=== PATIENT | male | born 1945 | race Caucasian/White ===

== ENCOUNTER 2024-01-15 13:22 | Outpatient (RCR) | payer OTHER, SELFPAY | END 2024-02-08 23:59 | disposition home or self-care (01) | LOC: SCTC 13:22 | PROVIDERS: PCP Family Medicine; Referring Provider Family Medicine; Visit Provider Internal Medicine Hematology & Oncology | DX: Z51.11 Encounter for antineoplastic chemotherapy (principal); C61 Malignant neoplasm of prostate; Z87.19 Personal history of other diseases of the digestive system; E03.9 Hypothyroidism, unspecified; N18.6 End stage renal disease; Z99.2 Dependence on renal dialysis; D63.1 Anemia in chronic kidney disease | CPT/HCPCS: 96402; J9217 ==

== ENCOUNTER → 2024-01-28 | Outpatient (CLI) | payer OTHER, SELFPAY ==
[2024-01-28 15:54] LABS: Collection Type, Urine Clean Catch
[2024-01-28 16:57] LABS: Bacteria,Urine Rare; Bilirubin,Urine Negative (Negative); Blood,Urine 1+ (Negative); Color,Urine Yellow (Lt Yel-Yel); Glucose, Urine Negative (Negative); Ketones,Urine Negative (Negative); Leukocyte Esterase,Urine Positive (Negative); Nitrite,Urine Negative (Negative); PH,Urine 6.5 (5.0-7.0); Protein,Urine 1+ (Neg - Trace); RBC,Urine 6 /hpf (0-3); Specific Gravity,Urine 1.013 (1.001-1.035); Squamous Epithelial Cell,Urine < 1 /hpf (0-5); Urobilinogen,Urine Negative mg/dL (0.0-1.0); WBC,Urine 774 /hpf (0-5)
[2024-01-28 17:04] LABS: Clarity,Urine Hazy (Clear/Hazy); Culture Indicated,Urine Yes
== END | disposition home or self-care (01) ==
LOC: SLDO 15:48
PROVIDERS: PCP Internal Medicine; Referring Provider Internal Medicine; Visit Provider Internal Medicine
DX: Z01.89 Encounter for other specified special examinations (principal)
CPT/HCPCS: 81001; 87077; 87086; 87186

== ENCOUNTER → 2024-02-10 | Outpatient (CLI) | payer OTHER, SELFPAY ==
[2024-02-10 10:59] LABS: Basophils % (Auto) 0 % (0-2.5); Eosinophils # (Auto) 0.4 Thou/mm3 (0.0-0.5); Eosinophils % (Auto) 5 % (0-10); Hematocrit 34.6 % (41.0-53.0); Hemoglobin 11.3 g/dL (13.5-16.0); Immature Granulocytes % (Auto) 0 % (0-0); Immature Granulocytes Auto 0.03 Thou/mm3 (0.00-0.00); Lymphocytes # (Auto) 1.1 Thou/mm3 (1.0-4.8); Lymphocytes % (Auto) 14 % (10-50); Mean Corpuscular HGB Conc 32.7 g/dl (31.0-37.0); Mean Corpuscular Volume 95 fL (80-100); Monocytes # (Auto) 0.8 Thou/mm3 (0.0-0.8); Monocytes % (Auto) 10 % (0-12); Neutrophils # (Auto) 5.8 Thou/mm3 (1.8-7.7); Neutrophils % (Auto) 72 % (37-80); Nucleated Red Blood Cell % 0 /100 WBC (0); Platelet Count 127 Thou/mm3 (140-440); Red Blood Count 3.64 Miln/mm3 (4.50-5.90); White Blood Count 8.2 Thou/mm3 (3.8-10.6)
[2024-02-10 11:07] LABS: Prostate Specific Antigen 19.81 ng/mL (0-4.00)
[2024-02-10 12:32] LABS: Alanine Aminotransferase 14 U/L (10-49); Albumin/Globulin Ratio 1.5 (1.2-2.2); Alkaline Phosphatase 101 U/L (46-116); Anion Gap 15 (7-16); Aspartate Amino Transferase 17 U/L (0-34); BUN/Creatinine Ratio 12 Ratio (12-20); Bilirubin,Total 0.4 mg/dL (0.3-1.2); Blood Urea Nitrogen 51 mg/dL (9-23); Carbon Dioxide 24.1 mMol/L (20.0-31.0); Chloride 103 mMol/L (98-107); Creatinine (Component) 4.2 mg/dL (0.6-1.3); Globulin 2.6 gm/dL (2.3-3.5); Glucose 112 mg/dL (74-106); Osmolality,Calculated 297 (275-295); Potassium 3.5 mMol/L (3.4-5.1); Sodium 142 mMol/L (136-145); Total Protein 6.6 gm/dL (5.7-8.2); eGFR 14 See Note
== END | disposition home or self-care (01) ==
LOC: SCTO 09:14
PROVIDERS: PCP Family Medicine; Referring Provider Internal Medicine Hematology & Oncology; Visit Provider Internal Medicine Hematology & Oncology
DX: D64.9 Anemia, unspecified (principal); C61 Malignant neoplasm of prostate
CPT/HCPCS: 36415; 80053; 84153; 85025

== ENCOUNTER 2024-02-12 14:24 | Outpatient (RCR) | payer OTHER, SELFPAY ==
--- NOTE | 2024-02-23 21:28 | CTCFLWUP_ITS ---
Patient: ARTURO QUEZADA : 1945 Page 2 of 2 FOLLOW UP NOTE DATE OF SERVICE: 02/12/2024 NAME: ARTURO QUEZADA ACCOUNT: [id number] : 1945 AGE: 79 REASON FOR VISIT: Biochemical failure localized prostate cancer INTERVAL HISTORY: Patient is here to follow-up on prostate cancer. Patient has been on Lupron and Xtandi which was sta rted on April 10, 2022. Patient is doing well and has no complaints Arturo Quezada is a 79-year-old ENG speaking male with following oncology history. April 2010: Mr. Quezada was diagnosed with [place] score 7 prostate cancer. Treated with EBRT and Zoladex for 1 year. Until 2016: PSA less than 0.1. O ctober 2019: PSA 3.1. August 25, 2020 PSA 10.8. 09/07/2020: Bone scan? 08/25/2020: PSA 10.8 09/21/2020: Patient was started on Lupron every 3 months as well as Casodex. 12/02/2020: PSA 2.6. 12/21/2020: PSA 1.3. 03/24/2021: PSA 0.9. 02/21/2021: Mr. Quezada had a bilateral ureteral stent placement 04/10/2022: Patient is started on enzalutamide (Xtandi) 05/08/2023: Colonoscopy done 05/16/2023: Bone scan ? 05/22/2023: Bone marrow biopsy and aspiration? WBC 8.8, ANC 6.4, hemoglobin 10.5, MCV 93, platelets 185,000. 05/21/2023: PSA 4.35. 07/22/2023: PSA 6.23. 08/15/2023: PET/CT scan 09/26/2023: PSA 7.89. ONCOLOGY HISTORY: DIAGNOSIS: PSA only recurrent nonmetastatic prostate cancer. Progressed on Lupron. Currently on Lupron and Xtandi. Xtandi started on 04/10/2022 End-stage renal disease currently on hemodialysis Hypothyroidism currently on levothyroxine. History of chronic kidney disease DATE OF DIAGNOSIS: April 2010 STAGE/TNM: Localized prostate cancer with a [place] score 7 s/p external beam radiotherapy and Lupron for 1 year PSA started rising up. Patient have not documented metastatic disease still now TREATMENT HISTORY: Care?Plan Start?Date Cycle Day Intent Lupron?22.5?mg?q?3?mon 06/26/2023 1 90 Palliative OTHER MEDICAL HISTORY/CONDITIONS: ENDSTAGE RENAL ON DYALYSIS 3 TIMES WK PROSATE CANCER COPD THYROID ISSUES STROKE 2018 GALLBLADDER HEMRRHOIDECTOMY 1989 KIDNEY STONES CATRACTS FISTULA R ARM ?Clone Other Med Hx? FAMILY HISTORY: Father:?LUNG?-?DX?70 Mother:?UNKNOWN Sibling: BROTHER PROSTATE X 2 dx age 82 and 65 ?Clone Family Hx? SOCIAL HISTORY: Occupational?History:?RETIRED Education?Level:?Completed High School Marital?Status:? Tobacco?Pack?per?Day:?1 Tobacco?Use?Years:?40 Tobacco?Use:?QUIT?2008 ETOH?Use:?DENIES Drug?Note:?DENIES Social?History?Note:?DAUGHTER/?Clone Social Hx? MEDICATIONS: 1. atorvastatin - 40 mg Daily 2. calcium acetate - 667 mg 1 tab Three times a day 3. docusate sodium - 100 mg 2 tab Daily 4. fluticasone propion-salmeteroL - 100-50 mcg/dose 2 Daily 5. gabapentin - 100 mg Daily 6. levothyroxine - 100 microgram Daily 7. melatonin - 10 mg 1 tab Every day before sleep 8. Nephro-Matt - 1 tab Daily 9. nortriptyline - 25 mg 1 Capsule Daily 10. pantoprazole - 40 mg 1 Twice a Day 11. prednisone - 5 mg 1 tab Daily 12. tamsulosin - 0.4 mg 1 Capsule Daily 13. traZODone - 100 mg 1 tab Every day before sleep 14. Vitamin C - 1,000 mg 1 tab Daily 15. Zytiga - 500 mg 2 tab Daily?Palabra Meds? Medications Last Reconciled by Leti Lai MA on 02/12/2024 ALLERGIES: No Known Drug Allergies REVIEW OF SYSTEMS: A complete 14-point review of systems was performed and is negative except as noted in interval histo ry. PHYSICAL EXAMINATION:?CloneBlock PE? VITAL SIGNS: Temperature?97.4, B/P?134/72, Oxygen?Saturation?95% Weight?198?lbs (Change?since?11/6/24 :?-2.2?lbs) PAIN: 3 - Between mild and moderate pain ECOG Performance Status: 0 - Asymptomatic and fully active EYE: Conjunctivae is white MOUTH: Oral cavity is dry. CHEST: Clear to auscultation. No wheezes or rales audible. CARDIAC: Rhythm regular, no murmurs or gallops present. ABDOMEN: Soft. No hepatomegaly. No splenomegaly. EXTREMITIES: No pedal edema or cyanosis. LABORATORY DATA: I have personally reviewed and interpreted each of the patient?s relevant lab tests, abnormal finding s are below: Date 02/23/24 ??WHITE?BLOOD?COUNT?(Thou/mm3) 16.1?H ??RED?BLOOD?COUNT?(Miln/mm3) 2.29?L ??HEMOGLOBIN?(gm/dl) 7.2?L ??HEMATOCRIT?(%) 22.1?L ??PLATELET?COUNT?(Thou/mm3) 240 ??NEUTROPHILS?%,?AUTO?(%) 76 ??LYMPH?%,?AUTO?(%) 15 ??NEUTROPHILS,?AUTO?(Thou/mm3) 12.2?H IMPRESSION/PLAN: #1 prostate cancer with biochemical failure PSA has increased to more than [address] scan showed normal hypermetabolic intra-abdominal lymph node s as documented above. PSA only recurrent nonmetastatic prostate cancer. Progressed on Xtandi. Was switched to Zytiga and prednisone at the last visit Patient tolerating it well Discussed that pat ient may be not responding to Zytiga Will give Lupron shot SERA If patient have further progression in PSA we will change therapy Patient is very reluctant to change treatment to chemotherapy or to travel for therapy Will wait for next se t of PSA Continue Zytiga and prednisone for now Extensively counseled that patient cannot miss his pr ednisone as it can lead to stroke and accelerated hypertension and myocardial infarction He has a his tory of underlying stomach ulcers Patient is on sucralfate and proton pump inhibitor Advised to take prednisone with food Patient: ARTURO QUEZADA Patient understand that it can cause perforation in the stomach Will get his scan ? pet scan #2 history of gastric ulcers Patient follows with Dr. Stewart advised to continue follow-up with gastr oenterology #3 hypothyroidism currently on levothyroxine.-Stable #4 chronic kidney [id number] with nephrology #5 chronic anemia likely from chemotherapy as well as CKD Closely monitor. ORDERS: PET/CT scan Cbc cmp psa RETURN TO CLINIC: I will see him back in the clinic in 4 weeks. BILLING AND COMPLIANCE: I reviewed external records from providers outside my specialty as summarized above. I spent a total of 50 minutes on this patient?s care on the day of their visit excluding time spent related to any bi lled procedures. This time includes time spent with the patient as well as time spent documenting in the medical record, reviewing patients records and tests, obtaining history, placing orders, communi cating with other healthcare professionals, counseling the patient, family or caregiver, and/or care coordination for the diagnoses above. Electronically Signed by: Maikol Ramírez MD T: 9:26 PM CC: PCP: Shen Skelton Referring: Shen Skelton This document was completed utilizing speech recognition software. Grammatical errors, random word in sertions, pronoun errors, and incomplete sentences are an occasional consequence of this system due t o software limitations, ambient noise, and hardware issues. Any formal questions or concerns about th e content, text or information contained within the body of this dictation should be directly address ed to the provider for clarification.
== END 2024-03-10 23:59 | disposition home or self-care (01) ==
LOC: SCTC 14:24
PROVIDERS: PCP Family Medicine; Referring Provider Family Medicine; Visit Provider Internal Medicine Hematology & Oncology
DX: C61 Malignant neoplasm of prostate (principal); E03.9 Hypothyroidism, unspecified; D64.9 Anemia, unspecified; Z87.19 Personal history of other diseases of the digestive system
CPT/HCPCS: 99212; G0463

== ENCOUNTER 2024-02-23 11:58 | Inpatient (IN) | payer OTHER, MEDICARE, SELFPAY ==
[2024-02-23] VITALS (9 sets, daily range): BP systolic 103–126; BP diastolic 52–66; PULSE 79–109; RESP 14–23; TEMP 36.4–36.9; O2SAT 96–100; BMI 25.7
--- NOTE | 2024-02-23 12:12 | EKG_ITS ---
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
--- NOTE | 2024-02-23 12:23 | EDRME_ITS ---
Rapid Medical Screening Exam [facility] Arrival date/time: 02/23/24 11:58 Chief Complaint: GI Bleed Vital signs: Vital Signs Temperature 97.6 F 02/23/24 12:19 Pulse Rate 103 H 02/23/24 12:19 Respiratory Rate 19 02/23/24 12:19 Blood Pressure 106/61 02/23/24 12:19 Pulse Oximetry (%) 98 02/23/24 12:19 Oxygen Delivery Method Room Air 02/23/24 12:19 [facility] Narrative: Reports black stools x 4 days. History of GI bleed, ruptured ulcers. Patient c/o generalized weakness and mild dizziness.
[2024-02-23 13:05] LABS: Basophils % (Auto) 0 % (0-2.5); Eosinophils # (Auto) 0.2 Thou/mm3 (0.0-0.5); Eosinophils % (Auto) 1 % (0-10); Hematocrit 22.1 % (41.0-53.0); Immature Granulocytes % (Auto) 1 % (0-0); Lymphocytes # (Auto) 2.5 Thou/mm3 (1.0-4.8); Lymphocytes % (Auto) 15 % (10-50); Mean Corpuscular HGB Conc 32.6 g/dl (31.0-37.0); Mean Corpuscular Hemoglobin 31.4 pg (25.0-35.0); Mean Corpuscular Volume 97 fL (80-100); Monocytes # (Auto) 1.1 Thou/mm3 (0.0-0.8); Monocytes % (Auto) 7 % (0-12); Neutrophils # (Auto) 12.2 Thou/mm3 (1.8-7.7); Neutrophils % (Auto) 76 % (37-80); Nucleated Red Blood Cell % 0 /100 WBC (0); Platelet Count 240 Thou/mm3 (140-440); RDW Standard Deviation 52.4 fL (35.1-43.9); Red Blood Count 2.29 Miln/mm3 (4.50-5.90); White Blood Count 16.1 Thou/mm3 (3.8-10.6)
[2024-02-23 13:20] LABS: Partial Thromboplastin Time 22.8 Seconds (22.0-36.0)
[2024-02-23 13:23] LABS: Alanine Aminotransferase 10 U/L (10-49); Albumin/Globulin Ratio 1.7 (1.2-2.2); Alkaline Phosphatase 74 U/L (46-116); Anion Gap 12 (7-16); Aspartate Amino Transferase 11 U/L (0-34); BUN/Creatinine Ratio 20 Ratio (12-20); Bilirubin,Total 0.2 mg/dL (0.3-1.2); Blood Urea Nitrogen 72 mg/dL (9-23); Calcium 8.4 mg/dL (8.3-10.6); Calcium (Corrected) 8.4 mg/dL (8.5-10.1); Chloride 98 mMol/L (98-107); Creatinine (Component) 3.6 mg/dL (0.6-1.3); Globulin 2.4 gm/dL (2.3-3.5); Glucose 233 mg/dL (74-106); Hemoglobin 7.2 g/dL (13.5-16.0); Lipase 90 U/L (12-53); Osmolality,Calculated 302 (275-295); Potassium 3.2 mMol/L (3.4-5.1); Sodium 137 mMol/L (136-145); Total Protein 6.4 gm/dL (5.7-8.2); Troponin I < 0.020 ng/mL (0.0-0.045); eGFR 16 See Note
--- NOTE | 2024-02-23 14:11 | PD.EDADULT ---
ED General RME/HPI General Chief complaint: GI Bleed Stated complaint: WEAK x2 D,BLACK STOOL x 4 DAY, CONGESTED x 10 DAYS Time Seen by Provider: 02/23/24 12:38 Arrival date/time: 02/23/24 11:58 CC: Black tarry stools HPI ongoing for the past 4 days. The patient has a history of GI bleeds was seen by Dr. Stewart in June 2023 for hemorrhagic gastritis and chronic duodenitis. Patient is ESRD on dialysis with a history of prostate cancer. Review the medical records show that the last hemoglobin was 11.2. 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 RME / HPI RME / HPI narrative: Reports black stools x 4 days. History of GI bleed, ruptured ulcers. Patient c/o generalized weakness and mild dizziness. Related Data Home Medications ?Medication ?Instructions ?Recorded ?Confirmed levothyroxine 100 mcg tablet 100 mcg PO QDAY #0 tabs 12/19/16 02/23/24 atorvastatin 40 mg tablet 1 tab PO HS 08/01/21 02/23/24 docusate sodium 100 mg tablet 100 mg PO BID 11/07/21 02/23/24 trazodone 50 mg tablet 100 mg PO QDAY 01/30/22 02/23/24 calcium acetate(phosphat bind) 667 667 mg PO TID 06/27/22 02/23/24 mg capsule gabapentin 100 mg capsule 100 mg PO QDAY 06/27/22 02/23/24 tamsulosin 0.4 mg capsule 0.4 mg PO QDAY 10/26/22 02/23/24 fluticasone 100 mcg-salmeterol 50 1 inh inhalation BID 02/04/23 02/23/24 mcg/dose blistr powdr for inhalation ascorbic acid (vitamin C) 100 mg 100 mg PO QDAY 05/22/23 02/23/24 tablet (Vitamin C) leuprolide (3 month) 22.5 mg (3 See Rx Instructions .Route .COMPLEX 05/22/23 02/23/24 month) intramuscular syringe kit (Lupron Depot) prednisone 5 mg tablet 5 mg PO QDAY 11/22/23 02/23/24 abiraterone 250 mg tablet 250 mg PO QDAY 02/23/24 02/23/24 sitagliptin 25 mg tablet 25 mg PO QDAY 02/23/24 02/23/24 sucralfate 1 gram tablet 1 g PO BID 02/23/24 02/23/24 nicotine (polacrilex) 4 mg buccal 4 mg buccal Q2H PRN Smoking 02/24/24 02/24/24 lozenge Cessation prednisolone acetate 1 % eye 1 drp ophthalmic (eye) QID 02/24/24 02/24/24 drops,suspension Previous Rx's ?Medication ?Instructions ?Recorded pantoprazole 40 mg tablet,delayed 40 mg PO BID #60 tabs 05/08/23 release (Protonix) Allergies Allergy/AdvReac Type Severity Reaction Status Date / Time No Known Allergies Allergy Verified 02/23/24 12:11 Review of Systems Review of Systems Narrative Review of Systems: GEN: No fever, no chills, no weight loss EYES: No discharge, no visual changes, no pain HEENT: No ear pain, no congestion, no sore throat PULM: No shortness of breath, no cough, no congestion CV: No chest pain, no dyspnea on exertion, no palpitations GI: No nausea, no vomiting, no diarrhea, no pain, no constipation : No frequency, no urgency, no dysuria MUSC/SKEL: No joint pain, no back pain SKIN: No rash PSYCH: No hallucinations, no depression HEME/LYMPH: No easy bleeding or bruising tendencies NEURO: +weakness, no headache Past Medical History Past Medical History NEUROLOGIC: Positive Neurological Disorders, Cerebrovascular Accident, Transient Ischemic Attacks (TIA), Brain Tumor (tumor left frontal lobe) and Migraine; Negative Seizures or Dyson's Palsy CARDIAC: Positive Cardiac Disorders, Heart Murmur and Hypercholesterolemia; Negative Congestive Heart Failure, Edema, Cellulitis or Varicose Veins RESPIRATORY: Positive Chronic Obstructive Pulmonary Disease (COPD), Asthma, Emphysema and Pneumonia; Negative Tuberculosis or Sleep Apnea GASTROINTESTINAL: Positive Gastrointestinal Disorders, Gall Bladder Disease, Ulcer, Hemorrhoids and Gastroesophageal Reflux Disease; Negative Hepatitis GENITOURINARY: Positive Genitourinary Disorders, Renal Disease, Kidney Stones, Dialysis (, , Saturdays- has fistula left arm), Prostate Cancer and Benign Prostatic Hyperplasia MUSCULOSKELETAL: Positive Musculoskeletal Disorders and Arthritis ENT: Positive Cataracts and Deafness (wear hearing aids both ears) ENDOCRINE: Positive Endocrine Disorders, Diabetes Mellitus Type 2 and Hypothyroidism; Negative Diabetes Mellitus Type 1 HEMATOLOGIC: Positive Blood Disorders and Anemia PSYCHO/SOCIAL: Positive Depression, Anxiety and Post Traumatic Stress Disorder; Negative Depression OTHER HISTORY: Positive Hospitalization, Shingles, Blood Transfusions, Chemotherapy, Radiation Therapy, Chicken Pox, Measles, Mumps, Cancer and Prostate Cancer; Negative Autoimmune Disease, Falls, Blood Transfusion Reaction, Anesthesia Reactions or MRSA Family History FAMILY HISTORY: Positive Family Psychiatric Problems, Family Respiratory Disorders, Family Cardiac Disorders, Family Cancer and Family Surgery; Negative Family Gastrointestinal Problems or Family Anesthesia Reaction Surgical History SURGICAL: Positive Angiogram, Ear Surgery, Nephrectomy and Vasectomy; Negative Cardiac Surgery, Pacemaker or Joint Replacement Social History SMOKING STATUS: Never smoker SECOND HAND EXPOSURE: No SUBSTANCE USE: does not use ED Exam Narrative Physical exam: [General: Obese not in any acute distress Head normocephalic HEENT: Within acceptable limits Neck is supple nontender Chest equal chest rise nontender to palpation Respiratory: Clear to auscultation no wheezes crackles or rubs CV: Rate rhythm is regular no murmurs rubs or clicks Abdomen is distended secondary to body habitus soft nontender no masses positive bowel sounds all 4 quadrants Back: No CVA tenderness no spinous process tenderness from cervical spine thoracic and lumbar spine Skin: Pale, intact no petechiae rash induration ulceration or crepitus Extremities: Moving all extremity against resistance cap refill less than 2 seconds neurosensory intact Neuro: Awake alert oriented x2, Glascow coma 15 no focal deficits] Course Quality Measures none Orders Category Date Time Status EKG (ED ONLY) *Do not use* NOW Care 02/23/24 12:12 Completed NPO after Midnight ONCE Care 02/23/24 14:37 Active Saline [Insert IV] NOW Care 02/23/24 14:10 Completed Transfuse,blood/blood products NOW Care 02/23/24 14:10 Active Consult to Gastroenterology Stat Cons 02/23/24 14:36 Ordered Diet NPO after Midnight Diet 02/24/24 00:01 Completed EKG (ED Only) Stat Exams 02/23/24 12:12 Draft CBC Stat Lab 02/23/24 12:51 Completed CMP [Comprehensive Metabolic Panel] Stat Lab 02/23/24 12:51 Completed Lipase Stat Lab 02/23/24 12:51 Completed Partial Thromboplastin Time Stat Lab 02/23/24 12:51 Completed Prothrombin Time with INR Stat Lab 02/23/24 12:51 Completed Troponin I Stat Lab 02/23/24 12:51 Completed Type and Screen Stat Lab 02/23/24 12:51 Completed prbc [Red Blood Cells] Stat Lab 02/23/24 12:51 Completed Pantoprazole Inj [Protonix Inj] Med 02/23/24 14:10 Discontinued 40 mg IVP X1 ONE Pantoprazole/Ns 80Mg IV Premix [Protonix/NS 80mg IV Med 02/23/24 14:10 Active Premix] 80 mg in 100 ml IV Q10H Vital Signs Vital signs: Vital Signs Temperature 97.6 F 02/23/24 12:19 Pulse Rate 103 H 02/23/24 12:19 Respiratory Rate 19 02/23/24 12:19 Blood Pressure 106/61 02/23/24 12:19 Pulse Oximetry (%) 98 02/23/24 12:19 Oxygen Delivery Method Room Air 02/23/24 12:19 [facility] Patient data External records reviewed:: [facility] previous records Clinical information provided by:: patient and family Social determinants that could affect healthcare access:: none Patient has the following chronic illnesses:: ESRD dialysis prostate cancer How is presenting disease/condition affected by chronic disease/condition?: uneffected by Evaluation data The following diagnostics were reviewed and interpreted by me:: lab results and radiology exam(s) Lab and/or radiology exams considered but not ordered:: EKG performed at 1224 shows a ventricular rate of 104 GA interval 162 QRS of 102 QTc of 427 the sinus tachycardia left axis deviation. CBC shows leukocytosis of 16,000 H&H of 7.2 and 21 no thrombocytopenia note this is a 4 g drop in the past 13 days. CMP shows BUN of 72 creatinine 3.6 no other significant electrolyte imbalances, transaminitis, or T. bili elevation Corrected calcium 8.4. Troponin is negative Interpretation Summary: GI bleed anemia Medications Medications considered but not ordered:: None Medication administrations:: Medication Administration History Acetaminophen (Acetaminophen 325 Mg Tablet) 650 mg PO Q6H PRN PRN Reason: Fever >101.5 or pain 1-3 Stop: 03/24/24 15:47 Albuterol/Ipratropium (Albuterol/Ipratropium (Duoneb) Rt Christianne 3 Ml Nebu) 3 ml INH Q6HRRT PRN PRN Reason: SHORTNESS OF BREATH OR WHEEZE Stop: 03/24/24 18:59 Atorvastatin Calcium (Atorvastatin Calcium 20 Mg Tablet) 40 mg PO QDAY [facility] Stop: 03/25/24 08:59 Last Admin: 02/24/24 09:57 Dose: 40 mg Documented By: GA Calcium Acetate (Calcium Acetate 667 Mg Tablet) 667 mg PO TIDWM [facility] Stop: 03/24/24 17:29 Last Admin: 02/24/24 17:39 Dose: 667 mg Documented By: Admin: 02/24/24 12:52 Dose: Not Given Documented By: GA Non-Admin Reason: NPO Admin: 02/24/24 09:57 Dose: 667 mg Documented By: Admin: 02/23/24 19:33 Dose: 667 mg Documented By: ARTEMIO Abiraterone Acetate (250 Mg Tablets) 0 ea PO ACBR [facility] Stop: 03/26/24 05:59 Dextrose (Dextrose 50%-Water Inj 50 Ml Syringe) 25 ml IV Q15MIN PRN PRN Reason: BG 50-70 responsive npo pt Stop: 03/24/24 16:17 Dextrose (Dextrose 50%-Water Inj 50 Ml Syringe) 50 ml IV Q15MIN PRN PRN Reason: BG <50 OR BG <70 & pt unresponsive Stop: 03/24/24 16:17 Docusate Sodium (Docusate Sod 100 Mg Capsule) 100 mg PO BID [facility]; Protocol Stop: 03/24/24 20:59 Last Admin: 02/24/24 21:13 Dose: 100 mg Documented By: Admin: 02/24/24 09:57 Dose: 100 mg Documented By: Admin: 02/23/24 21:46 Dose: 100 mg Documented By: ROGELIO Gabapentin (Gabapentin 100 Mg Capsule) 100 mg PO QDAY [facility] Stop: 03/25/24 08:59 Last Admin: 02/24/24 09:57 Dose: 100 mg Documented By: GA Glucagon (Glucagon Inj 1 Mg Vial) 1 mg IM Q15MIN PRN PRN Reason: BG <70, and no IV access Pantoprazole Sodium (Protonix/Ns 80mg Iv Premix) 80 mg in 100 mls @ 10 mls/hr IV Q10H ROBERT Stop: 02/26/24 12:09 Last Admin: 02/24/24 13:44 Dose: 10 mls/hr Documented By: Infusion: 02/24/24 11:59 Dose: Infused Documented By: Admin: 02/24/24 01:59 Dose: 10 mls/hr Documented By: Infusion: 02/24/24 01:08 Dose: Infused Documented By: Admin: 02/23/24 15:08 Dose: 10 mls/hr Documented By: ARTEMIO Piperacillin/Tazobactam/Dextrose (Zosyn) 50 mls @ 12.5 mls/hr IV Q12HR [facility] Stop: 03/02/24 08:59 Last Admin: 02/24/24 21:13 Dose: 12.5 mls/hr Documented By: Infusion: 02/24/24 13:59 Dose: Infused Documented By: Admin: 02/24/24 09:59 Dose: 12.5 mls/hr Documented By: PRECIOUS Insulin Human Lispro (Insulin Lispro (Admelog) 1 Unit/0.01 Ml Unit) 0 unit SC [facility]; Protocol Stop: 03/24/24 16:59 Last Admin: 02/24/24 21:13 Dose: Not Given Documented By: ROGELIO Non-Admin Reason: Per Protocol Admin: 02/24/24 17:08 Dose: Not Given Documented By: GA Non-Admin Reason: Per Protocol Admin: 02/24/24 11:11 Dose: Not Given Documented By: GA Non-Admin Reason: NPO Admin: 02/24/24 07:28 Dose: Not Given Documented By: GA Non-Admin Reason: Per Protocol Admin: 02/23/24 21:46 Dose: Not Given Documented By: CM Non-Admin Reason: Per Protocol Admin: 02/23/24 19:30 Dose: Not Given Documented By: ARTEMIO Non-Admin Reason: not indicated: BG 110 Levothyroxine Sodium (Levothyroxine Sodium 100 Mcg Tablet) 100 mcg PO ACBR [facility] Stop: 03/25/24 05:59 Last Admin: 02/24/24 05:49 Dose: Not Given Documented By: ROGELIO Non-Admin Reason: NPO Ondansetron HCl (Ondansetron Inj 2 Mg/Ml Inj 2 Ml) 4 mg IV Q6H PRN; Protocol PRN Reason: NAUSEA OR VOMITING Stop: 03/24/24 15:47 Pharmacy Consult (Pharmacy Renal Dose Adjustment 1 Ea) 1 each XX PRN PRN PRN Reason: CONSULT Stop: 03/24/24 16:24 Sitagliptin Phosphate (Sitagliptin Phosphate 50 Mg Tablet) 25 mg PO QDAY [facility] Stop: 03/25/24 08:59 Last Admin: 02/24/24 09:58 Dose: 25 mg Documented By: GA Sucralfate (Sucralfate 1 Gm Tablet) 1 gm PO X1 PRN PRN Reason: ABDOMINAL CRAMPING Stop: 03/24/24 15:54 Tamsulosin HCl (Tamsulosin Hcl 0.4 Mg Capsule) 0.4 mg PO QDAY [facility] Stop: 03/25/24 08:59 Last Admin: 02/24/24 09:57 Dose: 0.4 mg Documented By: GA Tramadol HCl (Tramadol Hcl 50 Mg Tablet) 50 mg PO Q12HR PRN PRN Reason: PAIN SCALE 4-6 (Moderate Stop: 02/28/24 15:54 Trazodone HCl (Trazodone Hcl 50 Mg Tablet) 100 mg PO HS [facility] Stop: 03/24/24 20:59 Last Admin: 02/24/24 21:12 Dose: 100 mg Documented By: Admin: 02/23/24 21:46 Dose: 100 mg Documented By: ROGELIO Discontinued Medications Albuterol/Ipratropium (Albuterol/Ipratropium (Duoneb) Rt Christianne 3 Ml Nebu) 3 ml INH Q6HRRT [facility] Stop: 03/24/24 18:59 Last Admin: 02/23/24 19:35 Dose: 3 ml Documented By: ENIO Diphenhydramine HCl (Diphenhydramine Inj 50 Mg/Ml Vial) Confirm Administered Dose 50 mg .ROUTE .STK-MED ONE Stop: 02/24/24 16:02 Diphenhydramine HCl (Diphenhydramine Inj 50 Mg/Ml Vial) 25 mg IV PRNMRX1 PRN PRN Reason: MODERATE SEDATION Stop: 02/24/24 18:09 Fentanyl Citrate (Fentanyl Cit Inj 50 Mcg/Ml Amp 2ml) Confirm Administered Dose 100 mcg .ROUTE .STK-MED ONE Stop: 02/24/24 16:02 Fentanyl Citrate (Fentanyl Cit Inj 50 Mcg/Ml Amp 2ml) 25 mcg IV Q2M PRN PRN Reason: MODERATE SEDATION Stop: 02/24/24 18:09 Gabapentin (Gabapentin 100 Mg Capsule) 100 mg PO X1 ONE Stop: 02/23/24 15:56 Last Admin: 02/23/24 16:24 Dose: 100 mg Documented By: ARTEMIO Piperacillin/Tazobactam/Dextrose (Zosyn) 50 mls @ 100 mls/hr IV X1 ONE Stop: 02/23/24 16:59 Last Admin: 02/23/24 19:24 Dose: 100 mls/hr Documented By: ARTEMIO Potassium Chloride (Kcl Ivpb) 10 meq in 100 mls @ 100 mls/hr IV Q1H [facility] Stop: 02/24/24 12:13 Last Admin: 02/24/24 17:32 Dose: Not Given Documented By: GA Non-Admin Reason: MD notified Admin: 02/24/24 14:05 Dose: 100 mls/hr Documented By: Infusion: 02/24/24 13:44 Dose: Infused Documented By: Admin: 02/24/24 12:44 Dose: 100 mls/hr Documented By: Infusion: 02/24/24 12:21 Dose: Infused Documented By: Admin: 02/24/24 11:21 Dose: 100 mls/hr Documented By: GA Midazolam HCl (Midazolam Inj 1 Mg/Ml Vial 2 Ml) Confirm Administered Dose 4 mg .ROUTE .STK-MED ONE Stop: 02/24/24 16:02 Midazolam HCl (Midazolam Inj 1 Mg/Ml Vial 2 Ml) 2 mg IV Q2M PRN PRN Reason: Moderate Sedation Stop: 02/24/24 18:09 Pantoprazole Sodium (Pantoprazole Inj 40 Mg Vial) 40 mg IVP X1 ONE Stop: 02/23/24 14:11 Last Admin: 02/23/24 15:07 Dose: 40 mg Documented By: ARTEMIO Home Medication- Please Speak With Patient Caregiver To Have Rx Brought To [facility] 1 ea PO QID [facility] Stop: 03/24/24 16:59 Last Admin: 02/24/24 05:49 Dose: Not Given Documented By: ROGELIO Non-Admin Reason: NPO Admin: 02/23/24 21:34 Dose: Not Given Documented By: ROGELIO Non-Admin Reason: patient took meds today already Admin: 02/23/24 19:30 Dose: Not Given Documented By: ARTEMIO Non-Admin Reason: per pt. he take 1x in the AM Prednisone (Prednisone 5 Mg Tablet) 5 mg PO X1 ONE Stop: 02/23/24 16:01 Last Admin: 02/23/24 16:24 Dose: 5 mg Documented By: MP None Consultations Consultation(s) initiated? (list below): Yes Consultation #1 (Physician, Specialty, Details): Terry Time: 14:34 Diagnosis Differential Diagnosis ED Complaint MDM: Upper GI bleed lower GI bleed anemia Most likely diagnosis given after review of the tests above:: Upper GI bleed anemia Admission Indicated Admission indicated?: indicated Explain why admission is indicated or not indicated:: Quires further medical management Admission Request Was there a request for admission?: No Disposition Plan Disposition Plan: Admit Medical Decision Making Differential Diagnosis Differential Diagnosis: Upper GI bleed lower GI bleed anemia Lab Data 02/24/24 04:48 02/24/24 04:48 Labs: Lab Results 02/23/24 Range/Units 12:51 WBC 16.1 H (3.8-10.6) Thou/mm3 RBC 2.29 L (4.50-5.90) Miln/mm3 Hgb 7.2 L (13.5-16.0) g/dL Hct 22.1 L (41.0-53.0) % MCV 97 (80-100) fL MCH 31.4 (25.0-35.0) pg MCHC 32.6 (31.0-37.0) g/dl RDW Std Deviation 52.4 H (35.1-43.9) fL Plt Count 240 D (140-440) Thou/mm3 Neut % (Auto) 76 (37-80) % Lymph % (Auto) 15 (10-50) % [place] % (Auto) 7 (0-12) % Eos % (Auto) 1 (0-10) % Baso % (Auto) 0 (0-2.5) % Neut # (Auto) 12.2 H (1.8-7.7) Thou/mm3 Lymph # (Auto) 2.5 (1.0-4.8) Thou/mm3 [place] # (Auto) 1.1 H (0.0-0.8) Thou/mm3 Eos # (Auto) 0.2 (0.0-0.5) Thou/mm3 Baso # (Auto) 0.0 (0.0-0.2) Thou/mm3 Immature Gran # (Auto) 0.10 H (0.00-0.00) Thou/mm3 Absolute Nucleated RBC 0.00 (0.00-0.00) Thou/mm3 Immature Gran % 1 H (0-0) % Nucleated RBC % 0 (0) /100 WBC PT 11.0 (9.0-12.2) Seconds INR 1.0 (0.9-1.3) APTT 22.8 (22.0-36.0) Seconds Sodium 137 (136-145) mMol/L Potassium 3.2 L (3.4-5.1) mMol/L Chloride 98 (98-107) mMol/L Carbon Dioxide 27.0 (20.0-31.0) mMol/L Anion Gap 12 (7-16) BUN 72 H (9-23) mg/dL Creatinine 3.6 H (0.6-1.3) mg/dL Estim Creat Clear Calc Not Performed. eGFR 16 L (60 - ) See Note BUN/Creatinine Ratio 20 (12-20) Ratio Glucose 233 H (74-106) mg/dL Calculated Osmolality 302 H (275-295) Calcium 8.4 (8.3-10.6) mg/dL Corrected Calcium 8.4 L (8.5-10.1) mg/dL Total Bilirubin 0.2 L (0.3-1.2) mg/dL AST 11 (0-34) U/L ALT 10 (10-49) U/L Alkaline Phosphatase 74 (46-116) U/L Troponin I < 0.020 (0.0-0.045) ng/mL Total Protein 6.4 (5.7-8.2) gm/dL Albumin 4.0 (3.4-4.8) gm/dL Globulin 2.4 (2.3-3.5) gm/dL Albumin/Globulin Ratio 1.7 (1.2-2.2) Lipase 90 H (12-53) U/L Procalcitonin 0.66 H (0.0-0.49) ng/ml Blood Type A Positive Antibody Screen NEGATIVE Crossmatch See Detail Blood Bank Wristband ID Yes Discharge Plan Plan Patient Disposition: Admit Acute Care w/in Hospital Patient condition on transfer: Stable Problem List Clinical Impression: GI bleed ZULEIKA/STACI Supervising Physician ZULEIKA/STACI Supervising Physician: Dain Ortiz ENP
[2024-02-23] MEDS: PANTOPRAZOLE INJ 40 MG VIAL IVP (15:07)
[2024-02-23] MEDS: PANTOPRAZOLE/NS 80MG IV PREMIX 80 MG/100 ML BAG 10 MG IV (15:08)
--- NOTE | 2024-02-23 16:03 | ESHP_ITS ---
<Statement entered by John Brown MD - 03/10/24 09:28> I reviewed above note and agree with findings and plans. I have also personally examined the patient with medicine team and went over assessment and plan with medical team including administrative intern and resident physician. Documentation for date of: 02/23/24 HPI History of Present Illness History of present illness: 79 y/o male with PMHx of recurrent prostate cancer (previously in remission, sees Dr. Ramírez, on Abiraterone Acetate), ESRD (T//, [employer], Dr. Talley), chronic anemia, diabetes mellitus, hypothyroidism, and COPD who comes to the ED on 02/23/2024 for an evaluation of stools described as dark, onset 4 days ago, multiple episodes, with associated nausea, vomiting, weakness and fatigue. Patient says that he has had the symptoms before, and decided to get checked out to see has been feeling worse. Says that he does not remember the last time he vomited, but says that he had a dark bowel movement prior to arrival. Says that he is not on any blood thinners, unsure if he takes any NSAIDs, but denies coughing up any blood as well. Says that he has prostate cancer in which he sees Dr. Ramírez. Says that he self caths on his own, still makes urine but a little bit of it. Says he has had a colonoscopy before, but does not remember when it was. Says that he has been feeling tired and fatigued, felt like he was going to pass out but did not. Denies having fallen recently. Daughters present at bedside. Denies any chest pain, shortness of breath, syncope, headache. ED course: Patient arrived to the ED with a temperature of 97.6, rate of 103, respiratory rate 19, blood pressure 106/61, satting at 98% room air. Was worked up and was found to have potassium of 3.2, chloride of 98, BUN/creatinine of 72 and 2.6 respectively, glucose of 233, white count of 16, hemoglobin of 7.2, PT and INR of 11 and 1.0 respectively. EKG showed sinus tachycardia. GI was consulted and decision was made to admit patient for further evaluation of GI bleed. 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 Does not smoke currently Review of Systems Review of Systems Narrative Review of Systems: Constitutional: No fever, chills, + weakness and fatigue HEENT: No eye pain, vision loss, ear pain, hearing loss, dysphagia, Cardiovascular: No chest pain, palpitations, edema, pain with walking Respiratory: No cough, shortness of breath, wheezing GI: + NV, + blood in stool, no abdominal pain, constipation, loss of appetite, heartburn Extremities: No presence of pitting edema MSK: No back pain, joint pain, joint swelling Neuro: No dizziness, numbness, weakness, headaches, seizures, tremors Psych: No anxiety, depression Exam Vital Signs Temp Pulse Resp BP Pulse Ox O2 Del Method 98.2 F 99 18 126/52 L 96 Room Air 02/23/24 15:59 02/23/24 15:59 02/23/24 15:59 02/23/24 15:59 02/23/24 15:11 02/23/24 15:11 Narrative Exam General: AAOx3, NAD, hard of hearing a bit, plesant male HEENT: Dry mucous membranes, conjunctiva clear, EOMI, PERRLA, Cardiovascular: S1, S2, radial pulses +2 bilat, murmur heard Pulmonary: CTAB bilat no cough, no wheezing GI: No tenderness to light or deep palpitation, no guarding, rigidity, rebound tenderness or distension Extremities: No presence of trace or pitting edema in lower extremities bilaterally, dorsalis pedis pulses +2 bilaterally Skin: Senile purpura throughout UE bilat Neuro: AAOx3, no focal motor or sensory deficits in the UE or LE bilat Psych: Good judgement, thought and behavior. Cooperative Results: Labs 02/24/24 04:48 02/24/24 04:48 Labs: Short CBC 02/23/24 Range/Units 12:51 WBC 16.1 H (3.8-10.6) Thou/mm3 Hgb 7.2 L (13.5-16.0) g/dL Hct 22.1 L (41.0-53.0) % Plt Count 240 D (140-440) Thou/mm3 BMP 02/23/24 12:51 Sodium 137 Potassium 3.2 L Chloride 98 Carbon Dioxide 27.0 BUN 72 H Creatinine 3.6 H Glucose 233 H Calcium 8.4 Cardiac Enzymes 02/23/24 Range/Units 12:51 Troponin I < 0.020 (0.0-0.045) ng/mL Liver Function 02/23/24 Range/Units 12:51 Total Bilirubin 0.2 L (0.3-1.2) mg/dL AST 11 (0-34) U/L ALT 10 (10-49) U/L Alkaline Phosphatase 74 (46-116) U/L Albumin 4.0 (3.4-4.8) gm/dL Quality Measures Quality Measures none Advance care planning discussed with:: patient Medications Home Medications and Allergies Home Medications ?Medication ?Instructions ?Recorded ?Confirmed ?Type levothyroxine 100 mcg tablet 100 mcg PO QDAY #0 tabs 12/19/16 02/23/24 History atorvastatin 40 mg tablet 1 tab PO HS 08/01/21 02/23/24 History docusate sodium 100 mg tablet 100 mg PO BID 11/07/21 02/23/24 History trazodone 50 mg tablet 100 mg PO QDAY 01/30/22 02/23/24 History calcium acetate(phosphat bind) 667 667 mg PO TID 06/27/22 02/23/24 History mg capsule gabapentin 100 mg capsule 100 mg PO QDAY 06/27/22 02/23/24 History tamsulosin 0.4 mg capsule 0.4 mg PO QDAY 10/26/22 02/23/24 History fluticasone 100 mcg-salmeterol 50 1 inh inhalation BID 02/04/23 02/23/24 History mcg/dose blistr powdr for inhalation ascorbic acid (vitamin C) 100 mg 100 mg PO QDAY 05/22/23 02/23/24 History tablet (Vitamin C) leuprolide (3 month) 22.5 mg (3 See Rx Instructions .Route .COMPLEX 05/22/23 02/23/24 History month) intramuscular syringe kit (Lupron Depot) prednisone 5 mg tablet 5 mg PO QDAY 11/22/23 02/23/24 History abiraterone 250 mg tablet 250 mg PO QDAY 02/23/24 02/23/24 History sitagliptin 25 mg tablet 25 mg PO QDAY 02/23/24 02/23/24 History sucralfate 1 gram tablet 1 g PO BID 02/23/24 02/23/24 History Allergies Allergy/AdvReac Type Severity Reaction Status Date / Time No Known Allergies Allergy Verified 02/23/24 12:11 Visit Medications Acetaminophen (Acetaminophen 325 Mg Tablet) 650 mg PO Q6H PRN PRN Reason: Fever >101.5 or pain 1-3 Stop: 03/24/24 15:47 Albuterol/Ipratropium (Albuterol/Ipratropium (Duoneb) Rt Christianne 3 Ml Nebu) 3 ml INH Q6HRRT [facility] Stop: 03/24/24 18:59 Atorvastatin Calcium (Atorvastatin Calcium 10 Mg Tablet) 40 mg PO QDAY [facility] Stop: 03/25/24 08:59 Docusate Sodium (Docusate Sod 100 Mg Capsule) 100 mg PO BID [facility]; Protocol Stop: 03/24/24 20:59 Gabapentin (Gabapentin 100 Mg Capsule) 100 mg PO QDAY [facility] Stop: 03/25/24 08:59 Pantoprazole Sodium (Protonix/Ns 80mg Iv Premix) 80 mg in 100 mls @ 10 mls/hr IV Q10H [facility] Stop: 02/26/24 12:09 Last Admin: 02/23/24 15:08 Dose: 10 mls/hr Levothyroxine Sodium (Levothyroxine Sodium 100 Mcg Tablet) 100 mcg PO QDAY [facility] Stop: 03/25/24 08:59 Ondansetron HCl (Ondansetron Inj 2 Mg/Ml Inj 2 Ml) 4 mg IV Q6H PRN; Protocol PRN Reason: NAUSEA OR VOMITING Stop: 03/24/24 15:47 Patient Own Medication (Patient's Own Controlled Med 1 Ea) 250 ea PO QID [facility] Stop: 03/24/24 16:59 Prednisone (Prednisone 5 Mg Tablet) 5 mg PO X1 [facility] Stop: 03/24/24 15:59 Sitagliptin Phosphate (Sitagliptin Phosphate 50 Mg Tablet) 25 mg PO QDAY [facility] Stop: 03/25/24 08:59 Sucralfate (Sucralfate 1 Gm Tablet) 1 gm PO X1 PRN PRN Reason: ABDOMINAL CRAMPING Stop: 03/24/24 15:54 Tamsulosin HCl (Tamsulosin Hcl 0.4 Mg Capsule) 0.4 mg PO QDAY [facility] Stop: 03/25/24 08:59 Tramadol HCl (Tramadol Hcl 50 Mg Tablet) 50 mg PO Q12HR PRN PRN Reason: PAIN SCALE 4-6 (Moderate Stop: 02/28/24 15:54 Trazodone HCl (Trazodone Hcl 50 Mg Tablet) 100 mg PO HS [facility]ERT Stop: 03/24/24 20:59 Discontinued Medications Gabapentin (Gabapentin 100 Mg Capsule) 100 mg PO X1 ONE Stop: 02/23/24 15:56 Pantoprazole Sodium (Pantoprazole Inj 40 Mg Vial) 40 mg IVP X1 ONE Stop: 02/23/24 14:11 Last Admin: 02/23/24 15:07 Dose: 40 mg Assessment & Plan Plan 79 y/o male with PMHx of recurrent prostate cancer (previously in remission, sees Dr. Ramírez, on Abiraterone Acetate), ESRD (T//, [employer], Dr. Talley), chronic anemia, diabetes mellitus, hypothyroidism, and COPD who is currently admitted for evaluation of GI bleed. #GI bleed #Symptomatic anemia #Acute blood loss anemia DDx: Upper vs Lower Could be upper since stools have been dark No hx of varices Pt is not on any blood thinners at this time Hgb at 7.2 currently Pt had Colonoscopy before, had polyp removed in 2022, by Dr. Stewart Patient has blood pressure that is holding for now, we will hold off on fluids at this time since patient does have ESRD Plan: ?GI consulted, appreciate recs ?Transfusion protocol below 7 hemoglobin ?Protonix drip ?Carafate PRN ?Trend CBC ?Type and screen ?Clear liquid ?N.p.o. at midnight ?SCDs #SIRS 2/4 #? UTI Pt does have tachycardia and a white count, but pt could have compensation due to GI bleed, also pt takes prednisone at home Pt was recently treated with Cipro for 10 days, but previous urine cultures show that culture is resistant cipro Pt does not have a fever, but will add coverage consider pt has hx of MRSA UTI and Pseudomonal UTI Plan: ?Pro-Dave ?Zosyn for broad coverage ?Urine analysis and culture #ESRD #Electrolyte abnormalities Dr Funez, scheduled for dialysis Saturday//Saturday Patient self catheterizes, still makes some urine Hemodialysis done yesterday Limiting fluids at this time Plan: ?Continue with dialysis schedule ?Avoid nephrotoxic agents ?Renally dose medicines ?Trend CBC and CMP #History of prostate cancer Was in remission at some point, sees Dr. Ramírez Plan: ?Resume home Abiraterone Acetate #History of diabetes mellitus Plan: ?SSI ?A1c #History of hypothyroidism Plan: ? Resumed home Synthroid 100 mcg ? TSH #Health Maintenance Disposition: Telemetry DVT prophylaxis: SCDs GI prophylaxis: Protonix Drip Diet: Clear Liquid, NPO at midnight CODE STATUS:Do not intubate Patient seen and care discussed with my senior resident, Dr. Stover , and my attending physician, Dr. Stephanie Caballero, PGY-1 Patient is 79-year-old male past medical history of prostate cancer, currently on treatment, followed by Dr. Mccallum, history of end-stage renal disease followed by Dr. Quintanilla on hemodialysis, COPD and diabetes mellitus and hypothyroidism who came in with multiple episodes of nausea vomiting and dark stools. We admitted the patient for possible GI bleed and possible colonoscopy, pending GI recommendations. Dr. Stewart is consulted appreciate recommendations. Saw the patient on Protonix drip and IV antibiotics #GI bleed #Acute anemia #UTI #ESRD #History of prostate cancer #History of hypothyroidism Ck PGy2
[2024-02-23] MEDS: predniSONE 5 MG TABLET PO (16:24)
[2024-02-23] MEDS: GABAPENTIN 100 MG CAPSULE PO (16:24)
--- NOTE | 2024-02-23 16:24 | PD.IMCONS ---
HPI Data of Consult Requesting Physician: John Brown MD Primary Care Provider: Shen Skelton MD Consult Narrative Reason for consult: H/H 7.2/22.1 History of present illness: 79 years old male presented to the hospital for the history of melena hemoglobin hematocrit dropped down to 7.2 and 22.1 with a platelet count of 240,000 and pro time INR 1.0 On 02/10/2024 his hemoglobin hematocrit 11.3 and 34.6 I had evaluated the patient in April of this year when he underwent upper endoscopy on 05/09/2023 which showed hemorrhagic gastritis with a blood oozing out from the proximal body of the stomach Colonoscopy showed 2+ internal hemorrhoids 1.5 cm descending colon polyp endoscopically resected Patient does have a history of prostate carcinoma status post radiation therapy leading to 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 requiring bilateral nephrostomy tubes and patient has possible brain mets He has end-stage renal disease on hemodialysis cc:: cc: John Brown MD Review of Systems Review of Systems Systems Reviewed: All systems reviewed, normal except as documented Past Medical History Surgical History OTHER SURGICAL HX: As in the history of present illness Meds Home Medications and Allergies Home Medications ?Medication ?Instructions ?Recorded ?Confirmed ?Type levothyroxine 100 mcg tablet 100 mcg PO QDAY #0 tabs 12/19/16 11/22/23 History atorvastatin 40 mg tablet 1 tab PO HS 08/01/21 11/22/23 History docusate sodium 100 mg tablet 100 mg PO BID 11/07/21 11/22/23 History alogliptin 6.25 mg tablet 6.25 mg PO QAM 01/30/22 11/22/23 History trazodone 50 mg tablet 100 mg PO QDAY 01/30/22 11/22/23 History calcium acetate(phosphat bind) 667 667 mg PO TID 06/27/22 11/22/23 History mg capsule gabapentin 100 mg capsule 100 mg PO QDAY 06/27/22 11/22/23 History tamsulosin 0.4 mg capsule 0.4 mg PO QDAY 10/26/22 11/22/23 History fluticasone 100 mcg-salmeterol 50 1 inh inhalation BID 02/04/23 11/22/23 History mcg/dose blistr powdr for inhalation melatonin 10 mg tablet 20 mg PO QDAY 02/04/23 11/22/23 History nortriptyline 25 mg capsule 25 mg PO QDAY 02/04/23 11/22/23 History ascorbic acid (vitamin C) 100 mg 100 mg PO QDAY 05/22/23 11/22/23 History tablet (Vitamin C) leuprolide (3 month) 22.5 mg (3 22.5 mg 05/22/23 11/22/23 History month) intramuscular syringe kit (Lupron Depot) prednisone 5 mg tablet 5 mg PO QDAY 11/22/23 11/22/23 History Allergies Allergy/AdvReac Type Severity Reaction Status Date / Time No Known Allergies Allergy Verified 02/23/24 12:11 Exam Vital Signs Temp Pulse Resp BP Pulse Ox O2 Del Method 98.4 F 86 14 121/55 L 97 Room Air 02/23/24 16:15 02/23/24 16:15 02/23/24 16:15 02/23/24 16:15 02/23/24 16:15 02/23/24 15:11 Constitutional Comments: Alert oriented Routine Respiratory Exam Comments: Normal to auscultation Routine Abdominal Exam Comments: Soft nontender Results Labs 02/23/24 12:51 02/23/24 12:51 Labs: Short CBC 02/23/24 Range/Units 12:51 WBC 16.1 H (3.8-10.6) Thou/mm3 Hgb 7.2 L (13.5-16.0) g/dL Hct 22.1 L (41.0-53.0) % Plt Count 240 D (140-440) Thou/mm3 [facility] 02/23/24 12:51 Sodium 137 Potassium 3.2 L Chloride 98 Carbon Dioxide 27.0 BUN 72 H Creatinine 3.6 H Glucose 233 H Calcium 8.4 Cardiac Enzymes 02/23/24 Range/Units 12:51 Troponin I < 0.020 (0.0-0.045) ng/mL Liver Function 02/23/24 Range/Units 12:51 Total Bilirubin 0.2 L (0.3-1.2) mg/dL AST 11 (0-34) U/L ALT 10 (10-49) U/L Alkaline Phosphatase 74 (46-116) U/L Albumin 4.0 (3.4-4.8) gm/dL Assessment and Plan Additional Assessment & Plan Additional Plan: # melena # Acute posthemorrhagic anemia Plan Patient is getting 1 unit of PRBC Clear liquid diet till 9 AM tomorrow then n.p.o. Fiberoptic esophagogastroduodenoscopy with possible biopsy possible therapeutic intervention scheduled for tomorrow afternoon IV Protonix Serial CBC Other medical problems include # End-stage renal disease on hemodialysis # Metastatic prostate carcinoma Thank you once again for the opportunity to participate in the care of this patient
[2024-02-23 16:50] LABS: Procalcitonin 0.66 ng/ml (0.0-0.49)
[2024-02-23] MEDS: PIPER/TAZO 3.375 GM 50 ML IV (19:24)
[2024-02-23] MEDS: CALCIUM ACETATE 667 MG TABLET PO (19:33)
[2024-02-23] MEDS: ALBUTEROL/IPRATROPIUM (Duoneb) RT SOL 3 ML NEBU INH (19:35)
[2024-02-23] MEDS: traZODone HCL 50 MG TABLET 100 MG PO (21:46)
[2024-02-23] MEDS: DOCUSATE SOD 100 MG CAPSULE PO (21:46)
[2024-02-23 22:10] LABS: Hematocrit 22.6 % (41.0-53.0)
[2024-02-23 22:15] LABS: Hemoglobin 7.6 g/dL (13.5-16.0)
[2024-02-23 23:50] LABS: Collection Type, Urine Voided
[2024-02-24] VITALS (14 sets, daily range): BP systolic 98–121; BP diastolic 50–72; PULSE 77–93; RESP 15–20; TEMP 36.1–36.6; O2SAT 94–99; BMI 26.9
[2024-02-24 00:20] LABS: Bilirubin,Urine Negative (Negative); Blood,Urine 1+ (Negative); Clarity,Urine Turbid (Clear/Hazy); Color,Urine Yellow (Lt Yel-Yel); Glucose, Urine Negative (Negative); Ketones,Urine Negative (Negative); Leukocyte Esterase,Urine Positive (Negative); Nitrite,Urine Negative (Negative); Protein,Urine Trace (Neg - Trace); RBC,Urine 4 /hpf (0-3); Specific Gravity,Urine 1.012 (1.001-1.035); Squamous Epithelial Cell,Urine < 1 /hpf (0-5); Urobilinogen,Urine Negative mg/dL (0.0-1.0); WBC,Urine 634 /hpf (0-5)
[2024-02-24] MEDS: PANTOPRAZOLE/NS 80MG IV PREMIX 80 MG/100 ML BAG 10 MG IV ×2 (01:59→13:44)
[2024-02-24 06:26] LABS: Basophils % (Auto) 0 % (0-2.5); Eosinophils # (Auto) 0.4 Thou/mm3 (0.0-0.5); Eosinophils % (Auto) 3 % (0-10); Hematocrit 22.6 % (41.0-53.0); Immature Granulocytes % (Auto) 1 % (0-0); Immature Granulocytes Auto 0.07 Thou/mm3 (0.00-0.00); Lymphocytes # (Auto) 2.3 Thou/mm3 (1.0-4.8); Lymphocytes % (Auto) 19 % (10-50); Mean Corpuscular HGB Conc 33.6 g/dl (31.0-37.0); Mean Corpuscular Hemoglobin 31.4 pg (25.0-35.0); Mean Corpuscular Volume 93 fL (80-100); Monocytes # (Auto) 1.2 Thou/mm3 (0.0-0.8); Monocytes % (Auto) 9 % (0-12); Neutrophils # (Auto) 8.5 Thou/mm3 (1.8-7.7); Neutrophils % (Auto) 68 % (37-80); Nucleated Red Blood Cell % 0 /100 WBC (0); Platelet Count 153 Thou/mm3 (140-440); RDW Standard Deviation 52.9 fL (35.1-43.9); Red Blood Count 2.42 Miln/mm3 (4.50-5.90); White Blood Count 12.5 Thou/mm3 (3.8-10.6)
[2024-02-24 06:36] LABS: Hemoglobin 7.6 g/dL (13.5-16.0)
[2024-02-24 06:43] LABS: Anion Gap 14 (7-16); BUN/Creatinine Ratio 24 Ratio (12-20); Blood Urea Nitrogen 97 mg/dL (9-23); Calcium 8.8 mg/dL (8.3-10.6); Carbon Dioxide 25.6 mMol/L (20.0-31.0); Chloride 99 mMol/L (98-107); Estimated Creatinine Clearance 15.9 mL/min (>60); Glucose 100 mg/dL (74-106); Magnesium 1.9 mg/dL (1.6-2.6); Osmolality,Calculated 307 (275-295); Phosphorous 4.7 mg/dL (2.4-5.1); Potassium 3.1 mMol/L (3.4-5.1); Sodium 139 mMol/L (136-145); Thyroid Stimulating Hormone 1.46 uIU/mL (0.55-4.78); eGFR 14 See Note
[2024-02-24 06:45] LABS: Partial Thromboplastin Time 23.7 Seconds (22.0-36.0)
[2024-02-24 08:04] LABS: Glucose Estimated Average 97 mg/dL (80-131)
--- NOTE | 2024-02-24 08:57 | ESCONSULT_ITS ---
HPI Data of Consult Patient: known to practice within the last 3 years Consult date: 02/23/24 Requesting Physician: John Brown MD Admitting Provider: John Brown MD Attending Provider: John Brown MD Primary Care Provider: Shen Skelton MD Consult Narrative Reason for consult: ESRD History of present illness: Mr. Kim is a 79 y/o male with PMHx of recurrent prostate cancer (previously in remission, sees Dr. Ramírez, on Abiraterone Acetate), ESRD (//), chronic anemia, diabetes mellitus, hypothyroidism, and COPD who presented to the ED on 02/23/2024 for an evaluation of stools described as dark, onset 4 days ago, multiple episodes, with associated nausea, vomiting, weakness and fatigue. Patient says that he has had the symptoms before, and decided to get checked out to see has been feeling worse. Says that he does not remember the last time he vomited, but says that he had a dark bowel movement prior to arrival. Says that he is not on any blood thinners, unsure if he takes any NSAIDs, but denies coughing up any blood as well. Reported that he has prostate cancer in which he sees Dr. Ramírez. Says that he self caths on his own, still makes urine but a little bit of it. Says he has had a colonoscopy before, but does not remember when it was. Says that he has been feeling tired and fatigued, felt like he was going to pass out but did not. Denies having fallen recently. Daughters present at bedside. Denies any chest pain, shortness of breath, syncope, headache. ED course: Patient arrived to the ED with a temperature of 97.6, rate of 103, respiratory rate 19, blood pressure 106/61, satting at 98% room air. Was worked up and was found to have potassium of 3.2, chloride of 98, BUN/creatinine of 72 and 2.6 respectively, glucose of 233, white count of 16, hemoglobin of 7.2, PT and INR of 11 and 1.0 respectively. EKG showed sinus tachycardia. GI was consulted and decision was made to admit patient for further evaluation of GI bleed. Patient admitted for GI bleed workup, nephrology consulted for end-stage renal disease management. cc:: cc: John Brown MD Review of Systems Review of Systems Narrative Review of Systems: Constitutional: No fever, chills, + weakness and fatigue HEENT: No eye pain, vision loss, ear pain, hearing loss, dysphagia, Cardiovascular: No chest pain, palpitations, edema, pain with walking Respiratory: No cough, shortness of breath, wheezing GI: + NV, + blood in stool, no abdominal pain, constipation, loss of appetite, heartburn Extremities: No presence of pitting edema MSK: No back pain, joint pain, joint swelling Neuro: No dizziness, numbness, weakness, headaches, seizures, tremors Psych: No anxiety, depression Past Medical History Past Medical History NEUROLOGIC: Positive Neurological Disorders, Cerebrovascular Accident, Transient Ischemic Attacks (TIA), Brain Tumor and Migraine; Negative Seizures or Dyson's Palsy CARDIAC: Positive Cardiac Disorders, Heart Murmur and Hypercholesterolemia; Negative Congestive Heart Failure, Edema, Cellulitis or Varicose Veins RESPIRATORY: Positive Chronic Obstructive Pulmonary Disease (COPD), Asthma, Emphysema and Pneumonia; Negative Tuberculosis or Sleep Apnea GASTROINTESTINAL: Positive Gastrointestinal Disorders, Gall Bladder Disease, Ulcer, Hemorrhoids and Gastroesophageal Reflux Disease; Negative Hepatitis GENITOURINARY: Positive Genitourinary Disorders, Renal Disease, Kidney Stones, Dialysis, Prostate Cancer and Benign Prostatic Hyperplasia MUSCULOSKELETAL: Positive Musculoskeletal Disorders and Arthritis ENT: Positive Cataracts and Deafness ENDOCRINE: Positive Endocrine Disorders, Diabetes Mellitus Type 2 and Hypothyroidism; Negative Diabetes Mellitus Type 1 HEMATOLOGIC: Positive Blood Disorders and Anemia PSYCHO/SOCIAL: Positive Depression, Anxiety and Post Traumatic Stress Disorder; Negative Depression OTHER HISTORY: Positive Hospitalization, Shingles, Blood Transfusions, Chemotherapy, Radiation Therapy, Chicken Pox, Measles, Mumps, Cancer and Prostate Cancer; Negative Autoimmune Disease, Falls, Blood Transfusion Reaction, Anesthesia Reactions or MRSA Family History FAMILY HISTORY: Positive Family Psychiatric Problems, Family Respiratory Disorders, Family Cardiac Disorders, Family Cancer and Family Surgery; Negative Family Gastrointestinal Problems or Family Anesthesia Reaction Surgical History SURGICAL: Positive Angiogram, Ear Surgery, Nephrectomy and Vasectomy; Negative Cardiac Surgery, Pacemaker or Joint Replacement OTHER SURGICAL HX: As in the history of present illness Social History SMOKING STATUS: Never smoker SECOND HAND EXPOSURE: No SUBSTANCE USE: does not use Past Medical History Comments PMH COMMENT: Past medical history: As above Surgeries: Radiation, retinal detachment Allergies: None Meds:Abiraterone Acetate, calcium acetate, prednisone, tramadol, sitagliptin, trazodone, Protonix, Lipitor, Flomax, gabapentin, Colace, Synthroid Family Hx: N/A Social Hx: Lives with dereckugher and in [place], 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 Does not smoke currently Exam Vital Signs Temp Pulse Resp BP Pulse Ox O2 Del Method 97.8 F 81 18 111/72 95 Room Air 02/24/24 04:00 02/24/24 06:50 02/24/24 06:50 02/24/24 04:00 02/24/24 06:50 02/24/24 04:00 Narrative Exam General: AAOx3, NAD, hard of hearing a bit, plesant male HEENT: Dry mucous membranes, conjunctiva clear, EOMI, PERRLA, Cardiovascular: S1, S2, radial pulses +2 bilat, murmur heard Pulmonary: CTAB bilat no cough, no wheezing GI: No tenderness to light or deep palpitation, no guarding, rigidity, rebound tenderness or distension Extremities: No presence of trace or pitting edema in lower extremities bilaterally, dorsalis pedis pulses +2 bilaterally Skin: Senile purpura throughout UE bilat Neuro: AAOx3, no focal motor or sensory deficits in the UE or LE bilat Psych: Good judgement, thought and behavior. Cooperative Results Labs 02/24/24 04:48 02/24/24 04:48 Labs: Short CBC 02/23/24 02/23/24 02/24/24 Range/Units 12:51 21:46 04:48 WBC 16.1 H 12.5 H (3.8-10.6) Thou/mm3 Hgb 7.2 L 7.6 L 7.6 L (13.5-16.0) g/dL Hct 22.1 L 22.6 L 22.6 L (41.0-53.0) % Plt Count 240 D 153 D (140-440) Thou/mm3 BMP 02/23/24 02/24/24 12:51 04:48 Sodium 137 139 Potassium 3.2 L 3.1 L Chloride 98 99 Carbon Dioxide 27.0 25.6 BUN 72 H 97 H Creatinine 3.6 H 4.0 H Glucose 233 H 100 D Calcium 8.4 8.8 Cardiac Enzymes 02/23/24 Range/Units 12:51 Troponin I < 0.020 (0.0-0.045) ng/mL Liver Function 02/23/24 Range/Units 12:51 Total Bilirubin 0.2 L (0.3-1.2) mg/dL AST 11 (0-34) U/L ALT 10 (10-49) U/L Alkaline Phosphatase 74 (46-116) U/L Albumin 4.0 (3.4-4.8) gm/dL Urine 02/23/24 Range/Units 23:40 Urine Color Yellow (Lt Yel-Yel) Urine Clarity Turbid A (Clear/Hazy) Urine pH 6.0 (5.0-7.0) Ur Specific [place] 1.012 (1.001-1.035) Urine Protein Trace (Neg - Trace) Urine Glucose (UA) Negative (Negative) Quality Measures Quality Measures none Advance care planning discussed with:: patient Medications Home Medications and Allergies Home Medications ?Medication ?Instructions ?Recorded ?Confirmed ?Type levothyroxine 100 mcg tablet 100 mcg PO QDAY #0 tabs 12/19/16 02/23/24 History atorvastatin 40 mg tablet 1 tab PO HS 08/01/21 02/23/24 History docusate sodium 100 mg tablet 100 mg PO BID 11/07/21 02/23/24 History trazodone 50 mg tablet 100 mg PO QDAY 01/30/22 02/23/24 History calcium acetate(phosphat bind) 667 667 mg PO TID 06/27/22 02/23/24 History mg capsule gabapentin 100 mg capsule 100 mg PO QDAY 06/27/22 02/23/24 History tamsulosin 0.4 mg capsule 0.4 mg PO QDAY 10/26/22 02/23/24 History fluticasone 100 mcg-salmeterol 50 1 inh inhalation BID 02/04/23 02/23/24 History mcg/dose blistr powdr for inhalation ascorbic acid (vitamin C) 100 mg 100 mg PO QDAY 05/22/23 02/23/24 History tablet (Vitamin C) leuprolide (3 month) 22.5 mg (3 See Rx Instructions .Route .COMPLEX 05/22/23 02/23/24 History month) intramuscular syringe kit (Lupron Depot) prednisone 5 mg tablet 5 mg PO QDAY 11/22/23 02/23/24 History abiraterone 250 mg tablet 250 mg PO QDAY 02/23/24 02/23/24 History sitagliptin 25 mg tablet 25 mg PO QDAY 02/23/24 02/23/24 History sucralfate 1 gram tablet 1 g PO BID 02/23/24 02/23/24 History nicotine (polacrilex) 4 mg buccal 4 mg buccal Q2H PRN Smoking 02/24/24 02/24/24 History lozenge Cessation prednisolone acetate 1 % eye 1 drp ophthalmic (eye) QID 02/24/24 02/24/24 History drops,suspension Allergies Allergy/AdvReac Type Severity Reaction Status Date / Time No Known Allergies Allergy Verified 02/23/24 12:11 Visit Medications Acetaminophen (Acetaminophen 325 Mg Tablet) 650 mg PO Q6H PRN PRN Reason: Fever >101.5 or pain 1-3 Stop: 03/24/24 15:47 Albuterol/Ipratropium (Albuterol/Ipratropium (Duoneb) Rt Christianne 3 Ml Nebu) 3 ml INH Q6HRRT PRN PRN Reason: SHORTNESS OF BREATH OR WHEEZE Stop: 03/24/24 18:59 Atorvastatin Calcium (Atorvastatin Calcium 20 Mg Tablet) 40 mg PO QDAY PENDING SALE TO [facility] Stop: 03/25/24 08:59 Calcium Acetate (Calcium Acetate 667 Mg Tablet) 667 mg PO TIDWM PENDING SALE TO [facility] Stop: 03/24/24 17:29 Last Admin: 02/23/24 19:33 Dose: 667 mg Dextrose (Dextrose 50%-Water Inj 50 Ml Syringe) 25 ml IV Q15MIN PRN PRN Reason: BG 50-70 responsive npo pt Stop: 03/24/24 16:17 Dextrose (Dextrose 50%-Water Inj 50 Ml Syringe) 50 ml IV Q15MIN PRN PRN Reason: BG <50 OR BG <70 & pt unresponsive Stop: 03/24/24 16:17 Docusate Sodium (Docusate Sod 100 Mg Capsule) 100 mg PO BID PENDING SALE TO [facility]; Protocol Stop: 03/24/24 20:59 Last Admin: 02/23/24 21:46 Dose: 100 mg Gabapentin (Gabapentin 100 Mg Capsule) 100 mg PO QDAY [facility]ENDING SALE TO [facility] Stop: 03/25/24 08:59 Glucagon (Glucagon Inj 1 Mg Vial) 1 mg IM Q15MIN PRN PRN Reason: BG <70, and no IV access Pantoprazole Sodium (Protonix/Ns 80mg Iv Premix) 80 mg in 100 mls @ 10 mls/hr IV Q10H PENDING SALE TO [facility] Stop: 02/26/24 12:09 Last Admin: 02/24/24 01:59 Dose: 10 mls/hr Piperacillin/Tazobactam/Dextrose (Zosyn) 50 mls @ 12.5 mls/hr IV Q12HR [facility]END[facility] TO [facility] Stop: 03/02/24 08:59 Potassium Chloride (Kcl Ivpb) 10 meq in 100 mls @ 100 mls/hr IV Q1H PENDING SALE TO [facility] Stop: 02/24/24 12:13 Insulin Human Lispro (Insulin Lispro (Admelog) 1 Unit/0.01 Ml Unit) 0 unit SC [facility]; Protocol Stop: 03/24/24 16:59 Last Admin: 02/24/24 07:28 Dose: Not Given Levothyroxine Sodium (Levothyroxine Sodium 100 Mcg Tablet) 100 mcg PO ACBR [facility] TO [facility] Stop: 03/25/24 05:59 Last Admin: 02/24/24 05:49 Dose: Not Given Ondansetron HCl (Ondansetron Inj 2 Mg/Ml Inj 2 Ml) 4 mg IV Q6H PRN; Protocol PRN Reason: NAUSEA OR VOMITING Stop: 03/24/24 15:47 Home Medication- Please Speak With Patient Caregiver To Have Rx Brought To [facility] 1 ea PO QID PENDING SALE TO [facility] Stop: 03/24/24 16:59 Last Admin: 02/24/24 05:49 Dose: Not Given Pharmacy Consult (Pharmacy Renal Dose Adjustment 1 Ea) 1 each XX PRN PRN PRN Reason: CONSULT Stop: 03/24/24 16:24 Sitagliptin Phosphate (Sitagliptin Phosphate 50 Mg Tablet) 25 mg PO QDAY PENDING SALE TO [facility] Stop: 03/25/24 08:59 Sucralfate (Sucralfate 1 Gm Tablet) 1 gm PO X1 PRN PRN Reason: ABDOMINAL CRAMPING Stop: 03/24/24 15:54 Tamsulosin HCl (Tamsulosin Hcl 0.4 Mg Capsule) 0.4 mg PO QDAY PENDING SALE TO [facility] Stop: 03/25/24 08:59 Tramadol HCl (Tramadol Hcl 50 Mg Tablet) 50 mg PO Q12HR PRN PRN Reason: PAIN SCALE 4-6 (Moderate Stop: 02/28/24 15:54 Trazodone HCl (Trazodone Hcl 50 Mg Tablet) 100 mg PO HS ROBERT Stop: 03/24/24 20:59 Last Admin: 02/23/24 21:46 Dose: 100 mg Discontinued Medications Albuterol/Ipratropium (Albuterol/Ipratropium (Duoneb) Rt Christianne 3 Ml Nebu) 3 ml INH Q6HRRT ROBERT Stop: 03/24/24 18:59 Last Admin: 02/23/24 19:35 Dose: 3 ml Gabapentin (Gabapentin 100 Mg Capsule) 100 mg PO X1 ONE Stop: 02/23/24 15:56 Last Admin: 02/23/24 16:24 Dose: 100 mg Piperacillin/Tazobactam/Dextrose (Zosyn) 50 mls @ 100 mls/hr IV X1 ONE Stop: 02/23/24 16:59 Last Admin: 02/23/24 19:24 Dose: 100 mls/hr Pantoprazole Sodium (Pantoprazole Inj 40 Mg Vial) 40 mg IVP X1 ONE Stop: 02/23/24 14:11 Last Admin: 02/23/24 15:07 Dose: 40 mg Prednisone (Prednisone 5 Mg Tablet) 5 mg PO X1 ONE Stop: 02/23/24 16:01 Last Admin: 02/23/24 16:24 Dose: 5 mg Assessment & Plan Plan Summary: Mr. Kim is a 79 y/o male with PMHx of recurrent prostate cancer (previously in remission, sees Dr. Ramírez, on Abiraterone Acetate), ESRD (//), chronic anemia, diabetes mellitus, hypothyroidism, and COPD who presented to the ED on 02/23/2024 for an evaluation of stools described as dark, onset 4 days ago, multiple episodes, with associated nausea, vomiting, weakness and fatigue. Patient admitted for further management of upper GI bleed, nephrology consulted for ESRD management # End-stage renal disease on dialysis (T//) # Electrolyte imbalance Patient admitted for management of upper GI bleed, reports receiving dialysis treatment on Saturday, completed treatment. No signs of fluid overload noted, was transfused 1 unit in ED, no more transfusions needed as hemoglobin more than 7 Plan: -Continue with dialysis treatment inpatient -Monitor renal panel daily ?Renally dose medicines #GI bleed #Symptomatic anemia #Acute blood loss anemia #SIRS 2/4 #History of prostate cancer #History of diabetes mellitus #History of hypothyroidism -Management per primary team Case discussed with Attending Dr. Funez. Juancarlos Mann PGY1 Attending Provider Attestation/Addendum Patient seen and examined by pulm physician Dr. Mann. Note reviewed, agree with findings and recommendations. Patient admitted with blood loss anemia. Pulm endoscopy. Currently on Protonix drip. Next dialysis scheduled for tomorrow. Thank you Dr. Brown for allowing me to participate in the care of Mr. Kim
[2024-02-24] MEDS: GABAPENTIN 100 MG CAPSULE PO (09:57)
[2024-02-24] MEDS: DOCUSATE SOD 100 MG CAPSULE PO ×2 (09:57→21:13)
[2024-02-24] MEDS: TAMSULOSIN HCL 0.4 MG CAPSULE PO (09:57)
[2024-02-24] MEDS: ATORVASTATIN CALCIUM 20 MG TABLET 40 MG PO (09:57)
[2024-02-24] MEDS: CALCIUM ACETATE 667 MG TABLET PO ×2 (09:57→17:39)
[2024-02-24] MEDS: sitaGLIPtin PHOSPHATE 50 MG TABLET 25 MG PO (09:58)
[2024-02-24] MEDS: PIPER/TAZO 3.375 GM 50 ML IV ×2 (09:59→21:13)
[2024-02-24] MEDS: POTASSIUM CHL 10 mEq IVPB 10 MEQ/100 ML BAG 100 MEQ IV ×3 (11:21→14:05)
--- NOTE | 2024-02-24 12:30 | PC.SS ---
Follow up note: Colonoscopy pending.
--- NOTE | 2024-02-24 15:22 | ESPR_ITS ---
<Statement entered by John Brown MD - 03/10/24 09:38> I reviewed above note and agree with findings and plans. I have also personally examined the patient with medicine team and went over assessment and plan with medical team including wildlife biology internship and resident physician. <Statement entered by Paulino Del Rosario MD - 02/24/24 17:34> Patient was seen and examined at bedside. He does not complain of any symptoms at this time. He is n.p.o. pending EGD today by Dr. Stewart. Hemoglobin stable of 7.6, his WBC downtrending from 18-12, he was noticed to have potassium level of 3.1 his next dialysis sessions going to be tomorrow for that reason we will start the patient on potassium IV 40 mEq. 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 Possible discharge tomorrow on oral antibiotics for UTI and also for PUD regimen after clearance from the GI specialist Dr. Stewart. - Patient's plan and care discussed with my attending, Dr. Stephanie Del Rosario MD Internal Medicine PGY-2 Documentation for date of: 02/24/24 Subjective Subjective Interval history: Patient examined at bedside today. No acute overnight events. Says he needs to go to the bathroom right now, says that his last bowel movement was dark. Denies having chest pain, shortness of breath, headache, fatigue. No other complaints at this time Exam Vital Signs Temp Pulse Resp BP Pulse Ox O2 Del Method 97.8 F 88 17 114/53 L 94 L Room Air 02/24/24 12:00 02/24/24 12:00 02/24/24 12:00 02/24/24 12:00 02/24/24 12:00 02/24/24 12:00 Narrative Exam General: AAOx3, NAD, hard of hearing a bit, plesant male HEENT: Dry mucous membranes, conjunctiva clear, EOMI, PERRLA, Cardiovascular: S1, S2, radial pulses +2 bilat, murmur heard Pulmonary: CTAB bilat no cough, no wheezing GI: No tenderness to light or deep palpitation, no guarding, rigidity, rebound tenderness or distension Extremities: No presence of trace or pitting edema in lower extremities bilaterally, dorsalis pedis pulses +2 bilaterally Skin: Senile purpura throughout UE bilat Neuro: AAOx3, no focal motor or sensory deficits in the UE or LE bilat Psych: Good judgement, thought and behavior. Cooperative Objective Labs 02/24/24 04:48 02/24/24 04:48 Labs: Laboratory Results - last 24 hr 02/23/24 02/23/24 02/23/24 12:51 21:46 23:40 WBC RBC Hgb 7.6 L Hct 22.6 L MCV MCH MCHC RDW Std Deviation Plt Count Neut % (Auto) Lymph % (Auto) [place] % (Auto) Eos % (Auto) Baso % (Auto) Neut # (Auto) Lymph # (Auto) [place] # (Auto) Eos # (Auto) Baso # (Auto) Immature Gran # (Auto) Absolute Nucleated RBC Immature Gran % Nucleated RBC % PT INR APTT Sodium Potassium Chloride Carbon Dioxide Anion Gap BUN Creatinine Estim Creat Clear Calc eGFR BUN/Creatinine Ratio Glucose Estimated Ave Glu mg/dL Hemoglobin A1c Calculated Osmolality Calcium Phosphorus Magnesium Procalcitonin 0.66 H TSH Ur Collection Type Voided Urine Color Yellow Urine Clarity Turbid A Urine pH 6.0 Ur Specific [place] 1.012 Urine Protein Trace Urine Glucose (UA) Negative Urine Ketones Negative Urine Blood 1+ A Urine Nitrite Negative Urine Bilirubin Negative Urine Urobilinogen (Auto) Negative Ur Leukocyte Esterase Positive Urine RBC 4 H Urine WBC 634 H Ur Squamous Epith Cells < 1 Urine Bacteria None Blood Type A Positive Antibody Screen NEGATIVE Crossmatch See Detail Blood Bank Wristband ID Yes 02/24/24 04:48 WBC 12.5 H RBC 2.42 L Hgb 7.6 L Hct 22.6 L MCV 93 MCH 31.4 MCHC 33.6 RDW Std Deviation 52.9 H Plt Count 153 D Neut % (Auto) 68 Lymph % (Auto) 19 [place]ak[place] % (Auto) 9 Eos % (Auto) 3 Baso % (Auto) 0 Neut # (Auto) 8.5 H Lymph # (Auto) 2.3 [place]akon # (Auto) 1.2 H Eos # (Auto) 0.4 Baso # (Auto) 0.0 Immature Gran # (Auto) 0.07 H Absolute Nucleated RBC 0.00 Immature Gran % 1 H Nucleated RBC % 0 PT 11.0 INR 1.0 APTT 23.7 Sodium 139 Potassium 3.1 L Chloride 99 Carbon Dioxide 25.6 Anion Gap 14 BUN 97 H Creatinine 4.0 H Estim Creat Clear Calc 15.9 L eGFR 14 L* BUN/Creatinine Ratio 24 H Glucose [address] Glu mg/dL 97 Hemoglobin A1c 5.0 Calculated Osmolality 307 H Calcium 8.8 Phosphorus 4.7 Magnesium 1.9 Procalcitonin TSH 1.46 Ur Collection Type Urine Color Urine Clarity Urine pH Ur Specific [place] Urine Protein Urine Glucose (UA) Urine Ketones Urine Blood Urine Nitrite Urine Bilirubin Urine Urobilinogen (Auto) Ur Leukocyte Esterase Urine RBC Urine WBC Ur Squamous Epith Cells Urine Bacteria Blood Type Antibody Screen Crossmatch Blood Bank Wristband ID Quality Measures Quality Measures none Advance care planning discussed with:: patient Assessment & Plan Assessment Current Active Medications: Generic Name Dose Route Start Last Admin Trade Name Freq PRN Reason Stop Dose Admin Acetaminophen 650 mg 02/23/24 15:48 Acetaminophen 325 Mg Tablet PO 03/24/24 15:47 Q6H PRN Fever >101.5 or pain 1-3 Albuterol/Ipratropium 3 ml 02/23/24 22:05 Albuterol/Ipratropium (Duoneb) Rt Christianne 3 Ml Nebu INH 03/24/24 18:59 Q6HRRT PRN SHORTNESS OF BREATH OR WHEEZE Atorvastatin Calcium 40 mg 02/24/24 09:00 02/24/24 09:57 Atorvastatin Calcium 20 Mg Tablet PO 03/25/24 08:59 40 mg QDAY ROBERT Administration Calcium Acetate 667 mg 02/23/24 17:30 02/24/24 12:52 Calcium Acetate 667 Mg Tablet PO 03/24/24 17:29 Not Given TIDWM ROBERT Abiraterone Acetate 0 ea 02/25/24 06:00 250 Mg Tablets PO 03/26/24 05:59 ACBR ROBERT Dextrose 25 ml 02/23/24 16:18 Dextrose 50%-Water Inj 50 Ml Syringe IV 03/24/24 16:17 Q15MIN PRN BG 50-70 responsive npo pt Dextrose 50 ml 02/23/24 16:18 Dextrose 50%-Water Inj 50 Ml Syringe IV 03/24/24 16:17 Q15MIN PRN BG <50 OR BG <70 & pt unresponsive Docusate Sodium 100 mg 02/23/24 21:00 02/24/24 09:57 Docusate Sod 100 Mg Capsule PO 03/24/24 20:59 100 mg BID ROBERT Administration Protocol Gabapentin 100 mg 02/24/24 09:00 02/24/24 09:57 Gabapentin 100 Mg Capsule PO 03/25/24 08:59 100 mg QDAY ROBERT Administration Glucagon 1 mg 02/23/24 16:18 Glucagon Inj 1 Mg Vial IM Q15MIN PRN BG <70, and no IV access Pantoprazole Sodium 80 mg in 100 mls @ 10 mls/hr 02/23/24 14:10 02/24/24 13:44 Protonix/Ns 80mg Iv Premix IV 02/26/24 12:09 10 mls/hr Q10H ROBERT Administration Piperacillin/Tazobactam/Dextrose 50 mls @ 12.5 mls/hr 02/24/24 09:00 02/24/24 09:59 Zosyn IV 03/02/24 08:59 12.5 mls/hr Q12HR ROBERT Administration Insulin Human Lispro 0 unit 02/23/24 17:00 02/24/24 11:11 Insulin Lispro (Admelog) 1 Unit/0.01 Ml Unit SC 03/24/24 16:59 Not Given ACHS [facility] Protocol Levothyroxine Sodium 100 mcg 02/24/24 06:00 02/24/24 05:49 Levothyroxine Sodium 100 Mcg Tablet PO 03/25/24 05:59 Not Given ACBR ROBERT Ondansetron HCl 4 mg 02/23/24 15:48 Ondansetron Inj 2 Mg/Ml Inj 2 Ml IV 03/24/24 15:47 Q6H PRN NAUSEA OR VOMITING Protocol Pharmacy Consult 1 each 02/23/24 16:25 Pharmacy Renal Dose Adjustment 1 Ea XX 03/24/24 16:24 PRN PRN CONSULT Sitagliptin Phosphate 25 mg 02/24/24 09:00 02/24/24 09:58 Sitagliptin Phosphate 50 Mg Tablet PO 03/25/24 08:59 25 mg QDAY ROBERT Administration Sucralfate 1 gm 02/23/24 15:55 Sucralfate 1 Gm Tablet PO 03/24/24 15:54 X1 PRN ABDOMINAL CRAMPING Tamsulosin HCl 0.4 mg 02/24/24 09:00 02/24/24 09:57 Tamsulosin Hcl 0.4 Mg Capsule PO 03/25/24 08:59 0.4 mg QDAY ROBERT Administration Tramadol HCl 50 mg 02/23/24 15:55 Tramadol Hcl 50 Mg Tablet PO 02/28/24 15:54 Q12HR PRN PAIN SCALE 4-6 (Moderate Trazodone HCl 100 mg 02/23/24 21:00 02/23/24 21:46 Trazodone Hcl 50 Mg Tablet PO 03/24/24 20:59 100 mg HS ROBERT Administration Plan Assessment 79 y/o male with PMHx of recurrent prostate cancer (previously in remission, sees Dr. 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 #GI bleed #Symptomatic anemia #Acute blood loss anemia DDx: Upper vs Lower Could be upper since stools have been dark No hx of varices Pt is not on any blood thinners at this time Hgb at 7.2 currently Pt had Colonoscopy before, had polyp removed in 2022, by Dr. Stewart Patient has blood pressure that is holding for now, we will hold off on fluids at this time since patient does have ESRD EGD today Plan: ?GI consulted, appreciate recs ?Follow-up with EGD results ?Transfusion protocol below 7 hemoglobin ?Protonix drip ?Carafate PRN ?Trend CBC ?Type and screen ?Clear liquid ?N.p.o. at midnight ?SCDs #SIRS 2/4 #? UTI Pt does have tachycardia and a white count, but pt could have compensation due to GI bleed, also pt takes prednisone at home Pt was recently treated with Cipro for 10 days, but previous urine cultures show that culture is resistant cipro Pt does not have a fever, but will add coverage consider pt has hx of MRSA UTI and Pseudomonal UTI Plan: ?Zosyn for broad coverage ?Urine analysis and culture #ESRD #Electrolyte abnormalities Dr Funez, scheduled for dialysis Saturday//Saturday Patient self catheterizes, still makes some urine Hemodialysis done yesterday Limiting fluids at this time Plan: ?Continue with dialysis schedule ?Avoid nephrotoxic agents ?Renally dose medicines ?Trend CBC and CMP #History of prostate cancer Was in remission at some point, sees Dr. Ramírez Plan: ?Resume home Abiraterone Acetate #History of diabetes mellitus ~A1c 5.0 Plan: ?SSI ?A1c #History of hypothyroidism ~TSH 1.5 Plan: ?Resumed home Synthroid 100 mcg #Health Maintenance Disposition: Telemetry DVT prophylaxis: SCDs GI prophylaxis: Protonix Drip Diet: Clear Liquid, NPO at midnight CODE STATUS:Do not intubate Patient seen and care discussed with my senior resident, Dr. Del Rosario, and my attending physician, Dr. Stephanie Caballero, PGY-1
--- NOTE | 2024-02-24 17:02 | SUR.PHASEI ---
pt awake, alert, able to follow commands, breathing unlabored, report called to Meche RN, pt tolerating oral fluids, pt transferred to room
--- NOTE | 2024-02-24 17:23 | PC.NURSE ---
Patients Potassium took me all day to give. Patients IV infiltrated inserted new IV. Patient went to get EGD. Will continue to monitor patient.
[2024-02-24] MEDS: traZODone HCL 50 MG TABLET 100 MG PO (21:12)
[2024-02-25] VITALS (28 sets, daily range): BP systolic 83–118; BP diastolic 42–84; PULSE 62–89; RESP 17–20; TEMP 36.1–36.9; O2SAT 95–99; BMI 26.9
[2024-02-25] MEDS: ALBUTEROL/IPRATROPIUM (Duoneb) RT SOL 3 ML NEBU INH ×2 (04:03→19:27)
[2024-02-25] MEDS: PANTOPRAZOLE/NS 80MG IV PREMIX 80 MG/100 ML BAG 10 MG IV ×2 (05:22→16:01)
[2024-02-25] MEDS: LEVOTHYROXINE SODIUM 100 MCG TABLET PO (05:22)
[2024-02-25 05:25] LABS: Basophils % (Auto) 0 % (0-2.5); Eosinophils # (Auto) 0.4 Thou/mm3 (0.0-0.5); Eosinophils % (Auto) 4 % (0-10); Immature Granulocytes % (Auto) 0 % (0-0); Immature Granulocytes Auto 0.04 Thou/mm3 (0.00-0.00); Lymphocytes # (Auto) 1.6 Thou/mm3 (1.0-4.8); Lymphocytes % (Auto) 16 % (10-50); Mean Corpuscular HGB Conc 33.3 g/dl (31.0-37.0); Mean Corpuscular Hemoglobin 31.3 pg (25.0-35.0); Mean Corpuscular Volume 94 fL (80-100); Monocytes # (Auto) 0.8 Thou/mm3 (0.0-0.8); Monocytes % (Auto) 9 % (0-12); Neutrophils # (Auto) 6.8 Thou/mm3 (1.8-7.7); Neutrophils % (Auto) 70 % (37-80); Nucleated Red Blood Cell % 0 /100 WBC (0); Platelet Count 127 Thou/mm3 (140-440); RDW Standard Deviation 53.8 fL (35.1-43.9); Red Blood Count 2.11 Miln/mm3 (4.50-5.90); White Blood Count 9.6 Thou/mm3 (3.8-10.6)
[2024-02-25 05:32] LABS: Hematocrit 19.8 % (41.0-53.0); Hemoglobin 6.6 g/dL (13.5-16.0)
[2024-02-25 05:35] LABS: Prothrombin Time 10.7 Seconds (9.0-12.2)
[2024-02-25 06:24] LABS: Anion Gap 14 (7-16); BUN/Creatinine Ratio 19 Ratio (12-20); Blood Urea Nitrogen 93 mg/dL (9-23); Calcium 8.6 mg/dL (8.3-10.6); Carbon Dioxide 24.5 mMol/L (20.0-31.0); Chloride 100 mMol/L (98-107); Creatinine (Component) 4.8 mg/dL (0.6-1.3); Estimated Creatinine Clearance 13.2 mL/min (>60); Glucose 97 mg/dL (74-106); Osmolality,Calculated 304 (275-295); Phosphorous 4.7 mg/dL (2.4-5.1); Potassium 3.3 mMol/L (3.4-5.1); Sodium 138 mMol/L (136-145); eGFR 12 See Note
[2024-02-25] MEDS: CALCIUM ACETATE 667 MG TABLET PO ×3 (07:55→17:09)
[2024-02-25] MEDS: ABIRATERONE ACETATE 250 MG PO (07:56)
[2024-02-25] MEDS: sitaGLIPtin PHOSPHATE 50 MG TABLET 25 MG PO (08:45)
[2024-02-25] MEDS: DOCUSATE SOD 100 MG CAPSULE PO ×2 (08:45→21:02)
[2024-02-25] MEDS: GABAPENTIN 100 MG CAPSULE PO (08:46)
[2024-02-25] MEDS: TAMSULOSIN HCL 0.4 MG CAPSULE PO (08:46)
[2024-02-25] MEDS: PIPER/TAZO 3.375 GM 50 ML IV ×2 (08:46→21:03)
--- NOTE | 2024-02-25 09:56 | ESPR_ITS ---
<Statement entered by John Brown MD - 03/10/24 09:36> I reviewed above note and agree with findings and plans. I have also personally examined the patient with medicine team and went over assessment and plan with medical team including post graduate internship and resident physician. <Statement entered by Paulino Del Rosario MD - 02/25/24 16:54> Patient was seen and examined at bedside. Patient vitally stable, his hemoglobin dropped overnight to 6.6, from 7.6, the nephrology team recommended to transfuse the patient 1 unit of blood during dialysis as his dialysis scheduled for today. EGD was done by Dr. Stewart and there was no source of bleeding was found. Dr. Stewart recommended the patient to do a capsule endoscopy in outpatient settings. Generally the patient reported no new symptoms, his platelets are 127. Repeat H&H at 9 PM and also repeat CBC with the morning labs, if the patient remains stable will discharge the patient to follow-up with Dr. Stewart in outpatient settings. - Patient's plan and care discussed with my attending, Dr. Stephanie Del Rosario MD Internal Medicine PGY-2 Documentation for date of: 02/25/24 Subjective Subjective Interval history: Patient examined at bedside today. No acute overnight events. Morning hemoglobin showed 6.6. Patient tolerated EGD last night. Says that he is in a go for dialysis later today. Will get his blood transfusion with dialysis. No other complaints at this time Exam Vital Signs Temp Pulse Resp BP Pulse Ox O2 Del Method O2 Flow Rate 97.0 F 82 20 118/82 97 Room Air 2 02/25/24 08:00 02/25/24 08:21 02/25/24 08:21 02/25/24 08:00 02/25/24 08:21 02/25/24 08:00 02/24/24 16:35 Narrative Exam General: AAOx3, NAD, hard of hearing a bit, plesant male HEENT: Dry mucous membranes, conjunctiva clear, EOMI, PERRLA, Cardiovascular: S1, S2, radial pulses +2 bilat, murmur heard Pulmonary: CTAB bilat no cough, no wheezing GI: No tenderness to light or deep palpitation, no guarding, rigidity, rebound tenderness or distension Extremities: No presence of trace or pitting edema in lower extremities bilaterally, dorsalis pedis pulses +2 bilaterally Skin: Senile purpura throughout UE bilat Neuro: AAOx3, no focal motor or sensory deficits in the UE or LE bilat Psych: Good judgement, thought and behavior. Cooperative Objective Labs 02/25/24 04:01 02/25/24 04:01 Labs: Laboratory Results - last 24 hr 02/25/24 04:01 WBC 9.6 RBC 2.11 L Hgb 6.6 L* Hct 19.8 L* MCV 94 MCH 31.3 MCHC 33.3 RDW Std Deviation 53.8 H Plt Count 127 L Neut % (Auto) 70 Lymph % (Auto) 16 [place] % (Auto) 9 Eos % (Auto) 4 Baso % (Auto) 0 Neut # (Auto) 6.8 Lymph # (Auto) 1.6 [place] # (Auto) 0.8 Eos # (Auto) 0.4 Baso # (Auto) 0.0 Immature Gran # (Auto) 0.04 H Absolute Nucleated RBC 0.00 Immature Gran % 0 Nucleated RBC % 0 PT 10.7 INR 1.0 Sodium 138 Potassium 3.3 L Chloride 100 Carbon Dioxide 24.5 Anion Gap 14 BUN 93 H Creatinine 4.8 H* D Estim Creat Clear Calc 13.2 L eGFR 12 L* BUN/Creatinine Ratio 19 Glucose 97 Calculated Osmolality 304 H Calcium 8.6 Phosphorus 4.7 Magnesium 2.0 Quality Measures Quality Measures none Advance care planning discussed with:: patient Assessment & Plan Assessment Current Active Medications: Generic Name Dose Route Start Last Admin Trade Name Freq PRN Reason Stop Dose Admin Acetaminophen 650 mg 02/23/24 15:48 Acetaminophen 325 Mg Tablet PO 03/24/24 15:47 Q6H PRN Fever >101.5 or pain 1-3 Albuterol/Ipratropium 3 ml 02/23/24 22:05 02/25/24 04:03 Albuterol/Ipratropium (Duoneb) Rt Christianne 3 Ml Nebu INH 03/24/24 18:59 3 ml Q6HRRT PRN Administration SHORTNESS OF BREATH OR WHEEZE Atorvastatin Calcium 40 mg 02/25/24 21:00 Atorvastatin Calcium 20 Mg Tablet PO 03/26/24 20:59 HS ROBERT Calcium Acetate 667 mg 02/23/24 17:30 02/25/24 07:55 Calcium Acetate 667 Mg Tablet PO 03/24/24 17:29 667 mg TIDWM ROBERT Administration Abiraterone Acetate 0 ea 02/25/24 06:00 02/25/24 07:56 250 Mg Tablets PO 03/26/24 05:59 4 tablet ACBR ROBERT Administration Dextrose 25 ml 02/23/24 16:18 Dextrose 50%-Water Inj 50 Ml Syringe IV 03/24/24 16:17 Q15MIN PRN BG 50-70 responsive npo pt Dextrose 50 ml 02/23/24 16:18 Dextrose 50%-Water Inj 50 Ml Syringe IV 03/24/24 16:17 Q15MIN PRN BG <50 OR BG <70 & pt unresponsive Docusate Sodium 100 mg 02/23/24 21:00 02/25/24 08:45 Docusate Sod 100 Mg Capsule PO 03/24/24 20:59 100 mg BID ROBERT Administration Protocol Gabapentin 100 mg 02/24/24 09:00 02/25/24 08:46 Gabapentin 100 Mg Capsule PO 03/25/24 08:59 100 mg QDAY ROBERT Administration Glucagon 1 mg 02/23/24 16:18 Glucagon Inj 1 Mg Vial IM Q15MIN PRN BG <70, and no IV access Pantoprazole Sodium 80 mg in 100 mls @ 10 mls/hr 02/23/24 14:10 02/25/24 07:50 Protonix/Ns 80mg Iv Premix IV 02/26/24 12:09 Not Given Q10H ROBERT Piperacillin/Tazobactam/Dextrose 50 mls @ 12.5 mls/hr 02/24/24 09:00 02/25/24 08:46 Zosyn IV 03/02/24 08:59 12.5 mls/hr Q12HR ROBERT Administration Insulin Human Lispro 0 unit 02/23/24 17:00 02/25/24 07:34 Insulin Lispro (Admelog) 1 Unit/0.01 Ml Unit SC 03/24/24 16:59 Not Given ACHS ROBERT Protocol Levothyroxine Sodium 100 mcg 02/24/24 06:00 02/25/24 05:22 Levothyroxine Sodium 100 Mcg Tablet PO 03/25/24 05:59 100 mcg ACBR ROBERT Administration Ondansetron HCl 4 mg 02/23/24 15:48 Ondansetron Inj 2 Mg/Ml Inj 2 Ml IV 03/24/24 15:47 Q6H PRN NAUSEA OR VOMITING Protocol Pharmacy Consult 1 each 02/23/24 16:25 Pharmacy Renal Dose Adjustment 1 Ea XX 03/24/24 16:24 PRN PRN CONSULT Sitagliptin Phosphate 25 mg 02/24/24 09:00 02/25/24 08:45 Sitagliptin Phosphate 50 Mg Tablet PO 03/25/24 08:59 25 mg QDAY ROBERT Administration Sucralfate 1 gm 02/23/24 15:55 Sucralfate 1 Gm Tablet PO 03/24/24 15:54 X1 PRN ABDOMINAL CRAMPING Tamsulosin HCl 0.4 mg 02/24/24 09:00 02/25/24 08:46 Tamsulosin Hcl 0.4 Mg Capsule PO 03/25/24 08:59 0.4 mg QDAY ROBERT Administration Tramadol HCl 50 mg 02/23/24 15:55 Tramadol Hcl 50 Mg Tablet PO 02/28/24 15:54 Q12HR PRN PAIN SCALE 4-6 (Moderate Trazodone HCl 100 mg 02/23/24 21:00 02/24/24 21:12 Trazodone Hcl 50 Mg Tablet PO 03/24/24 20:59 100 mg HS ROBERT Administration Plan Assessment 79 y/o male with PMHx of recurrent prostate cancer (previously in remission, sees Dr. 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 Talley), chronic anemia, diabetes mellitus, hypothyroidism, and COPD who is currently admitted for evaluation of GI bleed. #GI bleed #Symptomatic anemia #Acute blood loss anemia DDx: Upper vs Lower Could be upper since stools have been dark No hx of varices Pt is not on any blood thinners at this time Hgb at 6.6 currently, yesterday was 7 point Pt had Colonoscopy before, had polyp removed in 2022, by Dr. Stewart Patient has blood pressure that is holding for now, we will hold off on fluids at this time since patient does have ESRD EGD results show gastric polyp 1 cm actively bleeding, nonerosive gastritis Patient will need outpatient capsule endoscopy as no visual bleeding was seen with EGD, bleed could be coming from jejunum or ileum due to possible AVMs At this time patient will continue to stay here due to a drop in hemoglobin Plan: ?GI consulted, appreciate recs ?Transfusion protocol below 7 hemoglobin ?Continue with Protonix drip ?Carafate PRN ?Trend CBC ?SCDs ?Blood transfusion with dialysis today #ESRD #Electrolyte abnormalities Dr Funez, scheduled for dialysis Saturday//Saturday Patient self catheterizes, still makes some urine Hemodialysis done yesterday Limiting fluids at this time Patient to get dialysis today and get blood transfusion with dialysis Plan: ?Continue with dialysis schedule ?Avoid nephrotoxic agents ?Renally dose medicines ?Trend CBC and CMP #SIRS 2/4, ruled out #? UTI, ruled out Pt does have tachycardia and a white count, but pt could have compensation due to GI bleed, also pt takes prednisone at home Pt was recently treated with Cipro for 10 days, but previous urine cultures show that culture is resistant cipro Pt does not have a fever, but will add coverage consider pt has hx of MRSA UTI and Pseudomonal UTI Ruled out Plan: ?Zosyn for broad coverage #History of prostate cancer Was in remission at some point, sees Dr. Ramírez Plan: ?Resume home Abiraterone Acetate #History of diabetes mellitus ~A1c 5.0 Plan: ?SSI ?A1c #History of hypothyroidism ~TSH 1.5 Plan: ?Resumed home Synthroid 100 mcg #Health Maintenance Disposition: Telemetry DVT prophylaxis: SCDs GI prophylaxis: Protonix Drip Diet: Carb consistent CODE STATUS:Do not intubate Patient seen and care discussed with my senior resident, Dr. Del Rosario, and my attending physician, Dr. Stephanie Caballero, PGY-1
--- NOTE | 2024-02-25 13:01 | PC.NURSE ---
1st unit PRBC done, 2nd unit hung.
--- NOTE | 2024-02-25 13:06 | ESPR_ITS ---
Documentation for date of: 02/25/24 Subjective Subjective Interval history: Mr. Kim is a 79 y/o male with PMHx of recurrent prostate cancer (previously in remission, sees Dr. Ramírez, on Abiraterone Acetate), ESRD (//), chronic anemia, diabetes mellitus, hypothyroidism, and COPD who presented to the ED on 02/23/2024 for an evaluation of stools described as dark, onset 4 days ago, multiple episodes, with associated nausea, vomiting, weakness and fatigue. Patient says that he has had the symptoms before, and decided to get checked out to see has been feeling worse. Says that he does not remember the last time he vomited, but says that he had a dark bowel movement prior to arrival. Says that he is not on any blood thinners, unsure if he takes any NSAIDs, but denies coughing up any blood as well. Reported that he has prostate cancer in which he sees Dr. Ramírez. Says that he self caths on his own, still makes urine but a little bit of it. Says he has had a colonoscopy before, but does not remember when it was. Says that he has been feeling tired and fatigued, felt like he was going to pass out but did not. Denies having fallen recently. Daughters present at bedside. Denies any chest pain, shortness of breath, syncope, headache. ED course: Patient arrived to the ED with a temperature of 97.6, rate of 103, respiratory rate 19, blood pressure 106/61, satting at 98% room air. Was worked up and was found to have potassium of 3.2, chloride of 98, BUN/creatinine of 72 and 2.6 respectively, glucose of 233, white count of 16, hemoglobin of 7.2, PT and INR of 11 and 1.0 respectively. EKG showed sinus tachycardia. GI was consulted and decision was made to admit patient for further evaluation of GI bleed. 02/25/24: Patient seen at bedside, patient is status post EGD, EGD was inconclusive of source of bleeding, patient has had extensive workup in the past, GI recommends outpatient capsule endoscopy to find the cause of bleeding further, patient denies any symptoms currently, complains of tiredness. Patient's hemoglobin dropped to 6.6, patient's hemoglobin was 7.6 yesterday patient is scheduled for dialysis treatment today, will give 2 unit PRBC along with dialysis. Will continue inpatient dialysis sessions. Exam Vital Signs Temp Pulse Resp BP Pulse Ox O2 Del Method O2 Flow Rate 97.6 F 78 18 109/50 L 95 Room Air 2 02/25/24 12:53 02/25/24 13:00 02/25/24 12:53 02/25/24 13:00 02/25/24 12:21 02/25/24 08:00 02/24/24 16:35 Narrative Exam General: AAOx3, NAD, hard of hearing a bit, plesant male HEENT: Dry mucous membranes, conjunctiva clear, EOMI, PERRLA, Cardiovascular: S1, S2, radial pulses +2 bilat, murmur heard Pulmonary: CTAB bilat no cough, no wheezing GI: No tenderness to light or deep palpitation, no guarding, rigidity, rebound tenderness or distension Extremities: No presence of trace or pitting edema in lower extremities bilaterally, dorsalis pedis pulses +2 bilaterally Skin: Senile purpura throughout UE bilat Neuro: AAOx3, no focal motor or sensory deficits in the UE or LE bilat Psych: Good judgement, thought and behavior. Cooperative Objective Labs 02/25/24 19:51 02/25/24 04:01 Labs: Laboratory Results - last 24 hr 02/23/24 02/25/24 12:51 04:01 WBC 9.6 RBC 2.11 L Hgb 6.6 L* Hct 19.8 L* MCV 94 MCH 31.3 MCHC 33.3 RDW Std Deviation 53.8 H Plt Count 127 L Neut % (Auto) 70 Lymph % (Auto) 16 [place] % (Auto) 9 Eos % (Auto) 4 Baso % (Auto) 0 Neut # (Auto) 6.8 Lymph # (Auto) 1.6 [place] # (Auto) 0.8 Eos # (Auto) 0.4 Baso # (Auto) 0.0 Immature Gran # (Auto) 0.04 H Absolute Nucleated RBC 0.00 Immature Gran % 0 Nucleated RBC % 0 PT 10.7 INR 1.0 Sodium 138 Potassium 3.3 L Chloride 100 Carbon Dioxide 24.5 Anion Gap 14 BUN 93 H Creatinine 4.8 H* D Estim Creat Clear Calc 13.2 L eGFR 12 L* BUN/Creatinine Ratio 19 Glucose 97 Calculated Osmolality 304 H Calcium 8.6 Phosphorus 4.7 Magnesium 2.0 Blood Type A Positive Antibody Screen NEGATIVE Crossmatch See Detail Blood Bank Wristband ID Yes Quality Measures Quality Measures none Advance care planning discussed with:: patient Assessment & Plan Assessment Current Active Medications: Generic Name Dose Route Start Last Admin Trade Name Freq PRN Reason Stop Dose Admin Acetaminophen 650 mg 02/23/24 15:48 Acetaminophen 325 Mg Tablet PO 03/24/24 15:47 Q6H PRN Fever >101.5 or pain 1-3 Albuterol/Ipratropium 3 ml 02/23/24 22:05 02/25/24 04:03 Albuterol/Ipratropium (Duoneb) Rt Christianne 3 Ml Nebu INH 03/24/24 18:59 3 ml Q6HRRT PRN Administration SHORTNESS OF BREATH OR WHEEZE Atorvastatin Calcium 40 mg 02/25/24 21:00 Atorvastatin Calcium 20 Mg Tablet PO 03/26/24 20:59 HS ROBERT Calcium Acetate 667 mg 02/23/24 17:30 02/25/24 12:22 Calcium Acetate 667 Mg Tablet PO 03/24/24 17:29 667 mg TIDWM ROBERT Administration Abiraterone Acetate 0 ea 02/25/24 06:00 02/25/24 07:56 250 Mg Tablets PO 03/26/24 05:59 4 tablet ACBR ROBERT Administration Dextrose 25 ml 02/23/24 16:18 Dextrose 50%-Water Inj 50 Ml Syringe IV 03/24/24 16:17 Q15MIN PRN BG 50-70 responsive npo pt Dextrose 50 ml 02/23/24 16:18 Dextrose 50%-Water Inj 50 Ml Syringe IV 03/24/24 16:17 Q15MIN PRN BG <50 OR BG <70 & pt unresponsive Docusate Sodium 100 mg 02/23/24 21:00 02/25/24 08:45 Docusate Sod 100 Mg Capsule PO 03/24/24 20:59 100 mg BID ROBERT Administration Protocol Gabapentin 100 mg 02/24/24 09:00 02/25/24 08:46 Gabapentin 100 Mg Capsule PO 03/25/24 08:59 100 mg QDAY ROBERT Administration Glucagon 1 mg 02/23/24 16:18 Glucagon Inj 1 Mg Vial IM Q15MIN PRN BG <70, and no IV access Pantoprazole Sodium 80 mg in 100 mls @ 10 mls/hr 02/23/24 14:10 02/25/24 07:50 Protonix/Ns 80mg Iv Premix IV 02/26/24 12:09 Not Given Q10H ROBERT Piperacillin/Tazobactam/Dextrose 50 mls @ 12.5 mls/hr 02/24/24 09:00 02/25/24 08:46 Zosyn IV 03/02/24 08:59 12.5 mls/hr Q12HR ROBERT Administration Insulin Human Lispro 0 unit 02/23/24 17:00 02/25/24 11:31 Insulin Lispro (Admelog) 1 Unit/0.01 Ml Unit SC 03/24/24 16:59 Not Given ACHS ROBERT Protocol Levothyroxine Sodium 100 mcg 02/24/24 06:00 02/25/24 05:22 Levothyroxine Sodium 100 Mcg Tablet PO 03/25/24 05:59 100 mcg ACBR ROBERT Administration Ondansetron HCl 4 mg 02/23/24 15:48 Ondansetron Inj 2 Mg/Ml Inj 2 Ml IV 03/24/24 15:47 Q6H PRN NAUSEA OR VOMITING Protocol Pharmacy Consult 1 each 02/23/24 16:25 Pharmacy Renal Dose Adjustment 1 Ea XX 03/24/24 16:24 PRN PRN CONSULT Sitagliptin Phosphate 25 mg 02/24/24 09:00 02/25/24 08:45 Sitagliptin Phosphate 50 Mg Tablet PO 03/25/24 08:59 25 mg QDAY ROBERT Administration Sucralfate 1 gm 02/23/24 15:55 Sucralfate 1 Gm Tablet PO 03/24/24 15:54 X1 PRN ABDOMINAL CRAMPING Tamsulosin HCl 0.4 mg 02/24/24 09:00 02/25/24 08:46 Tamsulosin Hcl 0.4 Mg Capsule PO 03/25/24 08:59 0.4 mg QDAY ROBERT Administration Tramadol HCl 50 mg 02/23/24 15:55 Tramadol Hcl 50 Mg Tablet PO 02/28/24 15:54 Q12HR PRN PAIN SCALE 4-6 (Moderate Trazodone HCl 100 mg 02/23/24 21:00 02/24/24 21:12 Trazodone Hcl 50 Mg Tablet PO 03/24/24 20:59 100 mg HS ROBERT Administration Plan Summary: Mr. Kim is a 79 y/o male with PMHx of recurrent prostate cancer (previously in remission, sees Dr. Ramírez, on Abiraterone Acetate), ESRD (), chronic anemia, diabetes mellitus, hypothyroidism, and COPD who presented to the ED on 02/23/2024 for an evaluation of stools described as dark, onset 4 days ago, multiple episodes, with associated nausea, vomiting, weakness and fatigue. Patient admitted for further management of upper GI bleed, nephrology consulted for ESRD management # End-stage renal disease on dialysis () # Electrolyte imbalance Patient admitted for management of upper GI bleed, reports receiving dialysis treatment on Saturday, completed treatment. No signs of fluid overload noted, was transfused 1 unit in ED, no more transfusions needed as hemoglobin more than 7 Patient will receive dialysis treatment today, will give 2 unit PRBC along with dialysis Plan: -Continue with dialysis treatment inpatient -Monitor renal panel daily ?Renally dose medicines #GI bleed #Symptomatic anemia #Acute blood loss anemia #SIRS 2/4 #History of prostate cancer #History of diabetes mellitus #History of hypothyroidism -Management per primary team Case discussed with Attending Dr. Funez. Juancarlos Mann PGY1 Attending Provider Attestation/Addendum Patient seen and examined with resident physician Dr. Mann. Note reviewed, agree with findings and recommendations. Patient's hemoglobin dropped. He is going to get 2 units of blood transfusion with dialysis. Patient currently seen on dialysis. Tolerating dialysis without any problems. Hemodialysis for 3 hours, 2K, ultrafiltration 2-3 L, Epogen 6000, no heparin ordered. Plan of care discussed with the dialysis nurse. Please see dialysis flowsheet for further details. Patient will need capsule endoscopy per GI.
--- NOTE | 2024-02-25 13:29 | PC.SS ---
Initial assessment: This is 79 year old male for admitted for GI bleed. Patient appeared alert and oriented. Patient informs he lives at home with spouse, Gretel. Patient confirmed home address. Patient's daughter, Xiao Archer was identified as the patient's alternate medical surrogate decision maker. Patient informed his daughter Xiao is his paid caregiver through the [place]. Patient describes to require some assistance with ADL's. Patient informs he has a cane,walker and wheelchair at home to assist with transferring. Patient's PCP is Dr. Shen Skelton. Pharmacy of choice is [facility] in [place]. Patient participates with dialysis outpatient on Tuesdays, and Saturday on [place] in [facility]. His bus transportation manager is Dr. Funez. The discharge plan was discussed, and the patient would like to return home once medically cleared. Patient's daughter Xiao to assist with transportation home. No needs identified at this time. manager services to remain available to address further concerns. D/c plan: home Next of kin: daughter, Xiao Archer
--- NOTE | 2024-02-25 13:47 | PC.NURSE ---
2nd unit PRBC finished.
--- NOTE | 2024-02-25 14:02 | PC.NURSE ---
BP dropped, goal decreased to 0.5 L.
[2024-02-25 20:02] LABS: Hematocrit 25.4 % (41.0-53.0); Hemoglobin 8.6 g/dL (13.5-16.0)
[2024-02-25] MEDS: ATORVASTATIN CALCIUM 20 MG TABLET 40 MG PO (21:02)
[2024-02-25] MEDS: traZODone HCL 50 MG TABLET 100 MG PO (21:03)
--- NOTE | 2024-02-25 22:26 | ESPR_ITS ---
Documentation for date of: 02/25/24 Subjective Subjective Interval history: Hemoglobin hematocrit did drop to 6.6 and 19.8 requiring blood transfusion and current hemoglobin hematocrit is 8.6 and 25.4 No signs of any active bleeding Upper endoscopy showed gastric polyp gastritis and duodenitis Patient will most likely need capsule endoscopy as an outpatient I agree with the blood transfusion Exam Vital Signs Temp Pulse Resp BP Pulse Ox O2 Del Method O2 Flow Rate 97.1 F 77 17 108/51 L 98 Room Air 2 02/25/24 20:00 02/25/24 20:00 02/25/24 20:00 02/25/24 20:00 02/25/24 20:00 02/25/24 20:00 02/24/24 16:35 Objective Labs 02/25/24 19:51 02/25/24 04:01 Labs: Laboratory Results - last 24 hr 02/23/24 02/25/24 02/25/24 12:51 04:01 19:51 WBC 9.6 RBC 2.11 L Hgb 6.6 L* 8.6 L D Hct 19.8 L* 25.4 L MCV 94 MCH 31.3 MCHC 33.3 RDW Std Deviation 53.8 H Plt Count 127 L Neut % (Auto) 70 Lymph % (Auto) 16 [place] % (Auto) 9 Eos % (Auto) 4 Baso % (Auto) 0 Neut # (Auto) 6.8 Lymph # (Auto) 1.6 [place] # (Auto) 0.8 Eos # (Auto) 0.4 Baso # (Auto) 0.0 Immature Gran # (Auto) 0.04 H Absolute Nucleated RBC 0.00 Immature Gran % 0 Nucleated RBC % 0 PT 10.7 INR 1.0 Sodium 138 Potassium 3.3 L Chloride 100 Carbon Dioxide 24.5 Anion Gap 14 BUN 93 H Creatinine 4.8 H* D Estim Creat Clear Calc 13.2 L eGFR 12 L* BUN/Creatinine Ratio 19 Glucose 97 Calculated Osmolality 304 H Calcium 8.6 Phosphorus 4.7 Magnesium 2.0 Blood Type A Positive Antibody Screen NEGATIVE Crossmatch See Detail Blood Bank Wristband ID Yes Impressions Impression: # Occult GI bleeding # Gastritis # Gastric polyp # Duodenitis Outpatient capsule endoscopy No further workup needed during this hospitalization from a GI viewpoint Assessment & Plan A&P Narrative # melena # Acute posthemorrhagic anemia Plan Patient is getting 1 unit of PRBC Clear liquid diet till 9 AM tomorrow then n.p.o. Fiberoptic esophagogastroduodenoscopy with possible biopsy possible therapeutic intervention scheduled for tomorrow afternoon IV Protonix Serial CBC Other medical problems include # End-stage renal disease on hemodialysis # Metastatic prostate carcinoma Thank you once again for the opportunity to participate in the care of this patient Time Spent With Patient Time: Total time spent is greater than 50% in coordination of care (as documented) at patient's floor/unit and/or counseling patient:
[2024-02-26] VITALS (8 sets, daily range): BP systolic 103–116; BP diastolic 52–61; PULSE 71–89; RESP 17–20; TEMP 36.1–36.8; O2SAT 92–99
[2024-02-26] MEDS: PANTOPRAZOLE/NS 80MG IV PREMIX 80 MG/100 ML BAG 10 MG IV (01:24)
--- NOTE | 2024-02-26 02:13 | PC.NURSE ---
pressure drsg to av fistula site on left upper arm with small amount of blood, drsg removed, bandaid x2 kept in place.
[2024-02-26] MEDS: LEVOTHYROXINE SODIUM 100 MCG TABLET PO (05:08)
[2024-02-26 05:47] LABS: Basophils % (Auto) 0 % (0-2.5); Eosinophils # (Auto) 0.4 Thou/mm3 (0.0-0.5); Eosinophils % (Auto) 5 % (0-10); Hematocrit 25.1 % (41.0-53.0); Immature Granulocytes % (Auto) 0 % (0-0); Immature Granulocytes Auto 0.03 Thou/mm3 (0.00-0.00); Lymphocytes # (Auto) 1.2 Thou/mm3 (1.0-4.8); Lymphocytes % (Auto) 14 % (10-50); Mean Corpuscular HGB Conc 33.9 g/dl (31.0-37.0); Mean Corpuscular Hemoglobin 30.6 pg (25.0-35.0); Mean Corpuscular Volume 90 fL (80-100); Monocytes % (Auto) 11 % (0-12); Neutrophils # (Auto) 6.1 Thou/mm3 (1.8-7.7); Neutrophils % (Auto) 70 % (37-80); Nucleated Red Blood Cell % 0 /100 WBC (0); Platelet Count 133 Thou/mm3 (140-440); RDW Standard Deviation 52.2 fL (35.1-43.9); Red Blood Count 2.78 Miln/mm3 (4.50-5.90); White Blood Count 8.7 Thou/mm3 (3.8-10.6)
[2024-02-26 05:51] LABS: Hemoglobin 8.5 g/dL (13.5-16.0)
[2024-02-26 06:02] LABS: Prothrombin Time 10.9 Seconds (9.0-12.2)
[2024-02-26 06:32] LABS: Anion Gap 9 (7-16); BUN/Creatinine Ratio 14 Ratio (12-20); Blood Urea Nitrogen 49 mg/dL (9-23); Calcium 8.8 mg/dL (8.3-10.6); Carbon Dioxide 28.8 mMol/L (20.0-31.0); Chloride 99 mMol/L (98-107); Creatinine (Component) 3.4 mg/dL (0.6-1.3); Estimated Creatinine Clearance 18.7 mL/min (>60); Glucose 104 mg/dL (74-106); Magnesium 1.9 mg/dL (1.6-2.6); Osmolality,Calculated 286 (275-295); Phosphorous 3.7 mg/dL (2.4-5.1); Potassium 3.2 mMol/L (3.4-5.1); Sodium 137 mMol/L (136-145); eGFR 17 See Note
[2024-02-26] MEDS: ABIRATERONE ACETATE 250 MG PO (07:28)
[2024-02-26] MEDS: GABAPENTIN 100 MG CAPSULE PO (08:52)
[2024-02-26] MEDS: CALCIUM ACETATE 667 MG TABLET PO ×2 (08:52→11:39)
[2024-02-26] MEDS: TAMSULOSIN HCL 0.4 MG CAPSULE PO (08:52)
[2024-02-26] MEDS: DOCUSATE SOD 100 MG CAPSULE PO (08:53)
[2024-02-26] MEDS: sitaGLIPtin PHOSPHATE 50 MG TABLET 25 MG PO (08:54)
[2024-02-26] MEDS: POTASSIUM CHL 10 mEq IVPB 10 MEQ/100 ML BAG 100 MEQ IV ×4 (08:57→13:09)
[2024-02-26] MEDS: PIPER/TAZO 3.375 GM 50 ML IV (08:59)
[2024-02-26] MEDS: PANTOPRAZOLE 40 MG TABLET PO (11:46)
--- NOTE | 2024-02-26 13:00 | PD.RESPRO ---
Documentation for date of: 02/26/24 Subjective Subjective Interval history: Mr. Kim is a 79 y/o male with PMHx of recurrent prostate cancer (previously in remission, sees Dr. Ramírez, on Abiraterone Acetate), ESRD (//), chronic anemia, diabetes mellitus, hypothyroidism, and COPD who presented to the ED on 02/23/2024 for an evaluation of stools described as dark, onset 4 days ago, multiple episodes, with associated nausea, vomiting, weakness and fatigue. Patient says that he has had the symptoms before, and decided to get checked out to see has been feeling worse. Says that he does not remember the last time he vomited, but says that he had a dark bowel movement prior to arrival. Says that he is not on any blood thinners, unsure if he takes any NSAIDs, but denies coughing up any blood as well. Reported that he has prostate cancer in which he sees Dr. Ramírez. Says that he self caths on his own, still makes urine but a little bit of it. Says he has had a colonoscopy before, but does not remember when it was. Says that he has been feeling tired and fatigued, felt like he was going to pass out but did not. Denies having fallen recently. Daughters present at bedside. Denies any chest pain, shortness of breath, syncope, headache. ED course: Patient arrived to the ED with a temperature of 97.6, rate of 103, respiratory rate 19, blood pressure 106/61, satting at 98% room air. Was worked up and was found to have potassium of 3.2, chloride of 98, BUN/creatinine of 72 and 2.6 respectively, glucose of 233, white count of 16, hemoglobin of 7.2, PT and INR of 11 and 1.0 respectively. EKG showed sinus tachycardia. GI was consulted and decision was made to admit patient for further evaluation of GI bleed. 02/25/24: Patient seen at bedside, patient is status post EGD, EGD was inconclusive of source of bleeding, patient has had extensive workup in the past, GI recommends outpatient capsule endoscopy to find the cause of bleeding further, patient denies any symptoms currently, complains of tiredness. Patient's hemoglobin dropped to 6.6, patient's hemoglobin was 7.6 yesterday patient is scheduled for dialysis treatment today, will give 2 unit PRBC along with dialysis. Will continue inpatient dialysis sessions. 02/26/24: Patient seen at bedside, continues to complain of dark stool, complains of general tiredness. GI recommends outpatient capsule endoscopy to find the cause of bleeding further. Will continue inpatient dialysis as scheduled. Exam Vital Signs Temp Pulse Resp BP Pulse Ox O2 Del Method O2 Flow Rate 96.9 F 78 17 108/56 L 96 Room Air 2 02/26/24 11:59 02/26/24 12:00 02/26/24 11:59 02/26/24 11:59 02/26/24 11:59 02/26/24 11:59 02/24/24 16:35 Narrative Exam General: AAOx3, NAD, hard of hearing a bit, plesant male HEENT: Dry mucous membranes, conjunctiva clear, EOMI, PERRLA, Cardiovascular: S1, S2, radial pulses +2 bilat, murmur heard Pulmonary: CTAB bilat no cough, no wheezing GI: No tenderness to light or deep palpitation, no guarding, rigidity, rebound tenderness or distension Extremities: No presence of trace or pitting edema in lower extremities bilaterally, dorsalis pedis pulses +2 bilaterally Skin: Senile purpura throughout UE bilat Neuro: AAOx3, no focal motor or sensory deficits in the UE or LE bilat Psych: Good judgement, thought and behavior. Cooperative Objective Labs 02/26/24 04:59 02/26/24 04:59 Labs: Laboratory Results - last 24 hr 02/23/24 02/25/24 02/26/24 12:51 19:51 04:59 WBC 8.7 RBC 2.78 L Hgb 8.6 L D 8.5 L Hct 25.4 L 25.1 L MCV 90 MCH 30.6 MCHC 33.9 RDW Std Deviation 52.2 H Plt Count 133 L Neut % (Auto) 70 Lymph % (Auto) 14 Hubbard % (Auto) 11 Eos % (Auto) 5 Baso % (Auto) 0 Neut # (Auto) 6.1 Lymph # (Auto) 1.2 Hubbard # (Auto) 1.0 H Eos # (Auto) 0.4 Baso # (Auto) 0.0 Immature Gran # (Auto) 0.03 H Absolute Nucleated RBC 0.00 Immature Gran % 0 Nucleated RBC % 0 PT 10.9 INR 1.0 Sodium 137 Potassium 3.2 L Chloride 99 Carbon Dioxide 28.8 Anion Gap 9 BUN 49 H Creatinine 3.4 H D Estim Creat Clear Calc 18.7 L eGFR 17 L BUN/Creatinine Ratio 14 Glucose 104 Calculated Osmolality 286 Calcium 8.8 Phosphorus 3.7 Magnesium 1.9 Crossmatch See Detail Quality Measures Quality Measures VTE prophylaxis (SCDs) Advance care planning discussed with:: patient Assessment & Plan Assessment Current Active Medications: Generic Name Dose Route Start Last Admin Trade Name Freq PRN Reason Stop Dose Admin Acetaminophen 650 mg 02/23/24 15:48 Acetaminophen 325 Mg Tablet PO 03/24/24 15:47 Q6H PRN Fever >101.5 or pain 1-3 Albuterol/Ipratropium 3 ml 02/23/24 22:05 02/25/24 19:27 Albuterol/Ipratropium (Duoneb) Rt Christianne 3 Ml Nebu INH 03/24/24 18:59 3 ml Q6HRRT PRN Administration SHORTNESS OF BREATH OR WHEEZE Atorvastatin Calcium 40 mg 02/25/24 21:00 02/25/24 21:02 Atorvastatin Calcium 20 Mg Tablet PO 03/26/24 20:59 40 mg HS ROBERT Administration Calcium Acetate 667 mg 02/23/24 17:30 02/26/24 11:39 Calcium Acetate 667 Mg Tablet PO 03/24/24 17:29 667 mg TIDWM ROBERT Administration Abiraterone Acetate 0 ea 02/25/24 06:00 02/26/24 07:28 250 Mg Tablets PO 03/26/24 05:59 4 tablet ACBR ROBERT Administration Dextrose 25 ml 02/23/24 16:18 Dextrose 50%-Water Inj 50 Ml Syringe IV 03/24/24 16:17 Q15MIN PRN BG 50-70 responsive npo pt Dextrose 50 ml 02/23/24 16:18 Dextrose 50%-Water Inj 50 Ml Syringe IV 03/24/24 16:17 Q15MIN PRN BG <50 OR BG <70 & pt unresponsive Docusate Sodium 100 mg 02/23/24 21:00 02/26/24 08:53 Docusate Sod 100 Mg Capsule PO 03/24/24 20:59 100 mg BID ROBERT Administration Protocol Gabapentin 100 mg 02/24/24 09:00 02/26/24 08:52 Gabapentin 100 Mg Capsule PO 03/25/24 08:59 100 mg QDAY ROBERT Administration Glucagon 1 mg 02/23/24 16:18 Glucagon Inj 1 Mg Vial IM Q15MIN PRN BG <70, and no IV access Piperacillin/Tazobactam/Dextrose 50 mls @ 12.5 mls/hr 02/24/24 09:00 02/26/24 08:59 Zosyn IV 03/02/24 08:59 12.5 mls/hr Q12HR ROBERT Administration Insulin Human Lispro 0 unit 02/23/24 17:00 02/26/24 11:42 Insulin Lispro (Admelog) 1 Unit/0.01 Ml Unit SC 03/24/24 16:59 Not Given ACHS [facility] Protocol Levothyroxine Sodium 100 mcg 02/24/24 06:00 02/26/24 05:08 Levothyroxine Sodium 100 Mcg Tablet PO 03/25/24 05:59 100 mcg ACBR ROBERT Administration Ondansetron HCl 4 mg 02/23/24 15:48 Ondansetron Inj 2 Mg/Ml Inj 2 Ml IV 03/24/24 15:47 Q6H PRN NAUSEA OR VOMITING Protocol Pharmacy Consult 1 each 02/23/24 16:25 Pharmacy Renal Dose Adjustment 1 Ea XX 03/24/24 16:24 PRN PRN CONSULT Sitagliptin Phosphate 25 mg 02/24/24 09:00 02/26/24 08:54 Sitagliptin Phosphate 50 Mg Tablet PO 03/25/24 08:59 25 mg QDAY ROBERT Administration Sucralfate 1 gm 02/23/24 15:55 Sucralfate 1 Gm Tablet PO 03/24/24 15:54 X1 PRN ABDOMINAL CRAMPING Tamsulosin HCl 0.4 mg 02/24/24 09:00 02/26/24 08:52 Tamsulosin Hcl 0.4 Mg Capsule PO 03/25/24 08:59 0.4 mg QDAY ROBERT Administration Tramadol HCl 50 mg 02/23/24 15:55 Tramadol Hcl 50 Mg Tablet PO 02/28/24 15:54 Q12HR PRN PAIN SCALE 4-6 (Moderate Trazodone HCl 100 mg 02/23/24 21:00 02/25/24 21:03 Trazodone Hcl 50 Mg Tablet PO 03/24/24 20:59 100 mg HS ROBERT Administration Plan Summary: Mr. Kim is a 79 y/o male with PMHx of recurrent prostate cancer (previously in remission, sees Dr. Ramírez, on Abiraterone Acetate), ESRD (), chronic anemia, diabetes mellitus, hypothyroidism, and COPD who presented to the ED on 02/23/2024 for an evaluation of stools described as dark, onset 4 days ago, multiple episodes, with associated nausea, vomiting, weakness and fatigue. Patient admitted for further management of upper GI bleed, nephrology consulted for ESRD management # End-stage renal disease on dialysis () # Electrolyte imbalance Patient admitted for management of upper GI bleed, reports receiving dialysis treatment on Saturday, completed treatment. No signs of fluid overload noted, was transfused 1 unit in ED, no more transfusions needed as hemoglobin more than 7 Patient will receive dialysis treatment 02/24, was given 2 unit PRBC along with dialysis Plan: -Continue with dialysis treatment inpatient -Monitor renal panel daily ?Renally dose medicines #GI bleed #Symptomatic anemia #Acute blood loss anemia #SIRS 2/4 #History of prostate cancer #History of diabetes mellitus #History of hypothyroidism -Management per primary team Case discussed with Attending Dr. Funez. Juancarlos Mann PGY1 Attending Provider Attestation/Addendum Patient seen and examined with resident physician Dr. Mann. Note reviewed, agree with findings and recommendations. Patient's hemoglobin dropped. Did receive 2 units of blood transfusion with dialysis yesterday. Hemoglobin 8.1. Patient will need capsule endoscopy per GI. Needs outpatient follow-up. Possible discharge today.
--- NOTE | 2024-02-26 13:53 | ESDS_ITS ---
<Statement entered by Paulino Del Rosario MD - 02/27/24 12:50> Patient was seen and examined at bedside, patient was cleared from gastroenterology standpoint for discharge to follow-up in outpatient settings for his lower GI bleed. Patient reported that his dark stool has been decreasing over the past 2 days his hemoglobin stable at 8.5-8.6. He got 1 unit with dialysis today. Patient denied any nausea or vomiting, denied any chest pain, any dizziness, sweating or shortness of breath. Patient is cleared for discharge from medical standpoint. He was recommended to follow-up with oncologist for his prostate cancer and also to follow-up on his pulmonary nodule with his primary care physician patient was also instructed to follow-up with the GI specialist within 1 week from discharge for referral for endoscopy capsule. - Patient's plan and care discussed with my attending, Dr. Ken Del Rosario MD Internal Medicine PGY-2 Planned Discharge Date 02/26/24 DS: Providers Provider Date of admission: 02/23/24 15:48 Primary care physician: Shen Skelton MD Admitting Provider: John Brown MD Attending Provider on Admission: John Brown MD Consults: 02/23/24 14:36 Consult to Gastroenterology Stat Comment: Consulting Provider: Nataliya Stewart Attending Provider on DC: Maninder Rogers MD Discharging Provider: Maninder Rogers MD DS: Diagnosis Problem List Completed Was Problem List Reviewed/Reconciled?: Yes Hospital Course Hospital Course Hospital course: 79 y/o male with PMHx of recurrent prostate cancer (previously in remission, sees Dr. Ramírez, on Abiraterone Acetate), ESRD (T//, [employer], Dr. Talley), chronic anemia, diabetes mellitus, hypothyroidism, and COPD who was admitted to [facility] on 02/23/2024 for lower GI bleed and symptomatic anemia. Patient had reported prior to arrival that he had been experiencing multiple episodes dark stools that started 4 days ago with associated symptoms, not on A/C. He arrived to the ED with a temperature of 97.6, rate of 103, respiratory rate 19, blood pressure 106/61, satting at 98% room air. Was worked up and was found to have potassium of 3.2, chloride of 98, BUN/creatinine of 72 and 2.6 respectively, glucose of 233, white count of 16, hemoglobin of 7.2, PT and INR of 11 and 1.0 respectively. EKG showed sinus tachycardia. GI was consulted and decision was made to admit patient for further evaluation of GI bleed. On the floors, patient was prepped for EGD to be done by Dr. tSewart. EGD was done and showed nonerosive gastritis, erythematous duodenopathy, esophagitis and a 1 cm gastric polyp that was nonbleeding at the time. Patient was safe to continue any blood thinners, however the next day patient's hemoglobin had dropped to 6.6 and with the patient need to be transfused. Patient was transfused with dialysis as it was patient's dialysis day per schedule. Patient's hemoglobin had went up to 8.6. Recommendations for patient is as he needs to get capsule endoscopy on outpatient setting within 2 weeks. At this point since there was no source of bleeding seen on EGD, bleeding could be arising from the jejunum and ileum secondary to AVMs, however will need capsule endoscopy to further workup. Patient may need to go to [facility] or the [place] as patient has insurance issues per patient's family. Reviewed patient's old imaging, patient has subcentimeter left pulmonary nodules which he will need to get outpatient CT to evaluate further. Patient did not get any imaging studies here in the hospital to further evaluate if there has been a change in these nodules. Follow up with your PCP within one week from discharge Follow up with GI doctor, Dr Stewart within 1 weeks as you need capsule endoscopy to further assess the source of bleeding In case of worsening of your symptoms please return to the ED as soon as possible Use Medications as prescribed Follow up on your Prostate tumor with the your oncolgist on discharge Follow up on your Pulmonary nodule with your PCP Avoid smoking, NSAIDs, aspirin, alcohol and spicy foods as this may precipitate bleeding #Upper GI bleed #Symptomatic anemia #Acute blood loss anemia #ESRD #Electrolyte abnormalities #SIRS 2/4, ruled out #? UTI, ruled out #History of prostate cancer #History of diabetes mellitus #History of hypothyroidism #History of left pulmonary nodules Patient seen and care discussed with my senior resident, Dr. Del Rosario , and my attending physician, Dr. Ken Caballero, PGY-1 Time Spent with Patient Time attestation: Total time spent providing and/or coordinating discharge services: Time spent: Greater than 30 minutes Exam Vital Signs Temp Pulse Resp BP Pulse Ox O2 Del Method O2 Flow Rate 96.9 F 75 17 108/56 L 96 Room Air 2 02/26/24 11:59 02/26/24 11:59 02/26/24 11:59 02/26/24 11:59 02/26/24 11:59 02/26/24 11:59 02/24/24 16:35 Narrative Exam General: AAOx3, NAD, hard of hearing a bit but has hearing aids, pleasant male HEENT: Dry mucous membranes, conjunctiva clear, EOMI, PERRLA, Cardiovascular: S1, S2, radial pulses +2 bilat, murmur heard Pulmonary: CTAB bilat no cough, no wheezing GI: No tenderness to light or deep palpitation, no guarding, rigidity, rebound tenderness or distension Extremities: No presence of trace or pitting edema in lower extremities bilaterally, dorsalis pedis pulses +2 bilaterally Skin: Senile purpura throughout UE bilat Neuro: AAOx3, no focal motor or sensory deficits in the UE or LE bilat Psych: Good judgement, thought and behavior. Cooperative Discharge Plan Plan Patient Disposition: HOME (Self Care) Patient condition on transfer: Stable Care Plan Goals: Follow up with your PCP within one week from discharge Follow up with GI doctor, Dr Stewart within 1 weeks as you need capsule endoscopy to further assess the source of bleeding In case of worsening of your symptoms please return to the ED as soon as possible Use Medications as prescribed Follow up on your Prostate tumor with the your oncolgist on discharge Follow up on your Pulmonary nodule with your PCP Prescriptions/Referrals Prescriptions/Med Rec: New ferrous fumarate 324 mg (106 mg iron) tablet 324 mg PO .qod 30 Days Qty: 15 0RF Continued tamsulosin 0.4 mg capsule 0.4 mg PO QDAY prednisone 5 mg tablet 5 mg PO QDAY levothyroxine 100 mcg Tablet 100 mcg PO QDAY Qty: 0 atorvastatin 40 mg tablet 1 tab PO HS Patient Comments: take 1 tablet by mouth at bedtime for HIGH CHOLESTEROL docusate sodium 100 mg Tablet 100 mg PO BID pantoprazole [Protonix] 40 mg tablet,delayed release (DR/EC) 40 mg PO BID Qty: 60 0RF Lupron Depot (3 month) 22.5 mg Syringe Kit See Rx Instructions .ROUTE .COMPLEX Rx Instructions: 22.5 mg IM every 3 months Vitamin C 100 mg Tablet 100 mg PO QDAY sucralfate 1 gram tablet 1 g PO BID Patient Comments: take 1 tablet by mouth twice a day abiraterone 250 mg Tablet 250 mg PO QDAY Rx Instructions: take 4 tablets po qd 1 suhail before or 2 hours after food sitagliptin 25 mg Tablet 25 mg PO QDAY prednisolone acetate 1 % drops,suspension 1 drp OPHTHALMIC (EYE) QID Patient Comments: instill 1 into left eye four times a day START AFTER SURGERY nicotine (polacrilex) 4 mg Lozenge 4 mg BUCCAL Q2H PRN (Reason: Smoking Cessation) trazodone 50 mg Tablet 100 mg PO QDAY Hold Instructions: Resume on 02/05/23. gabapentin 100 mg Capsule 100 mg PO QDAY calcium acetate(phosphat bind) 667 mg Capsule 667 mg PO TID fluticasone propion-salmeterol 100-50 mcg/dose Blister With Device 1 inh INHALATION BID Referrals: Shen Skelton MD [Primary Care Provider] - Patient/Caregiver Discharge Instructions Discharge Activity: activity as tolerated Education Materials: Bleeding Gastrointestinal, Anemia Print Language: [place] Stand Alone Forms: Franny Award Info., Patient Portal Info Letter Discharge Order Discharge Orders: Discharge (Routine); Ordered 02/26/24 Ordered By: Paulino Del Rosario Quality Discharge Quality Measures VTE prophylaxis (SCDs) Attestestation MD Attestation I have examined the patient, reviewed labs and imaging findings, discussed the case with the resident(s), and reviewed entered orders. I agree with the plan of care as outlined in this note. Dr. Roegrs
[2024-03-02 06:57] LABS: Fecal Globin Result NOT DETECTED (NOT DETECTED)
== END 2024-02-26 15:45 | disposition home or self-care (01) | DRG 377 ==
LOC: SERX 14:35 → SERHOLD 16:23 → S3NX 21:05
PROVIDERS: Physician Assistant; Specialist; Student in an Organized Health Care Education/Training Program; Admitting Provider Internal Medicine; Emergency Provider Emergency Medicine; PCP Family Medicine; Referring Provider Emergency Medicine; Visit Provider Internal Medicine
PROC: 0DJ08ZZ Inspection of Upper Intestinal Tract, Via Natural or Artificial Opening Endoscopic (ICD-10-PCS; CPT 43239; principal; 2024-02-24 18:30)
DX: K29.61 Other gastritis with bleeding (principal); N18.6 End stage renal disease; D62 Acute posthemorrhagic anemia; K20.91 Esophagitis, unspecified with bleeding; K29.81 Duodenitis with bleeding; C61 Malignant neoplasm of prostate; E03.9 Hypothyroidism, unspecified; J44.9 Chronic obstructive pulmonary disease, unspecified; E11.22 Type 2 diabetes mellitus with diabetic chronic kidney disease; K31.7 Polyp of stomach and duodenum; R91.8 Other nonspecific abnormal finding of lung field; H91.90 Unspecified hearing loss, unspecified ear; Z87.19 Personal history of other diseases of the digestive system; Z86.14 Personal history of Methicillin resistant Staphylococcus aureus infection; Z66 Do not resuscitate; Z99.2 Dependence on renal dialysis; Z86.0100 Personal history of colon polyps, unspecified; Z79.890 Hormone replacement therapy; Z79.899 Other long term (current) drug therapy; Z79.51 Long term (current) use of inhaled steroids; Z79.52 Long term (current) use of systemic steroids
CPT/HCPCS: 36415; 36430; 80048; 80053; 81001; 82274; 83036; 83690; 83735; 84100; 84145; 84443; 84484; 85014; 85018; 85025; 85610; 85730; 86850; 86900; 86901; 86921; 86922; 87081; 93005; 94640; 96374; 99285; A9270; J1200; J2250; J2470; J2543; J3010; J3480; J3490; J7512; P9016; G0328

== ENCOUNTER → 2024-03-17 | Outpatient (CLI) | payer OTHER, SELFPAY ==
[2024-03-17 10:52] LABS: Collection Type, Urine Clean Catch
[2024-03-17 11:56] LABS: Bacteria,Urine 3+; Bilirubin,Urine Negative (Negative); Blood,Urine 3+ (Negative); Color,Urine Drk-Orange (Lt Yel-Yel); Glucose, Urine Negative (Negative); Ketones,Urine Negative (Negative); Leukocyte Esterase,Urine Positive (Negative); Nitrite,Urine Negative (Negative); PH,Urine 6.5 (5.0-7.0); Protein,Urine 3+ (Neg - Trace); RBC,Urine 164 /hpf (0-3); Specific Gravity,Urine 1.013 (1.001-1.035); Squamous Epithelial Cell,Urine 5 /hpf (0-5); Urobilinogen,Urine Negative mg/dL (0.0-1.0); WBC,Urine 6232 /hpf (0-5)
[2024-03-17 12:04] LABS: Clarity,Urine Turbid (Clear/Hazy)
== END | disposition home or self-care (01) ==
LOC: SLDO 10:22
PROVIDERS: PCP Family Medicine; Referring Provider Family Medicine; Visit Provider Family Medicine
DX: Z01.89 Encounter for other specified special examinations (principal)
CPT/HCPCS: 81001; 87077; 87086; 87186

== ENCOUNTER 2024-03-26 09:23 | Emergency (ER) | payer OTHER, SELFPAY ==
[2024-03-26] VITALS (15 sets, daily range): BP systolic 101–138; BP diastolic 47–80; PULSE 79–90; RESP 15–49; TEMP 36.6–36.9; O2SAT 97–100; BMI 28.1
--- NOTE | 2024-03-26 09:57 | EKG_ITS ---
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
--- NOTE | 2024-03-26 09:58 | PD.EDRME ---
Rapid Medical Screening Exam E Arrival date/time: 03/26/24 09:23 79-year-old male history of chronic kidney disease on hemodialysis presents to the emergency department today with black stools history of GI bleed and blood transfusions. I have greeted and performed a focused initial assessment of this patient. Initial appropriate labs ordered at this time. A comprehensive ED assessment and evaluation of the patient and analysis of all test and completion of medical decision making process will be conducted by additional ED provider. Chief Complaint: GI Bleed Time Seen by Provider: 03/26/24 09:38 Vital signs: Vital Signs Temperature 98.0 F 03/26/24 09:40 Pulse Rate 90 03/26/24 09:40 Respiratory Rate 19 03/26/24 09:40 Blood Pressure 101/55 L 03/26/24 09:40 Pulse Oximetry (%) 99 03/26/24 09:40 Oxygen Delivery Method Room Air 03/26/24 09:40
--- NOTE | 2024-03-26 10:13 | PC.NURSE ---
Patient from [facility] to main ER room 19 with c/o black stools x 3 days, per patient states I need a blood transfusion patient states he gets frequent blood transfusions. Patient denies n/v/d and no c/o abdominal pain, skin is cool dry and pale. Patient states he feels weak and SOB. Resp. even and non labored at 16 bpm, chart up to be seen by er provider, Call light within reach and daughter at bedside.
[2024-03-26 10:32] LABS: Basophils % (Auto) 0 % (0-2.5); Eosinophils # (Auto) 0.3 Thou/mm3 (0.0-0.5); Eosinophils % (Auto) 2 % (0-10); Hematocrit 21.8 % (41.0-53.0); Immature Granulocytes % (Auto) 1 % (0-0); Lymphocytes # (Auto) 1.2 Thou/mm3 (1.0-4.8); Lymphocytes % (Auto) 9 % (10-50); Mean Corpuscular HGB Conc 32.6 g/dl (31.0-37.0); Mean Corpuscular Hemoglobin 30.3 pg (25.0-35.0); Mean Corpuscular Volume 93 fL (80-100); Monocytes % (Auto) 7 % (0-12); Neutrophils # (Auto) 11.5 Thou/mm3 (1.8-7.7); Neutrophils % (Auto) 82 % (37-80); Nucleated Red Blood Cell % 0 /100 WBC (0); Platelet Count 233 Thou/mm3 (140-440); RDW Standard Deviation 48.2 fL (35.1-43.9); Red Blood Count 2.34 Miln/mm3 (4.50-5.90); White Blood Count 14.1 Thou/mm3 (3.8-10.6)
[2024-03-26 10:35] LABS: Hemoglobin 7.1 g/dL (13.5-16.0)
[2024-03-26 10:48] LABS: Partial Thromboplastin Time 25.6 Seconds (22.0-36.0); Prothrombin Time 11.2 Seconds (9.0-12.2)
--- NOTE | 2024-03-26 10:57 | PD.EDGIBLD ---
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 I have greeted and performed a focused initial assessment of this patient. Initial appropriate labs ordered at this time. A comprehensive ED assessment and evaluation of the patient and analysis of all test and completion of medical decision making process will be conducted by additional ED provider. DR. BLANCHARD MAIN ED EVALUATION 79 year old male with history of prostate cancer, COPD, ESRD T// followed by Dr. Funez, chronic anemia, diabetes, hypothyroidism presents to the ED for evaluation of weakness beginning 3 days ago. Reports feeling globally weak and fatigued, accompanied by black stools also beginning 3 days ago. Reportedly was unable to get up on his own due to weakness and required assistance yesterday. Symptoms today are similar to previous episodes of anemia. Denies fevers, chills, sweats. Denies chest pain, cough, shortness of breath. Denies nausea, vomiting, or abdominal pain. Daughter mentioned patient has history of blood in stools and previously had an EGD and colonoscopy performed. States the colonoscopy showed there was bleeding in the intestines however unable to localize. Is currently pending referral for the capsule colonoscopy. Daughter additionally reports patient had an echocardiogram performed with airplane gas tank liner assembler Dr. Elisabet Mann yesterday with a follow up appointment scheduled 04/06/2024. Related Data Home Medications ?Medication ?Instructions ?Recorded ?Confirmed levothyroxine 100 mcg tablet 100 mcg PO QDAY #0 tabs 12/19/16 02/23/24 atorvastatin 40 mg tablet 1 tab PO HS 08/01/21 02/23/24 docusate sodium 100 mg tablet 100 mg PO BID 11/07/21 02/23/24 trazodone 50 mg tablet 100 mg PO QDAY 01/30/22 02/23/24 calcium acetate(phosphat bind) 667 667 mg PO TID 06/27/22 02/23/24 mg capsule gabapentin 100 mg capsule 100 mg PO QDAY 06/27/22 02/23/24 tamsulosin 0.4 mg capsule 0.4 mg PO QDAY 10/26/22 02/23/24 fluticasone 100 mcg-salmeterol 50 1 inh inhalation BID 02/04/23 02/23/24 mcg/dose blistr powdr for inhalation ascorbic acid (vitamin C) 100 mg 100 mg PO QDAY 05/22/23 02/23/24 tablet (Vitamin C) leuprolide (3 month) 22.5 mg (3 See Rx Instructions .Route .COMPLEX 05/22/23 02/23/24 month) intramuscular syringe kit (Lupron Depot) prednisone 5 mg tablet 5 mg PO QDAY 11/22/23 02/23/24 abiraterone 250 mg tablet 250 mg PO QDAY 02/23/24 02/23/24 sitagliptin 25 mg tablet 25 mg PO QDAY 02/23/24 02/23/24 sucralfate 1 gram tablet 1 g PO BID 02/23/24 02/23/24 nicotine (polacrilex) 4 mg buccal 4 mg buccal Q2H PRN Smoking 02/24/24 02/24/24 lozenge Cessation prednisolone acetate 1 % eye 1 drp ophthalmic (eye) QID 02/24/24 02/24/24 drops,suspension Previous Rx's ?Medication ?Instructions ?Recorded pantoprazole 40 mg tablet,delayed 40 mg PO BID #60 tabs 05/08/23 release (Protonix) ferrous fumarate 324 mg (106 mg 324 mg PO .qod 30 days #15 tabs 02/26/24 iron) tablet Allergies Allergy/AdvReac Type Severity Reaction Status Date / Time No Known Allergies Allergy Verified 03/26/24 09:25 Review of Systems Review of Systems Narrative Review of Systems: GEN: No fever, no chills, no weight loss, +global weakness, +fatigue EYES: No discharge, no visual changes, no pain HEENT: No ear pain, no congestion, no sore throat PULM: No shortness of breath, no cough, no congestion CV: No chest pain, no dyspnea on exertion, no palpitations GI: No nausea, no vomiting, no diarrhea, no pain, no constipation, +black stools : No frequency, no urgency, no dysuria MUSC/SKEL: No joint pain, no back pain SKIN: No rash PSYCH: No hallucinations, no depression HEME/LYMPH: +hx of anemia NEURO: +global weakness, no headache Past Medical History Past Medical History NEUROLOGIC: Positive Neurological Disorders, Cerebrovascular Accident, Transient Ischemic Attacks (TIA), Brain Tumor and Migraine CARDIAC: Positive Cardiac Disorders, Heart Murmur and Hypercholesterolemia RESPIRATORY: Positive Chronic Obstructive Pulmonary Disease (COPD), Asthma, Emphysema and Pneumonia GASTROINTESTINAL: Positive Gastrointestinal Disorders, Gall Bladder Disease, Ulcer, Hemorrhoids and Gastroesophageal Reflux Disease GENITOURINARY: Positive Genitourinary Disorders, Renal Disease, Kidney Stones, Dialysis, Prostate Cancer and Benign Prostatic Hyperplasia MUSCULOSKELETAL: Positive Musculoskeletal Disorders and Arthritis ENT: Positive Cataracts and Deafness ENDOCRINE: Positive Endocrine Disorders, Diabetes Mellitus Type 2 and Hypothyroidism HEMATOLOGIC: Positive Blood Disorders and Anemia PSYCHO/SOCIAL: Positive Depression, Anxiety and Post Traumatic Stress Disorder OTHER HISTORY: Positive Hospitalization, Shingles, Blood Transfusions, Chemotherapy (lupron shot), Radiation Therapy, Chicken Pox, Measles, Mumps, Cancer and Prostate Cancer Family History FAMILY HISTORY: Positive Family Psychiatric Problems, Family Respiratory Disorders, Family Cardiac Disorders, Family Cancer and Family Surgery Surgical History SURGICAL: Positive Angiogram, Ear Surgery, Nephrectomy and Vasectomy Social History SMOKING STATUS: Never smoker SECOND HAND EXPOSURE: No SUBSTANCE USE: does not use ED Exam Narrative Physical exam: GENERAL APPEARANCE: alert and oriented x 4, well-developed, well-nourished, pallor HEENT: Normocephalic, atraumatic; pupils equal, round, reactive to light; EOMI; mucous membranes pink, moist; oropharynx clear NECK: Supple LUNGS: CTABL; no wheezes, no rales, no rhonchi HEART: Regular rate, regular rhythm; normal S1, S2; no murmurs ABDOMEN: non distended; normal BS; soft, no tenderness, no guarding, no rebound; no masses, no organomegaly, no hernia BACK: no CVA tenderness EXTREMITIES: atraumatic; no edema NEUROLOGIC: awake; alert and oriented x4; cranial nerves II-XII grossly intact; no focal sensory or motor deficits PSYCHIATRIC: appropriate mood and affect SKIN: warm, dry, pallor; no rashes Course Quality Measures none Orders Category Date Time Status EKG (ED ONLY) *Do not use* NOW Care 03/26/24 09:57 Completed Insert IV NOW Care 03/26/24 09:57 Completed NPO STAT Care 03/26/24 09:57 Completed Transfuse,blood/blood products NOW Care 03/26/24 11:14 Completed EKG (ED Only) Stat Exams 03/26/24 09:57 Draft Antibody Identification Stat Lab 03/26/24 10:08 Completed CBC Stat Lab 03/26/24 10:08 Completed Comprehensive Metabolic Panel Stat Lab 03/26/24 10:08 Completed Lipase Stat Lab 03/26/24 10:08 Completed Magnesium Stat Lab 03/26/24 10:08 Completed Partial Thromboplastin Time Stat Lab 03/26/24 10:08 Completed Prothrombin Time with INR Stat Lab 03/26/24 10:08 Completed Red Blood Cells Stat Lab 03/26/24 10:08 Completed Troponin I Stat Lab 03/26/24 10:08 Completed Type and Screen Stat Lab 03/26/24 10:08 Completed Urinalysis Stat Lab 03/26/24 12:58 Completed Vital Signs Vital signs: Vital Signs Temperature 98.0 F 03/26/24 09:40 Pulse Rate 90 03/26/24 09:40 Respiratory Rate 19 03/26/24 09:40 Blood Pressure 101/55 L 03/26/24 09:40 Pulse Oximetry (%) 99 03/26/24 09:40 Oxygen Delivery Method Room Air 03/26/24 09:40 Pulse ox is 99% on room air which is adequate. GI Bleed MDM Narrative MDM Narrative:: Betina Gil am scribing for and in the presence of Dr. Blanchard. Patient data External records reviewed:: [facility] previous records (I reviewed admission from 02/23/2024 through 02/26/2024) Clinical information provided by:: patient and family (Daughter- adds to the history ) Social determinants that could affect healthcare access:: none Patient has the following chronic illnesses:: prostate cancer, COPD, ESRD T/Th/S followed by Dr. Funez, chronic anemia, diabetes, hypothyroidism How is presenting disease/condition affected by chronic disease/condition?: exacerbated by Evaluation data The following diagnostics were reviewed and interpreted by me:: lab results and EKG tracing(s) (sinus rhythm, rate 93, left axis deviation) Lab and/or radiology exams considered but not ordered:: None Interpretation Summary: Anemic, RBC 2.34, Hgb 7.1, Hct 21.8. Medications / Prescriptions Medications or Prescriptions considered but not ordered:: None Medication administrations:: see above Consultations Consultation(s) initiated? (list below): No Diagnosis GI bleed differential diagnosis: infectious diarrhea, esophageal varices, gastritis, Upper gastrointestinal hemorrhage and melena Most likely diagnosis given after review of the tests above:: Anemia Transfusion of blood during current hospitalization Melena Admission Indicated Admission indicated?: not indicated Admission Request Was there a request for admission?: No Disposition Plan Disposition Plan: Discharge Discharge Attestation Discharge Attestation: The patient and all family members were given an opportunity to ask questions and understood the discharge instructions. Discharge instructions specifically effects, indications for sooner follow up or return to the emergency department, and the expected course of current diagnosis. Patient condition: Stable Discharge Plan Plan Patient Disposition: HOME (Self Care) Prescriptions/Referrals Prescriptions/Med Rec: No Action tamsulosin 0.4 mg capsule 0.4 mg PO QDAY prednisone 5 mg tablet 5 mg PO QDAY levothyroxine 100 mcg Tablet 100 mcg PO QDAY Qty: 0 atorvastatin 40 mg tablet 1 tab PO HS Patient Comments: take 1 tablet by mouth at bedtime for HIGH CHOLESTEROL docusate sodium 100 mg Tablet 100 mg PO BID pantoprazole [Protonix] 40 mg tablet,delayed release (DR/EC) 40 mg PO BID Qty: 60 0RF Lupron Depot (3 month) 22.5 mg Syringe Kit See Rx Instructions .ROUTE .COMPLEX Rx Instructions: 22.5 mg IM every 3 months Vitamin C 100 mg Tablet 100 mg PO QDAY sucralfate 1 gram tablet 1 g PO BID Patient Comments: take 1 tablet by mouth twice a day abiraterone 250 mg Tablet 250 mg PO QDAY Rx Instructions: take 4 tablets po qd 1 suhail before or 2 hours after food sitagliptin 25 mg Tablet 25 mg PO QDAY prednisolone acetate 1 % drops,suspension 1 drp OPHTHALMIC (EYE) QID Patient Comments: instill 1 into left eye four times a day START AFTER SURGERY nicotine (polacrilex) 4 mg Lozenge 4 mg BUCCAL Q2H PRN (Reason: Smoking Cessation) ferrous fumarate 324 mg (106 mg iron) tablet 324 mg PO .qod 30 Days Qty: 15 0RF trazodone 50 mg Tablet 100 mg PO QDAY Hold Instructions: Resume on 02/05/23. gabapentin 100 mg Capsule 100 mg PO QDAY calcium acetate(phosphat bind) 667 mg Capsule 667 mg PO TID fluticasone propion-salmeterol 100-50 mcg/dose Blister With Device 1 inh INHALATION BID Referrals: Shen Skelton MD [Primary Care Provider] - In 1 week Problem List Clinical Impression: Anemia, Transfusion of blood during current hospitalization, Melena Patient/Caregiver Discharge Instructions Education Materials: ED Anemia Type Not Specified Additional Instructions: Continue with scheduled workup for possible capsule endoscopy Print Language: Spanish Stand Alone Forms: Franny Award Info., Patient Portal Info Letter
[2024-03-26 10:58] LABS: Alanine Aminotransferase 9 U/L (10-49); Albumin, Serum 3.7 gm/dL (3.4-4.8); Albumin/Globulin Ratio 1.3 (1.2-2.2); Alkaline Phosphatase 69 U/L (46-116); Anion Gap 12 (7-16); Aspartate Amino Transferase 14 U/L (0-34); BUN/Creatinine Ratio 19 Ratio (12-20); Bilirubin,Total 0.2 mg/dL (0.3-1.2); Blood Urea Nitrogen 91 mg/dL (9-23); Calcium 8.9 mg/dL (8.3-10.6); Calcium (Corrected) 9.1 mg/dL (8.5-10.1); Chloride 96 mMol/L (98-107); Creatinine (Component) 4.8 mg/dL (0.6-1.3); Estimated Creatinine Clearance 13.5 mL/min (>60); Globulin 2.8 gm/dL (2.3-3.5); Glucose 161 mg/dL (74-106); Lipase 78 U/L (12-53); Osmolality,Calculated 302 (275-295); Potassium 3.1 mMol/L (3.4-5.1); Sodium 136 mMol/L (136-145); Total Protein 6.5 gm/dL (5.7-8.2); Troponin I < 0.020 ng/mL (0.0-0.045); eGFR 12 See Note
[2024-03-26 13:02] LABS: Collection Type, Urine Clean Catch
[2024-03-26 13:16] LABS: Bacteria,Urine 1+; Bilirubin,Urine Negative (Negative); Blood,Urine 2+ (Negative); Glucose, Urine Negative (Negative); Ketones,Urine Negative (Negative); Leukocyte Esterase,Urine Positive (Negative); Nitrite,Urine Negative (Negative); PH,Urine 6.5 (5.0-7.0); Protein,Urine 2+ (Neg - Trace); RBC,Urine 13 /hpf (0-3); Specific Gravity,Urine 1.014 (1.001-1.035); Squamous Epithelial Cell,Urine 1 /hpf (0-5); Urobilinogen,Urine Negative mg/dL (0.0-1.0); WBC,Urine 2444 /hpf (0-5)
--- NOTE | 2024-03-26 13:17 | PC.NURSE ---
Spoke with Mandy in Blood bank states patient's PRBC's not ready.
--- NOTE | 2024-03-26 13:20 | PC.NURSE ---
Patient states he is taking medication for UTI and does not know the name of the antibiotic he is on, patient states his daughter gives him all of his medications, daughter is not here at this time. Patient also states he does self catherizations on himself.
[2024-03-26 13:28] LABS: Color,Urine Yellow (Lt Yel-Yel)
[2024-03-26 13:29] LABS: Clarity,Urine Cloudy (Clear/Hazy)
--- NOTE | 2024-03-26 15:19 | PC.NURSE ---
Patient sitting in high swift's position, 1st unit of PRBC's infusing, no s/s of adverse reaction. Patient states I feel pretty good right now , patient has no other needs at this time, call light within reach.
== END 2024-03-26 19:10 | disposition home or self-care (01) ==
PROVIDERS: Nurse Practitioner Primary Care; Emergency Provider Emergency Medicine; PCP Family Medicine
DX: E11.22 Type 2 diabetes mellitus with diabetic chronic kidney disease (principal); N18.6 End stage renal disease; D63.1 Anemia in chronic kidney disease; K92.1 Melena; R94.31 Abnormal electrocardiogram [ECG] [EKG]; Z99.2 Dependence on renal dialysis; Z79.84 Long term (current) use of oral hypoglycemic drugs
CPT/HCPCS: 36415; 36430; 80053; 81001; 83690; 83735; 84484; 85025; 85610; 85730; 86850; 86870; 86900; 86901; 86921; 86922; 93005; 99285; P9016

== ENCOUNTER 2024-04-10 21:07 | Emergency (ER) | payer OTHER, SELFPAY ==
[2024-04-10 21:08] VITALS: BMI 27.1
[2024-04-10 21:49] VITALS: BP 117/61; PULSE 96; RESP 20; TEMP 36.8; O2SAT 96
--- NOTE | 2024-04-10 22:01 | EDRME_ITS ---
Rapid Medical Screening Exam [facility] Arrival date/time: 04/10/24 21:07 79M with history of recurrent prostate cancer (previously in remission, sees Dr. Ramírez, on Abiraterone Acetate), ESRD (//, Continuity Reader, Dr. Funez), chronic anemia, diabetes mellitus, hypothyroidism, and COPD presents to ED with generalized weakness. Patient thinks his HGB is low again. Patient had transfusion about 2 weeks ago here and another at another hospital 1 week ago. Patient notes his stool is usually black in color. In the past few days it's been brown and red. Chief Complaint: General Adult/Misc Complain Vital signs: Vital Signs Temperature 98.2 F 04/10/24 21:49 Pulse Rate 96 04/10/24 21:49 Respiratory Rate 20 04/10/24 21:49 Blood Pressure 117/61 04/10/24 21:49 Pulse Oximetry (%) 96 04/10/24 21:49 Oxygen Delivery Method Aerosol Mask 04/10/24 21:49
[2024-04-10 22:31] LABS: Basophils % (Auto) 0 % (0-2.5); Eosinophils # (Auto) 0.2 Thou/mm3 (0.0-0.5); Eosinophils % (Auto) 2 % (0-10); Hematocrit 26.7 % (41.0-53.0); Immature Granulocytes % (Auto) 0 % (0-0); Immature Granulocytes Auto 0.02 Thou/mm3 (0.00-0.00); Lymphocytes % (Auto) 13 % (10-50); Mean Corpuscular HGB Conc 31.8 g/dl (31.0-37.0); Mean Corpuscular Hemoglobin 29.2 pg (25.0-35.0); Mean Corpuscular Volume 92 fL (80-100); Monocytes % (Auto) 14 % (0-12); Neutrophils # (Auto) 5.2 Thou/mm3 (1.8-7.7); Neutrophils % (Auto) 71 % (37-80); Nucleated Red Blood Cell % 0 /100 WBC (0); Platelet Count 176 Thou/mm3 (140-440); RDW Standard Deviation 53.2 fL (35.1-43.9); Red Blood Count 2.91 Miln/mm3 (4.50-5.90); White Blood Count 7.4 Thou/mm3 (3.8-10.6)
[2024-04-10 22:32] LABS: Hemoglobin 8.5 g/dL (13.5-16.0)
[2024-04-10 22:56] LABS: Alanine Aminotransferase 11 U/L (10-49); Albumin, Serum 3.5 gm/dL (3.4-4.8); Albumin/Globulin Ratio 1.3 (1.2-2.2); Alkaline Phosphatase 73 U/L (46-116); Anion Gap 10 (7-16); Aspartate Amino Transferase 12 U/L (0-34); BUN/Creatinine Ratio 18 Ratio (12-20); Bilirubin,Total < 0.2 mg/dL (0.3-1.2); Blood Urea Nitrogen 75 mg/dL (9-23); Calcium 8.4 mg/dL (8.3-10.6); Calcium (Corrected) 8.8 mg/dL (8.5-10.1); Carbon Dioxide 29.6 mMol/L (20.0-31.0); Chloride 99 mMol/L (98-107); Creatinine (Component) 4.2 mg/dL (0.6-1.3); Estimated Creatinine Clearance 15.1 mL/min (>60); Globulin 2.7 gm/dL (2.3-3.5); Glucose 186 mg/dL (74-106); Osmolality,Calculated 304 (275-295); Potassium 3.9 mMol/L (3.4-5.1); Sodium 139 mMol/L (136-145); Total Protein 6.2 gm/dL (5.7-8.2); eGFR 14 See Note
== END 2024-04-11 01:01 | disposition left against medical advice (07) ==
PROVIDERS: Physician Assistant; Emergency Provider Emergency Medicine; PCP Family Medicine
DX: R53.1 Weakness (principal); E11.22 Type 2 diabetes mellitus with diabetic chronic kidney disease; N18.6 End stage renal disease; Z53.29 Procedure and treatment not carried out because of patient's decision for other reasons; E03.9 Hypothyroidism, unspecified; J44.9 Chronic obstructive pulmonary disease, unspecified; D63.1 Anemia in chronic kidney disease
CPT/HCPCS: 36415; 80053; 85025; 86850; 86900; 86901; 99281

== ENCOUNTER → 2024-04-13 | Outpatient (CLI) | payer OTHER, SELFPAY ==
[2024-04-13 08:59] LABS: Basophils % (Auto) 0 % (0-2.5); Eosinophils # (Auto) 0.2 Thou/mm3 (0.0-0.5); Eosinophils % (Auto) 3 % (0-10); Hematocrit 25.7 % (41.0-53.0); Immature Granulocytes % (Auto) 1 % (0-0); Immature Granulocytes Auto 0.04 Thou/mm3 (0.00-0.00); Lymphocytes % (Auto) 13 % (10-50); Mean Corpuscular HGB Conc 30.7 g/dl (31.0-37.0); Mean Corpuscular Hemoglobin 28.6 pg (25.0-35.0); Mean Corpuscular Volume 93 fL (80-100); Monocytes # (Auto) 1.1 Thou/mm3 (0.0-0.8); Monocytes % (Auto) 14 % (0-12); Neutrophils # (Auto) 5.5 Thou/mm3 (1.8-7.7); Neutrophils % (Auto) 70 % (37-80); Nucleated Red Blood Cell % 0 /100 WBC (0); Platelet Count 160 Thou/mm3 (140-440); RDW Standard Deviation 56.6 fL (35.1-43.9); Red Blood Count 2.76 Miln/mm3 (4.50-5.90); White Blood Count 7.8 Thou/mm3 (3.8-10.6)
[2024-04-13 09:05] LABS: Hemoglobin 7.9 g/dL (13.5-16.0)
[2024-04-13 09:11] LABS: Alanine Aminotransferase 14 U/L (10-49); Albumin, Serum 3.6 gm/dL (3.4-4.8); Albumin/Globulin Ratio 1.3 (1.2-2.2); Alkaline Phosphatase 80 U/L (46-116); Anion Gap 10 (7-16); Aspartate Amino Transferase 15 U/L (0-34); BUN/Creatinine Ratio 16 Ratio (12-20); Bilirubin,Total 0.2 mg/dL (0.3-1.2); Blood Urea Nitrogen 70 mg/dL (9-23); Calcium 8.7 mg/dL (8.3-10.6); Carbon Dioxide 29.1 mMol/L (20.0-31.0); Chloride 101 mMol/L (98-107); Creatinine (Component) 4.4 mg/dL (0.6-1.3); Globulin 2.7 gm/dL (2.3-3.5); Glucose 129 mg/dL (74-106); Osmolality,Calculated 301 (275-295); Potassium 3.8 mMol/L (3.4-5.1); Sodium 140 mMol/L (136-145); Total Protein 6.3 gm/dL (5.7-8.2); eGFR 13 See Note
== END | disposition home or self-care (01) ==
LOC: SCTO 07:34
PROVIDERS: PCP Family Medicine; Referring Provider Internal Medicine Hematology & Oncology; Visit Provider Internal Medicine Hematology & Oncology
DX: D64.9 Anemia, unspecified (principal); C61 Malignant neoplasm of prostate
CPT/HCPCS: 36415; 80053; 84153; 85025

== ENCOUNTER → 2024-04-16 | Outpatient (CLI) | payer OTHER, SELFPAY ==
[2024-04-16 10:59] LABS: Collection Type, Urine Clean Catch; Squamous Epithelial Cell,Urine 0 /hpf (0-5)
[2024-04-16 11:33] LABS: Bacteria,Urine 3+; Bilirubin,Urine Negative (Negative); Blood,Urine 2+ (Negative); Color,Urine Drk-Yellow (Lt Yel-Yel); Glucose, Urine Negative (Negative); Ketones,Urine Negative (Negative); Leukocyte Esterase,Urine Positive (Negative); Nitrite,Urine Negative (Negative); PH,Urine 6.5 (5.0-7.0); Protein,Urine 2+ (Neg - Trace); RBC,Urine 38 /hpf (0-3); Specific Gravity,Urine 1.014 (1.001-1.035); Urobilinogen,Urine Negative mg/dL (0.0-1.0); WBC,Urine 4041 /hpf (0-5)
[2024-04-16 11:36] LABS: Clarity,Urine Turbid (Clear/Hazy); Culture Indicated,Urine Yes
== END | disposition home or self-care (01) ==
PROVIDERS: Referring Provider Internal Medicine; Visit Provider Internal Medicine
DX: Z01.89 Encounter for other specified special examinations (principal)
CPT/HCPCS: 81001; 87077; 87086; 87186

== ENCOUNTER 2024-04-17 07:53 | Outpatient (RCR) | payer OTHER, SELFPAY ==
[2024-04-15 16:12] LABS: Basophils % (Auto) 0 % (0-2.5); Eosinophils # (Auto) 0.1 Thou/mm3 (0.0-0.5); Eosinophils % (Auto) 2 % (0-10); Hematocrit 23.9 % (41.0-53.0); Immature Granulocytes % (Auto) 0 % (0-0); Immature Granulocytes Auto 0.02 Thou/mm3 (0.00-0.00); Lymphocytes # (Auto) 0.7 Thou/mm3 (1.0-4.8); Lymphocytes % (Auto) 13 % (10-50); Mean Corpuscular HGB Conc 31.8 g/dl (31.0-37.0); Mean Corpuscular Hemoglobin 29.3 pg (25.0-35.0); Mean Corpuscular Volume 92 fL (80-100); Monocytes # (Auto) 0.8 Thou/mm3 (0.0-0.8); Monocytes % (Auto) 14 % (0-12); Neutrophils # (Auto) 4.1 Thou/mm3 (1.8-7.7); Neutrophils % (Auto) 71 % (37-80); Nucleated Red Blood Cell % 0 /100 WBC (0); Platelet Count 152 Thou/mm3 (140-440); RDW Standard Deviation 58.8 fL (35.1-43.9); Red Blood Count 2.59 Miln/mm3 (4.50-5.90); White Blood Count 5.8 Thou/mm3 (3.8-10.6)
[2024-04-15 16:34] LABS: Hemoglobin 7.6 g/dL (13.5-16.0)
[2024-04-15 16:46] LABS: Alanine Aminotransferase 11 U/L (10-49); Albumin, Serum 3.6 gm/dL (3.4-4.8); Albumin/Globulin Ratio 1.4 (1.2-2.2); Alkaline Phosphatase 81 U/L (46-116); Anion Gap 12 (7-16); Aspartate Amino Transferase 10 U/L (0-34); BUN/Creatinine Ratio 12 Ratio (12-20); Bilirubin,Total < 0.2 mg/dL (0.3-1.2); Blood Urea Nitrogen 46 mg/dL (9-23); Calcium (Corrected) 8.3 mg/dL (8.5-10.1); Carbon Dioxide 28.6 mMol/L (20.0-31.0); Chloride 98 mMol/L (98-107); Creatinine (Component) 3.8 mg/dL (0.6-1.3); Globulin 2.6 gm/dL (2.3-3.5); Glucose 178 mg/dL (74-106); Osmolality,Calculated 293 (275-295); Potassium 3.6 mMol/L (3.4-5.1); Sodium 139 mMol/L (136-145); Total Protein 6.2 gm/dL (5.7-8.2); eGFR 15 See Note
--- NOTE | 2024-04-19 20:21 | CTCFLWUP_ITS ---
Patient: ARUTRO QUEZADA : 1945 Page 4 of 5 FOLLOW UP NOTE DATE OF SERVICE: 04/14/2024 NAME: ARTURO QUEZADA ACCOUNT: [id number] : 1945 AGE: 79 INTERVAL HISTORY: Patient is here to follow-up on prostate cancer. Patient has been on Lupron and Xtandi which was started on April 10, 2022. Patient is doing well and has no complaints Arturo Quezada is a 79-year-old ENG speaking male with following oncology history. April 2010: Mr. Quezada was diagnosed with [place] score 7 prostate cancer. Treated with EBRT and Zoladex for 1 year. Until 2016: PSA less than 0.1. O ctober 2019: PSA 3.1. August 25, 2020 PSA 10.8. 09/07/2020: Bone scan? 08/25/2020: PSA 10.8 09/21/2020: Patient was started on Lupron every 3 months as well as Casodex. 12/02/2020: PSA 2.6. 12/21/2020: PSA 1.3. 03/24/2021: PSA 0.9. 02/21/2021: Mr. Quezada had a bilateral ureteral stent placement 04/10/2022: Patient is started on enzalutamide (Xtandi) 05/08/2023: Colonoscopy done 05/16/2023: Bone scan ? 05/22/2023: Bone marrow biopsy and aspiration? WBC 8.8, ANC 6.4, hemoglobin 10.5, MCV 93, platelets 185,000. 05/21/2023: PSA 4.35. 07/22/2023: PSA 6.23. 08/15/2023: PET/CT scan 09/26/2023: PSA 7.89. ONCOLOGY HISTORY: DIAGNOSIS: PSA only recurrent nonmetastatic prostate cancer. Progressed on Lupron. Currently on Lupron and Xtandi. Xtandi started on 04/10/2022 End-stage renal disease currently on hemodialysis Hypothyroidism currently on levothyroxine. History of chronic kidney disease DATE OF DIAGNOSIS: April 2010 STAGE/TNM: Localized prostate cancer with a Anne score 7 s/p external beam radiotherapy and Lupron for 1 year PSA started rising up. Patient have not documented metastatic disease still now TREATMENT HISTORY: Care?Plan Start?Date Cycle Day Intent Lupron?22.5?mg?q?3?mon 06/26/2023 1 90 Palliative HISTORY OF PRESENT ILLNESS: OTHER MEDICAL HISTORY/CONDITIONS: ENDSTAGE RENAL ON DYALYSIS 3 TIMES WK PROSATE CANCER COPD THYROID ISSUES STROKE 2018 GALLBLADDER HEMRRHOIDECTOMY 1989 KIDNEY STONES CATRACTS FISTULA R ARM FAMILY HISTORY: Father:?LUNG?-?DX?70 Mother:?UNKNOWN Sibling: BROTHER PROSTATE X 2 dx age 82 and 65 SOCIAL HISTORY: Occupational?History:?RETIRED Education?Level:?Completed High School Marital?Status:? Tobacco?Pack?per?Day:?1 Tobacco?Use?Years:?40 Tobacco?Use:?QUIT?2007 ETOH?Use:?DENIES Drug?Note:?DENIES Social?History?Note:?DAUGHTER/? MEDICATIONS: 1. atorvastatin - 40 mg Daily 2. calcium acetate - 667 mg 1 tab Three times a day 3. docusate sodium - 100 mg 2 tab Daily 4. fluticasone propion-salmeteroL - 100-50 mcg/dose 2 Daily 5. gabapentin - 100 mg Daily 6. levothyroxine - 100 microgram Daily 7. pantoprazole - 40 mg 1 Daily 8. prednisone - 5 mg 1 tab Daily 9. tamsulosin - 0.4 mg 1 Capsule Daily 10. traZODone - 100 mg 1 tab Every day before sleep 11. Vitamin C - 1,000 mg 1 Capsule Twice a Day 12. Zytiga - 500 mg 2 tab Daily Medications Last Reconciled by Mirian Mejia MA on 04/14/2024 ALLERGIES: No Known Drug Allergies REVIEW OF SYSTEMS: A complete 14-point review of systems was performed and is negative except as noted in interval history. PHYSICAL EXAMINATION: VITAL SIGNS: Temperature?97, B/P?108/62, Oxygen?Saturation?100% Weight?195.6?lbs PAIN: 6 - Severe pain ECOG Performance Status: 0 - Asymptomatic and fully active EYE: Conjunctivae is white MOUTH: Oral cavity is dry. CHEST: Clear to auscultation. No wheezes or rales audible. CARDIAC: Rhythm regular, no murmurs or gallops present. ABDOMEN: Soft. No hepatomegaly. No splenomegaly. EXTREMITIES: No pedal edema or cyanosis. LABORATORY DATA: I have personally reviewed and interpreted each of the patient?s relevant lab tests, abnormal findings are below: Date 04/15/24 ??WHITE?BLOOD?COUNT?(Thou/mm3) 5.8 ??RED?BLOOD?COUNT?(Miln/mm3) 2.59?L ??HEMOGLOBIN?(gm/dl) 7.6?L ??HEMATOCRIT?(%) 23.9?L ??PLATELET?COUNT?(Thou/mm3) 152 ??NEUTROPHILS?%,?AUTO?(%) 71 ??LYMPH?%,?AUTO?(%) 13 ??NEUTROPHILS,?AUTO?(Thou/mm3) 4.1 ASSESSMENT/PLAN: #1 prostate cancer with biochemical failure PSA has increased to more than [address] scan showed normal hypermetabolic intra-abdominal lymph nodes as documented above. PSA only recurrent nonmetastatic prostate cancer. Progressed on Xtandi. Was switched to Zytiga and prednisone at the last visit Patient tolerating it well Discussed that patient may be not responding to Zytiga Will give Lupron shot SERA If patient have further progression in PSA we will change therapy Patient is very reluctant to change treatment to chemotherapy or to travel for therapy Will wait for next set of PSA Continue Zytiga and prednisone for now Extensively counseled that patient cannot miss his prednisone as it can lead to stroke and accelerated hypertension and myocardial infarction He has a history of underlying stomach ulcers Patient is on sucralfate and proton pump inhibitor Advised to take prednisone with food Patient: ARTURO QUEZADA Patient understand that it can cause perforation in the stomach CT scan on 04/01/2024 showed intraluminal mass within loop of jejunum in the left upper abdomen is concerning for malignancy Will refer to GI for colonoscopy and EGD #2 history of gastric ulcers Patient follows with Dr. 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 I spent a total of 50 minutes on this patient?s care on the day of their visit excluding time spent related to any billed procedures. This time includes time spent with the patient as well as time spent documenting in the medical record, reviewing patients records and tests, obtaining history, placing orders, communicating with other healthcare professionals, counseling the patient, family or caregiver, and/or care coordination for the diagnoses above. Electronically Signed by: Maikol Ramírez MD T: 8:17 PM CC: PCP: Shen Skelton Referring: Shen Skelton This document was completed utilizing speech recognition software. Grammatical errors, random word insertions, pronoun errors, and incomplete sentences are an occasional consequence of this system due to software limitations, ambient noise, and hardware issues. Any formal questions or concerns about the content, text or information contained within the body of this dictation should be directly addressed to the provider for clarification.
== END 2024-05-08 23:59 | disposition home or self-care (01) ==
LOC: SCTC 07:53
PROVIDERS: PCP Family Medicine; Referring Provider Family Medicine; Visit Provider Internal Medicine Hematology & Oncology
DX: Z51.11 Encounter for antineoplastic chemotherapy (principal); C61 Malignant neoplasm of prostate; Z79.818 Long term (current) use of other agents affecting estrogen receptors and estrogen levels; D64.9 Anemia, unspecified; E03.9 Hypothyroidism, unspecified; N18.9 Chronic kidney disease, unspecified
CPT/HCPCS: 36415; 36430; 36591; 80053; 84153; 85025; 86850; 86900; 86901; 86921; 86922; 96402; 99212; J9217; P9016; G0463

== ENCOUNTER 2024-05-04 14:19 | Emergency (ER) | payer OTHER, SELFPAY ==
[2024-05-04] VITALS (10 sets, daily range): BP systolic 105–127; BP diastolic 47–79; PULSE 82–98; RESP 16–24; TEMP 36.6–37.7; O2SAT 96–100
--- NOTE | 2024-05-04 15:15 | PD.EDRME ---
Rapid Medical Screening Exam [facility] Arrival date/time: 05/04/24 14:19 49-year-old male sent in by cancer treatment center for low hemoglobin Chief Complaint: Recheck/Abnormal Lab/Rx Time Seen by Provider: 05/04/24 14:45 Vital signs: Vital Signs Temperature 98.0 F 05/04/24 15:13 Pulse Rate 96 05/04/24 15:13 Respiratory Rate 20 05/04/24 15:13 Blood Pressure 125/65 05/04/24 15:13 Pulse Oximetry (%) 98 05/04/24 15:13 Oxygen Delivery Method Room Air 05/04/24 15:13
[2024-05-04 16:07] LABS: Basophils % (Auto) 0 % (0-2.5); Eosinophils # (Auto) 0.2 Thou/mm3 (0.0-0.5); Eosinophils % (Auto) 3 % (0-10); Hematocrit 20.9 % (41.0-53.0); Immature Granulocytes % (Auto) 1 % (0-0); Immature Granulocytes Auto 0.05 Thou/mm3 (0.00-0.00); Lymphocytes # (Auto) 1.2 Thou/mm3 (1.0-4.8); Lymphocytes % (Auto) 18 % (10-50); Mean Corpuscular HGB Conc 31.1 g/dl (31.0-37.0); Mean Corpuscular Hemoglobin 28.1 pg (25.0-35.0); Mean Corpuscular Volume 91 fL (80-100); Monocytes % (Auto) 15 % (0-12); Neutrophils # (Auto) 4.4 Thou/mm3 (1.8-7.7); Neutrophils % (Auto) 64 % (37-80); Nucleated Red Blood Cell % 0 /100 WBC (0); Platelet Count 172 Thou/mm3 (140-440); RDW Standard Deviation 50.1 fL (35.1-43.9); Red Blood Count 2.31 Miln/mm3 (4.50-5.90); White Blood Count 6.8 Thou/mm3 (3.8-10.6)
[2024-05-04 16:08] LABS: Hemoglobin 6.5 g/dL (13.5-16.0)
--- NOTE | 2024-05-04 18:43 | PD.EDRECHK ---
ED Recheck Abnl Lab Rx-RME/HPI General Chief Complaint: Recheck/Abnormal Lab/Rx Stated Complaint: LOW HGB, FATIGUE, WEAKNESS Time Seen by Provider: 05/04/24 14:45 Source: patient Arrival date/time: 05/04/24 14:19 Mode of arrival: ambulatory Limitations: no limitations RME / HPI RME / HPI narrative: 05/04/24 14:19 49-year-old male sent in by cancer treatment center for low hemoglobin. DR BLANCHARD MAIN ED EVALUATION: 79-year-old male with a complex medical history?including recurrent prostate cancer, end-stage renal disease, chronic anemia, diabetes mellitus, hypothyroidism, and COPD?presents to the emergency department for evaluation of persistently low hemoglobin. His prostate cancer, previously in remission, is currently being managed under the care of Dr. Ramírez. Additionally, his ESRD is managed with a thrice-weekly treatment schedule overseen by Dr. Funez. The patient was referred to the ED by his primary care provider due to concerning laboratory findings indicating low hemoglobin. He also reports experiencing significant fatigue and generalized weakness, though he denies any pain. His chronic anemia has been an ongoing issue, and these new symptoms raise concerns about an exacerbation or a new bleeding event. Of note, the patient was last hospitalized at [facility] on February 23, 2024, for a lower gastrointestinal bleed that resulted in symptomatic anemia. He was subsequently discharged after stabilization. Related Data Home Medications ?Medication ?Instructions ?Recorded ?Confirmed levothyroxine 100 mcg tablet 100 mcg PO QDAY #0 tabs 12/19/16 05/07/24 atorvastatin 40 mg tablet 1 tab PO HS 08/01/21 05/07/24 docusate sodium 100 mg tablet 100 mg PO BID 11/07/21 05/07/24 trazodone 50 mg tablet 100 mg PO QDAY 01/30/22 05/07/24 calcium acetate(phosphat bind) 667 667 mg PO TID 06/27/22 05/07/24 mg capsule gabapentin 100 mg capsule 100 mg PO QDAY 06/27/22 05/07/24 tamsulosin 0.4 mg capsule 0.4 mg PO QDAY 10/26/22 05/07/24 fluticasone 100 mcg-salmeterol 50 1 inh inhalation BID 02/04/23 05/07/24 mcg/dose blistr powdr for inhalation ascorbic acid (vitamin C) 100 mg 100 mg PO QDAY 05/22/23 05/07/24 tablet (Vitamin C) leuprolide (3 month) 22.5 mg (3 See Rx Instructions .Route .COMPLEX 05/22/23 05/07/24 month) intramuscular syringe kit (Lupron Depot) prednisone 5 mg tablet 5 mg PO QDAY 11/22/23 05/07/24 Held on 05/10/24. Instructions: f/u with pcp abiraterone 250 mg tablet 250 mg PO QDAY 02/23/24 05/07/24 sitagliptin 25 mg tablet 25 mg PO QDAY 02/23/24 05/07/24 sucralfate 1 gram tablet 1 g PO BID 02/23/24 05/07/24 nicotine (polacrilex) 4 mg buccal 4 mg buccal Q2H PRN Smoking 02/24/24 05/10/24 lozenge Cessation prednisolone acetate 1 % eye 1 drp ophthalmic (eye) QID 02/24/24 05/07/24 drops,suspension phenazopyridine 100 mg tablet mg PO QDAY 05/07/24 tramadol 50 mg tablet 50 mg PO QDAY 05/07/24 05/07/24 Previous Rx's ?Medication ?Instructions ?Recorded pantoprazole 40 mg tablet,delayed 40 mg PO BID #60 tabs 05/08/23 release (Protonix) ferrous sulfate 325 mg (65 mg 325 mg PO QDAY 1 month #30 tabs 05/10/24 iron) tablet (Iron (ferrous sulfate)) Allergies Allergy/AdvReac Type Severity Reaction Status Date / Time No Known Allergies Allergy Verified 03/26/24 09:25 Review of Systems Review of Systems Systems Reviewed: All systems reviewed, normal except as documented Past Medical History Past Medical History NEUROLOGIC: Positive Neurological Disorders, Cerebrovascular Accident, Transient Ischemic Attacks (TIA), Brain Tumor and Migraine; Negative Seizures or Dyson's Palsy CARDIAC: Positive Cardiac Disorders, Heart Murmur and Hypercholesterolemia; Negative Congestive Heart Failure, Edema, Cellulitis or Varicose Veins RESPIRATORY: Positive Chronic Obstructive Pulmonary Disease (COPD), Asthma, Emphysema and Pneumonia; Negative Tuberculosis or Sleep Apnea GASTROINTESTINAL: Positive Gastrointestinal Disorders, Gall Bladder Disease, Ulcer, Hemorrhoids and Gastroesophageal Reflux Disease; Negative Hepatitis GENITOURINARY: Positive Genitourinary Disorders, Renal Disease, Kidney Stones, Dialysis, Prostate Cancer and Benign Prostatic Hyperplasia MUSCULOSKELETAL: Positive Musculoskeletal Disorders and Arthritis ENT: Positive Cataracts and Deafness ENDOCRINE: Positive Endocrine Disorders, Diabetes Mellitus Type 2 and Hypothyroidism; Negative Diabetes Mellitus Type 1 HEMATOLOGIC: Positive Blood Disorders and Anemia PSYCHO/SOCIAL: Positive Depression, Anxiety and Post Traumatic Stress Disorder; Negative Depression OTHER HISTORY: Positive Hospitalization, Shingles, Blood Transfusions, Chemotherapy, Radiation Therapy, Chicken Pox, Measles, Mumps, Cancer and Prostate Cancer; Negative Autoimmune Disease, Falls, Blood Transfusion Reaction, Anesthesia Reactions or MRSA Family History FAMILY HISTORY: Positive Family Psychiatric Problems, Family Respiratory Disorders, Family Cardiac Disorders, Family Cancer and Family Surgery; Negative Family Gastrointestinal Problems or Family Anesthesia Reaction Surgical History SURGICAL: Positive Angiogram, Ear Surgery, Nephrectomy and Vasectomy; Negative Cardiac Surgery, Pacemaker or Joint Replacement Social History SMOKING STATUS: Never smoker SECOND HAND EXPOSURE: No SUBSTANCE USE: does not use ED Exam Narrative Physical exam: GENERAL APPEARANCE: alert and oriented x 4, well-developed, well-nourished, no acute distress VITALS: All vitals were reviewed and the pulse ox is 98% on room air, which is normal according to my interpretation. HEENT: Normocephalic, atraumatic; pupils equal, round, reactive to light; EOMI; mucous membranes pink, moist; oropharynx clear NECK: Supple LUNGS: CTABL; no wheezes, no rales, no rhonchi HEART: Regular rate, regular rhythm; normal S1, S2; no murmurs ABDOMEN: non distended; normal BS; soft, no tenderness, no guarding, no rebound; no masses, no organomegaly, no hernia BACK: no CVA tenderness EXTREMITIES: atraumatic; no edema NEUROLOGIC: awake; alert and oriented x4; cranial nerves II-XII grossly intact; no focal sensory or motor deficits PSYCHIATRIC: appropriate mood and affect SKIN: warm, dry, normal color; no rashes General Limitations: Present no limitations Course Quality Measures none Orders Category Date Time Status Transfuse,blood/blood products NOW Care 05/04/24 18:48 Completed CBC Stat Lab 05/04/24 15:30 Completed Red Blood Cells Stat Lab 05/04/24 15:30 Completed Type and Screen Stat Lab 05/04/24 15:30 Completed Vital Signs Vital signs: Vital Signs Temperature 98.0 F 05/04/24 15:13 Pulse Rate 96 05/04/24 15:13 Respiratory Rate 20 05/04/24 15:13 Blood Pressure 125/65 05/04/24 15:13 Pulse Oximetry (%) 98 05/04/24 15:13 Oxygen Delivery Method Room Air 05/04/24 15:13 Recheck / Abnormal Lab / Rx MDM Narrative MDM Narrative:: Scribe Attestation: IAnnabella am scribing for and in the presence of Dr. Blanchard. Provider Notation: Although this document has been carefully reviewed, there may still be some phonetic and other typographical errors. These errors are purely grammatical due to imperfections in the software program and should not be construed in any way to compromise the substance of the patient's medical care during this visit. Patient data External records reviewed:: [facility] previous records Clinical information provided by:: patient Social determinants that could affect healthcare access:: none Patient has the following chronic illnesses:: see PMH How is presenting disease/condition affected by chronic disease/condition?: uneffected by Evaluation data The following diagnostics were reviewed and interpreted by me:: lab results Lab and/or radiology exams considered but not ordered:: na Interpretation Summary: RBC 2.31 Hgb 6.5 Hct 20.9 Medications / Prescriptions Medications or Prescriptions considered but not ordered:: na Medication administrations:: as above Consultations Consultation(s) initiated? (list below): No Diagnosis Recheck Differential Diagnosis: other (anemia, chronic disease, iron deficiency, side effect of chemotherapy, GI bleeding) Most likely diagnosis given after review of the tests above:: see below Admission Indicated Admission indicated?: not indicated Admission Request Was there a request for admission?: No Disposition Plan Disposition Plan: Discharge Discharge Attestation Discharge Attestation: The patient and all family members were given an opportunity to ask questions and understood the discharge instructions. Discharge instructions specifically effects, indications for sooner follow up or return to the emergency department, and the expected course of current diagnosis. Patient condition: Stable Discharge Plan Plan Patient Disposition: HOME (Self Care) Prescriptions/Referrals Prescriptions/Med Rec: No Action tamsulosin 0.4 mg capsule 0.4 mg PO QDAY prednisone 5 mg tablet 5 mg PO QDAY levothyroxine 100 mcg Tablet 100 mcg PO QDAY Qty: 0 atorvastatin 40 mg tablet 1 tab PO HS Patient Comments: take 1 tablet by mouth at bedtime for HIGH CHOLESTEROL docusate sodium 100 mg Tablet 100 mg PO BID pantoprazole [Protonix] 40 mg tablet,delayed release (DR/EC) 40 mg PO BID Qty: 60 0RF Lupron Depot (3 month) 22.5 mg Syringe Kit See Rx Instructions .ROUTE .COMPLEX Rx Instructions: 22.5 mg IM every 3 months Vitamin C 100 mg Tablet 100 mg PO QDAY sucralfate 1 gram tablet 1 g PO BID Patient Comments: take 1 tablet by mouth twice a day abiraterone 250 mg Tablet 250 mg PO QDAY Rx Instructions: take 4 tablets po qd 1 suhail before or 2 hours after food sitagliptin 25 mg Tablet 25 mg PO QDAY prednisolone acetate 1 % drops,suspension 1 drp OPHTHALMIC (EYE) QID Patient Comments: instill 1 into left eye four times a day START AFTER SURGERY nicotine (polacrilex) 4 mg Lozenge 4 mg BUCCAL Q2H PRN (Reason: Smoking Cessation) trazodone 50 mg Tablet 100 mg PO QDAY gabapentin 100 mg Capsule 100 mg PO QDAY calcium acetate(phosphat bind) 667 mg Capsule 667 mg PO TID fluticasone propion-salmeterol 100-50 mcg/dose Blister With Device 1 inh INHALATION BID phenazopyridine 100 mg tablet PO QDAY Patient Comments: take 1 tablet by mouth once a day tramadol 50 mg tablet 50 mg PO QDAY ferrous sulfate [Iron (ferrous sulfate)] 325 mg (65 mg iron) tablet 325 mg PO QDAY 30 Days Qty: 30 0RF Referrals: Shen Skelton MD [Primary Care Provider] - In 1 week Problem List Clinical Impression: Symptomatic anemia, Transfusion of blood during current hospitalization Patient/Caregiver Discharge Instructions Education Materials: ED Anemia Type Not Specified Print Language: [place]i Stand Alone Forms: Franny Award Info., Patient Portal Info Letter
[2024-05-05 01:25] VITALS: BP 125/59; PULSE 93; RESP 18; TEMP 37.1; O2SAT 99
== END 2024-05-05 01:30 | disposition home or self-care (01) ==
PROVIDERS: Physician Assistant; Emergency Provider Emergency Medicine; PCP Family Medicine
DX: D64.9 Anemia, unspecified (principal); N18.6 End stage renal disease; E11.22 Type 2 diabetes mellitus with diabetic chronic kidney disease; Z99.2 Dependence on renal dialysis
CPT/HCPCS: 36415; 85025; 86850; 86900; 86901; 86921; 86922; 99285; P9016

== ENCOUNTER → 2024-05-04 | Outpatient (CLI) | payer OTHER, SELFPAY ==
[2024-05-04 10:50] LABS: Basophils % (Auto) 0 % (0-2.5); Eosinophils # (Auto) 0.2 Thou/mm3 (0.0-0.5); Eosinophils % (Auto) 2 % (0-10); Immature Granulocytes % (Auto) 0 % (0-0); Immature Granulocytes Auto 0.03 Thou/mm3 (0.00-0.00); Lymphocytes # (Auto) 1.1 Thou/mm3 (1.0-4.8); Lymphocytes % (Auto) 13 % (10-50); Mean Corpuscular HGB Conc 30.9 g/dl (31.0-37.0); Mean Corpuscular Volume 91 fL (80-100); Monocytes # (Auto) 1.2 Thou/mm3 (0.0-0.8); Monocytes % (Auto) 15 % (0-12); Neutrophils # (Auto) 5.5 Thou/mm3 (1.8-7.7); Neutrophils % (Auto) 69 % (37-80); Nucleated Red Blood Cell % 0 /100 WBC (0); Platelet Count 154 Thou/mm3 (140-440); RDW Standard Deviation 50.1 fL (35.1-43.9); Red Blood Count 2.25 Miln/mm3 (4.50-5.90)
[2024-05-04 11:17] LABS: Hematocrit 20.4 % (41.0-53.0); Hemoglobin 6.3 g/dL (13.5-16.0)
[2024-05-04 17:15] LABS: Path Review Blood Smear Sent to Pathologist
== END | disposition home or self-care (01) ==
LOC: COPL 09:29 → SCTO 11:28
PROVIDERS: PCP Internal Medicine Hematology & Oncology; Referring Provider Internal Medicine Hematology & Oncology; Visit Provider Internal Medicine Hematology & Oncology
DX: D64.9 Anemia, unspecified (principal); C61 Malignant neoplasm of prostate
CPT/HCPCS: 36415; 85025

== ENCOUNTER 2024-05-07 05:56 | Inpatient (IN) | payer OTHER, MEDICARE, SELFPAY ==
[2024-05-07] VITALS (37 sets, daily range): BP systolic 84–131; BP diastolic 42–83; PULSE 58–104; RESP 13–99; TEMP 36.1–36.7; O2SAT 94–100; BMI 27.1
--- NOTE | 2024-05-07 06:12 | XR_ITS ---
Examination: AP chest single view Technique: AP portable upright chest Exam date and time: May 07, 2024 0618 hrs. Comparison June 26, 2023 Indications: Diagnosis gastrointestinal bleeding with fever today Findings: No significant cardiac enlargement. Mild vascular congestion No lobar pneumonia Moderate osteopenia Impression: Mild vascular congestion No lobar pneumonia
[2024-05-07 06:25] LABS: Lactate (Lactic Acid) 2.7 mMol/L (0.4-2.0)
[2024-05-07 06:26] LABS: Basophils % (Auto) 0 % (0-2.5); Eosinophils # (Auto) 0.1 Thou/mm3 (0.0-0.5); Eosinophils % (Auto) 1 % (0-10); Lymphocytes # (Auto) 1.4 Thou/mm3 (1.0-4.8); Lymphocytes % (Auto) 13 % (10-50); Mean Corpuscular Volume 92 fL (80-100); Neutrophils # (Auto) 7.4 Thou/mm3 (1.8-7.7); Neutrophils % (Auto) 71 % (37-80); Nucleated Red Blood Cell % 0 /100 WBC (0)
[2024-05-07 06:28] LABS: Immature Granulocytes % (Auto) 1 % (0-0); Immature Granulocytes Auto 0.09 Thou/mm3 (0.00-0.00); Mean Corpuscular HGB Conc 30.8 g/dl (31.0-37.0); Mean Corpuscular Hemoglobin 28.4 pg (25.0-35.0); Monocytes # (Auto) 1.5 Thou/mm3 (0.0-0.8); Monocytes % (Auto) 14 % (0-12); Platelet Count 242 Thou/mm3 (140-440); Red Blood Count 2.11 Miln/mm3 (4.50-5.90); White Blood Count 10.4 Thou/mm3 (3.8-10.6)
[2024-05-07 06:39] LABS: Hematocrit 19.5 % (41.0-53.0)
--- NOTE | 2024-05-07 06:45 | EDNOTE_ITS ---
ED GI Bleed RME/HPI General Chief complaint: GI Bleed Stated complaint: GI BLEED Time Seen by Provider: 05/07/24 06:08 Arrival date/time: 05/07/24 05:56 RME / HPI RME / HPI Narrative: 79 year old male with history of recurrent prostate cancer, currently undergoing treatment and followed by oncologist Dr. Ramírez, ESRD on HD M/W/F followed by Dr. Funez, hypothyroidism, hemorrhoids presents to the ED BIBA from home for evaluation of black stools today. Reportedly has had 6-7 episodes of black stools since onset at ~ 03:00 am today. Accompanied by diffuse abdominal discomfort. Patient mentioned he has had episodes of black stool before and evaluated at the [facility]; reportedly during that time they did not find the source of bleeding with capsule endoscopy. Denies any recent illness, fevers, chills, congestion, diarrhea, constipation, or urinary symptoms. Related Data Home Medications ?Medication ?Instructions ?Recorded ?Confirmed levothyroxine 100 mcg tablet 100 mcg PO QDAY #0 tabs 1 05/07/24 atorvastatin 40 mg tablet 1 tab PO HS 08/01/21 5 docusate sodium 100 mg tablet 100 mg PO BID 11/07/21 0 05/07/24 trazodone 50 mg tablet 100 mg PO QDAY 01/30/2204/12 calcium acetate(phosphat bind) 667 667 mg PO TID 06/2705/07/24 mg capsule gabapentin 100 mg capsule 100 mg PO QDAY 06/27/2204/12 tamsulosin 0.4 mg capsule 0.4 mg PO QDAY 10/26/2204/12 fluticasone 100 mcg-salmeterol 50 1 inh inhalation BID 02/04/23 05/07/24 mcg/dose blistr powdr for inhalation ascorbic acid (vitamin C) 100 mg 100 mg PO QDAY 05/07/24 tablet (Vitamin C) leuprolide (3 month) 22.5 mg (3 See Rx Instructions .R oute .COMPLEX 05/22/23 05/07/24 month) intramuscular syringe kit (Lupron Depot) prednisone 5 mg tablet 5 mg PO QDAY 11/22/23 abiraterone 250 mg tablet 250 mg PO QDAY 02/23/2404/12 sitagliptin 25 mg tablet 25 mg PO QDAY 02/23/2405/07 sucralfate 1 gram tablet 1 g PO BID 02/23/24 05/07/24 nicotine (polacrilex) 4 mg buccal 4 mg buccal Q2H PRN Smoking 02/24/24 02/24/24 lozenge Cessation prednisolone acetate 1 % eye 1 drp ophthalmic (eye) QI D 02/24/24 05/07/24 drops,suspension phenazopyridine 100 mg tablet mg PO QDAY 05/07/24 tramadol 50 mg tablet 50 mg PO QDAY 05/07/2405/07 Previous Rx's ?Medication ?Instructions ?Recorded pantoprazole 40 mg tablet,delayed 40 mg PO BID #60 tab s 05/08/23 release (Protonix) Allergies Allergy/AdvReac Type Severity Reaction Status Date / Time No Known Allergies Allergy Verified 03/26/24 09:25 Review of Systems Review of Systems Narrative Review of Systems: Constitutional: DENIES; Fevers Eyes: DENIES; Loss of vision Head/Ear/Nose: DENIES; Loss of hearing Throat: DENIES; Dysphagia Cardiovascular: DENIES; Chest pain, dyspnea or syncope Respiratory: DENIES; Shortness of breath Gastrointestinal: SEE HPI +abdominal discomfort, +black stool. Genitourinary: DENIES; Dysuria (painful or difficult urination) Musculoskeletal: DENIES; Arthralgia (pain in a joint),; Skin: DENIES; Rash Neurological: DENIES; Loss of function or movement Psychiatric: DENIES; recent major life stressor, emotional problem, illicit drug use or abuse Allergic/Immunologic: DENIES; Urticaria (hives) Past Medical History Past Medical History NEUROLOGIC: Positive Neurological Disorders, Cerebrovascular Accident, Transient Ischemic Attacks (TIA), Brain Tumor and Migraine CARDIAC: Positive Cardiac Disorders, Heart Murmur and Hypercholesterolemia RESPIRATORY: Positive Chronic Obstructive Pulmonary Disease (COPD), Asthma, Emphysema and Pneumonia GASTROINTESTINAL: Positive Gastrointestinal Disorders, Gall Bladder Disease, Ulcer, Hemorrhoids and Gastroesophageal Reflux Disease GENITOURINARY: Positive Genitourinary Disorders, Renal Disease, Kidney Stones, Dialysis, Prostate Cancer and Benign Prostatic Hyperplasia MUSCULOSKELETAL: Positive Musculoskeletal Disorders and Arthritis ENT: Positive Cataracts and Deafness ENDOCRINE: Positive Endocrine Disorders, Diabetes Mellitus Type 2 and Hypothyroidism HEMATOLOGIC: Positive Blood Disorders and Anemia PSYCHO/SOCIAL: Positive Depression, Anxiety and Post Traumatic Stress Disorder OTHER HISTORY: Positive Hospitalization, Shingles, Blood Transfusions, Chemotherapy, Radiation Therapy, Chicken Pox, Measles, Mumps, Cancer and Prostate Cancer Family History FAMILY HISTORY: Positive Family Psychiatric Problems, Family Respiratory Disorders, Family Cardiac Disorders, Family Cancer and Family Surgery Surgical History SURGICAL: Positive Angiogram, Ear Surgery, Nephrectomy and Vasectomy Social History SMOKING STATUS: Never smoker SECOND HAND EXPOSURE: No SUBSTANCE USE: does not use ED Exam Narrative Physical exam: Physical Exam: General: The vital signs were reviewed. Pale appearing blood pressure and pulse are good the patient is non-toxic, in no apparent distress and appears healthy with a patent airway, no respiratory distress and has no apparent circulatory problems. Head & Scalp: Normocephalic, atraumatic. Face: Appears normal and is without lesions, deformity. Ears: Left external pinna appears normal. Right external pinna appears normal. Eyes: The sclera is anicteric. No obvious photophobia. The Left and Right Orbit/Lid/Conjunctiva appears normal without swelling, discoloration or injection. Nose: The nose is without deformity, discharge or tenderness; Throat: Appears normal. The mucous membranes are pink and moist without exudates, redness or mass seen. The tongue appears normal. Neck: The neck is supple and no apparent mass or adenopathy. Chest: The chest wall is normal in size and symmetry and has no chest wall tenderness or crepitus. The patient displays normal ventilator effort without retractions, accessory muscle use and has adequate air movement bilaterally with no wheezes and no rales. Cardiovascular: Regular rate and rhythm; No murmurs, rubs, or gallops; Gastrointestinal: The abdomen appears normal. No obvious hernias or mass. The abdomen is soft and benign, non-distended, with no pain, no guarding and no rebound tenderness. Bowel sounds are present and normal sounding. No CVA tenderness. Genitourinary: Rectal exam was done reveals a very large prostate quite hard there is red blood present no active bleeding no melena was seen in the rectal vault. Back/Spine: Nontender Extremities/Musculoskeletal/lymphatic: The bilateral upper and lower extremities are warm. There is no evidence of arterial insufficiency. There is no evidence of venous insufficiency/edema. The patient spontaneously moves bilateral upper and lower extremities with no pain and no limitation of movement. There is no apparent, injury or trauma. Skin: The skin is warm, dry and intact. No rashes. No petechia. No purpura. No abnormal bruising. The color is appropriate with no cyanosis. Mental status/Psychiatric: Mental status is appropriate for age. The patient has no apparent delusions, visual hallucinations, no apparent audible hallucinations. The patient has no apparent suicidal thoughts/ideation and no apparent homicidal thoughts/ideation. Neurological: The patient is awake, alert, interactive, cordial, cooperative and is oriented to name and situation. The patient follows commands and answers historical question with no impairment. There is no visual disturbance apparent. The pupils are equal and reactive bilaterally with normal eye movements and no diplopia The bilateral upper and lower extremities have normal strength, normal range of motion and normal functioning. The gait, station and balance appear to be baseline with no acute change Course Quality Measures none Orders Category Date Time Status Patient Condition Routine Admission 05/07/24 10:[address] in Observation Status Routine Admission 05/07/24 10:40 Active Assess for bleeding QSHIFT Care 05/07/24 10:46 Active Bedside COVID-19 Antigen Test NOW Care 05/07/24 06:25 Active Bleeding Precautions qshift Care 05/07/24 10:46 Active Dialysis [Hemodialysis] Urgent Care 05/07/24 09:35 Active Insert IV NOW Care 05/07/24 06:12 Active Insert IV NOW Care 05/07/24 06:12 Active NPO NOW Care 05/07/24 09:04 Completed Notify provider NEEDED Care 05/07/24 10:40 Active Seizure precautions NEEDED Care 05/07/24 10:42 Active Sequential Compression Device QSHIFT Care 05/07/24 10:40 Active Transfuse,blood/blood products NOW Care 05/07/24 06:57 Active Consult to Gastroenterology Stat Cons 05/07/24 08:00 Ordered Consult to Nephrology Stat Cons 05/07/24 08:00 Ordered Referral - Sifter Operator Stat Cons 05/07/24 11:31 Active Diet Clear Liquid Diet 05/07/24 Lunch Active Transfer to another facility [Transfer/Discharge] Stat Discharge 05/07/24 11:31 Active XR chest 1V portable Stat Exams 05/07/24 06:12 Completed CBC AM DRAW Lab 05/08/24 05:00 Ordered CBC AM DRAW Lab 05/09/24 05:00 Ordered CBC AM DRAW Lab 05/10/24 05:00 Ordered CBC Stat Lab 05/07/24 06:10 Completed Comprehensive Metabolic Panel AM DRAW Lab 05/08/24 05:00 Ordered Comprehensive Metabolic Panel AM DRAW Lab 05/09/24 05:00 Ordered Comprehensive Metabolic Panel AM DRAW Lab 05/10/24 05:00 Ordered Comprehensive Metabolic Panel Stat Lab 05/07/24 06:10 Completed Lactate (Lactic Acid) Stat Lab 05/07/24 06:10 Completed Lactic Acid, 3 HR Stat Lab 05/07/24 09:00 Completed Lipase Stat Lab 05/07/24 06:10 Completed MRSA Nasal Screen Stat Lab 05/07/24 13:20 Received Magnesium AM DRAW Lab 05/08/24 05:00 Ordered Magnesium AM DRAW Lab 05/09/24 05:00 Ordered Magnesium AM DRAW Lab 05/10/24 05:00 Ordered Phosphorous AM DRAW Lab 05/08/24 05:00 Ordered Phosphorous AM DRAW Lab 05/09/24 05:00 Ordered Phosphorous AM DRAW Lab 05/10/24 05:00 Ordered Prothrombin Time with INR Stat Lab 05/07/24 06:10 Completed Red Blood Cells Stat Lab 05/07/24 06:10 Completed Thyroid Stimulating Hormone AM DRAW Lab 05/08/24 05:00 Ordered Type and Screen Stat Lab 05/07/24 06:10 Completed Urinalysis Stat Lab 05/07/24 07:43 Completed Urinalysis, C/S if Indicated Stat Lab 05/07/24 07:43 Completed Urine Culture Stat Lab 05/07/24 07:43 Received Acetaminophen Tab [Tylenol Tab] Med 05/07/24 09:03 Discontinued 650 mg PO Q6H PRN Acetaminophen Tab [Tylenol Tab] Med 05/07/24 10:40 Active 650 mg PO Q6H PRN Albumin Human 25% Ivpb [Albuminar-25 Ivpb] Med 05/07/24 09:35 Active 25 gm in 100 ml IV PRN Albuterol/Ipratr Rt Christianne [Duoneb Rt Christianne] Med 05/07/24 09:03 Discontinued 3 ml INH Q4HR PRN Dextrose 50% Syr [D50w Syringe Abboject] Med 05/07/24 10:44 Active 50 ml IV Q15MIN PRN Glucagon Inj Med 05/07/24 10:44 Active 1 mg IM Q15MIN PRN INSULIN LISPRO (AdmeLOG) [HumaLOG] Med 05/07/24 11:30 Active See Protocol SC ACHS Levofloxacin/D5w 250Mg Ivpb [Levaquin Ivpb] Med 05/07/24 11:00 Active 250 mg in 50 ml IV QDAY Levothyroxine Inj [Synthroid Inj] Med 05/07/24 09:08 Discontinued 50 mcg IV X1 ONE Levothyroxine Sodium [Synthroid] Med 05/08/24 06:00 Active 100 mcg PO ACBR Ondansetron Inj [Zofran Inj] Med 05/07/24 09:03 Discontinued 4 mg IV Q6H PRN Ondansetron Inj [Zofran Inj] Med 05/07/24 10:40 Active 4 mg IV Q6H PRN Pantoprazole Inj [Protonix Inj] Med 05/07/24 09:06 Discontinued 40 mg IV X1 ONE Pantoprazole Inj [Protonix Inj] Med 05/08/24 09:00 Active 40 mg IVP BID Pantoprazole Inj [Protonix Inj] Med 05/07/24 07:32 Discontinued 40 mg IVP X1 ONE Phytonadione Inj [Vitamin K Inj] Med 05/07/24 06:56 Discontinued 10 mg SC X1 ONE Sodium Chloride 0.9% 1000 ml [Ns] 1,000 ml Med 05/07/24 06:15 Discontinued IV 100 mls/hr Sodium Chloride 0.9% 1000 ml [Ns] 1,000 ml Med 05/07/24 07:16 Active IV 75 mls/hr Code Status Routine Oth 05/07/24 10:40 Ordered Late Tray Request Routine Oth 05/07/24 12:31 Active Oxygen Delivery PRN RT 05/07/24 09:03 Completed Oxygen Delivery PRN RT 05/07/24 10:40 Active Health Equity Referral - Knowledge Deficit Routine SS 05/07/24 12:05 Active Vital Signs Vital signs: Vital Signs Temperature 97.8 F 05/07/24 06:15 Pulse Rate 91 05/07/24 06:15 Respiratory Rate 18 05/07/24 06:15 Blood Pressure 103/58 L 05/07/24 06:15 Pulse Oximetry (%) 100 05/07/24 06:15 Oxygen Delivery Method Room Air 05/07/24 06:15 Pulse ox is 100% on room air which is adequate. GI Bleed MDM Narrative MDM Narrative:: I, Betina Mcmullen, am scribing for and in the presence of Dr. Jha. Patient 79-year-old who is a dialysis patient and also has GI bleeding that has been worked up with endoscopies in the past and no source was found. Patient evidently was seen by Dr. Stewart. Recommendation of the last consult was that he get outpatient capsular endoscopy which was arranged for by the [facility] in [place]. Patient reports that it was completed and normal with the came later and reported that there was an abnormality that was going to require the patient be sent to the [facility] [place]. No report was provided by the family. Patient's medical workup reveals that he is got a new anemia or worsening anemia at 6.0. He is got bright red blood on rectal exam which appears to be more hematochezia than melena at this time. Since he will need 2 units of packed red blood cells and he is dialysis dependent will need to get his blood during dialysis. Dr Funez his rn supplemental was called and agreed the patient should be admitted for this. Hospitalist was then called and they agreed to admit came down and saw this patient and will transfuse [address] Reyes provides dialysis. Hospitalist were concerned about the fact that this patient needs to be transferred for GI bleed as Dr. Stewart does not feel the patient can be managed at this facility. And needs to go to another facility. Because the patient is a and the family are reported that this patient is supposed to go to the [facility] which is the referral center for him most of the [facility] hospitals in the region he made sense to call the transfer nurse to arrange this while were stabilizing him on this admission. Will be more on this and a moment After several discussions about whether the patient should stay in the ER and cancel the admission versus admit and do the transfusion and hemodialysis hospitalist agreed to take the patient to the floor and follow through with this. Nonetheless the transfer nurse contacted me as there were differences of opinion on how this transfer should be done. Because I am somewhat familiar with the [facility] system I said please get the transfer nurse at the [facility] on the line and I would discuss this with them but evidently they would not speak with knobby somehow they got connected to the [facility] and they also said this patient should go to [place]. So the transfer nurse called [place] which they refused they noticed patient is to go to higher level of care. So I asked nelda the transfer nurse to get the GI specialist on the line from the [facility] and then I spoke with the inshore undersea warfare officer Dr. Mobley at the [facility] in [place] and that doctor felt this patient should go to [place] and she called the GI doctor in [place] and later Dr. Fields called me back inshore undersea warfare officer [facility]call [facility] the [facility] [place] spoke with Dr. Fields about this case and she said this patient ought to go to the [facility]. I explained this was already tried and refused but she agreed to try to contact them. She later had a resident inshore undersea warfare officer call back and say we could transfer the [facility] to the [facility] [place]. I explained that they would have to get the transfer nurse to arrange that and I asked if it actually talked the transfer nurse. The gastroenterology fellow was unaware of whether the transfer nurse at the [facility] was aware so I said well please let that person know and I will have our transfer nurse contact them. I called Niranjan, our transfer nurse back and explained the situation and asked that she would follow through the [facility] after speaking with the residents make sure they want to transfer the patient after the transfusion and dialysis is complete. She be noted I spent at least 90 minutes and multiple phone calls talking with transfer nurses from multiple facilities including our facility and the residents over the best way to get this patient's GI bleed manage as it is beyond the scape scope of this facility. This 90 minutes is in addition to the 40 minutes of critical care time. So I am going to list 130 minutes of critical care time. Patient data External records reviewed:: [facility] previous records (I reviewed ED visit on 05/04/2024) and EMS form Clinical information provided by:: patient Social determinants that could affect healthcare access:: none Patient has the following chronic illnesses:: recurrent prostate cancer, currently undergoing treatment and followed by oncologist Dr. Ramírez, ESRD on HD M/W/F followed by Dr. Funez, hypothyroidism How is presenting disease/condition affected by chronic disease/condition?: exacerbated by Evaluation data The following diagnostics were reviewed and interpreted by me:: lab results and radiology exam(s) Lab and/or radiology exams considered but not ordered:: None Interpretation Summary: As noted above Medications / Prescriptions Medications or Prescriptions considered but not ordered:: None Medication administrations:: Medication Administration History Acetaminophen (Acetaminophen 325 Mg Tablet) 650 mg PO Q6H PRN PRN Reason: Fever >100.3 or pain Stop: 06/06/24 10:39 Dextrose (Dextrose 50%-Water Inj 50 Ml Syringe) 50 ml IV Q15MIN PRN PRN Reason: BG <50 OR BG <70 & pt unresponsive Stop: 06/06/24 10:43 Glucagon (Glucagon Inj 1 Mg Vial) 1 mg IM Q15MIN PRN PRN Reason: BG <70, and no IV access Sodium Chloride (Ns) 1,000 mls @ 75 mls/hr IV .[id number] [facility] Stop: 06/06/24 07:15 Last Infusion: 05/07/24 08:18 Dose: 0 mls/hr Documented By: Admin: 05/07/24 07:27 Dose: 75 mls/hr Documented By: GM Albumin Human (Albuminar-25 Ivpb) 25 gm in 100 mls @ 100 mls/min IV PRN PRN PRN Reason: DIALYSIS Last Admin: 05/07/24 15:05 Dose: 100 mls/min Documented By: MM Levofloxacin/Dextrose (Levaquin Ivpb) 250 mg in 50 mls @ 50 mls/hr IV QDAY [facility] Stop: 05/14/24 10:59 Last Admin: 05/07/24 12:19 Dose: 50 mls/hr Documented By: VZ Insulin Human Lispro (Insulin Lispro (Admelog) 1 Unit/0.01 Ml Unit) 0 unit SC ACHS [facility]; Protocol Stop: 06/06/24 11:29 Last Admin: 05/07/24 18:05 Dose: Not Given Documented By: VZ Non-Admin Reason: Per Protocol Admin: 05/07/24 14:54 Dose: Not Given Documented By: VZ Non-Admin Reason: Per Protocol Levothyroxine Sodium (Levothyroxine Sodium 100 Mcg Tablet) 100 mcg PO ACBR [facility] Stop: 06/07/24 05:59 Ondansetron HCl (Ondansetron Inj 2 Mg/Ml Inj 2 Ml) 4 mg IV Q6H PRN; Protocol PRN Reason: NAUSEA OR VOMITING Stop: 06/06/24 10:39 Pantoprazole Sodium (Pantoprazole Inj 40 Mg Vial) 40 mg IVP BID [facility] Stop: 06/07/24 08:59 Discontinued Medications Acetaminophen (Acetaminophen 325 Mg Tablet) 650 mg PO Q6H PRN PRN Reason: Fever >100.3 or pain Stop: 06/06/24 09:02 Albuterol/Ipratropium (Albuterol/Ipratropium (Duoneb) Rt Christianne 3 Ml Nebu) 3 ml INH Q4HR PRN PRN Reason: SHORTNESS OF BREATH OR WHEEZE Stop: 06/06/24 09:02 Epoetin Bryant (Epoetin Bryant-Epbx Inj 10,000 Unit/Ml Vial (Esrd)) 10,000 unit SC X1 ONE Stop: 05/07/24 15:01 Last Admin: 05/07/24 15:20 Dose: 10,000 unit Documented By: GIDEON Sodium Chloride (Ns) 1,000 mls @ 100 mls/hr IV .Q10H [facility] Stop: 06/06/24 06:14 Last Admin: 05/07/24 07:16 Dose: Not Given Documented By: GM Non-Admin Reason: Discontinued Levothyroxine Sodium (Levothyroxine Inj 100 Mcg Vial) 50 mcg IV X1 ONE Stop: 05/07/24 09:09 Last Admin: 05/07/24 11:21 Dose: 50 mcg Documented By: GM Ondansetron HCl (Ondansetron Inj 2 Mg/Ml Inj 2 Ml) 4 mg IV Q6H PRN; Protocol PRN Reason: NAUSEA OR VOMITING Stop: 06/06/24 09:02 Pantoprazole Sodium (Pantoprazole Inj 40 Mg Vial) 40 mg IVP X1 ONE Stop: 05/07/24 07:33 Last Admin: 05/07/24 08:02 Dose: 40 mg Documented By: GM Pantoprazole Sodium (Pantoprazole Inj 40 Mg Vial) 40 mg IV X1 ONE Stop: 05/07/24 09:07 Last Admin: 05/07/24 09:45 Dose: 40 mg Documented By: GM Phytonadione (Phytonadione Inj 10 Mg/Ml Amp) 10 mg SC X1 ONE Stop: 05/07/24 06:57 Last Admin: 05/07/24 08:03 Dose: Not Given Documented By: GM Non-Admin Reason: Discontinued See above Consultations Consultation(s) initiated? (list below): Yes Consultation #1 (Physician, Specialty, Details): I spoke with GI Dr. Stewart. Discussed patients PMHx, HPI, ED course, exam findings, labs, and radiology results. He agrees to consult. Consultation #2 (Physician, Specialty, Details): I spoke with resident Dr. Scruggs working with Dr. Sim. Discussed patients PMHx, HPI, ED course, exam findings, labs, and radiology results. Time: 07:33 Consultation #3 (Physician, Specialty, Details): I spoke with patients rn supplemental Dr. Funez. Discussed patients HPI, ED course, exam findings, labs, results. She agrees to consult. Time: 07:40 Diagnosis GI bleed differential diagnosis: hemorrhoids, esophageal varices, gastritis, Upper gastrointestinal hemorrhage, Lower gastrointestinal hemorrhage, hematochezia and melena Most likely diagnosis given after review of the tests above:: Hematochezia History of prostate cancer GI bleed Prostate mass Severe anemia Admission Indicated Admission indicated?: indicated Admission Request Was there a request for admission?: Yes Admission Attestation Admission request attestation: Discussed case with [] from Hospitalist service regarding admission. Discussed patients ED course, exam findings, labs, and radiology results. The Hospitalist [agrees,declines] to accept the patient for admission. Disposition Plan Disposition Plan: Admit Critical Care Time Critical Care Time Critical Care Time: Yes Total Critical Care Time (min.): 130 Attestation: Please see the long and detailed notes of trying to arrange for a transfer for this patient or ultimately patient staying here as we are unable to consummate this at this time. The high probability of sudden, clinically significant deterioration in the patient's condition required the highest level of my preparedness to intervene urgently. The services I provided to this patient were to treat and/or prevent clinically significant deterioration. Services included the following: chart data review, reviewing nursing notes and/or old charts, documentation time, fashion consultant colla boration regarding findings and treatment options, medication orders and management, direct patient care, vital sign assessments and ordering, interpreting and reviewing diagnostic studies and lab tests. Aggregate critical care time includes only time during which I was engaged in work directly related to the patient's care, as described above, whether at bedside or elsewhere in the Emergency Department. It did not include time spent performing other reported procedures or the services of residents, students, nurses or physician assistants. Discharge Plan Plan Patient Disposition: Admit Acute Care w/in Hospital Problem List Clinical Impression: Hematochezia, History of prostate cancer, GI bleed, Prostate mass, Severe anemia
[2024-05-07 06:53] LABS: INR 1.1 (0.9-1.3); Prothrombin Time 11.8 Seconds (9.0-12.2)
[2024-05-07 07:01] LABS: Alanine Aminotransferase < 7 U/L (10-49); Albumin/Globulin Ratio 1.6 (1.2-2.2); Alkaline Phosphatase 65 U/L (46-116); Anion Gap 12 (7-16); Aspartate Amino Transferase < 10 U/L (0-34); BUN/Creatinine Ratio 19 Ratio (12-20); Bilirubin,Total < 0.2 mg/dL (0.3-1.2); Blood Urea Nitrogen 76 mg/dL (9-23); Calcium 7.6 mg/dL (8.3-10.6); Calcium (Corrected) 8.4 mg/dL (8.5-10.1); Carbon Dioxide 26.2 mMol/L (20.0-31.0); Chloride 101 mMol/L (98-107); Creatinine (Component) 3.9 mg/dL (0.6-1.3); Estimated Creatinine Clearance 16.3 mL/min (>60); Globulin 1.9 gm/dL (2.3-3.5); Glucose 192 mg/dL (74-106); Lipase 56 U/L (12-53); Osmolality,Calculated 305 (275-295); Sodium 139 mMol/L (136-145); Total Protein 4.9 gm/dL (5.7-8.2); eGFR 15 See Note
[2024-05-07] MEDS: SODIUM CHLORIDE 0.9% 1000 ML 1,000 ML 75 ML IV (07:27)
--- NOTE | 2024-05-07 07:34 | PC.NURSE ---
PT OFFERED TO STRAIGHT CATH USING HOSPITAL'S IN & OUT CATHETER SUPPLIES; PT REFUSED AND REPLIED, NO, I'D RATHER USE MY OWN; I CATH OWN SELF 4-5 TIMES A DAY. I BROUGHT MY KITS. DR. LIMON MADE AWARE. RN AIDED PT IN SELF-CATHETERIZING.
--- NOTE | 2024-05-07 07:41 | PC.NURSE ---
PT OFFERED TO USE HOSPITAL'S IN & OUT CATHETER TO COLLECT URINE SAMPLE AND BE PERFORMED BY RN; PT REFUSED AND STATED, NO, I'D RATHER USE MY OWN KITS; I CATH MYSELF 4 TO 5 TIMES A DAY. RN AT BEDSIDE ASSISTING PT WITH SELF-CATHETERIZATION.
[2024-05-07 07:51] LABS: Collection Type, Urine Catheter; Squamous Epithelial Cell,Urine 0 /hpf (0-5)
[2024-05-07] MEDS: PANTOPRAZOLE INJ 40 MG VIAL IVP (08:02)
[2024-05-07 08:49] LABS: Bacteria,Urine 1+; Bilirubin,Urine Negative (Negative); Blood,Urine 2+ (Negative); Color,Urine Orange (Lt Yel-Yel); Glucose, Urine Negative (Negative); Ketones,Urine Negative (Negative); Leukocyte Esterase,Urine Positive (Negative); Nitrite,Urine Negative (Negative); PH,Urine 6.5 (5.0-7.0); Protein,Urine 2+ (Neg - Trace); RBC,Urine 65 /hpf (0-3); Specific Gravity,Urine 1.012 (1.001-1.035); Urobilinogen,Urine Negative mg/dL (0.0-1.0); WBC,Urine 2427 /hpf (0-5)
[2024-05-07 08:54] LABS: Clarity,Urine Cloudy (Clear/Hazy); Culture Indicated,Urine Yes
--- NOTE | 2024-05-07 09:00 | PD.RESHP ---
Documentation for date of: 05/07/24 Exam Vital Signs Temp Pulse Resp BP Pulse Ox O2 Del Method 96.9 F 93 14 124/60 99 Room Air 05/07/24 07:27 05/07/24 07:27 05/07/24 07:27 05/07/24 07:27 05/07/24 07:27 05/07/24 07:27 Results: Labs 05/07/24 06:10 05/07/24 06:10 Labs: Short CBC 05/07/24 Range/Units 06:10 WBC 10.4 D (3.8-10.6) Thou/mm3 Hgb 6.0 L* (13.5-16.0) g/dL Hct 19.5 L* (41.0-53.0) % Plt Count 242 D (140-440) Thou/mm3 BMP 05/07/24 06:10 Sodium 139 Potassium 4.0 Chloride 101 Carbon Dioxide 26.2 BUN 76 H Creatinine 3.9 H Glucose 192 H Calcium 7.6 L Liver Function 05/07/24 Range/Units 06:10 Total Bilirubin < 0.2 L (0.3-1.2) mg/dL AST < 10 (0-34) U/L ALT < 7 L (10-49) U/L Alkaline Phosphatase 65 (46-116) U/L Albumin 3.0 L (3.4-4.8) gm/dL Urine 05/07/24 Range/Units 07:43 Urine Color [place] A (Lt Yel-Yel) Urine Clarity Cloudy A (Clear/Hazy) Urine pH 6.5 (5.0-7.0) Ur Specific [place] 1.012 (1.001-1.035) Urine Protein 2+ A (Neg - Trace) Urine Glucose (UA) Negative (Negative) Quality Measures Quality Measures none Medications Home Medications and Allergies Home Medications ?Medication ?Instructions ?Recorded ?Confirmed ?Type levothyroxine 100 mcg tablet 100 mcg PO QDAY #0 tabs 12/19/16 05/07/24 History atorvastatin 40 mg tablet 1 tab PO HS 08/01/21 05/07/24 History docusate sodium 100 mg tablet 100 mg PO BID 11/07/21 05/07/24 History trazodone 50 mg tablet 100 mg PO QDAY 01/30/22 05/07/24 History calcium acetate(phosphat bind) 667 667 mg PO TID 06/27/22 05/07/24 History mg capsule gabapentin 100 mg capsule 100 mg PO QDAY 06/27/22 05/07/24 History tamsulosin 0.4 mg capsule 0.4 mg PO QDAY 10/26/22 05/07/24 History fluticasone 100 mcg-salmeterol 50 1 inh inhalation BID 02/04/23 05/07/24 History mcg/dose blistr powdr for inhalation ascorbic acid (vitamin C) 100 mg 100 mg PO QDAY 05/22/23 05/07/24 History tablet (Vitamin C) leuprolide (3 month) 22.5 mg (3 See Rx Instructions .Route .COMPLEX 05/22/23 05/07/24 History month) intramuscular syringe kit (Lupron Depot) prednisone 5 mg tablet 5 mg PO QDAY 11/22/23 05/07/24 History abiraterone 250 mg tablet 250 mg PO QDAY 02/23/24 05/07/24 History sitagliptin 25 mg tablet 25 mg PO QDAY 02/23/24 05/07/24 History sucralfate 1 gram tablet 1 g PO BID 02/23/24 05/07/24 History nicotine (polacrilex) 4 mg buccal 4 mg buccal Q2H PRN Smoking 02/24/24 02/24/24 History lozenge Cessation prednisolone acetate 1 % eye 1 drp ophthalmic (eye) QID 02/24/24 05/07/24 History drops,suspension phenazopyridine 100 mg tablet mg PO QDAY 05/07/24 History tramadol 50 mg tablet 50 mg PO QDAY 05/07/24 05/07/24 History Allergies Allergy/AdvReac Type Severity Reaction Status Date / Time No Known Allergies Allergy Verified 03/26/24 09:25 Visit Medications Sodium Chloride (Ns) 1,000 mls @ 75 mls/hr IV .[id number] ROBERT Stop: 06/06/24 07:15 Last Infusion: 05/07/24 08:18 Dose: 0 mls/hr Discontinued Medications Sodium Chloride (Ns) 1,000 mls @ 100 mls/hr IV .Q10H ROBERT Stop: 06/06/24 06:14 Last Admin: 05/07/24 07:16 Dose: Not Given Pantoprazole Sodium (Pantoprazole Inj 40 Mg Vial) 40 mg IVP X1 ONE Stop: 05/07/24 07:33 Last Admin: 05/07/24 08:02 Dose: 40 mg Phytonadione (Phytonadione Inj 10 Mg/Ml Amp) 10 mg SC X1 ONE Stop: 05/07/24 06:57 Last Admin: 05/07/24 08:03 Dose: Not Given
[2024-05-07 09:23] LABS: Reflex Lactate? Y
--- NOTE | 2024-05-07 09:42 | PD.NEPHCONS ---
History of Present Illness Data of Consult Consult date: 05/07/24 Primary Care Provider: Physician No Primary/Family Consult Narrative Reason for consult: ESRD, anemia History of present illness: Informant-Xiao daughter Mr. Kim is a 79 y/o male with PMHx of recurrent prostate cancer ( sees Dr. Ramírez, on Abiraterone Acetate), ESRD (T//), recurrent UTI, urinary retention secondary to neurogenic bladder with self-catheterization, chronic anemia(multiple endoscopies, colonoscopies done. Recently had a small bowel enteroscopy in [place] which showed AVMs-supposedly needs a repeat scope) diabetes mellitus, hypothyroidism, and COPD who presented to the ED with a significant weakness and blood in the stools. associated nausea, vomiting, weakness and fatigue. Says that he self caths on his own, still makes urine but a little bit of it. Says that he has been feeling tired and fatigued, felt like he was going to pass out but did not. Denies having fallen recently. Daughters present at bedside. Denies any chest pain, shortness of breath, syncope, headache. Home medications included Abiraterone, atorvastatin, calcium acetate, docusate, gabapentin, Protonix, prednisone, sitagliptin, Carafate, tramadol, trazodone, Flomax, vitamins C ED course: Patient arrived to the ED with 78. Hemoglobin 6.6, platelets 242, sodium 139, potassium 4, BUN 76, creatinine 3.9, calcium 8.4, LFTs normal, albumin 3, urinalysis shows significant pyuria. Blood sugar 109, blood pressure 99/55, heart rate GI was consulted and decision was made to admit patient for further evaluation of GI bleed.Patient started receiving unit of blood. Nephrology consultation requested for need for dialysis and blood transfusion. cc:: cc: Review of Systems Review of Systems Narrative Review of Systems: Complaining of fatigue, fever and chills complaining of weakness HEENT: Denies any visual disturbances or hearing problems. CARDIOVASCULAR: Patient denies any chest pain, shortness of breath + mild swelling in the lower extremities. PULMONARY: Patient complaining of shortness of breath, cough. Complaining of black stools GASTROINTESTINAL: Patient denies any abdominal pain, constipation, nausea, vomiting, diarrhea. GENITOURINARY: Obstructive uropathy-does self cath Anemia SKIN: Denies any rash. MUSCULOSKELETAL: Gait imbalance NEUROLOGICAL: Denies any neurological problems of strokes, seizures or confusion.? Denies any memory problems. Past Medical History Past Medical History NEUROLOGIC: Positive Neurological Disorders, Cerebrovascular Accident, Transient Ischemic Attacks (TIA), Brain Tumor and Migraine; Negative Seizures or Dyson's Palsy CARDIAC: Positive Cardiac Disorders, Heart Murmur and Hypercholesterolemia; Negative Congestive Heart Failure, Edema, Cellulitis or Varicose Veins RESPIRATORY: Positive Chronic Obstructive Pulmonary Disease (COPD), Asthma, Emphysema and Pneumonia; Negative Tuberculosis or Sleep Apnea GASTROINTESTINAL: Positive Gastrointestinal Disorders, Gall Bladder Disease, Ulcer, Hemorrhoids and Gastroesophageal Reflux Disease; Negative Hepatitis GENITOURINARY: Positive Genitourinary Disorders, Renal Disease, Kidney Stones, Dialysis, Prostate Cancer and Benign Prostatic Hyperplasia MUSCULOSKELETAL: Positive Musculoskeletal Disorders and Arthritis ENT: Positive Cataracts and Deafness ENDOCRINE: Positive Endocrine Disorders, Diabetes Mellitus Type 2 and Hypothyroidism; Negative Diabetes Mellitus Type 1 HEMATOLOGIC: Positive Blood Disorders and Anemia PSYCHO/SOCIAL: Positive Depression, Anxiety and Post Traumatic Stress Disorder; Negative Depression OTHER HISTORY: Positive Hospitalization, Shingles, Blood Transfusions, Chemotherapy, Radiation Therapy, Chicken Pox, Measles, Mumps, Cancer and Prostate Cancer; Negative Autoimmune Disease, Falls, Blood Transfusion Reaction, Anesthesia Reactions or MRSA Family History FAMILY HISTORY: Positive Family Psychiatric Problems, Family Respiratory Disorders, Family Cardiac Disorders, Family Cancer and Family Surgery; Negative Family Gastrointestinal Problems or Family Anesthesia Reaction Surgical History SURGICAL: Positive Angiogram, Ear Surgery, Nephrectomy and Vasectomy; Negative Cardiac Surgery, Pacemaker or Joint Replacement Social History SMOKING STATUS: Former smoker SECOND HAND EXPOSURE: No SUBSTANCE USE: does not use Past Medical History Comments PMH COMMENT: Past medical history: Prostate cancer on abiraterone and prednisone ESRD on hemodialysis via left AV fistula // [id number] diabetes mellitus type 2 COPD not on home oxygen Hypothyroid Medication list: ?Abiraterone to 50 Mg p.o. daily ? Atorvastatin 10 Mg p.o. at bedtime ? Calcium acetate 687 Mg p.o. 3 times daily ? Docusate sodium 100 Mg p.o. twice daily ? Fluticasone/salmeterol inhaler 1 puff twice daily ? Gabapentin 100 Mg p.o. daily ? Levothyroxine 100 mcg p.o. daily ? Lupron Depo Q 3 months ? Nicotine gum 4 Mg buccal Q2 hourly as needed ? Pantoprazole 40 Mg p.o. twice daily ? Prednisolone acetate 1 drop ophthalmic 4 times daily ? Prednisone 5 Mg p.o. daily ? Sitagliptin 25 Mg p.o. daily ? Sucralfate 1 g p.o. twice daily ? Tamsulosin 0.4 Mg p.o. daily ? Tramadol 50 Mg p.o. daily ? Trazodone 100 Mg p.o. daily ? Vitamin C 100 Mg p.o. daily Past surgical history: ?Cholecystectomy ? Hemorrhoidectomy 1979 ? Bilateral lens replacement ? Vasectomy Allergies: NKFDA Social history: Occupational History: Worked as a [employer]. Currently retired Education Level: Did not attend school Marital Status: with 1 kid Tobacco use: Approximately [id number] smoking history. Quit about 20 years ago ETHO use: Denies Illicit drug use: Denies Social History Note: lives with and daughter. At baseline he ambulates with a walker Meds Home Medications and Allergies Home Medications ?Medication ?Instructions ?Recorded ?Confirmed ?Type levothyroxine 100 mcg tablet 100 mcg PO QDAY #0 tabs 12/19/16 05/07/24 History atorvastatin 40 mg tablet 1 tab PO HS 08/01/21 05/07/24 History docusate sodium 100 mg tablet 100 mg PO BID 11/07/21 05/07/24 History trazodone 50 mg tablet 100 mg PO QDAY 01/30/22 05/07/24 History calcium acetate(phosphat bind) 667 667 mg PO TID 06/27/22 05/07/24 History mg capsule gabapentin 100 mg capsule 100 mg PO QDAY 06/27/22 05/07/24 History tamsulosin 0.4 mg capsule 0.4 mg PO QDAY 10/26/22 05/07/24 History fluticasone 100 mcg-salmeterol 50 1 inh inhalation BID 02/04/23 05/07/24 History mcg/dose blistr powdr for inhalation ascorbic acid (vitamin C) 100 mg 100 mg PO QDAY 05/22/23 05/07/24 History tablet (Vitamin C) leuprolide (3 month) 22.5 mg (3 See Rx Instructions .Route .COMPLEX 05/22/23 05/07/24 History month) intramuscular syringe kit (Lupron Depot) prednisone 5 mg tablet 5 mg PO QDAY 11/22/23 05/07/24 History abiraterone 250 mg tablet 250 mg PO QDAY 02/23/24 05/07/24 History sitagliptin 25 mg tablet 25 mg PO QDAY 02/23/24 05/07/24 History sucralfate 1 gram tablet 1 g PO BID 02/23/24 05/07/24 History nicotine (polacrilex) 4 mg buccal 4 mg buccal Q2H PRN Smoking 02/24/24 02/24/24 History lozenge Cessation prednisolone acetate 1 % eye 1 drp ophthalmic (eye) QID 02/24/24 05/07/24 History drops,suspension phenazopyridine 100 mg tablet mg PO QDAY 05/07/24 History tramadol 50 mg tablet 50 mg PO QDAY 05/07/24 05/07/24 History Allergies Allergy/AdvReac Type Severity Reaction Status Date / Time No Known Allergies Allergy Verified 03/26/24 09:25 Exam Vital Signs Temp Pulse Resp BP Pulse Ox O2 Del Method 36.1 C 82 13 124/60 99 Room Air 05/07/24 07:27 05/07/24 09:13 05/07/24 09:13 05/07/24 07:27 05/07/24 09:13 05/07/24 07:27 Narrative Exam Patient patient currently seen on dialysis. Resting comfortably. HEENT: Pale conjunctiva NECK: Neck supple, no JVD or bruit CARDIOVASCULAR: Heart regular, no murmurs LUNGS/CHEST: Clear to auscultation ABDOMEN: Soft, nontender, nondistended.? No masses.? Normal bowel sounds. EXTREMITIES: 1+ edema in the lower extremities SKIN: Skin exam normal without any rashes NEURO: Alert, awake. Leg weakness noted. Results Labs 05/07/24 18:40 05/07/24 06:10 Labs: Short CBC 05/07/24 Range/Units 06:10 WBC 10.4 D (3.8-10.6) Thou/mm3 Hgb 6.0 L* (13.5-16.0) g/dL Hct 19.5 L* (41.0-53.0) % Plt Count 242 D (140-440) Thou/mm3 BMP 05/07/24 06:10 Sodium 139 Potassium 4.0 Chloride 101 Carbon Dioxide 26.2 BUN 76 H Creatinine 3.9 H Glucose 192 H Calcium 7.6 L Liver Function 05/07/24 Range/Units 06:10 Total Bilirubin < 0.2 L (0.3-1.2) mg/dL AST < 10 (0-34) U/L ALT < 7 L (10-49) U/L Alkaline Phosphatase 65 (46-116) U/L Albumin 3.0 L (3.4-4.8) gm/dL Urine 05/07/24 Range/Units 07:43 Urine Color [place] A (Lt Yel-Yel) Urine Clarity Cloudy A (Clear/Hazy) Urine pH 6.5 (5.0-7.0) Ur Specific [place] 1.012 (1.001-1.035) Urine Protein 2+ A (Neg - Trace) Urine Glucose (UA) Negative (Negative) Assessment & Plan Assessment and plan (1) History of prostate cancer: Status: Acute (2) Hypertension: Status: Acute (3) Hyperlipidemia: Status: Acute (4) Diabetes: Status: Acute Additional Assessment & Plan Additional Plan: (1) End-stage renal disease ?Status:?Chronic ? ? ? 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 Currently on dialysis 3 times weekly for the last 1 year. Patient currently seen on dialysis. Tolerating dialysis without any problems. Hemodialysis for 3 hours, 2K, ultrafiltration 2-3 L, Epogen 6000, no heparin ordered. Plan of care discussed with the dialysis nurse. Please see dialysis flowsheet for further details. (2) History of prostate cancer: ?Status:?Acute ? ? ? 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 Currently on chemotherapy under urology [facility] (3) Hypertension: ?Status:?Acute ? ? ? Assessment and plan: Resume home blood pressure medications (4) Hyperlipidemia: ?Status:?Acute ? ? ? Assessment and plan: Resume statin (5) Diabetes: ?Status:?Acute ? ? ? Assessment and plan: Accu-Cheks, sliding scale.? Diabetic diet ordered.? Resume home medications. (6)? Anemia Patient has longstanding history of anemia for couple of years . I have sent him to the emergency department for multiple blood transfusions Patient had multiple endoscopy/colonoscopy were negative. Dr. Stewart send him for capsule endoscopy which showed AVMs.- I referred him to hematology-workup so far negative. Suspect bone marrow problem for his underlying prostate cancer. Patient on significant amounts of Epogen at dialysis. 2 units of PRBC transfusion ordered by primary team-patient received 1 this morning and will receive 1 with dialysis today. (7)?leg weakness Multifactorial- UTI, severe anemia Thank you Dr. Sim for allowing me to participate in the care of Mr. iKm
[2024-05-07] MEDS: PANTOPRAZOLE INJ 40 MG VIAL IV (09:45)
[2024-05-07 09:47] LABS: Lactic Acid, 3 HR 1.2 mMol/L (0.4-2.0)
--- NOTE | 2024-05-07 10:16 | PD.RESEVENT ---
Documentation for date of: 05/07/24 Event Note Event Note: Called by ED to review this 79-year-old male with past medical history significant for prostate cancer, ESRD on hemodialysis T/TH/S, hypothyroid and COPD. Patient also has history of GI bleed admitted on February 23, 2024. Patient's provided hospital report from his capsule endoscopy earlier this month at the [facility]. 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 On arrival patient's hemoglobin was 6, blood pressure 86/49 MAP 66 and patient requires dialysis as per his schedule today. Spoke to senior administrator support, Dr. Stewart. He advised that patient would need transfer to a tertiary center for higher level of care as his AV malformation would require double lumen endoscopy to control the bleeding. Based on patient's insurance he recommended [facility] as they have the equipment to stabilize the bleeding. Recommendations: Transfer patient to tertiary center for higher level of care. Plan of care discussed with Attending Dr. Sim and PGY2 Dr. Kael Alvarez MD PGY 1
--- NOTE | 2024-05-07 10:47 | ESHP_ITS ---
Documentation for date of: 05/07/24 HPI History of Present Illness Chief complaint: Weakness History of present illness: HPI: Patient is poor historian and majority of history obtained from chart review and his at bedside. Patient is a 79-year-old male past medical history significant for prostate cancer on abiraterone and prednisone follows up with oncologist Dr. Maxwell and urologist Dr. 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 Patient endorses weakness for the past few days. Denies any melena, hematochezia, coffee-ground emesis hematemesis and bilious emesis. However patient's states that for the past week patient had melena described as dark black and sticky. Patient had previous admission from 02/23/2024 to 02/26/2024 for which he was admitted for GI bleed for investigation. During that hospitalization he had EGD which showed non erosive gastritis and non bleeding ulcer with no clear source of bleeding. On previous admission his hemoglobin was around 6 and he also required PRBC infusions at the time. Of note earlier this month patient had a capsule endoscopy done at the [facility] by ingredient mixer Dr. Xiao Rowe. 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 ED physician, Dr. Unger signed out that the patient's capsule endoscopy results were normal. However upon further investigation this was found to be not the case. Consulted ingredient mixer, Dr. Stewart. He recommended to immediately initiate transfer to tertiary center for double-balloon enteroscopy to achieve hemostasis. ED course: BP 86/49 MAP 66, pulse 91, RR 16, SpO2 99% on room air Labs significant for Hb 6, HCT 19.5, BUN 76 6, CR 3.9. LA 2.7??>1.2 In the ED patient received 2 L normal saline IV fluid bolus, pantoprazole 40 Mg IV x 1 and phytonadione 10 Mg SC x 1. Patient will be admitted to observation for acute blood loss anemia secondary to GI bleed. Urgent transfer initiated to tertiary center for double-balloon enteroscopy. 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 daily ? Atorvastatin 10 Mg p.o. at bedtime ? Calcium acetate 687 Mg p.o. 3 times daily ? Docusate sodium 100 Mg p.o. twice daily ? Fluticasone/salmeterol inhaler 1 puff twice daily ? Gabapentin 100 Mg p.o. daily ? Levothyroxine 100 mcg p.o. daily ? Lupron Depo Q 3 months ? Nicotine gum 4 Mg buccal Q2 hourly as needed ? Pantoprazole 40 Mg p.o. twice daily ? Prednisolone acetate 1 drop ophthalmic 4 times daily ? Prednisone 5 Mg p.o. daily ? Sitagliptin 25 Mg p.o. daily ? Sucralfate 1 g p.o. twice daily ? Tamsulosin 0.4 Mg p.o. daily ? Tramadol 50 Mg p.o. daily ? Trazodone 100 Mg p.o. daily ? Vitamin C 100 Mg p.o. daily Past surgical history: ?Cholecystectomy ? Hemorrhoidectomy 1979 ? Bilateral lens replacement ? 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 Quit about 20 years ago ETHO use: Denies Illicit drug use: Denies Social History Note: lives with and daughter. At baseline he ambulates with a walker Exam Vital Signs Temp Pulse Resp BP Pulse Ox O2 Del Method 97.8 F 88 19 101/46 L 95 Room Air 05/07/24 09:48 05/07/24 09:48 05/07/24 09:48 05/07/24 09:48 05/07/24 09:48 05/07/24 09:48 Narrative Exam Constitutional Alert, oriented x 3 and somnolent. Elderly male on room air, pale and dry mucous membranes HEENT Vision grossly intact. Patent nares. Trachea midline Respiratory Chest normal on inspection and decreased air entry in all lung mike, negative for wheezing and crackles Cardiovascular S1 and S2 audible, RRR. No murmurs carotid bruit. No gross JVD. Abdominal Soft and non tender to palpation in all quadrants. BS + Genitourinary No bladder tenderness, no flank pain. Normal to palpation Musculoskeletal Extremities tone within normal limits. No LE edema. Neurological CN II - XII grossly intact. Extremity motor and sensation grossly intact. Skin Warm, dry and intact. Left arm AV fistula noted, thrill palpated. Psychiatric Patient has good affect, is cooperative Results: Labs 05/07/24 06:10 05/07/24 06:10 Labs: Short CBC 05/07/24 Range/Units 06:10 WBC 10.4 D (3.8-10.6) Thou/mm3 Hgb 6.0 L* (13.5-16.0) g/dL Hct 19.5 L* (41.0-53.0) % Plt Count 242 D (140-440) Thou/mm3 BMP 05/07/24 06:10 Sodium 139 Potassium 4.0 Chloride 101 Carbon Dioxide 26.2 BUN 76 H Creatinine 3.9 H Glucose 192 H Calcium 7.6 L Liver Function 05/07/24 Range/Units 06:10 Total Bilirubin < 0.2 L (0.3-1.2) mg/dL AST < 10 (0-34) U/L ALT < 7 L (10-49) U/L Alkaline Phosphatase 65 (46-116) U/L Albumin 3.0 L (3.4-4.8) gm/dL Urine 05/07/24 Range/Units 07:43 Urine Color Burt A (Lt Yel-Yel) Urine Clarity Cloudy A (Clear/Hazy) Urine pH 6.5 (5.0-7.0) Ur Specific Turney 1.012 (1.001-1.035) Urine Protein 2+ A (Neg - Trace) Urine Glucose (UA) Negative (Negative) Quality Measures Quality Measures none Advance care planning discussed with:: patient Medications Home Medications and Allergies Home Medications ?Medication ?Instructions ?Recorded ?Confirmed ?Type levothyroxine 100 mcg tablet 100 mcg PO QDAY #0 tabs 1 05/07/24 History atorvastatin 40 mg tablet 1 tab PO HS 08/01/21 5 History docusate sodium 100 mg tablet 100 mg PO BID 11/07/21 0 05/07/24 History trazodone 50 mg tablet 100 mg PO QDAY 01/30/2204/12 History calcium acetate(phosphat bind) 667 667 mg PO TID 06/2705/07/24 History mg capsule gabapentin 100 mg capsule 100 mg PO QDAY 06/27/2204/12 History tamsulosin 0.4 mg capsule 0.4 mg PO QDAY 10/26/2204/12 History fluticasone 100 mcg-salmeterol 50 1 inh inhalation BID 02/04/23 05/07/24 History mcg/dose blistr powdr for inhalation ascorbic acid (vitamin C) 100 mg 100 mg PO QDAY 05/07/24 History tablet (Vitamin C) leuprolide (3 month) 22.5 mg (3 See Rx Instructions .R oute .COMPLEX 05/22/23 05/07/24 History month) intramuscular syringe kit (Lupron Depot) prednisone 5 mg tablet 5 mg PO QDAY 11/22/23 History abiraterone 250 mg tablet 250 mg PO QDAY 02/23/2404/12 History sitagliptin 25 mg tablet 25 mg PO QDAY 02/23/2405/07 History sucralfate 1 gram tablet 1 g PO BID 02/23/24 05/07/24 History nicotine (polacrilex) 4 mg buccal 4 mg buccal Q2H PRN Smoking 02/24/24 02/24/24 History lozenge Cessation prednisolone acetate 1 % eye 1 drp ophthalmic (eye) QI D 02/24/24 05/07/24 History drops,suspension phenazopyridine 100 mg tablet mg PO QDAY 05/07/24 His tory tramadol 50 mg tablet 50 mg PO QDAY 05/07/2405/07 History Allergies Allergy/AdvReac Type Severity Reaction Status Date / Time No Known Allergies Allergy Verified 03/26/24 09:25 Visit Medications Acetaminophen (Acetaminophen 325 Mg Tablet) 650 mg PO Q6H PRN PRN Reason: Fever >100.3 or pain Stop: 06/06/24 10:39 Dextrose (Dextrose 50%-Water Inj 50 Ml Syringe) 50 ml IV Q15MIN PRN PRN Reason: BG <50 OR BG <70 & pt unresponsive Stop: 06/06/24 10:43 Epoetin Bryant (Epoetin Bryant-Epbx 3,000 Unit/Ml Vial (Esrd)) 10,000 unit SC X1 ONE Stop: 05/07/24 14:01 Glucagon (Glucagon Inj 1 Mg Vial) 1 mg IM Q15MIN PRN PRN Reason: BG <70, and no IV access Sodium Chloride (Ns) 1,000 mls @ 75 mls/hr IV .[id number] [facility] Stop: 06/06/24 07:15 Last Infusion: 05/07/24 08:18 Dose: 0 mls/hr Albumin Human (Albuminar-25 Ivpb) 25 gm in 100 mls @ 100 mls/min IV PRN PRN PRN Reason: DIALYSIS Insulin Human Lispro (Insulin Lispro (Admelog) 1 Unit/0.01 Ml Unit) 0 unit SC [facility]; Protocol Stop: 06/06/24 11:29 Levothyroxine Sodium (Levothyroxine Sodium 100 Mcg Tablet) 100 mcg PO ACBR [facility] Stop: 06/07/24 05:59 Ondansetron HCl (Ondansetron Inj 2 Mg/Ml Inj 2 Ml) 4 mg IV Q6H PRN; Protocol PRN Reason: NAUSEA OR VOMITING Stop: 06/06/24 10:39 Pantoprazole Sodium (Pantoprazole Inj 40 Mg Vial) 40 mg IVP BID [facility] Stop: 06/07/24 08:59 Discontinued Medications Acetaminophen (Acetaminophen 325 Mg Tablet) 650 mg PO Q6H PRN PRN Reason: Fever >100.3 or pain Stop: 06/06/24 09:02 Albuterol/Ipratropium (Albuterol/Ipratropium (Duoneb) Rt Christianne 3 Ml Nebu) 3 ml INH Q4HR PRN PRN Reason: SHORTNESS OF BREATH OR WHEEZE Stop: 06/06/24 09:02 Sodium Chloride (Ns) 1,000 mls @ 100 mls/hr IV .Q10H [facility] Stop: 06/06/24 06:14 Last Admin: 05/07/24 07:16 Dose: Not Given Levothyroxine Sodium (Levothyroxine Inj 100 Mcg Vial) 50 mcg IV X1 ONE Stop: 05/07/24 09:09 Ondansetron HCl (Ondansetron Inj 2 Mg/Ml Inj 2 Ml) 4 mg IV Q6H PRN; Protocol PRN Reason: NAUSEA OR VOMITING Stop: 06/06/24 09:02 Pantoprazole Sodium (Pantoprazole Inj 40 Mg Vial) 40 mg IVP X1 ONE Stop: 05/07/24 07:33 Last Admin: 05/07/24 08:02 Dose: 40 mg Pantoprazole Sodium (Pantoprazole Inj 40 Mg Vial) 40 mg IV X1 ONE Stop: 05/07/24 09:07 Last Admin: 05/07/24 09:45 Dose: 40 mg Phytonadione (Phytonadione Inj 10 Mg/Ml Amp) 10 mg SC X1 ONE Stop: 05/07/24 06:57 Last Admin: 05/07/24 08:03 Dose: Not Given Assessment & Plan Plan Patient is a 79-year-old male past medical history significant for prostate cancer on abiraterone and prednisone follows up with oncologist Dr. Maxwell and urologist Dr. 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 Patient will be admitted to observation for acute blood loss anemia secondary to GI bleed. Urgent transfer initiated to tertiary center for double-balloon enteroscopy. 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 His informed us of melena for the past week. Patient had a previous admission from 02/23/2024 to 02/26/2024 for similar presentation. 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 On admission Hb 6. 2 units PRBCs were ordered for transfusion during hemodialysis. Plan: ? Clear liquid diet ? Protonix 40 Mg IV twice daily ? Type and screen stat ? 2 units PRBCs ordered ? For transfusion during hemodialysis ? Bleeding precautions ? For urgent transfer to tertiary center for double-balloon enteroscopy ? GI, Dr. Stewart consulted and closely following the case. 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 Last session was on 05/05/2023. His director of direct marketing is Dr. Funez. Plan: ? For hemodialysis as per nephrology. ? Renally dose medication ? Avoid nephrotoxic agents ? Implementation Advisor, Dr Funez consulted and closely follow the case. Appreciate recommendations ESBL UTI Urine culture from 04/16/2024 grew Klebsiella pneumonia which was ESBL On this admission urinalysis significant for RN GEN:, Cloudy, 2+ protein, 2+ blood, leukocyte esterase positive and WBC 2427 Plan: ? Started on levofloxacin 250 Mg IV daily ? Repeat urine culture ordered Gxv-oieexnk-mtymdvmpv diabetes mellitus type 2 [5%] Home medication sitagliptin 25 Mg p.o. daily Plan: ? SSI to cover blood glucose spikes Hypothyroid Patient very somnolent on exam. Most likely due to acute blood loss anemia but may also be due to hypothyroidism. Home medication levothyroxine 100 mcg p.o. daily Plan: ? TSH ordered ? Levothyroxine 50 mcg IV x 1 ? Levothyroxine 100 mcg p.o. daily to start from tomorrow COPD not on home oxygen Patient's home medication fluticasone/salmeterol inhaler 1 puff twice daily Plan: ? DuoNebs as needed Prostate cancer on treatment with abiraterone, prednisone and Zoladex Plan: ? Continue outpatient follow-up Health maintenance: Disposition: For emergent hemodialysis with PRBC infusion. For urgent transfer to tertiary center. GI and nephrology recommendations. Diet: Clear liquid Lines: pIVs GI Prophylaxis: Protonix 40 Mg IV twice daily Thrombo Prophylaxis: SCDs Code status: Limited CODE Plan of care discussed with Attending Dr. Sim and PGY2 Dr. Kael Alvarez MD PGY 1 Attending Provider Attestation/Addendum I reviewed labs, imaging, EKG, home medications and prior available records. Face to face evaluation was performed by me. I have personally examined the patient and discussed assessment and plan with the IM team. I reviewed the resident note and agree with the plan with exceptions as below. 79-year-old male with history of ESRD on hemodialysis and hypothyroidism who presented with a chief complaint of generalized weakness. He was found to have acute anemia in the setting of GI bleed Generalized weakness ESRD on hemodialysis Melena GI bleed Acute anemia Acute UTI Generalized weakness is likely in the setting of acute anemia in the setting of GI bleed. Less likely due to hypothyroidism or acute UTI. Check TSH. Treat UTI. 2 PRBCs ordered in the ED. Monitor H&H posttransfusion Consulted GI Patient has a recent admission for GI bleed for which source was unclear and outpatient capsule study was recommended. Per family, the capsule endoscopy study was done in [place] and showed AV malformation however we could not verify this information. Per family, he has an appointment at [facility] on June 16 for double-balloon enteroscopy. Could not reach the GI physician that is responsible as he is on vacation till Saturday. Discussed with transfer nurse and GI: Will keep the patient for blood transfusion and H&H monitoring. If the patient stays till Saturday then we will contact the transfer center. If he stabilizes then can discharge and follow-up as outpatient. Consulted nephrology for routine hemodialysis Resume home levothyroxine Started levofloxacin for the UTI. Follow-up urine culture
--- NOTE | 2024-05-07 10:50 | PC.CC ---
Addendum entered by Lucho Weston RN 05/07/24 17:30: 1709 received call from Rajwinder at [facility]. She stated Martine is gone for the day. I had a long conversation with her. She stated they don't have the bed in ED, stabilize the pt and reach out tomorrow to transfer the pt. Addendum entered by Lucho Weston RN 05/07/24 16:55: 1651 I called [phone]. Ext [phone] and [phone] in order to get fax no for sending Authorization for release of PHI form and get medical records. Left VM. Addendum entered by Lucho Weston RN 05/07/24 16:49: 1643 called [facility] for transfer request again. It straight went to . Left VM. Addendum entered by Lucho Weston RN 05/07/24 16:42: 1636 called Chris at [facility]. She informed me that Dr. Jae LOPEZ at [facility] stated to transfer the pt to [facility] where they can stabilize the pt give blood etc and on Saturday [facility] can transfer the pt to [facility]. She stated [facility] can do the procedure sooner than [facility]. Addendum entered by Lucho Weston RN 05/07/24 16:36: [address] Jha that he spoke to GI at [facility] Dr. Rowe. Dr. Rowe spoke to GI at [place] and they are aware about the pt. Dr. Rowe stated the plan for the pt was to see GI at [facility]. Dr. Jha stated to follow up with [facility]. I informed Dr. Jha that I already spoke to [facility] transfer nurse, the GI who does the procedure is not available until Saturday. [address] Sim and explained about the transfer so far. Dr. Sim stated he will stabilize the pt. If no one is accepting we can try to reach again to [facility] on Saturday or may be give blood transfusion stabilize the pt and follow with [facility] as outpatient. 1508 called Chris. She spoke to Dr. Jha. Outcome is Chris will give the contact number of Dr. Jha to her GI. 1500 I called and informed Dr. Jha. He stated to come to ER and have the nurse brickmason helper and he will speak to her. 1449 received call from Chris that she is reviewing ED notes and it says Patient mentioned he has had episodes of black stool before and evaluated at the [facility]; reportedly during that time they did not find the source of bleeding with capsule endoscopy. . I informed her that I was informed by Dr. Jha that pt stated pt has AVM. I also informed her that [facility] in April in [facility]. Chris stated she can't find it. I told her that I also try to call [facility] to get medical records, left VM. No response yet. She stated she doesn't know how to proceed with that. Addendum entered by Lucho Weston RN 05/07/24 14:39: 1435 clinicals faxed to [facility] at [phone]. 1410 received call from Chris at [facility]. I initiated the transfer. Chris stated to fax clinicals at [phone]. Addendum entered by Lucho Weston RN 05/07/24 13:55: 1352 called [facility] TC at [phone]. Ext [phone]. She stated she will call me back in 5 minutes. Addendum entered by Lucho Weston RN 05/07/24 13:52: 1330 called [facility] and I was transferred to many extensions before I could speak to product transfer pumper. I spoke to Rhoda and TC number is [phone]. Ext [phone]. She stated she is busy with 2 other transfers and to call her co-worker at Ext [phone] or her direct line at [phone]. Addendum entered by Lucho Weston RN 05/07/24 13:30: 1311 received call from Julianna at [facility] that they only have one specialist who perform double balloon endoscopy and he is not coming until Saturday. On Saturday, once he comes we can reach back to transfer center and the case will be present. I told her we cannot wait that long. She stated we can try [facility] or [facility]. Addendum entered by Lucho Weston RN 05/07/24 12:03: 1140 called Julianna at [facility] and gave her the info regarding requesting procedure. [address] Sim and he corrected the dx it's double balloon endoscopy not double lumen per notes. He also stated they can stabilize the pt and it's OK to wait for [facility] on their transfer process. 1130 received call from Julianna at [facility]. She asked me to clarify the procedure that is requesting for the pt. I informed her I will confirm and call her back. I asked her to expedite the transfer process. She stated there is a transfer process that she needs to follow but if pt needs emergent transfer. Pt can be transferred to any facility. Addendum entered by Lucho Weston RN 05/07/24 11:49: 1129 I called [phone]. Ext [phone] or [phone] in order to get fax no for sending Authorization for release of PHI form and get medical records. Left VM. 1127 ER obtained signatures from pt on Authorization for release of PHI. I completed the form. I called [facility], spoke to Martine to get fax so that we can get capsule endoscopy report. She stated I have to call different number which is [phone]. Ext [phone] or [phone]. Addendum entered by Lucho Weston RN 05/07/24 11:04: 1043 clinicals faxed to [facility]. Addendum entered by Lucho Weston RN 05/07/24 11:04: 1039 called Julianna at [facility] and informed Cherie FRIEDian declined the transfer. She stated to fax clinicals at [phone]. Original Note: 1032 Called [facility], spoke to Martine and presented the case. She stated they have limited resources, they don't have capacity or capability. Therefore declining the transfer request. 1015 spoke to Julianna at [facility] regarding transferring the pt. She stated I have to contact [facility] first, if they decline then I can call [facility] next. 1010 Called [facility] multiple times, tool room lathe operator trying to connect with transfer center but unable to connect. [address] Jha that pt needs to be transferred for AVM need GI services. Dr. Jha stated pt had capsule endoscopy done in [facility] in Apr, 2024 and per pt has AVM. Pt compained of having dark black tarry stools with Hgn of 6.0. Dr. Jha wants me to contact [facility].
--- NOTE | 2024-05-07 11:08 | PC.CC ---
Patient is a 79 year-old male who presents to the hospital for GI Bleed. ASWKami introduced self, role, and reason for visit to patient's daughter, Xiao who is at bedside. Patient's daughter completed initial assessment with ASW as patient was asleep. Xiao reports that she is the patient's primary caregiver for the patient and his Gretel Kim. Per daughter, she has POA and this should be on file with the hospital as they have provided it on past visits. Patient ambulates at home with a wheelchair, walker, and cane. Patient is able to bathe himself; however, daughter help assist with other ADLs. Patient does not use oxygen at home. Patient received primary care with [facility] and preferred pharmacy is [facility]. Upon discharge patient's daughter plans to take patient back home. student support services director to follow up with any discharge needs.
[2024-05-07] MEDS: LEVOTHYROXINE INJ 100 mCg VIAL 50 MCG IV (11:21)
[2024-05-07] MEDS: LEVOFLOXACIN/D5W 250MG IVPB 250 MG/50 ML BAG 50 MG IV (12:19)
--- NOTE | 2024-05-07 14:15 | PC.PT ---
PT eval received. Patient is pending transfer to higher level of care due to GI bleed. Patient's Hgb is low at this time. Patient is not a medically stable to participate in skilled PT at this time. Informed Dr. Sim. Will cancel PT evaluation.
--- NOTE | 2024-05-07 14:45 | PC.NURSE ---
1 unit of prbc infusion started at this time per md orders, will cont. to monitor
--- NOTE | 2024-05-07 15:02 | PC.NURSE ---
bp trending down pt denies all s/s of hypotension will admin PRN ALBUMIN per md orders and cont. to monitor
[2024-05-07] MEDS: ALBUMIN HUMAN 25% IVPB 25 GM/100 ML BTL IV (15:05)
--- NOTE | 2024-05-07 15:18 | PC.NURSE ---
bp low, pt denies all complaints uf goal lowered to 2.8l as tolerated will cont. to monitor
[2024-05-07] MEDS: EPOETIN ALFA-EPBX INJ 10,000 UNIT/ML VIAL (ESRD) 10000 UNIT SC (15:20)
--- NOTE | 2024-05-07 15:34 | PC.NURSE ---
bp remains low, pt remains w/o complaints or s/s of hypotension, uf remains ofv will cont. to monitor
--- NOTE | 2024-05-07 15:38 | PC.NURSE ---
bp remains low will admin 100ml ns bolus and cont. to monitor
--- NOTE | 2024-05-07 15:53 | PC.NURSE ---
bp trending up, uf turned back on w/ goal lowered to 1L as tolerated will cont. to monitor
--- NOTE | 2024-05-07 15:59 | PD.EDADDENDU ---
Emergency Room Addendum <Betina Mcmullen - Last Filed: 05/07/24 16:19> Addendum Narrative: 1035: Per transfer nurse Niranjan, [facility] requested we contact [facility] first. [facility] was contacted and state they do not have the capacity or capability and declined the transfer request. 1312: Transfer nurse reports the marketing technology coordinator for [facility] the GI specialist is not available until Saturday, advised contacting [facility]. 1506: I again spoke with transfer nurse Niranjan regarding txfer. 1515: I spoke with the [place] transfer nurse Garima. States she will give our ED phone number to their GI to call us. 1525: I spoke with GI Dr. Fink at [facility]. States she doesn't know why we are transferring the patient. I explained patients case in detail and states she is unsure why [facility] didn't take the patient. We had a long discussion and states they will consult with their GI team. 1555: I spoke with GI Dr. Castaneda at [facility]. States she will consult with GI at [place] and attempt to get the patient transferred there. 1610: I spoke with GI Dr. Castaneda's resident at [facility]. States if the patient is stable to transfer to [facility] and they can make arrangements for transfer to [facility]. 1615: Transfer nurse Niranjan made aware of plan. <Martell Jha MD - Last Filed: 05/07/24 19:22> Addendum Narrative: 1035: Per transfer nurse Niranjan, [facility] requested we contact [facility] first. [facility] was contacted and state they do not have the capacity or capability and declined the transfer request. 1312: Transfer nurse reports the marketing technology coordinator for [facility] the GI specialist is not available until Saturday, advised contacting [facility]. 1506: I again spoke with transfer nurse Niranjan regarding txfer. 1515: I spoke with the [place] transfer nurse Garima. States she will give our ED phone number to their GI to call us. 1525: I spoke with GI Dr. Fink at [facility]. States she doesn't know why we are transferring the patient. I explained patients case in detail and states she is unsure why [facility] didn't take the patient. We had a long discussion and states they will consult with their GI team. 1555: I spoke with JOHN Castaneda at [facility]. States she will consult with GI at [place] and attempt to get the patient transferred there. 1610: I spoke with JOHN Castaneda's resident at [facility]. States if the patient is stable to transfer to [facility] and they can make arrangements for transfer to [facility]. 1615: Transfer nurse Niranjan made aware of plan. Also see the main note that documented in the MDM the details of spending a lot of time working on this patient. Care went to the admitting team and the transfer nurse to arrange transfer at a later time.
[2024-05-07 18:57] LABS: Hematocrit 20.1 % (41.0-53.0); Hemoglobin 6.6 g/dL (13.5-16.0)
[2024-05-07] MEDS: GABAPENTIN 100 MG CAPSULE PO (22:08)
--- NOTE | 2024-05-07 22:59 | PD.IMCONS ---
HPI Data of Consult Requesting Physician: Rahat Sim MD Primary Care Provider: Physician No Primary/Family Consult Narrative Reason for consult: Melena hemoglobin hematocrit 6.0 and 19.5 History of present illness: 79 years male presented to the hospital with few days history of melanotic stools presenting hemoglobin hematocrit 6.0 19.5 BUN/creatinine 76 and 3.9 and patient is on hemodialysis due to end-stage renal disease on Saturday and Saturdays Patient has a longstanding history of GI bleed as follows On 06/27/2023 upper endoscopy showed distal esophageal ulcers On 02/24/2024 patient had another upper endoscopy which showed gastritis esophagitis and duodenitis On 05/07/2023 patient had a colonoscopy which showed 1 cm descending colon polyp moderate diverticulosis of the sigmoid and descending colon and the histopathology of the polyp was inflammatory polyp On follow-up visit in my office patient was recommended to have a capsule endoscopy which according to the patient he had cautery done at [facility] in [place] and 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 My recommendation was to transfer the patient to a tertiary center for double-balloon enteroscopy but that could not be accomplished as the report could not be obtained of the capsule endoscopy patient was subsequently admitted for further evaluation management including blood transfusion cc:: cc: Rahat Sim MD Review of Systems Review of Systems ROS Unobtainable: unobtainable due to medical condition Past Medical History Surgical History OTHER SURGICAL HX: Prostate carcinoma under the care of her local oncology and urology and on abiraterone Diabetes mellitus type 2 COPD Hypothyroidism Meds Home Medications and Allergies Home Medications ?Medication ?Instructions ?Recorded ?Confirmed ?Type levothyroxine 100 mcg tablet 100 mcg PO QDAY #0 tabs 12/19/16 05/07/24 History atorvastatin 40 mg tablet 1 tab PO HS 08/01/21 05/07/24 History docusate sodium 100 mg tablet 100 mg PO BID 11/07/21 05/07/24 History trazodone 50 mg tablet 100 mg PO QDAY 01/30/22 05/07/24 History calcium acetate(phosphat bind) 667 667 mg PO TID 06/27/22 05/07/24 History mg capsule gabapentin 100 mg capsule 100 mg PO QDAY 06/27/22 05/07/24 History tamsulosin 0.4 mg capsule 0.4 mg PO QDAY 10/26/22 05/07/24 History fluticasone 100 mcg-salmeterol 50 1 inh inhalation BID 02/04/23 05/07/24 History mcg/dose blistr powdr for inhalation ascorbic acid (vitamin C) 100 mg 100 mg PO QDAY 05/22/23 05/07/24 History tablet (Vitamin C) leuprolide (3 month) 22.5 mg (3 See Rx Instructions .Route .COMPLEX 05/22/23 05/07/24 History month) intramuscular syringe kit (Lupron Depot) prednisone 5 mg tablet 5 mg PO QDAY 11/22/23 05/07/24 History abiraterone 250 mg tablet 250 mg PO QDAY 02/23/24 05/07/24 History sitagliptin 25 mg tablet 25 mg PO QDAY 02/23/24 05/07/24 History sucralfate 1 gram tablet 1 g PO BID 02/23/24 05/07/24 History nicotine (polacrilex) 4 mg buccal 4 mg buccal Q2H PRN Smoking 02/24/24 02/24/24 History lozenge Cessation prednisolone acetate 1 % eye 1 drp ophthalmic (eye) QID 02/24/24 05/07/24 History drops,suspension phenazopyridine 100 mg tablet mg PO QDAY 05/07/24 History tramadol 50 mg tablet 50 mg PO QDAY 05/07/24 05/07/24 History Allergies Allergy/AdvReac Type Severity Reaction Status Date / Time No Known Allergies Allergy Verified 03/26/24 09:25 Exam Vital Signs Temp Pulse Resp BP Pulse Ox O2 Del Method 97.4 F 84 17 97/47 L 97 Room Air 05/07/24 22:51 05/07/24 22:51 05/07/24 22:51 05/07/24 22:51 05/07/24 22:51 05/07/24 20:00 Routine Respiratory Exam Comments: Normal to auscultation Routine Abdominal Exam Comments: Soft nontender Results Labs 05/07/24 18:40 05/07/24 06:10 Labs: Short CBC 05/07/24 05/07/24 Range/Units 06:10 18:40 WBC 10.4 D (3.8-10.6) Thou/mm3 Hgb 6.0 L* 6.6 L* (13.5-16.0) g/dL Hct 19.5 L* 20.1 L* (41.0-53.0) % Plt Count 242 D (140-440) Thou/mm3 BMP 05/07/24 06:10 Sodium 139 Potassium 4.0 Chloride 101 Carbon Dioxide 26.2 BUN 76 H Creatinine 3.9 H Glucose 192 H Calcium 7.6 L Liver Function 05/07/24 Range/Units 06:10 Total Bilirubin < 0.2 L (0.3-1.2) mg/dL AST < 10 (0-34) U/L ALT < 7 L (10-49) U/L Alkaline Phosphatase 65 (46-116) U/L Albumin 3.0 L (3.4-4.8) gm/dL Urine 05/07/24 Range/Units 07:43 Urine Color [place] A (Lt Yel-Yel) Urine Clarity Cloudy A (Clear/Hazy) Urine pH 6.5 (5.0-7.0) Ur Specific [place] 1.012 (1.001-1.035) Urine Protein 2+ A (Neg - Trace) Urine Glucose (UA) Negative (Negative) Assessment and Plan Additional Assessment & Plan Additional Plan: Occult GI bleeding 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
[2024-05-08] VITALS (15 sets, daily range): BP systolic 92–133; BP diastolic 44–76; PULSE 68–137; RESP 16–98; TEMP 36.1–37; O2SAT 91–98; BMI 27.7
[2024-05-08] MEDS: SODIUM CHLORIDE 0.9% 500 ML 500 ML 999 ML IV (01:00)
[2024-05-08 03:44] LABS: Basophils % (Auto) 0 % (0-2.5); Eosinophils # (Auto) 0.1 Thou/mm3 (0.0-0.5); Eosinophils % (Auto) 2 % (0-10); Hematocrit 22.4 % (41.0-53.0); Immature Granulocytes % (Auto) 1 % (0-0); Immature Granulocytes Auto 0.04 Thou/mm3 (0.00-0.00); Lymphocytes # (Auto) 0.7 Thou/mm3 (1.0-4.8); Lymphocytes % (Auto) 12 % (10-50); Mean Corpuscular Hemoglobin 29.6 pg (25.0-35.0); Mean Corpuscular Volume 90 fL (80-100); Monocytes # (Auto) 0.9 Thou/mm3 (0.0-0.8); Monocytes % (Auto) 16 % (0-12); Neutrophils % (Auto) 69 % (37-80); Nucleated Red Blood Cell # 0.02 Thou/mm3 (0.00-0.00); Nucleated Red Blood Cell % 0 /100 WBC (0); Platelet Count 117 Thou/mm3 (140-440); RDW Standard Deviation 51.5 fL (35.1-43.9); White Blood Count 5.7 Thou/mm3 (3.8-10.6)
[2024-05-08 03:56] LABS: Hemoglobin 7.4 g/dL (13.5-16.0)
[2024-05-08 05:32] LABS: Alanine Aminotransferase < 7 U/L (10-49); Albumin, Serum 2.9 gm/dL (3.4-4.8); Albumin/Globulin Ratio 1.5 (1.2-2.2); Alkaline Phosphatase 57 U/L (46-116); Anion Gap 8 (7-16); Aspartate Amino Transferase 11 U/L (0-34); BUN/Creatinine Ratio 16 Ratio (12-20); Bilirubin,Total 0.5 mg/dL (0.3-1.2); Blood Urea Nitrogen 45 mg/dL (9-23); Calcium (Corrected) 8.9 mg/dL (8.5-10.1); Carbon Dioxide 30.2 mMol/L (20.0-31.0); Chloride 100 mMol/L (98-107); Creatinine (Component) 2.8 mg/dL (0.6-1.3); Estimated Creatinine Clearance 22.7 mL/min (>60); Globulin 1.9 gm/dL (2.3-3.5); Glucose 98 mg/dL (74-106); Magnesium 1.7 mg/dL (1.6-2.6); Osmolality,Calculated 287 (275-295); Phosphorous 2.9 mg/dL (2.4-5.1); Potassium 3.4 mMol/L (3.4-5.1); Sodium 138 mMol/L (136-145); Thyroid Stimulating Hormone 2.02 uIU/mL (0.55-4.78); Total Protein 4.8 gm/dL (5.7-8.2); eGFR 22 See Note
[2024-05-08] MEDS: LEVOTHYROXINE SODIUM 100 MCG TABLET PO (05:37)
--- NOTE | 2024-05-08 07:48 | XR_ITS ---
Examination: Abdomen AP single view Technique: AP portable supine abdomen, single view Exam date and time: May 08, 2024 0850 hrs. Indications: Abdominal distention today. Findings: Groundglass appearance in the abdomen No free air Fluid level in the stomach Impression: Consider abdominal sonogram to exclude ascites
--- NOTE | 2024-05-08 08:06 | PC.CC ---
Addendum entered by Lucho Weston RN 05/08/24 16:32: 1628 called [facility] dept at [phone], spoke to Zonia and she confirmed auth is received from [employer] [facility]. She stated pt is financially cleared. Addendum entered by Lucho Weston RN 05/08/24 14:14: 1353 received call from Winifred at [employer] [facility]. She stated medical collections representative Dr. Garcia has approved the transfer. Now her co-worker is working on auth paperwork which will take an hour. She stated she will call me when it's ready. Addendum entered by Lucho Weston RN 05/08/24 11:42: 1135 called [facility], spoke to Winifred and inform [facility] wants auth for transfer. She stated she will work on it and call me back when she has the auth. Addendum entered by Lucho Weston RN 05/08/24 11:34: 1120 received call from Abbie at [facility] to get the auth from [employer] [facility]. She gave me her direct number which is [phone]. Addendum entered by Lucho Weston RN 05/08/24 10:48: 1047 images pushed over to [facility] via [facility]. Addendum entered by Lucho Weston RN 05/08/24 10:45: 1045 clinicals sent to [facility]. Addendum entered by Lucho Weston RN 05/08/24 10:38: 1031 called [facility], spoke to Ora and initiated the transfer. She stated to fax clinicals and a nurse will give me call back. Addendum entered by Lucho Weston RN 05/08/24 10:30: I spoke to Winifred with [facility] yesterday and she stated [facility] To try [facility] [place] [facility] because they are contracted facilities and she will give auth. Addendum entered by Lucho Weston RN 05/08/24 10:28: 1020 Received call from Aileen at [facility] that they are declining due to capacity. 1015 received call from Lisa at [facility] that they are declining due to no beds. I had a long conversation with her with no outcome. She is going back and forth with reaching out to [facility] and she is aware that the who does balloon endoscopy is not in until Saturday. Addendum entered by Lucho Weston RN 05/08/24 10:08: 1005 clinicals faxed to [facility]. [phone] called [facility], spoke to Aileen and initiated the transfer request. Addendum entered by Lucho Weston RN 05/08/24 09:52: 0947 called [facility] dept at [phone] ext [phone] then transferred to [facility]. I spoke to Lucy. She confirmed she received my fax Authorization for release of PHI form. She stated someone will fax report within an hour. Addendum entered by Lucho Weston RN 05/08/24 09:46: 0946 faxed Authorization for release of PHI form to [facility] de[facility] at [phone] to get medical records. Addendum entered by Lucho Weston RN 05/08/24 09:42: [address] Sim that pt condition is declining have acute hypotension. I informed him that I will look other facilities. Addendum entered by Lucho Weston RN 05/08/24 09:40: 0930 called [phone]. Ext [phone] in order to get fax no for sending Authorization for release of PHI form and get medical records. I spoke with Kristine. She sated she is a nurse. I have to call [facility] department. I informed her the number was given to Martine transfer coordinater at [facility]. She stated for [facility] dept the number is same [phone] but ext is [phone] and their fax number is [phone]. Addendum entered by Lucho Weston RN 05/08/24 09:30: 0924 Called [facility], spoke to Martine. She stated they don't have beds and she is busy and will call me back. Addendum entered by Lucho Weston RN 05/08/24 08:10: 0809 I called [phone]. Ext [phone] and [phone] in order to get fax no for sending Authorization for release of PHI form and get medical records. Left . Original Note: 0807 Called [facility] for transfer request, left .
[2024-05-08] MEDS: PANTOPRAZOLE INJ 40 MG VIAL IVP ×2 (09:02→21:10)
[2024-05-08] MEDS: LEVOFLOXACIN/D5W 250MG IVPB 250 MG/50 ML BAG 50 MG IV (09:02)
[2024-05-08] MEDS: GABAPENTIN 100 MG CAPSULE PO ×2 (09:02→19:50)
--- NOTE | 2024-05-08 10:35 | ESPR_ITS ---
Documentation for date of: 05/08/24 Subjective Subjective Interval history: Patient was seen and examined at bedside this AM. Around 2 AM this morning patient had rapid response called for hypotension. Blood pressure of 90s/60s. Normal saline 500 cc IV fluid bolus was ordered after which blood pressure improved. Patient tolerating clear liquid diet, adequate urine output and mentation is at baseline. Patient reported he had large-volume melena and bloody stool this a.m. Hb 7.4 this a.m. 1 unit PRBC for infusion ordered. Reached out to transfer nurse for emergent transfer to tertiary center for double-balloon enteroscopy to control source of bleeding. Exam Vital Signs Temp Pulse Resp BP Pulse Ox O2 Del Method 97.0 F 117 H 17 103/51 L 91 L Room Air 05/08/24 08:00 05/08/24 08:00 05/08/24 08:00 05/08/24 08:00 05/08/24 08:00 05/08/24 08:00 Narrative Exam Constitutional Alert, oriented x 3 and somnolent. Elderly male on room air, pale and dry mucous membranes HEENT Vision grossly intact. Patent nares. Trachea midline Respiratory Chest normal on inspection and decreased air entry in all lung mike, negative for wheezing and crackles Cardiovascular S1 and S2 audible, RRR. 3/6 ejection systolic murmur heard at right sternal border with no radiation to carotids. JVD not assessed Abdominal Soft and non tender to palpation in all quadrants. BS + Genitourinary No bladder tenderness, no flank pain. Normal to palpation Musculoskeletal Extremities tone within normal limits. No LE edema. Neurological CN II - XII grossly intact. Extremity motor and sensation grossly intact. Skin Warm, dry and intact. Left arm AV fistula noted, thrill palpated. Psychiatric Patient has good affect, is cooperative Objective Labs 05/08/24 03:13 05/08/24 03:13 Labs: Laboratory Results - last 24 hr 05/07/24 05/07/24 05/08/24 06:10 18:40 03:13 WBC 5.7 D RBC 2.50 L Hgb 6.6 L* 7.4 L Hct 20.1 L* 22.4 L MCV 90 MCH 29.6 MCHC 33.0 RDW Std Deviation 51.5 H Plt Count 117 L D Neut % (Auto) 69 Lymph % (Auto) 12 [place] % (Auto) 16 H Eos % (Auto) 2 Baso % (Auto) 0 Neut # (Auto) 4.0 Lymph # (Auto) 0.7 L [place] # (Auto) 0.9 H Eos # (Auto) 0.1 Baso # (Auto) 0.0 Immature Gran # (Auto) 0.04 H Absolute Nucleated RBC 0.02 H Immature Gran % 1 H Nucleated RBC % 0 Sodium 138 Potassium 3.4 D Chloride 100 Carbon Dioxide 30.2 Anion Gap 8 BUN 45 H Creatinine 2.8 H D Estim Creat Clear Calc 22.7 L eGFR 22 L BUN/Creatinine Ratio 16 Glucose 98 D Calculated Osmolality 287 Calcium 8.0 L Corrected Calcium 8.9 Phosphorus 2.9 Magnesium 1.7 Total Bilirubin 0.5 AST 11 ALT < 7 L Alkaline Phosphatase 57 Total Protein 4.8 L Albumin 2.9 L Globulin 1.9 L Albumin/Globulin Ratio 1.5 TSH 2.02 Blood Type A Positive Antibody Screen NEGATIVE Crossmatch See Detail Blood Bank Wristband ID Yes Quality Measures Quality Measures none Advance care planning discussed with:: patient and spouse Assessment & Plan Assessment Current Active Medications: Generic Name Dose Route Start Last Admin Trade Name Freq PRN Reason Stop Dose Admin Acetaminophen 650 mg 05/07/24 10:40 Acetaminophen 325 Mg Tablet PO 06/06/24 10:39 Q6H PRN Fever >100.3 or pain Dextrose 50 ml 05/07/24 10:44 Dextrose 50%-Water Inj 50 Ml Syringe IV 06/06/24 10:43 Q15MIN PRN BG <50 OR BG <70 & pt unresponsive Gabapentin 100 mg 05/07/24 21:40 05/08/24 09:02 Gabapentin 100 Mg Capsule PO 06/06/24 21:39 100 mg QDAY ROBERT Administration Glucagon 1 mg 05/07/24 10:44 Glucagon Inj 1 Mg Vial IM Q15MIN PRN BG <70, and no IV access Albumin Human 25 gm in 100 mls @ 100 mls/min 05/07/24 09:35 05/07/24 15:05 Albuminar-25 Ivpb IV 100 mls/min PRN PRN Administration DIALYSIS Levofloxacin/Dextrose 250 mg in 50 mls @ 50 mls/hr 05/07/24 11:00 05/08/24 09:02 Levaquin Ivpb IV 05/14/24 10:59 50 mls/hr QDAY ROBERT Administration Insulin Human Lispro 0 unit 05/07/24 11:30 05/08/24 09:21 Insulin Lispro (Admelog) 1 Unit/0.01 Ml Unit SC 06/06/24 11:29 Not Given ACHS ROBERT Protocol Levothyroxine Sodium 100 mcg 05/08/24 06:00 05/08/24 05:37 Levothyroxine Sodium 100 Mcg Tablet PO 06/07/24 05:59 100 mcg ACBR ROBERT Administration Ondansetron HCl 4 mg 05/07/24 10:40 Ondansetron Inj 2 Mg/Ml Inj 2 Ml IV 06/06/24 10:39 Q6H PRN NAUSEA OR VOMITING Protocol Pantoprazole Sodium 40 mg 05/08/24 09:00 05/08/24 09:02 Pantoprazole Inj 40 Mg Vial IVP 06/07/24 08:59 40 mg BID ROBERT Administration Plan Patient is a 79-year-old male past medical history significant for prostate cancer on abiraterone and prednisone follows up with oncologist Dr. Maxwell and urologist Dr. Lamas, ESRD on hemodialysis via left AV fistula T//, [id number] diabetes mellitus type 2, COPD not on home oxygen and hypothyroid presented today with a chief complaint of weakness. Patient will be admitted to observation for acute blood loss anemia secondary to GI bleed. Urgent transfer initiated to tertiary [place] for double-balloon enteroscopy. 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 His informed us of melena for the past week. Patient had a previous admission from 02/23/2024 to 02/26/2024 for similar presentation. 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 On admission Hb 6. 3 units PRBCs were ordered for transfusion during hemodialysis. Posttransfusion H&H 7.4. This morning patient had large-volume episode of melena and bright red OR bleed. Reached out to transfer nurse for emergent transfer to tertiary center for double-balloon enteroscopy to control source of bleeding. Plan: ? Clear liquid diet ? Continue Protonix 40 Mg IV twice daily ? 1 unit PRBC ordered for transfusion. ? For urgent transfer to tertiary center for double-balloon enteroscopy ? GI, Dr. Stewart consulted and closely following the case. Appreciate recommendations Murmur for Investigation On exam patient has 3/ ejection systolic murmur at right sternal border Plan: - Transthoracic echocardiogram ordered to assess for wall motion abnormalities, ejection fraction and valvular defects ESRD on hemodialysis via left AV fistula T// Patient missed his scheduled dialysis session today. Last session was on 05/05/2023. His diver helper is Dr. Funez. Plan: ? For hemodialysis as per nephrology. ? Renally dose medication ? Avoid nephrotoxic agents ? Addiction Treatment Counselor, Dr Funez consulted and closely follow the case. Appreciate recommendations ESBL UTI Urine culture from 04/16/2024 grew Klebsiella pneumonia which was ESBL On this admission urinalysis significant for RN GEN:, Cloudy, 2+ protein, 2+ blood, leukocyte esterase positive and WBC 2427 Plan: ? Renally dosed Levaquin. Last dose on 05/10/2024 ? Pending repeat urine culture [id number] diabetes mellitus type 2 [5%] Home medication sitagliptin 25 Mg p.o. daily Plan: ? SSI to cover blood glucose spikes Hypothyroid Patient very somnolent on exam. Most likely due to acute blood loss anemia but may also be due to hypothyroidism. Home medication levothyroxine 100 mcg p.o. daily TSH - 2 Plan: ? Continue Levothyroxine 100 mcg p.o. daily to start from tomorrow COPD not on home oxygen Patient's home medication fluticasone/salmeterol inhaler 1 puff twice daily Plan: ? DuoNebs as needed Prostate cancer on treatment with abiraterone, prednisone and Zoladex Plan: ? Continue outpatient follow-up Health maintenance: Disposition: PRBC infusion. Pending emergent transfer to tertiary center for double-balloon enteroscopy Diet: Clear liquid Lines: pIVs GI Prophylaxis: Pantoprazole Thrombo Prophylaxis: SCDs Code status: FULL CODE Plan of care discussed with Attending Dr. Sim and PGY2 Dr. Kael Alvarez MD PGY 1 Attending Provider Attestation/Addendum I reviewed labs, imaging, EKG, home medications and prior available records. Face to face evaluation was performed by me. I have personally examined the patient and discussed assessment and plan with the IM team. I reviewed the resident note and agree with the plan with exceptions as below. 79-year-old male with history of ESRD on hemodialysis and hypothyroidism who presented with a chief complaint of generalized weakness. He was found to have acute anemia in the setting of GI bleed Generalized weakness ESRD on hemodialysis Melena GI bleed Acute anemia Acute UTI Thrombocytopenia Generalized weakness is likely in the setting of acute anemia in the setting of GI bleed. Less likely due to hypothyroidism or acute UTI. Check TSH. Treat UTI. 2 PRBCs ordered in the ED. Monitor H&H posttransfusion Rapid response was called on 05/08 early a.m. for acute hypotension. Status post 500 cc of IV fluids with improvement in BP. Patient's hemoglobin did not improve appropriately posttransfusion for which another 1 PRBC was ordered. Patient has a recent admission for GI bleed for which source was unclear and outpatient capsule study was recommended. Per family, the capsule endoscopy study was done in [place] and showed AV malformation however we could not verify this information. Per family, he has an appointment at [facility] on June 16 for double-balloon enteroscopy. 05/07: Could not reach the GI physician that is responsible as he is on vacation till Saturday. Discussed with transfer nurse and GI: Will keep the patient for blood transfusion and H&H monitoring. If the patient stays till Saturday then we will contact the transfer center. If he stabilizes then can discharge and follow-up as outpatient. 05/08: Given the rapid response, acute hypotension, and increase in symptoms, discussed with transfer nurse again to look for other tertiary centers that may accept the patient given his instability. Transfer nurse contacted [facility] and is now working on preauthorization before presenting the case. Will continue to monitor H&H and conservative management in the meantime. Family at the bedside is updated. Continue to follow-up with the transfer nurse for updates. GI is following the case: Agrees with the transfer plan. Continue conservative management with blood transfusion as needed. Consulted nephrology for routine hemodialysis Resume home levothyroxine Started levofloxacin for the UTI. Follow-up urine culture Monitor platelet level. No indication for platelet transfusion at this time
--- NOTE | 2024-05-08 11:00 | PC.NURSE ---
Called Blood bank and spoke to ABDIAS to see if blood was ready. Abdias stated it was cross matching at this time and would take at least 30 minutes. Will check back at 11:30.
--- NOTE | 2024-05-08 11:39 | PC.SS ---
Follow up note: Possible higher level of care transfer. Stabilize hemoglobin. Pending GI recommendations.
--- NOTE | 2024-05-08 11:42 | ECHO_ITS ---
Transthoracic Echo Report Ht (in): 72 Wt (lb): 204 Exam Location: Echo Lab Status: Inpatient Refrigeration Service Technician: FLORY Ruiz^^^^ Indications: Procedure Performed: BP: 140 / 78 HR: 101 Rhythm: PVCs Technical Quality: Fair MEASUREMENTS (Male / Female) Normal Values 2D ECHO LV Diastolic Diameter PLAX 4.3 cm 4.2 - 5.9 / 3.9 - 5.3 cm LV Systolic Diameter PLAX 3.8 cm IVS Diastolic Thickness 1.4 cm 0.6 - 1.0 / 0.6 - 0.9 cm LVPW Diastolic Thickness 1.5 cm 0.6 - 1.0 / 0.6 - 0.9 cm LV Relative Wall Thickness 0.7 LVOT Diameter 1.8 cm Aortic Root Diameter 3.6 cm LA Systolic Diameter LX 3.4 cm 3.0 - 4.0 / 2.7 - 3.8 cm LV Ejection Fraction MOD BP 59.5 % >= 55 % LV Cardiac Index MOD BP 3742.0 cm?/min?m? LV Ejection Fraction MOD 4C 64.0 % LV Cardiac Index MOD 4C 4588.4 cm?/min?m? LV Ejection Fraction 4C AL 68.4 % LV Cardiac Index 4C AL 5192.9 cm?/min?m? LV Ejection Fraction MOD 2C 52.2 % LV Cardiac Index MOD 2C 2752.1 cm?/min?m? LV Ejection Fraction 2C AL 54.4 % LV Cardiac Index 2C AL 2905.7 cm?/min?m? LA Volume Index 48.2 cm?/m? 16 - 28 cm?/m? DOPPLER AV Peak Velocity 464.3 cm/s AV Peak Gradient 86.2 mmHg AV Mean Gradient 58.5 mmHg AV Velocity Time Integral 121.5 cm AI Peak Velocity 356.5 cm/s AI Peak Gradient 50.8 mmHg AI Pressure Half Time 370.0 ms LVOT Peak Velocity 132.0 cm/s LVOT Peak Gradient 7.0 mmHg LVOT Velocity Time Integral 34.9 cm LVOT Cardiac Index 4107.8 cm?/min?m? AV Area Cont Eq vti 0.7 cm? AV Area Cont Eq pk 0.7 cm? MV Peak Velocity 146.0 cm/s MV Peak Gradient 8.5 mmHg MV Mean Velocity 120.0 cm/s MV Mean Gradient 6.0 mmHg MV Area PHT 3.7 cm? MR Peak Velocity 592.3 cm/s MR Peak Gradient 140.3 mmHg Mitral E Point Velocity 140.0 cm/s Mitral A Point Velocity 130.0 cm/s Mitral E to A Ratio 1.1 LV E' Lateral Velocity 12.6 cm/s Mitral E to LV E' Lateral Ratio 11.1 LV E' Septal Velocity 6.7 cm/s Mitral E to LV E' Septal Ratio 20.8 TR Peak Velocity 335.7 cm/s TR Peak Gradient 45.1 mmHg PV Peak Velocity 181.0 cm/s PV Peak Gradient 13.1 mmHg RVOT Peak Velocity 70.2 cm/s FINDINGS Left Ventricle The left ventricular wall thickness is moderately increased. There is grade II diastolic dysfunction of the left ventricle (pseudonormal filling pattern). The left ventricular ejection fraction is normal, estimated at 55-60%. Right Ventricle The right ventricle is normal in size and systolic function. Estimated right ventricular systolic pressure is moderately elevated, 52 mmHg. Left Atrium Mildly increased left atrial volume 48.2 mL/m?. Right Atrium The right atrial cavity size is mildly increased. Atrial Septum The interatrial septum appears normal with no evidence of a shunt. Aorta The aorta is normal by two-dimensional, color flow and Doppler interrogatio Mitral Valve [id number] mitral regurgitation. Mild mitral annular calcification. Mild thickening of the mitral valve leaflets. Aortic Valve Severe aortic valve stenosis, mean gradient 58.5 mmHg, BARRY 0.73 cm?. mild aortic valve regurgitation. Tricuspid Valve There is moderate to severe tricuspid valve regurgitation. Pulmonic Valve Trivial pulmonic valve regurgitation. Vessels The pulmonary artery appears normal. The inferior vena cava pulmonary and hepatic veins appear normal. Pericardium The pericardium is normal by two-dimensional imaging. There is no significant pericardial effusion. Other Findings frequent visual ectopy CONCLUSIONS Indication - Systolic murmur Normal LV size and function with and EF of 55-60%. Moderate LVH. DIastolic Dysfunction stage II. Normal RV size and function. Modertely elevated RVSP 52 mmHg. Severe Aortic Stenosis Vmax 5 m/s, Max PG 90 mm hg, Mean PG 60 mm hg and BARRY 0.7 sqcm. Mild AI Moderate MA and Moderate MR. moderate TR. No pericardial effusion. Abdifatah Castillo (Electronically Signed) Final Date: 08 May 2024 18:25
--- NOTE | 2024-05-08 11:48 | PC.NURSE ---
called blood bank and spoke with Tapan. He stated pt has an antibody against antibig E and will need to screened individually with every unit before given, otherwise you're giving incompatible blood to pt.
--- NOTE | 2024-05-08 11:57 | PD.NEPHPROG ---
Documentation for date of: 05/08/24 Subjective Subjective Interval history: Informant-Xiao daughter Mr. Kim is a 79 y/o male with PMHx of recurrent prostate cancer ( sees Dr. Ramírez, on Abiraterone Acetate), ESRD (//), recurrent UTI, urinary retention secondary to neurogenic bladder with self-catheterization, chronic anemia(multiple endoscopies, colonoscopies done. Recently had a small bowel enteroscopy in [place] which showed AVMs-supposedly needs a repeat scope) diabetes mellitus, hypothyroidism, and COPD who presented to the ED with a significant weakness and blood in the stools. associated nausea, vomiting, weakness and fatigue. Says that he self caths on his own, still makes urine but a little bit of it. Says that he has been feeling tired and fatigued, felt like he was going to pass out but did not. Denies having fallen recently. Daughters present at bedside. Denies any chest pain, shortness of breath, syncope, headache. Home medications included Abiraterone, atorvastatin, calcium acetate, docusate, gabapentin, Protonix, prednisone, sitagliptin, Carafate, tramadol, trazodone, Flomax, vitamins C ED course: Patient arrived to the ED with 78. Hemoglobin 6.6, platelets 242, sodium 139, potassium 4, BUN 76, creatinine 3.9, calcium 8.4, LFTs normal, albumin 3, urinalysis shows significant pyuria. Blood sugar 109, blood pressure 99/55, heart rate GI was consulted and decision was made to admit patient for further evaluation of GI bleed.Patient started receiving unit of blood. Nephrology consultation requested for need for dialysis and blood transfusion. 05/08/2024 patient currently seen in telemetry. Resting comfortably. So far received 2 units of blood transfusion. Patient has been getting more than 4 units of blood transfusion per month. In the dialysis we have been doing weekly CBC. Endoscopy and colonoscopy negative. Small bowel lab enteroscopy per patient/daughter showed AVMs. Patient has severe aortic stenosis which could be contributing to AVMs. Cardiology, Dr. Stewart involved. Next dialysis scheduled for tomorrow. Review of Systems Review of Systems Narrative Review of Systems: Complaining of fatigue, fever and chills complaining of weakness HEENT: Denies any visual disturbances or hearing problems. CARDIOVASCULAR: Patient denies any chest pain, shortness of breath + mild swelling in the lower extremities. PULMONARY: Patient complaining of shortness of breath, cough. Complaining of black stools GASTROINTESTINAL: Patient denies any abdominal pain, constipation, nausea, vomiting, diarrhea. GENITOURINARY: Obstructive uropathy-does self cath Anemia SKIN: Denies any rash. MUSCULOSKELETAL: Gait imbalance NEUROLOGICAL: Denies any neurological problems of strokes, seizures or confusion.? Denies any memory problems. Exam Vital Signs Temp Pulse Resp BP Pulse Ox O2 Del Method 36.1 C 78 16 103/51 L 91 L Room Air 05/08/24 08:00 05/08/24 11:25 05/08/24 11:25 05/08/24 08:00 05/08/24 08:00 05/08/24 08:00 Narrative Exam Patient patient currently seen on dialysis. Resting comfortably. HEENT: Pale conjunctiva NECK: Neck supple, no JVD or bruit CARDIOVASCULAR: Heart regular, no murmurs LUNGS/CHEST: Clear to auscultation ABDOMEN: Soft, nontender, nondistended.? No masses.? Normal bowel sounds. EXTREMITIES: 1+ edema in the lower extremities SKIN: Skin exam normal without any rashes NEURO: Alert, awake. Leg weakness noted. Objective Labs 05/09/24 04:45 05/09/24 04:45 Labs: Laboratory Results - last 24 hr 05/07/24 05/07/24 05/08/24 06:10 18:40 03:13 WBC 5.7 D RBC 2.50 L Hgb 6.6 L* 7.4 L Hct 20.1 L* 22.4 L MCV 90 MCH 29.6 MCHC 33.0 RDW Std Deviation 51.5 H Plt Count 117 L D Neut % (Auto) 69 Lymph % (Auto) 12 [place] % (Auto) 16 H Eos % (Auto) 2 Baso % (Auto) 0 Neut # (Auto) 4.0 Lymph # (Auto) 0.7 L [place] # (Auto) 0.9 H Eos # (Auto) 0.1 Baso # (Auto) 0.0 Immature Gran # (Auto) 0.04 H Absolute Nucleated RBC 0.02 H Immature Gran % 1 H Nucleated RBC % 0 Sodium 138 Potassium 3.4 D Chloride 100 Carbon Dioxide 30.2 Anion Gap 8 BUN 45 H Creatinine 2.8 H D Estim Creat Clear Calc 22.7 L eGFR 22 L BUN/Creatinine Ratio 16 Glucose 98 D Calculated Osmolality 287 Calcium 8.0 L Corrected Calcium 8.9 Phosphorus 2.9 Magnesium 1.7 Total Bilirubin 0.5 AST 11 ALT < 7 L Alkaline Phosphatase 57 Total Protein 4.8 L Albumin 2.9 L Globulin 1.9 L Albumin/Globulin Ratio 1.5 TSH 2.02 Blood Type A Positive Antibody Screen NEGATIVE Crossmatch See Detail Blood Bank Wristband ID Yes Assessment & Plan Assessment and plan (1) History of prostate cancer: Status: Acute (2) Hypertension: Status: Acute (3) Hyperlipidemia: Status: Acute (4) Diabetes: Status: Acute Additional Assessment & Plan Additional Plan: (1) End-stage renal disease ?Status:?Chronic ? ? ? 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 Currently on dialysis 3 times weekly for the last 1 year. Next dialysis scheduled for tomorrow. (2) History of prostate cancer: ?Status:?Acute ? ? ? 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 Currently on chemotherapy under urology [facility] (3) Hypertension: ?Status:?Acute ? ? ? Assessment and plan: Resume home blood pressure medications (4) Hyperlipidemia: ?Status:?Acute ? ? ? Assessment and plan: Resume statin (5) Diabetes: ?Status:?Acute ? ? ? Assessment and plan: Accu-Cheks, sliding scale.? Diabetic diet ordered.? Resume home medications. (6)? Anemia Patient has longstanding history of anemia for couple of years . I have sent him to the emergency department for multiple blood transfusions Patient had multiple endoscopy/colonoscopy were negative. Dr. Stewart send him for capsule endoscopy which showed AVMs.- I referred him to hematology-workup so far negative. Suspect bone marrow problem for his underlying prostate cancer. Patient on significant amounts of Epogen at dialysis. Patient so far received 2 units of blood transfusion. Noted he has aortic stenosis which could be contributing to AVMs. Cardiology was consulted. Will need double-balloon enteroscopy. Might need transfer to higher level of care//aortic stenosis fixation (7)?leg weakness Multifactorial- UTI, severe anemia Thank you Dr. Sim for allowing me to participate in the care of Mr. Kmi Quality - progress note Quality Measures Quality Measures: VTE prophylaxis Reason for Continued Stay Reason for Continued Stay: further monitoring
--- NOTE | 2024-05-08 12:01 | PC.SS ---
SS met with patient, , and dtrXiao regarding his d/c plan.? Pt is alert/oriented.? Pt was admitted for Symptomatic Anemia, GI Bleed.? Pt confirmed demographic and contact information is correct on facesheet.? Pt resides with and dtr.? Pt ambulates independently using a cane.? Pt is ok with all ADLs.? Pt has rollator walker, 2 wheel walker, commode, and shower chair at home.? Pt named his dtr, Xiao Archer medical decision maker if he is unable.? SS provided verbal choice for d/c to home or SNF.? Patient?s choice is to return home upon d/c.? Pt followed up with PCP Mar/Apr 2024.? Pt is diabetic, has glucometer, and test strips.? ? D/C plan:? Return home Next of Kin:? ?Xiao Archer dtr, phone# [phone] PCP:? Dr. Winifred Skelton Address:? Correct on facesheet
--- NOTE | 2024-05-08 12:04 | PC.NURSE ---
Called Dr. Cline to notify him we are still waiting on PRBC's and pt's BP is 97/44, HR 110. No new orders given, states we will have to wait for the blood . Charge nurse Jose Luis notified. will continue to monitor.
--- NOTE | 2024-05-08 16:43 | PC.NURSE ---
Handoff received from tristan, patient comfortable in room. BP103/55 HR 78.
--- NOTE | 2024-05-08 16:44 | PC.NURSE ---
PT was transferred to [id number], RN gave report to Bony BROWN
[2024-05-08 17:00] LABS: Hematocrit 24.7 % (41.0-53.0)
[2024-05-08 17:05] LABS: Hemoglobin 8.2 g/dL (13.5-16.0)
--- NOTE | 2024-05-08 19:00 | PD.IMCONS ---
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 Also patient had some melena at home. Patient apparently had similar admission in February 2024 for provide GI bleed and at that time EGD was performed which showed nonerosive gastritis and nonbleeding ulcers with no clear source of bleeding. Colonoscopy was also performed. Patient was recommended to undergo capsule endoscopy which she underwent at the [facility] by his supervisor typesetting Dr. Rowe. Patient apparently was diagnosed with AV malformation of the small intestine. Patient again presented this time with weakness and melena and in the emergency department hemoglobin was found to be 6. Patient lactate was mildly elevated 2.7. Hematocrit was 19.5. Patient did receive some IV fluids and was also received 2 units of PRBC during this admission and transfer was initiated urgently to tertiary care center for possible double-balloon enteroscopy given the bleeding AVMs as no therapeutic intervention could be done here. Patient was found to have an systolic murmur on examination by the resident and an echocardiogram was performed which showed severe aortic stenosis. I have called the primary team regarding the findings were requested for further consultation for the severe aortic stenosis Echo 05/08/2024: Normal LV size and function with and EF of 55-60%. Moderate LVH. DIastolic Dysfunction stage II. Normal RV size and function. Modertely elevated RVSP 52 mmHg. Severe Aortic Stenosis Vmax 5 m/s, Max PG 90 mm hg, Mean PG 60 mm hg and BARRY 0.7 sqcm. Mild AI Moderate MA and Moderate MR. moderate TR. No pericardial effusion. cc:: cc: Rahat Sim MD Review of Systems Review of Systems Systems Reviewed: All systems reviewed, normal except as documented Narrative Review of Systems: All other 12 systems apart from HPI were reviewed and are negative. Past Medical History Family History FAMILY HISTORY: Positive Family Cardiac Disorders and Family Endocrine Disorders Surgical History OTHER SURGICAL HX: Prostate carcinoma under the care of her local oncology and urology and on abiraterone Diabetes mellitus type 2 COPD Hypothyroidism Travel History EBOLA RISK: No Meds Home Medications and Allergies Home Medications ?Medication ?Instructions ?Recorded ?Confirmed ?Type levothyroxine 100 mcg tablet 100 mcg PO QDAY #0 tabs 12/19/16 05/07/24 History atorvastatin 40 mg tablet 1 tab PO HS 08/01/21 05/07/24 History docusate sodium 100 mg tablet 100 mg PO BID 11/07/21 05/07/24 History trazodone 50 mg tablet 100 mg PO QDAY 01/30/22 05/07/24 History calcium acetate(phosphat bind) 667 667 mg PO TID 06/27/22 05/07/24 History mg capsule gabapentin 100 mg capsule 100 mg PO QDAY 06/27/22 05/07/24 History tamsulosin 0.4 mg capsule 0.4 mg PO QDAY 10/26/22 05/07/24 History fluticasone 100 mcg-salmeterol 50 1 inh inhalation BID 02/04/23 05/07/24 History mcg/dose blistr powdr for inhalation ascorbic acid (vitamin C) 100 mg 100 mg PO QDAY 05/22/23 05/07/24 History tablet (Vitamin C) leuprolide (3 month) 22.5 mg (3 See Rx Instructions .Route .COMPLEX 05/22/23 05/07/24 History month) intramuscular syringe kit (Lupron Depot) prednisone 5 mg tablet 5 mg PO QDAY 11/22/23 05/07/24 History abiraterone 250 mg tablet 250 mg PO QDAY 02/23/24 05/07/24 History sitagliptin 25 mg tablet 25 mg PO QDAY 02/23/24 05/07/24 History sucralfate 1 gram tablet 1 g PO BID 02/23/24 05/07/24 History nicotine (polacrilex) 4 mg buccal 4 mg buccal Q2H PRN Smoking 02/24/24 02/24/24 History lozenge Cessation prednisolone acetate 1 % eye 1 drp ophthalmic (eye) QID 02/24/24 05/07/24 History drops,suspension phenazopyridine 100 mg tablet mg PO QDAY 05/07/24 History tramadol 50 mg tablet 50 mg PO QDAY 05/07/24 05/07/24 History Allergies Allergy/AdvReac Type Severity Reaction Status Date / Time No Known Allergies Allergy Verified 03/26/24 09:25 Exam Vital Signs Temp Pulse Resp BP Pulse Ox O2 Del Method O2 Flow Rate 98.3 F 84 23 H 108/55 L 97 Room Air 0 05/09/24 00:00 05/09/24 00:00 05/09/24 00:00 05/09/24 00:00 05/09/24 00:00 05/09/24 00:00 05/08/24 15:54 Narrative Exam General: Alert awake oriented x 3, no acute distress, hungry Eyes: Pupils are equal and reactive to light bilaterally. HEENT: Atraumatic, normocephalic. No JVD noted. Mucosa moist. Cardiovascular: S1 and S2 heard. Soft S2, 4/6 ejection systolic murmur heard in the aortic area radiating to the bilateral carotids, trace peripheral pitting edema noted. Respiratory: No respiratory distress. Lungs are clear to auscultation bilaterally and decreased at the bases. No wheezing or crackles heard. Abdomen: Soft, nontender, nondistended. Skin: No rash. Warm to touch. Musculoskeletal: No gross injuries. Able to move all 4 extremities. Neuro: Alert and oriented x3. No focal neuro deficits. Psych: Normal affect and mood. Results Labs 05/08/24 16:47 05/08/24 03:13 Labs: Short CBC 05/08/24 05/08/24 Range/Units 03:13 16:47 WBC 5.7 D (3.8-10.6) Thou/mm3 Hgb 7.4 L 8.2 L (13.5-16.0) g/dL Hct 22.4 L 24.7 L (41.0-53.0) % Plt Count 117 L D (140-440) Thou/mm3 BMP 05/08/24 03:13 Sodium 138 Potassium 3.4 D Chloride 100 Carbon Dioxide 30.2 BUN 45 H Creatinine 2.8 H D Glucose 98 D Calcium 8.0 L Liver Function 05/08/24 Range/Units 03:13 Total Bilirubin 0.5 (0.3-1.2) mg/dL AST 11 (0-34) U/L ALT < 7 L (10-49) U/L Alkaline Phosphatase 57 (46-116) U/L Albumin 2.9 L (3.4-4.8) gm/dL Assessment and Plan Additional Assessment & Plan Additional Plan: A 79-year-old male with a past medical history of ESRD on HD 3 days a week, prostate cancer on chemotherapy followed by oncology and urology locally, essential hypertension, type 2 diabetes mellitus, history of chronic anemia, 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 Also patient had some melena at home. Patient apparently had similar admission in February 2024 for provide GI bleed and at that time EGD was performed which showed nonerosive gastritis and nonbleeding ulcers with no clear source of bleeding. Colonoscopy was also performed. Patient was recommended to undergo capsule endoscopy which she underwent at the [facility] by his supervisor typesetting Dr. Rowe. Patient apparently was diagnosed with AV malformation of the small intestine. Patient again presented this time with weakness and melena and in the emergency department hemoglobin was found to be 6. Patient lactate was mildly elevated 2.7. Hematocrit was 19.5. Patient did receive some IV fluids and was also received 2 units of PRBC during this admission and transfer was initiated urgently to tertiary care center for possible double-balloon enteroscopy given the bleeding AVMs as no therapeutic intervention could be done here. Patient was found to have an systolic murmur on examination by the resident and an echocardiogram was performed which showed severe aortic stenosis. I have called the primary team regarding the findings were requested for further consultation for the severe aortic stenosis. EKG showed normal sinus rhythm with nonspecific ST-T changes. Minimal IVCD 100 ms but no bundle branch block. 1. Severe aortic stenosis 2. Acute on chronic anemia s/p 2 PRBC transfusions 3. 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 ESRD on HD 5. HFpEF with diastolic dysfunction 6. Essential hypertension 7. Type 2 diabetes mellitus 8. Hyperlipidemia 9. COPD not on home oxygen 10. Hypothyroidism 1. Obesity 12. Prostate cancer on chemotherapy followed by oncology and urology locally 13. UTI 14. Iron deficiency anemia As noted above systolic murmur was noted by the resident and echo was ordered on 05/08/2024 which showed the following findings Normal LV size and function with and EF of 55-60%. Moderate LVH. DIastolic Dysfunction stage II. Normal RV size and function. Modertely elevated RVSP 52 mmHg. Severe Aortic Stenosis Vmax 5 m/s, Max PG 90 mm hg, Mean PG 60 mm hg and BARRY 0.7 sqcm. Mild AI Moderate MA and Moderate MR. moderate TR. No pericardial effusion. Further history from the patient was obtained and patient does follow Dr. Mann here in [place] with an has not seen him recently but he was told that he had valve problem and the blood velocity was around 3 m/s as per the daughter and was recommended follow-up. Patient probably progressed from moderate aortic stenosis to severe aortic stenosis with the present point of time and could have accelerated progression to his history of end-stage renal disease on hemodialysis which started about the last 2 to 3 years. 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 Unless there is active profuse bleeding which needs to be immediately stopped, patient would not benefit from the AVM therapy with the double balloon enteroscopy unless the severe aortic stenosis addressed. Patient probably is a high risk candidate for DBE also which would require general anesthesia also. Discussed this with the GI team and recommended to hold the transfer at the present point of time. Patient will need complete evaluation of the severe aortic stenosis. At baseline patient appears to be IADL dependent but ADL independent but needs some help at times. Able to walk with a cane previously but in the last 2 months since the last admission February 2024 has been doing mobility. Patient did be assessed further for aortic valve replacement SAVR versus TAVR. He will need a complete workup including left and right heart cardiac catheterization, cardiothoracic surgical evaluation and CT TAVR to assess his candidate CT for SAVR versus TAVR which can all be done as outpatient. Will try to expedite the process but explained to the patient and the family that it would take 2 to 3 months. Patient should follow-up with Dr. Mann as outpatient for the left and right heart cardiac catheterization and then follow-up with me for the CT TAVR and CT surgery consult. Given his age, multiple comorbidities including end-stage renal disease on hemodialysis he is mostly a TAVR candidate and will not be a SAVR candidate as his STS score will be high. Regarding his anemia- patient was transfused 2 units of PRBC and hemoglobin is around 8-9. Recommend to keep hemoglobin between 9-10 at all times. Transfuse PRBC as needed. 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 Unfortunately no recent anemia workup has been done in the last year and the picture will be now muddled with the recent transfusions but nevertheless recommend to obtain complete iron studies, B12, folate level, LDH, haptoglobin and erythropoietin levels along with peripheral smear. I did [facility] which did show low iron saturation at 11% as well as low iron at 30. Recommend to give the patient IV iron while inpatient and completed total of 5 doses of ferric gluconate to replenish all his iron stores. Also replaced vitamin B12 and folate if needed. Erythropoietin replacement also may be needed based on his levels - Recommend to discuss with nephrology. Blood pressure appears to be well-controlled and if needed patient should be on afterload reducing agents and can start on low-dose losartan. Management of rest of the medical conditions as per primary team and other consultants. Thank you for the consult and allowing me to participate in the care of the patient. Cardiology will continue to follow. Abdifatah Castillo M.D. Interventional Cardiology
--- NOTE | 2024-05-08 21:40 | PC.NURSE ---
DR. COLEMAN CONTACTED AND VERIFY ABOUT TERTIARY TRANSFER TO [facility] AND STATED HE WANTS TO PROCEED. MD WILL FOLLOW UP ON CAPSULE ENDOSCOPY REPORT DONE AT [facility].
--- NOTE | 2024-05-08 22:35 | ESPR_ITS ---
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 he continues to bleed and is and is requiring at least 4 units a month he came into the ER 2 weeks ago required 2 units of blood and sent home Exam Vital Signs Temp Pulse Resp BP Pulse Ox O2 Del Method O2 Flow Rate 98.6 F 137 H 20 109/48 L 98 Room Air 0 05/08/24 20:00 05/08/24 22:07 05/08/24 22:07 05/08/24 20:00 05/08/24 20:00 05/08/24 20:00 05/08/24 15:54 Objective Labs 05/08/24 16:47 05/08/24 03:13 Labs: Laboratory Results - last 24 hr 05/07/24 05/08/24 05/08/24 06:10 03:13 16:47 WBC 5.7 D RBC 2.50 L Hgb 7.4 L 8.2 L Hct 22.4 L 24.7 L MCV 90 MCH 29.6 MCHC 33.0 RDW Std Deviation 51.5 H Plt Count 117 L D Neut % (Auto) 69 Lymph % (Auto) 12 [place] % (Auto) 16 H Eos % (Auto) 2 Baso % (Auto) 0 Neut # (Auto) 4.0 Lymph # (Auto) 0.7 L [place] # (Auto) 0.9 H Eos # (Auto) 0.1 Baso # (Auto) 0.0 Immature Gran # (Auto) 0.04 H Absolute Nucleated RBC 0.02 H Immature Gran % 1 H Nucleated RBC % 0 Sodium 138 Potassium 3.4 D Chloride 100 Carbon Dioxide 30.2 Anion Gap 8 BUN 45 H Creatinine 2.8 H D Estim Creat Clear Calc 22.7 L eGFR 22 L BUN/Creatinine Ratio 16 Glucose 98 D Calculated Osmolality 287 Calcium 8.0 L Corrected Calcium 8.9 Phosphorus 2.9 Magnesium 1.7 Total Bilirubin 0.5 AST 11 ALT < 7 L Alkaline Phosphatase 57 Total Protein 4.8 L Albumin 2.9 L Globulin 1.9 L Albumin/Globulin Ratio 1.5 TSH 2.02 Blood Type A Positive Antibody Screen NEGATIVE Crossmatch See Detail Blood Bank Wristband ID Yes Impressions Impression: Small bowel bleed requiring blood transfusion most 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 as evidenced [facility] of which [facility] not available Based on the transfusion requirement it is better to get the patient transferred to a tertiary center for double-balloon enteroscopy however Melodie under the aortic stenosis fixed patient will continue to form new AVMs with further bleeding Assessment & Plan A&P Narrative Occult GI bleeding 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 Time Spent With Patient Time: Total time spent is greater than 50% in coordination of care (as documented) at patient's floor/unit and/or counseling patient:
[2024-05-09] VITALS (26 sets, daily range): BP systolic 98–124; BP diastolic 48–74; PULSE 70–88; RESP 18–96; TEMP 36.1–37.9; O2SAT 94–99; BMI 27.7; BMI 27.6
[2024-05-09] MEDS: LEVOTHYROXINE SODIUM 100 MCG TABLET PO (05:11)
[2024-05-09 06:05] LABS: Basophils % (Auto) 0 % (0-2.5); Eosinophils # (Auto) 0.1 Thou/mm3 (0.0-0.5); Eosinophils % (Auto) 1 % (0-10); Hematocrit 25.1 % (41.0-53.0); Immature Granulocytes % (Auto) 1 % (0-0); Immature Granulocytes Auto 0.05 Thou/mm3 (0.00-0.00); Lymphocytes # (Auto) 0.7 Thou/mm3 (1.0-4.8); Lymphocytes % (Auto) 11 % (10-50); Mean Corpuscular HGB Conc 32.3 g/dl (31.0-37.0); Mean Corpuscular Hemoglobin 29.1 pg (25.0-35.0); Mean Corpuscular Volume 90 fL (80-100); Monocytes # (Auto) 1.1 Thou/mm3 (0.0-0.8); Monocytes % (Auto) 16 % (0-12); Neutrophils # (Auto) 4.9 Thou/mm3 (1.8-7.7); Neutrophils % (Auto) 72 % (37-80); Nucleated Red Blood Cell % 0 /100 WBC (0); Platelet Count 134 Thou/mm3 (140-440); RDW Standard Deviation 54.4 fL (35.1-43.9); Red Blood Count 2.78 Miln/mm3 (4.50-5.90); White Blood Count 6.8 Thou/mm3 (3.8-10.6)
[2024-05-09 06:29] LABS: Hemoglobin 8.1 g/dL (13.5-16.0)
[2024-05-09 06:32] LABS: Alanine Aminotransferase < 7 U/L (10-49); Albumin/Globulin Ratio 1.4 (1.2-2.2); Alkaline Phosphatase 61 U/L (46-116); Anion Gap 8 (7-16); Aspartate Amino Transferase 13 U/L (0-34); BUN/Creatinine Ratio 13 Ratio (12-20); Bilirubin,Total 0.2 mg/dL (0.3-1.2); Blood Urea Nitrogen 49 mg/dL (9-23); Calcium 7.9 mg/dL (8.3-10.6); Calcium (Corrected) 8.7 mg/dL (8.5-10.1); Carbon Dioxide 27.6 mMol/L (20.0-31.0); Chloride 99 mMol/L (98-107); Creatinine (Component) 3.9 mg/dL (0.6-1.3); Estimated Creatinine Clearance 16.3 mL/min (>60); Globulin 2.1 gm/dL (2.3-3.5); Glucose 94 mg/dL (74-106); Magnesium 1.8 mg/dL (1.6-2.6); Osmolality,Calculated 283 (275-295); Phosphorous 3.7 mg/dL (2.4-5.1); Potassium 3.4 mMol/L (3.4-5.1); Sodium 135 mMol/L (136-145); Total Protein 5.1 gm/dL (5.7-8.2); eGFR 15 See Note
[2024-05-09] MEDS: PANTOPRAZOLE INJ 40 MG VIAL IVP ×2 (08:46→20:25)
[2024-05-09] MEDS: GABAPENTIN 100 MG CAPSULE PO (08:46)
--- NOTE | 2024-05-09 09:45 | PC.CM ---
Addendum entered by Abi Ch RN 05/09/24 18:02: I called [facility] and I initiated a transfer. I spoke to [facility] at the transfer center and he requested I fax over facesheet, recent labs, and progress notes. I faxed over information. I updated Dr. Alexis and I let her know [facility] finally got back to me and they declined patient due to capacity. They stated they were full until probably the middle of next week. Addendum entered by Abi Ch RN 05/09/24 16:51: [facility] transfer nurse Gabriela states they are already full for inpatient transfers for Saturday. She states we an follow up with them tomorrow to get a better Idea of their schedule for next week. As per Niranjan's note from yesterday it states If we are unable to transfer the pt until Saturday to [facility]. We can reach out to [facility] on Saturday. The reason [facility] didn't accept the transfer because there is only one DrPopeye who does double balloon enterscopy and he is not available until Saturday. [facility] stated to reach back on Saturday with transfer request and they will present the case to see if patient gets accepted there.?(Pt has capsule endoscopy at [facility] in April this year and pt is scheduled to follow up at [facility] on June 16 for same reason). Addendum entered by Abi Ch RN 05/09/24 12:11: I received a transfer back agreement. I completed the form and I faxed it back today. Original Note: I called and spoke to [facility] transfer center. I let them know I [facility]ed [facility]. Gabriela nurse asked why we were reaching out to [facility] and not [facility]. I let her know patient's insurance wanted us to contact them. Gabriela stated they would review the information that was sent from the [place] and she will present it to her doctor. Gabriela asked to speak to the bedside nurse so I sent the call to telemetry floor.
--- NOTE | 2024-05-09 10:37 | PD.RESPRO ---
Documentation for date of: 05/09/24 Subjective Subjective Interval history: Mr. Kim is a 79 y/o male with PMHx of recurrent prostate cancer ( sees Dr. Ramírez, on Abiraterone Acetate), ESRD (//), recurrent UTI, urinary retention secondary to neurogenic bladder with self-catheterization, chronic anemia(multiple endoscopies, colonoscopies done. Recently had a small bowel enteroscopy in [place] which showed AVMs-supposedly needs a repeat scope) diabetes mellitus, hypothyroidism, and COPD who presented to the ED with a significant weakness and blood in the stools. associated nausea, vomiting, weakness and fatigue. Says that he self caths on his own, still makes urine but a little bit of it. Says that he has been feeling tired and fatigued, felt like he was going to pass out but did not. Denies having fallen recently. Daughters present at bedside. Denies any chest pain, shortness of breath, syncope, headache. Home medications included Abiraterone, atorvastatin, calcium acetate, docusate, gabapentin, Protonix, prednisone, sitagliptin, Carafate, tramadol, trazodone, Flomax, vitamins C ED course: Patient arrived to the ED with 78. Hemoglobin 6.6, platelets 242, sodium 139, potassium 4, BUN 76, creatinine 3.9, calcium 8.4, LFTs normal, albumin 3, urinalysis shows significant pyuria. Blood sugar 109, blood pressure 99/55, heart rate GI was consulted and decision was made to admit patient for further evaluation of GI bleed.Patient started receiving unit of blood. Nephrology consultation requested for need for dialysis and blood transfusion. 05/08/2024 patient currently seen in telemetry. Resting comfortably. So far received 2 units of blood transfusion. Patient has been getting more than 4 units of blood transfusion per month. In the dialysis we have been doing weekly CBC. Endoscopy and colonoscopy negative. Small bowel lab enteroscopy per patient/daughter showed AVMs. Patient has severe aortic stenosis which could be contributing to AVMs. Cardiology, Dr. Stewart involved. Next dialysis scheduled for tomorrow. 05/09/2024: Patient was seen and examined at bedside in telemetry. Denies any complaints. No acute overnight events. Reported that he is still doing self-catheterization and did 1 time this morning, still able to make some urine. Did not have any bowel movement today yet. Dr. Castillo and Dr. Stewart are following Patient reported that he will be getting TAVR based on outpatient basis in [address] Castillo Vitals are stable. Labs showed Hb 8.1, BUN 49, creatinine 3.9 Scheduled for dialysis today as per his routine schedule and will receive 1 PRBC transfusion Exam Vital Signs Temp Pulse Resp BP Pulse Ox O2 Del Method O2 Flow Rate 98.7 F 86 21 H 109/52 L 96 Room Air 0 05/09/24 08:00 05/09/24 08:21 05/09/24 08:21 05/09/24 08:00 05/09/24 08:00 05/09/24 08:00 05/09/24 08:00 Narrative Exam General: Awake. HEENT: Normocephalic, atraumatic, mucous membranes moist. Heart: Regular rate and rhythm. An ejection systolic murmur heard loudest at the aortic area Lungs: Clear to auscultation with no wheezing or crackles. Abdomen: Soft, nondistended, nontender, positive bowel sounds. ?No guarding or rebound tenderness. Neurologic: Alert and oriented x3, no gross neurological deficit, and patient able to move all 4 extremities. Extremities: No edema. Skin: No rash or ecchymoses. Objective Labs 05/10/24 05:16 05/10/24 05:16 Labs: Laboratory Results - last 24 hr 05/07/24 05/08/24 05/09/24 06:10 16:47 04:45 WBC 6.8 RBC 2.78 L Hgb 8.2 L 8.1 L Hct 24.7 L 25.1 L MCV 90 MCH 29.1 MCHC 32.3 RDW Std Deviation 54.4 H Plt Count 134 L Neut % (Auto) 72 Lymph % (Auto) 11 [facility] % (Auto) 16 H Eos % (Auto) 1 Baso % (Auto) 0 Neut # (Auto) 4.9 Lymph # (Auto) 0.[address] [facility] # (Auto) 1.1 H Eos # (Auto) 0.1 Baso # (Auto) 0.0 Immature Gran # (Auto) 0.05 H Absolute Nucleated RBC 0.00 Immature Gran % 1 H Nucleated RBC % 0 Sodium 135 L Potassium 3.4 Chloride 99 Carbon Dioxide 27.6 Anion Gap 8 BUN 49 H Creatinine 3.9 H D Estim Creat Clear Calc 16.3 L eGFR 15 L BUN/Creatinine Ratio 13 Glucose 94 Calculated Osmolality 283 Calcium 7.9 L Corrected Calcium 8.7 Phosphorus 3.7 Magnesium 1.8 Total Bilirubin 0.2 L AST 13 ALT < 7 L Alkaline Phosphatase 61 Total Protein 5.1 L Albumin 3.0 L Globulin 2.1 L Albumin/Globulin Ratio 1.4 Blood Type A Positive Antibody Screen NEGATIVE Crossmatch See Detail Blood Bank Wristband ID Yes 05/09/24 08:26 WBC RBC Hgb Hct MCV MCH MCHC RDW Std Deviation Plt Count Neut % (Auto) Lymph % (Auto) [facility] % (Auto) Eos % (Auto) Baso % (Auto) Neut # (Auto) Lymph # (Auto) [facility] # (Auto) Eos # (Auto) Baso # (Auto) Immature Gran # (Auto) Absolute Nucleated RBC Immature Gran % Nucleated RBC % Sodium Potassium Chloride Carbon Dioxide Anion Gap BUN Creatinine Estim Creat Clear Calc eGFR BUN/Creatinine Ratio Glucose Calculated Osmolality Calcium Corrected Calcium Phosphorus Magnesium Total Bilirubin AST ALT Alkaline Phosphatase Total Protein Albumin Globulin Albumin/Globulin Ratio Blood Type Antibody Screen Crossmatch See Detail Blood Bank Wristband ID Yes Quality Measures Quality Measures none Advance care planning discussed with:: patient Assessment & Plan Assessment Current Active Medications: Generic Name Dose Route Start Last Admin Trade Name Freq PRN Reason Stop Dose Admin Acetaminophen 650 mg 05/07/24 10:40 Acetaminophen 325 Mg Tablet PO 06/06/24 10:39 Q6H PRN Fever >100.3 or pain Dextrose 50 ml 05/07/24 10:44 Dextrose 50%-Water Inj 50 Ml Syringe IV 06/06/24 10:43 Q15MIN PRN BG <50 OR BG <70 & pt unresponsive Epoetin Bryant 10,000 unit 05/09/24 14:00 Epoetin Bryant-Epbx Inj 10,000 Unit/Ml Vial (Esrd) SC 05/09/24 14:01 X1 ONE Gabapentin 100 mg 05/07/24 21:40 05/09/24 08:46 Gabapentin 100 Mg Capsule PO 06/06/24 21:39 100 mg QDAY ROBERT Administration Glucagon 1 mg 05/07/24 10:44 Glucagon Inj 1 Mg Vial IM Q15MIN PRN BG <70, and no IV access Albumin Human 25 gm in 100 mls @ 100 mls/min 05/07/24 09:35 05/07/24 15:05 Albuminar-25 Ivpb IV 100 mls/min PRN PRN Administration DIALYSIS Levofloxacin/Dextrose 250 mg in 50 mls @ 50 mls/hr 05/10/24 12:06 Levaquin Ivpb IV 05/10/24 13:05 X1 ONE Insulin Human Lispro 0 unit 05/07/24 11:30 05/09/24 07:50 Insulin Lispro (Admelog) 1 Unit/0.01 Ml Unit SC 06/06/24 11:29 Not Given ACHS ROBERT Protocol Levothyroxine Sodium 100 mcg 05/08/24 06:00 05/09/24 05:11 Levothyroxine Sodium 100 Mcg Tablet PO 06/07/24 05:59 100 mcg ACBR ROBERT Administration Ondansetron HCl 4 mg 05/07/24 10:40 Ondansetron Inj 2 Mg/Ml Inj 2 Ml IV 06/06/24 10:39 Q6H PRN NAUSEA OR VOMITING Protocol Pantoprazole Sodium 40 mg 05/08/24 09:00 05/09/24 08:46 Pantoprazole Inj 40 Mg Vial IVP 06/07/24 08:59 40 mg BID ROBERT Administration Plan A 79-year-old male past medical history significant for prostate cancer on abiraterone and prednisone follows up with oncologist Dr. Maxwell and urologist Dr. Lamas, ESRD on hemodialysis via left AV fistula T//, [id number] diabetes mellitus type 2, COPD not on home oxygen and hypothyroid admitted in the hospital for blood loss anemia likely due to AV malformations from the aortic stenosis # ESRD on HD [T//] # History of prostate cancer Likely due to obstructive uropathy -Patient had history of prostate cancer s/p extensive radiation and currently under chemotherapy -Patient is on HD since 1 year, 3 times/week -Continues to self catheterize 3-4 times in a day for obstructive uropathy and following urologist Dr. 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 daily as home medication Plan -Patient is currently on insulin sliding scale -Did not receive any insulin as his blood sugars are within normal limits # COPD # Hypothyroidism Treated as per primary team Thanks for involving us in the care of the patient Patient plan of care was discussed with the attending physician, Dr. Armin Perez, PGY1 Attending Provider Attestation/Addendum Patient seen and examined with resident physician Dr. Puri. Note reviewed, agree with findings and recommendations. Patient currently seen on dialysis. Tolerating dialysis without any problems. Hemodialysis for 3 hours, 2K, ultrafiltration 2-3 L, Epogen 6000, no heparin ordered. Plan of care discussed with the dialysis nurse. Please see dialysis flowsheet for further details. Patient is going to receive a unit of blood.
--- NOTE | 2024-05-09 14:00 | PC.NURSE ---
transfusing 1 unit of prbc per md order.
[2024-05-09] MEDS: EPOETIN ALFA-EPBX INJ 10,000 UNIT/ML VIAL (ESRD) 10000 UNIT SC (14:11)
--- NOTE | 2024-05-09 15:08 | ESPR_ITS ---
<Statement entered by Kim Alexis MD - 05/10/24 02:59> Patient was seen and examined by me personally. I have directly supervised and reviewed the above documentation by the team resident and agree with its findings with any exceptions or additional findings as below. Plan of care was discussed with the attending, Dr. Rogers. Patient is a 79-year-old male with past medical history significant for prostate cancer, ESRD on hemodialysis via left AV fistula T//, non-insulin dependent type 2 diabetes mellitus, COPD not on home oxygen, and hypothyroidism who initially presented due to weakness and was suspected to have acute blood loss anemia secondary to GI bleed. 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 Per gastroenterology who has been following, patient requires transfer to [facility] for double-balloon enteroscopy. Today [facility] had declined the patient but the transfer team is working on possibly getting the patient to the [facility]. Patient had an appointment scheduled there on June 16. Hemoglobin today was stable at 8.1, no melanotic or bloody stools were reported, and he was transfused 1 unit PRBC during dialysis. Kim Alexis, PGY-2 Documentation for date of: 05/09/24 Subjective Subjective Interval history: Patient was seen and examined by the bedside. No acute overnight events. Patient denies abdominal pain, yesterday had dark bloody stool. Dialysis scheduled for today with plan to remove 1 L of fluid and to transfuse 1 unit of blood. Hemoglobin today 8.1, hematocrit 25.7%. [facility] is following the patient, aortic stenosis replacement planned for outpatient. Patient is in pending transfer to the [facility]. Exam Vital Signs Temp Pulse Resp BP Pulse Ox O2 Del Method O2 Flow Rate 98.0 F 75 18 111/51 L 95 Room Air 0 05/09/24 14:08 05/09/24 15:00 05/09/24 14:08 05/09/24 15:00 05/09/24 14:08 05/09/24 12:00 05/09/24 12:00 Narrative Exam General: Awake, chronically ill-appearing pale elderly male. HEENT: Normocephalic, atraumatic, mucous membranes moist. Heart: Regular rate and rhythm. An ejection systolic murmur heard loudest at the aortic area Lungs: Clear to auscultation with no wheezing or crackles. Abdomen: Soft, nondistended, nontender, positive bowel sounds. ?No guarding or rebound tenderness. Neurologic: Alert and oriented x3, no gross neurological deficit, and patient able to move all 4 extremities. Extremities: No edema. Skin: No rash or ecchymoses. Objective Labs 05/10/24 05:16 05/10/24 05:16 Labs: Laboratory Results - last 24 hr 05/07/24 05/08/24 05/09/24 06:10 16:47 04:45 WBC 6.8 RBC 2.78 L Hgb 8.2 L 8.1 L Hct 24.7 L 25.1 L MCV 90 MCH 29.1 MCHC 32.3 RDW Std Deviation 54.4 H Plt Count 134 L Neut % (Auto) 72 Lymph % (Auto) 11 [place] % (Auto) 16 H Eos % (Auto) 1 Baso % (Auto) 0 Neut # (Auto) 4.9 Lymph # (Auto) 0.7 L [place] # (Auto) 1.1 H Eos # (Auto) 0.1 Baso # (Auto) 0.0 Immature Gran # (Auto) 0.05 H Absolute Nucleated RBC 0.00 Immature Gran % 1 H Nucleated RBC % 0 Sodium 135 L Potassium 3.4 Chloride 99 Carbon Dioxide 27.6 Anion Gap 8 BUN 49 H Creatinine 3.9 H D Estim Creat Clear Calc 16.3 L eGFR 15 L BUN/Creatinine Ratio 13 Glucose 94 Calculated Osmolality 283 Calcium 7.9 L Corrected Calcium 8.7 Phosphorus 3.7 Magnesium 1.8 Total Bilirubin 0.2 L AST 13 ALT < 7 L Alkaline Phosphatase 61 Total Protein 5.1 L Albumin 3.0 L Globulin 2.1 L Albumin/Globulin Ratio 1.4 Blood Type Antibody Screen Antibody Identification Crossmatch See Detail Blood Bank Wristband ID 05/09/24 08:26 WBC RBC Hgb Hct MCV MCH MCHC RDW Std Deviation Plt Count Neut % (Auto) Lymph % (Auto) [place] % (Auto) Eos % (Auto) Baso % (Auto) Neut # (Auto) Lymph # (Auto) [place] # (Auto) Eos # (Auto) Baso # (Auto) Immature Gran # (Auto) Absolute Nucleated RBC Immature Gran % Nucleated RBC % Sodium Potassium Chloride Carbon Dioxide Anion Gap BUN Creatinine Estim Creat Clear Calc eGFR BUN/Creatinine Ratio Glucose Calculated Osmolality Calcium Corrected Calcium Phosphorus Magnesium Total Bilirubin AST ALT Alkaline Phosphatase Total Protein Albumin Globulin Albumin/Globulin Ratio Blood Type A Positive Antibody Screen POSITIVE Antibody Identification Anti-E Crossmatch See Detail Blood Bank Wristband ID Yes Quality Measures Quality Measures VTE prophylaxis Advance care planning discussed with:: other Assessment & Plan Assessment Current Active Medications: Generic Name Dose Route Start Last Admin Trade Name Freq PRN Reason Stop Dose Admin Acetaminophen 650 mg 05/07/24 10:40 Acetaminophen 325 Mg Tablet PO 06/06/24 10:39 Q6H PRN Fever >100.3 or pain Dextrose 50 ml 05/07/24 10:44 Dextrose 50%-Water Inj 50 Ml Syringe IV 06/06/24 10:43 Q15MIN PRN BG <50 OR BG <70 & pt unresponsive Gabapentin 100 mg 05/07/24 21:40 05/09/24 08:46 Gabapentin 100 Mg Capsule PO 06/06/24 21:39 100 mg QDAY ROBERT Administration Glucagon 1 mg 05/07/24 10:44 Glucagon Inj 1 Mg Vial IM Q15MIN PRN BG <70, and no IV access Albumin Human 25 gm in 100 mls @ 100 mls/min 05/07/24 09:35 05/07/24 15:05 Albuminar-25 Ivpb IV 100 mls/min PRN PRN Administration DIALYSIS Levofloxacin/Dextrose 250 mg in 50 mls @ 50 mls/hr 05/10/24 12:06 Levaquin Ivpb IV 05/10/24 13:05 X1 ONE Insulin Human Lispro 0 unit 05/07/24 11:30 05/09/24 12:07 Insulin Lispro (Admelog) 1 Unit/0.01 Ml Unit SC 06/06/24 11:29 Not Given ACHS ROBERT Protocol Levothyroxine Sodium 100 mcg 05/08/24 06:00 05/09/24 05:11 Levothyroxine Sodium 100 Mcg Tablet PO 06/07/24 05:59 100 mcg ACBR ROBERT Administration Ondansetron HCl 4 mg 05/07/24 10:40 Ondansetron Inj 2 Mg/Ml Inj 2 Ml IV 06/06/24 10:39 Q6H PRN NAUSEA OR VOMITING Protocol Pantoprazole Sodium 40 mg 05/08/24 09:00 05/09/24 08:46 Pantoprazole Inj 40 Mg Vial IVP 06/07/24 08:59 40 mg BID ROBERT Administration Plan Patient is a 79-year-old male past medical history significant for prostate cancer on abiraterone and prednisone follows up with oncologist Dr. Maxwell and urologist Dr. Lamas, ESRD on hemodialysis via left AV fistula T//, [id number] diabetes mellitus type 2, COPD not on home oxygen and hypothyroid presented today with a chief complaint of weakness. Patient will be admitted to observation for acute blood loss anemia secondary to GI bleed. Urgent transfer initiated to tertiary center for double-balloon enteroscopy. Acute blood loss anemia Upper GI bleed likely secondary to small intestine AV malformation Patient presented with generalized weakness and endorse intermittent palpitations. His informed us of melena for the past week. Patient had a previous admission from 02/23/2024 to 02/26/2024 for similar presentation. 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 On admission Hb 6. 3 units PRBCs were ordered for transfusion during hemodialysis. Posttransfusion H&H 7.4. 05/09: Hemoglobin 8.1, hematocrit 25.1%. 1 unit PRBC ordered for transfusion during dialysis. Plan: ? Clear liquid diet ? Protonix 40 Mg IV twice daily ? Transfer to tertiary center for double-balloon enteroscopy ? GI, Dr. Stewart consulted and closely following the case. Appreciate recommendations #Severe aortic stenosis On exam patient has 3/6 ejection systolic murmur at right sternal border Echo showed aortic valve area of 0.7, ejection fraction 55-60%. Environmental Lead Dr. Castillo is consulted, the plan is to do TAVR procedure outpatient. Plan: -Follow-up outpatient ESRD on hemodialysis via left AV fistula T// Patient missed his scheduled dialysis session today. Last session was on 05/05/2023. His talent development consultant is Dr. Funez. Plan: ? Hemodialysis scheduled ? Renally dose medication ? Avoid nephrotoxic agents ? School Based Therapist, Dr Funez consulted and closely follow the case. Appreciate recommendations ESBL UTI Urine culture from 04/16/2024 grew Klebsiella pneumonia which was ESBL On this admission urinalysis significant for RN GEN:, Cloudy, 2+ protein, 2+ blood, leukocyte esterase positive and WBC 2427 Plan: ? Renally dosed Levaquin. Last dose on 05/10/2024 ? Pending repeat urine culture [id number] diabetes mellitus type 2 [5%] Home medication sitagliptin 25 Mg p.o. daily Plan: ? SSI Hypothyroidism Patient very somnolent on exam. Most likely due to acute blood loss anemia but may also be due to hypothyroidism. Home medication levothyroxine 100 mcg p.o. daily TSH-2 Plan: ?Levothyroxine 100 mcg p.o. daily to start from tomorrow COPD not on home oxygen Patient's home medication fluticasone/salmeterol inhaler 1 puff twice daily Plan: ? DuoNebs as needed Prostate cancer on treatment with abiraterone, prednisone and Zoladex Plan: ? Continue outpatient follow-up Health maintenance: Disposition: PRBC infusion. Pending emergent transfer to tertiary center for double-balloon enteroscopy Diet: Clear liquid Lines: pIVs GI Prophylaxis: Pantoprazole Thrombo Prophylaxis: SCDs Code status: FULL CODE Plan of care discussed with attending Dr. Rogers, PGY-[address] Alexis. Irina Remy MD, PGY 1. Attending Provider Attestation/Addendum I have examined the patient, reviewed labs and imaging findings, discussed the case with the resident(s), and reviewed entered orders. I agree with the plan of care as outlined in this note. Dr. Ken MD
--- NOTE | 2024-05-09 16:17 | ESPR_ITS ---
Documentation for date of: 05/09/24 Subjective Subjective Interval history: Patient was examined at the bedside, reported no acute symptoms, did endorse dark stools last night, hemoglobin stable around 8, recommended to keep hemoglobin around 9-10, PRBC ordered by primary team. Of note, concurrent GI bleed with anemia is of particular concern, as workup for aortic valve surgery/TAVR would require right and left heart cath, cardiothoracic surgery evaluation, which would be done outpatient, anticipate at least a couple months till patient is ready for surgery, also following aortic valve replacement, AVM malformation will not resolve spontaneously and may require some months before GI bleeding would stop, due to severe anemia, concern for cardiovascular compromise recommend complete anemia workup, including iron studies, despite 5 PRBC transfusions. Exam Vital Signs Temp Pulse Resp BP Pulse Ox O2 Del Method O2 Flow Rate 98.0 F 78 18 120/52 L 95 Room Air 0 05/09/24 14:08 05/09/24 16:15 05/09/24 14:08 05/09/24 16:15 05/09/24 14:08 05/09/24 12:00 05/09/24 12:00 Narrative Exam General: Awake, chronically ill-appearing pale elderly male. HEENT: Normocephalic, atraumatic, mucous membranes moist. Heart: Regular rate and rhythm. An ejection systolic murmur heard loudest at the aortic area Lungs: Clear to auscultation with no wheezing or crackles. Abdomen: Soft, nondistended, nontender, positive bowel sounds. ?No guarding or rebound tenderness. Neurologic: Alert and oriented x3, no gross neurological deficit, and patient able to move all 4 extremities. Extremities: No edema. Skin: No rash or ecchymoses. Objective Labs 05/09/24 04:45 05/09/24 04:45 Labs: Laboratory Results - last 24 hr 05/08/24 05/09/24 05/09/24 16:47 04:45 08:26 WBC 6.8 RBC 2.78 L Hgb 8.2 L 8.1 L Hct 24.7 L 25.1 L MCV 90 MCH 29.1 MCHC 32.3 RDW Std Deviation 54.4 H Plt Count 134 L Neut % (Auto) 72 Lymph % (Auto) 11 [place] % (Auto) 16 H Eos % (Auto) 1 Baso % (Auto) 0 Neut # (Auto) 4.9 Lymph # (Auto) 0.7 L [place] # (Auto) 1.1 H Eos # (Auto) 0.1 Baso # (Auto) 0.0 Immature Gran # (Auto) 0.05 H Absolute Nucleated RBC 0.00 Immature Gran % 1 H Nucleated RBC % 0 Sodium 135 L Potassium 3.4 Chloride 99 Carbon Dioxide 27.6 Anion Gap 8 BUN 49 H Creatinine 3.9 H D Estim Creat Clear Calc 16.3 L eGFR 15 L BUN/Creatinine Ratio 13 Glucose 94 Calculated Osmolality 283 Calcium 7.9 L Corrected Calcium 8.7 Phosphorus 3.7 Magnesium 1.8 Total Bilirubin 0.2 L AST 13 ALT < 7 L Alkaline Phosphatase 61 Total Protein 5.1 L Albumin 3.0 L Globulin 2.1 L Albumin/Globulin Ratio 1.4 Blood Type A Positive Antibody Screen POSITIVE Antibody Identification Anti-E Crossmatch See Detail Blood Bank Wristband ID Yes Quality Measures Quality Measures VTE prophylaxis Advance care planning discussed with:: patient Assessment & Plan Assessment Current Active Medications: Generic Name Dose Route Start Last Admin Trade Name Freq PRN Reason Stop Dose Admin Acetaminophen 650 mg 05/07/24 10:40 Acetaminophen 325 Mg Tablet PO 06/06/24 10:39 Q6H PRN Fever >100.3 or pain Dextrose 50 ml 05/07/24 10:44 Dextrose 50%-Water Inj 50 Ml Syringe IV 06/06/24 10:43 Q15MIN PRN BG <50 OR BG <70 & pt unresponsive Gabapentin 100 mg 05/07/24 21:40 05/09/24 08:46 Gabapentin 100 Mg Capsule PO 06/06/24 21:39 100 mg QDAY ROBERT Administration Glucagon 1 mg 05/07/24 10:44 Glucagon Inj 1 Mg Vial IM Q15MIN PRN BG <70, and no IV access Albumin Human 25 gm in 100 mls @ 100 mls/min 05/07/24 09:35 05/07/24 15:05 Albuminar-25 Ivpb IV 100 mls/min PRN PRN Administration DIALYSIS Levofloxacin/Dextrose 250 mg in 50 mls @ 50 mls/hr 05/10/24 12:06 Levaquin Ivpb IV 05/10/24 13:05 X1 ONE Insulin Human Lispro 0 unit 05/07/24 11:30 05/09/24 12:07 Insulin Lispro (Admelog) 1 Unit/0.01 Ml Unit SC 06/06/24 11:29 Not Given ACHS ROBERT Protocol Levothyroxine Sodium 100 mcg 05/08/24 06:00 05/09/24 05:11 Levothyroxine Sodium 100 Mcg Tablet PO 06/07/24 05:59 100 mcg ACBR ROBERT Administration Ondansetron HCl 4 mg 05/07/24 10:40 Ondansetron Inj 2 Mg/Ml Inj 2 Ml IV 06/06/24 10:39 Q6H PRN NAUSEA OR VOMITING Protocol Pantoprazole Sodium 40 mg 05/08/24 09:00 05/09/24 08:46 Pantoprazole Inj 40 Mg Vial IVP 06/07/24 08:59 40 mg BID ROBERT Administration Plan An 79-year-old male with a past medical history of ESRD on HD 3 days a week, prostate cancer on chemotherapy followed by oncology and urology locally, essential hypertension, type 2 diabetes mellitus, history of chronic anemia, 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 Also patient had some melena at home. Patient apparently had similar admission in February 2024 for provide GI bleed and at that time EGD was performed which showed nonerosive gastritis and nonbleeding ulcers with no clear source of bleeding. Colonoscopy was also performed. Patient was recommended to undergo capsule endoscopy which she underwent at the [facility] by his track surfacing machine operator Dr. Rowe. Patient apparently was diagnosed with AV malformation of the small intestine. Patient again presented this time with weakness and melena and in the emergency department hemoglobin was found to be 6. Patient lactate was mildly elevated 2.7. Hematocrit was 19.5. Patient did receive some IV fluids and was also received 2 units of PRBC during this admission and transfer was initiated urgently to tertiary care center for possible double-balloon enteroscopy given the bleeding AVMs as no therapeutic intervention could be done here. Patient was found to have an systolic murmur on examination by the resident and an echocardiogram was performed which showed severe aortic stenosis. I have called the primary team regarding the findings were requested for further consultation for the severe aortic stenosis. EKG showed normal sinus rhythm with nonspecific ST-T changes. Minimal IVCD 100 ms but no bundle branch block. 1. Severe aortic stenosis 2. Acute on chronic anemia s/p 2 PRBC transfusions 3. 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 ESRD on HD 5. HFpEF with diastolic dysfunction 6. Essential hypertension 7. Type 2 diabetes mellitus 8. Hyperlipidemia 9. COPD not on home oxygen 10. Hypothyroidism 1. Obesity 12. Prostate cancer on chemotherapy followed by oncology and urology locally 13. UTI 14. Iron deficiency anemia As noted above systolic murmur was noted by the resident and echo was ordered on 05/08/2024 which showed the following findings Normal LV size and function with and EF of 55-60%. Moderate LVH. DIastolic Dysfunction stage II. Normal RV size and function. Modertely elevated RVSP 52 mmHg. Severe Aortic Stenosis Vmax 5 m/s, Max PG 90 mm hg, Mean PG 60 mm hg and BARRY 0.7 sqcm. Mild AI Moderate MA and Moderate MR. moderate TR. No pericardial effusion. Further history from the patient was obtained and patient does follow Dr. Mann here in [place] with an has not seen him recently but he was told that he had valve problem and the blood velocity was around 3 m/s as per the daughter and was recommended follow-up. Patient probably progressed from moderate aortic stenosis to severe aortic stenosis with the present point of time and could have accelerated progression to his history of end-stage renal disease on hemodialysis which started about the last 2 to 3 years. 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 Unless there is active profuse bleeding which needs to be immediately stopped, patient would not benefit from the AVM therapy with the double balloon enteroscopy unless the severe aortic stenosis addressed. Patient probably is a high risk candidate for DBE also which would require general anesthesia also. Discussed this with the GI team and recommended to hold the transfer at the present point of time. Patient will need complete evaluation of the severe aortic stenosis. At baseline patient appears to be IADL dependent but ADL independent but needs some help at times. Able to walk with a cane previously but in the last 2 months since the last admission February 2024 has been doing mobility. Patient did be assessed further for aortic valve replacement SAVR versus TAVR. He will need a complete workup including left and right heart cardiac catheterization, cardiothoracic surgical evaluation and CT TAVR to assess his candidate CT for SAVR versus TAVR which can all be done as outpatient. Will try to expedite the process but explained to the patient and the family that it would take 2 to 3 months. Patient should follow-up with Dr. Mann as outpatient for the left and right heart cardiac catheterization and then follow-up with me for the CT TAVR and CT surgery consult. Given his age, multiple comorbidities including end- stage renal disease on hemodialysis he is mostly a TAVR candidate and will not be a SAVR candidate as his STS score will be high. Regarding his anemia- patient was transfused 2 units of PRBC and hemoglobin is around 8-9. Recommend to keep hemoglobin between 9-10 at all times. Transfuse PRBC as needed. 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 Unfortunately no recent anemia workup has been done in the last year and the picture will be now muddled with the recent transfusions but nevertheless recommend to obtain complete iron studies, B12, folate level, LDH, haptoglobin and erythropoietin levels along with peripheral smear. I did review the hide labs from May 2023 which did show low iron saturation at 11% as well as low iron at 30. Recommend to give the patient IV iron while inpatient and completed total of 5 doses of ferric gluconate to replenish all his iron stores. Also replaced vitamin B12 and folate if needed. Erythropoietin replacement also may be needed based on his levels - Recommend to discuss with nephrology. Blood pressure appears to be well-controlled and if needed patient should be on afterload reducing agents and can start on low-dose losartan. Management of rest of the medical conditions as per primary team and other consultants. Thank you for the consult and allowing me to participate in the care of the patient. Cardiology will continue to follow. Plan of care discussed with my attending Dr Anna tSover pgy 2 Attending Provider Attestation/Addendum I have personally seen and examined the patient separately on the above date of service and discussed the plan of care with the resident. I reviewed the resident Dr. Quita Stover consultation progress note and agree with the resident findings and plan in the note above and have also edited the documentation to reflect my findings and plan. Abdifatah Castillo M.D. Interventional Cardiology
[2024-05-09] MEDS: ACETAMINOPHEN 325 MG TABLET 650 MG PO (20:24)
--- NOTE | 2024-05-09 21:59 | ESPR_ITS ---
Documentation for date of: 05/09/24 Subjective Subjective Interval history: Patient evaluated hemoglobin 8.1 No more melanotic stools today Exam Vital Signs Temp Pulse Resp BP Pulse Ox O2 Del Method O2 Flow Rate 99.7 F 85 20 119/57 L 97 Nasal Cannula 2 05/09/24 20:17 05/09/24 20:17 05/09/24 20:17 05/09/24 20:00 05/09/24 20:00 05/09/24 20:00 05/09/24 20:00 Objective Labs 05/09/24 04:45 05/09/24 04:45 Labs: Laboratory Results - last 24 hr 05/09/24 05/09/24 04:45 08:26 WBC 6.8 RBC 2.78 L Hgb 8.1 L Hct 25.1 L MCV 90 MCH 29.1 MCHC 32.3 RDW Std Deviation 54.4 H Plt Count 134 L Neut % (Auto) 72 Lymph % (Auto) 11 [place] % (Auto) 16 H Eos % (Auto) 1 Baso % (Auto) 0 Neut # (Auto) 4.9 Lymph # (Auto) 0.7 L [place] # (Auto) 1.1 H Eos # (Auto) 0.1 Baso # (Auto) 0.0 Immature Gran # (Auto) 0.05 H Absolute Nucleated RBC 0.00 Immature Gran % 1 H Nucleated RBC % 0 Sodium 135 L Potassium 3.4 Chloride 99 Carbon Dioxide 27.6 Anion Gap 8 BUN 49 H Creatinine 3.9 H D Estim Creat Clear Calc 16.3 L eGFR 15 L BUN/Creatinine Ratio 13 Glucose 94 Calculated Osmolality 283 Calcium 7.9 L Corrected Calcium 8.7 Phosphorus 3.7 Magnesium 1.8 Total Bilirubin 0.2 L AST 13 ALT < 7 L Alkaline Phosphatase 61 Total Protein 5.1 L Albumin 3.0 L Globulin 2.1 L Albumin/Globulin Ratio 1.4 Blood Type A Positive Antibody Screen POSITIVE Antibody Identification Anti-E Crossmatch See Detail Blood Bank Wristband ID Yes Impressions Impression: Small bowel bleed Continue to monitor If the hemoglobin is stable tomorrow we will rediscuss possible transfer or no transfer with the internal medicine team Assessment & Plan A&P Narrative A 79-year-old male with a past medical history of ESRD on HD 3 days a week, prostate cancer on chemotherapy followed by oncology and urology locally, essential hypertension, type 2 diabetes mellitus, history of chronic anemia, 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 Also patient had some melena at home. Patient apparently had similar admission in February 2024 for provide GI bleed and at that time EGD was performed which showed nonerosive gastritis and nonbleeding ulcers with no clear source of bleeding. Colonoscopy was also performed. Patient was recommended to undergo capsule endoscopy which she underwent at the [facility] by his billet heater Dr. Rowe. Patient apparently was diagnosed with AV malformation of the small intestine. Patient again presented this time with weakness and melena and in the emergency department hemoglobin was found to be 6. Patient lactate was mildly elevated 2.7. Hematocrit was 19.5. Patient did receive some IV fluids and was also received 2 units of PRBC during this admission and transfer was initiated urgently to tertiary care center for possible double-balloon enteroscopy given the bleeding AVMs as no therapeutic intervention could be done here. Patient was found to have an systolic murmur on examination by the resident and an echocardiogram was performed which showed severe aortic stenosis. I have called the primary team regarding the findings were requested for further consultation for the severe aortic stenosis. EKG showed normal sinus rhythm with nonspecific ST-T changes. Minimal IVCD 100 ms but no bundle branch block. 1. Severe aortic stenosis 2. Acute on chronic anemia s/p 2 PRBC transfusions 3. 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 ESRD on HD 5. HFpEF with diastolic dysfunction 6. Essential hypertension 7. Type 2 diabetes mellitus 8. Hyperlipidemia 9. COPD not on home oxygen 10. Hypothyroidism 1. Obesity 12. Prostate cancer on chemotherapy followed by oncology and urology locally 13. UTI 14. Iron deficiency anemia As noted above systolic murmur was noted by the resident and echo was ordered on 05/08/2024 which showed the following findings Normal LV size and function with and EF of 55-60%. Moderate LVH. DIastolic Dysfunction stage II. Normal RV size and function. Modertely elevated RVSP 52 mmHg. Severe Aortic Stenosis Vmax 5 m/s, Max PG 90 mm hg, Mean PG 60 mm hg and BARRY 0.7 sqcm. Mild AI Moderate MA and Moderate MR. moderate TR. No pericardial effusion. Further history from the patient was obtained and patient does follow Dr. Mann here in [place] with an has not seen him recently but he was told that he had valve problem and the blood velocity was around 3 m/s as per the daughter and was recommended follow-up. Patient probably progressed from moderate aortic stenosis to severe aortic stenosis with the present point of time and could have accelerated progression to his history of end-stage renal disease on hemodialysis which started about the last 2 to 3 years. 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 Unless there is active profuse bleeding which needs to be immediately stopped, patient would not benefit from the AVM therapy with the double balloon enteroscopy unless the severe aortic stenosis addressed. Patient probably is a high risk candidate for DBE also which would require general anesthesia also. Discussed this with the GI team and recommended to hold the transfer at the present point of time. Patient will need complete evaluation of the severe aortic stenosis. At baseline patient appears to be IADL dependent but ADL independent but needs some help at times. Able to walk with a cane previously but in the last 2 months since the last admission February 2024 has been doing mobility. Patient did be assessed further for aortic valve replacement SAVR versus TAVR. He will need a complete workup including left and right heart cardiac catheterization, cardiothoracic surgical evaluation and CT TAVR to assess his candidate CT for SAVR versus TAVR which can all be done as outpatient. Will try to expedite the process but explained to the patient and the family that it would take 2 to 3 months. Patient should follow-up with Dr. Mann as outpatient for the left and right heart cardiac catheterization and then follow-up with me for the CT TAVR and CT surgery consult. Given his age, multiple comorbidities including end- stage renal disease on hemodialysis he is mostly a TAVR candidate and will not be a SAVR candidate as his STS score will be high. Regarding his anemia- patient was transfused 2 units of PRBC and hemoglobin is around 8-9. Recommend to keep hemoglobin between 9-10 at all times. Transfuse PRBC as needed. 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 Unfortunately no recent anemia workup has been done in the last year and the picture will be now muddled with the recent transfusions but nevertheless recommend to obtain complete iron studies, B12, folate level, LDH, haptoglobin and erythropoietin levels along with peripheral smear. I did review the hide labs from May 2023 which did show low iron saturation at 11% as well as low iron at 30. Recommend to give the patient IV iron while inpatient and completed total of 5 doses of ferric gluconate to replenish all his iron stores. Also replaced vitamin B12 and folate if needed. Erythropoietin replacement also may be needed based on his levels - Recommend to discuss with nephrology. Blood pressure appears to be well-controlled and if needed patient should be on afterload reducing agents and can start on low-dose losartan. Management of rest of the medical conditions as per primary team and other consultants. Thank you for the consult and allowing me to participate in the care of the patient. Cardiology will continue to follow. Abdifatah Castillo M.D. Interventional Cardiology Time Spent With Patient Time: Total time spent is greater than 50% in coordination of care (as documented) at patient's floor/unit and/or counseling patient:
[2024-05-10] VITALS: BP 110/56; PULSE 80; PULSE 87; RESP 21; TEMP 36.2
[2024-05-10] MEDS: MELATONIN 3 MG TABLET PO (02:04)
[2024-05-10 04:00] VITALS: BP 132/79; PULSE 73; PULSE 89; RESP 19; TEMP 37.3; O2SAT 97
[2024-05-10] MEDS: LEVOTHYROXINE SODIUM 100 MCG TABLET PO (05:12)
[2024-05-10 05:58] LABS: Basophils % (Auto) 0 % (0-2.5); Eosinophils # (Auto) 0.1 Thou/mm3 (0.0-0.5); Eosinophils % (Auto) 2 % (0-10); Hematocrit 29.5 % (41.0-53.0); Hemoglobin 9.5 g/dL (13.5-16.0); Immature Granulocytes % (Auto) 1 % (0-0); Immature Granulocytes Auto 0.03 Thou/mm3 (0.00-0.00); Lymphocytes # (Auto) 0.8 Thou/mm3 (1.0-4.8); Lymphocytes % (Auto) 16 % (10-50); Mean Corpuscular HGB Conc 32.2 g/dl (31.0-37.0); Mean Corpuscular Volume 90 fL (80-100); Monocytes # (Auto) 0.9 Thou/mm3 (0.0-0.8); Monocytes % (Auto) 19 % (0-12); Neutrophils % (Auto) 62 % (37-80); Nucleated Red Blood Cell % 0 /100 WBC (0); Platelet Count 121 Thou/mm3 (140-440); RDW Standard Deviation 55.1 fL (35.1-43.9); Red Blood Count 3.28 Miln/mm3 (4.50-5.90); White Blood Count 4.9 Thou/mm3 (3.8-10.6)
[2024-05-10 06:17] LABS: Alanine Aminotransferase < 7 U/L (10-49); Albumin/Globulin Ratio 1.4 (1.2-2.2); Alkaline Phosphatase 60 U/L (46-116); Anion Gap 8 (7-16); Aspartate Amino Transferase 15 U/L (0-34); BUN/Creatinine Ratio 10 Ratio (12-20); Bilirubin,Total 0.3 mg/dL (0.3-1.2); Blood Urea Nitrogen 30 mg/dL (9-23); Calcium 7.8 mg/dL (8.3-10.6); Calcium (Corrected) 8.6 mg/dL (8.5-10.1); Carbon Dioxide 29.1 mMol/L (20.0-31.0); Chloride 101 mMol/L (98-107); Creatinine (Component) 3.1 mg/dL (0.6-1.3); Estimated Creatinine Clearance 20.5 mL/min (>60); Globulin 2.2 gm/dL (2.3-3.5); Glucose 103 mg/dL (74-106); Magnesium 1.7 mg/dL (1.6-2.6); Osmolality,Calculated 281 (275-295); Phosphorous 3.8 mg/dL (2.4-5.1); Potassium 3.4 mMol/L (3.4-5.1); Sodium 138 mMol/L (136-145); Total Protein 5.2 gm/dL (5.7-8.2); eGFR 19 See Note
[2024-05-10 08:00] VITALS: BP 106/50; PULSE 78; RESP 17; TEMP 37.1; O2SAT 94
[2024-05-10 08:16] LABS: Path Review Blood Smear Sent to Pathologist
[2024-05-10 08:20] LABS: LDH (Lactate Dehydrogenase) 153 U/L (120-246)
[2024-05-10] MEDS: GABAPENTIN 100 MG CAPSULE PO (08:30)
[2024-05-10] MEDS: PANTOPRAZOLE INJ 40 MG VIAL IVP (08:30)
[2024-05-10] MEDS: Magnesium Sulfate 4 GM Ivpb 4 GM/50 ML BAG IV (08:30)
[2024-05-10 08:45] LABS: Ferritin 383 ng/mL (10.5-307.3); Total Iron Binding Capacity 178 mcg/dL (250-425)
[2024-05-10 08:53] LABS: Iron 16 mcg/dL (65-175); Percent Iron Saturation 8 % (20-55); Unsaturated Iron Binding 162 (225-295)
--- NOTE | 2024-05-10 08:58 | PC.CM ---
Addendum entered by Abi Ch RN 05/10/24 16:40: I let [facility] know that patient's transfer request has been canceled. Patient is stable and will be discharged home today. Addendum entered by Abi Ch RN 05/10/24 14:46: Dr. Briscoe let me know that they canceled transfer and patient will be discharged today. I will notify [facility] and [facility]. Addendum entered by Abi Ch RN 05/10/24 13:51: [facility] She wanted the number to Dr. Stewart. I provided her with the number. She states she will reach out to her doctor so he can speak to Dr. Stewart to discuss case. Addendum entered by Abi Ch RN 05/10/24 11:08: I received a call form Kang from [facility]. I gave her an update on patient. She was going to reach out to her doctor to see if they could see patient sooner than the middle of next week. She states she will call me back once she speaks to her doctor. Addendum entered by Abi Ch RN 05/10/24 09:11: I reached out to [facility] (weekend coverage) and I spoke to Ivis [phone]. I let her know we are trying to transfer patient to [facility] and they need authorization prior to moving forward on request. She took my information and she states she will call me back. Original Note: I reached out to [facility] to follow up on transfer request. [facility] states they will need financial clearance with authorization prior to moving forward on referral. I let her know I will reach out to [facility] to get authorization.
--- NOTE | 2024-05-10 10:06 | ESPR_ITS ---
Documentation for date of: 05/10/24 Subjective Subjective Interval history: Patient was examined at the bedside, reported no acute symptoms, hemoglobin 9.5, was given IV iron today, patient's anemia particular concern, per iron panel patient has low iron reserves, otherwise patient's anemia is multifactorial secondary to anemia of chronic disease, secondary to blood loss and iron deficiency. Patient will need outpatient workup would require right and left heart cath, cardiothoracic surgery evaluation, which would be done outpatient, anticipate at least a couple months till patient is ready for surgery, also following aortic valve replacement, AVM malformation will not resolve spontaneously and may require some months before GI bleeding would stop, due to severe anemia, concern for cardiovascular compromise. Patient needs strict outpatient follow-up with cardiology. Exam Vital Signs Temp Pulse Resp BP Pulse Ox O2 Del Method O2 Flow Rate 99.1 F 89 19 132/79 H 97 Nasal Cannula 2 05/10/24 04:00 05/10/24 04:00 05/10/24 04:00 05/10/24 04:00 05/10/24 04:00 05/09/24 20:00 05/09/24 20:00 Narrative Exam General: Awake, chronically ill-appearing pale elderly male. HEENT: Normocephalic, atraumatic, mucous membranes moist. Heart: Regular rate and rhythm. An ejection systolic murmur heard loudest at the aortic area Lungs: Clear to auscultation with no wheezing or crackles. Abdomen: Soft, nondistended, nontender, positive bowel sounds. ?No guarding or rebound tenderness. Neurologic: Alert and oriented x3, no gross neurological deficit, and patient able to move all 4 extremities. Extremities: No edema. Skin: No rash or ecchymoses. Objective Labs 05/10/24 05:16 05/10/24 05:16 Labs: Laboratory Results - last 24 hr 05/09/24 05/10/24 05/10/24 08:26 05:13 05:16 WBC 4.9 RBC 3.28 L Hgb 9.5 L Hct 29.5 L MCV 90 MCH 29.0 MCHC 32.2 RDW Std Deviation 55.1 H Plt Count 121 L Neut % (Auto) 62 Lymph % (Auto) 16 [place] % (Auto) 19 H Eos % (Auto) 2 Baso % (Auto) 0 Neut # (Auto) 3.0 Lymph # (Auto) 0.8 L [place] # (Auto) 0.9 H Eos # (Auto) 0.1 Baso # (Auto) 0.0 Immature Gran # (Auto) 0.03 H Absolute Nucleated RBC 0.00 Immature Gran % 1 H Nucleated RBC % 0 Smear Path Review Sent to Pathologist Sodium 138 Potassium 3.4 Chloride 101 Carbon Dioxide 29.1 Anion Gap 8 BUN 30 H Creatinine 3.1 H D Estim Creat Clear Calc 20.5 L eGFR 19 L BUN/Creatinine Ratio 10 L Glucose 103 Calculated Osmolality 281 Calcium 7.8 L Corrected Calcium 8.6 Phosphorus 3.8 Magnesium 1.7 Iron 16 L TIBC 178 L Iron Saturation 8 L Unsat Iron Binding 162 L Ferritin 383 H Total Bilirubin 0.3 AST 15 ALT < 7 L Alkaline Phosphatase 60 Lactate Dehydrogenase 153 Total Protein 5.2 L Albumin 3.0 L Globulin 2.2 L Albumin/Globulin Ratio 1.4 Blood Type A Positive Antibody Screen POSITIVE Antibody Identification Anti-E Crossmatch See Detail Blood Bank Wristband ID Yes Quality Measures Quality Measures VTE prophylaxis Advance care planning discussed with:: patient Assessment & Plan Assessment Current Active Medications: Generic Name Dose Route Start Last Admin Trade Name Freq PRN Reason Stop Dose Admin Acetaminophen 650 mg 05/07/24 10:40 05/09/24 20:24 Acetaminophen 325 Mg Tablet PO 06/06/24 10:39 650 mg Q6H PRN Administration Fever >100.3 or pain Dextrose 50 ml 05/07/24 10:44 Dextrose 50%-Water Inj 50 Ml Syringe IV 06/06/24 10:43 Q15MIN PRN BG <50 OR BG <70 & pt unresponsive Gabapentin 100 mg 05/07/24 21:40 05/10/24 08:30 Gabapentin 100 Mg Capsule PO 06/06/24 21:39 100 mg QDAY ROBERT Administration Glucagon 1 mg 05/07/24 10:44 Glucagon Inj 1 Mg Vial IM Q15MIN PRN BG <70, and no IV access Albumin Human 25 gm in 100 mls @ 100 mls/min 05/07/24 09:35 05/07/24 15:05 Albuminar-25 Ivpb IV 100 mls/min PRN PRN Administration DIALYSIS Levofloxacin/Dextrose 250 mg in 50 mls @ 50 mls/hr 05/10/24 12:06 Levaquin Ivpb IV 05/10/24 13:05 X1 ONE Magnesium Sulfate 4 gm in 50 mls @ 12.5 mls/hr 05/10/24 07:55 05/10/24 08:30 Magnesium Sulfate Ivpb IV 05/10/24 11:54 12.5 mls/hr X1 ONE Administration Insulin Human Lispro 0 unit 05/07/24 11:30 05/10/24 07:18 Insulin Lispro (Admelog) 1 Unit/0.01 Ml Unit SC 06/06/24 11:29 Not Given ACHS ROBERT Protocol Levothyroxine Sodium 100 mcg 05/08/24 06:00 05/10/24 05:12 Levothyroxine Sodium 100 Mcg Tablet PO 06/07/24 05:59 100 mcg ACBR ROBERT Administration Melatonin 3 mg 05/10/24 01:55 05/10/24 02:04 Melatonin 3 Mg Tablet PO 06/09/24 01:54 3 mg HS ROBERT Administration Ondansetron HCl 4 mg 05/07/24 10:40 Ondansetron Inj 2 Mg/Ml Inj 2 Ml IV 06/06/24 10:39 Q6H PRN NAUSEA OR VOMITING Protocol Pantoprazole Sodium 40 mg 05/08/24 09:00 05/10/24 08:30 Pantoprazole Inj 40 Mg Vial IVP 06/07/24 08:59 40 mg BID ROBERT Administration Plan An 79-year-old male with a past medical history of ESRD on HD 3 days a week, prostate cancer on chemotherapy followed by oncology and urology locally, essential hypertension, type 2 diabetes mellitus, history of chronic anemia, 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 Also patient had some melena at home. Patient apparently had similar admission in February 2024 for provide GI bleed and at that time EGD was performed which showed nonerosive gastritis and nonbleeding ulcers with no clear source of bleeding. Colonoscopy was also performed. Patient was recommended to undergo capsule endoscopy which she underwent at the [facility] by his labor contract analyst Dr. Rowe. Patient apparently was diagnosed with AV malformation of the small intestine. Patient again presented this time with weakness and melena and in the emergency department hemoglobin was found to be 6. Patient lactate was mildly elevated 2.7. Hematocrit was 19.5. Patient did receive some IV fluids and was also received 2 units of PRBC during this admission and transfer was initiated urgently to tertiary care center for possible double-balloon enteroscopy given the bleeding AVMs as no therapeutic intervention could be done here. Patient was found to have an systolic murmur on examination by the resident and an echocardiogram was performed which showed severe aortic stenosis. I have called the primary team regarding the findings were requested for further consultation for the severe aortic stenosis. EKG showed normal sinus rhythm with nonspecific ST-T changes. Minimal IVCD 100 ms but no bundle branch block. 1. Severe aortic stenosis 2. Acute on chronic anemia s/p 2 PRBC transfusions 3. 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 ESRD on HD 5. HFpEF with diastolic dysfunction 6. Essential hypertension 7. Type 2 diabetes mellitus 8. Hyperlipidemia 9. COPD not on home oxygen 10. Hypothyroidism 11. Obesity 12. Prostate cancer on chemotherapy followed by oncology and urology locally 13. UTI 14. Iron deficiency anemia As noted above systolic murmur was noted by the resident and echo was ordered on 05/08/2024 which showed the following findings Normal LV size and function with and EF of 55-60%. Moderate LVH. DIastolic Dysfunction stage II. Normal RV size and function. Modertely elevated RVSP 52 mmHg. Severe Aortic Stenosis Vmax 5 m/s, Max PG 90 mm hg, Mean PG 60 mm hg and BARRY 0.7 sqcm. Mild AI Moderate MA and Moderate MR. moderate TR. No pericardial effusion. Further history from the patient was obtained and patient does follow Dr. Mann here in [place] with an has not seen him recently but he was told that he had valve problem and the blood velocity was around 3 m/s as per the daughter and was recommended follow-up. Patient probably progressed from moderate aortic stenosis to severe aortic stenosis with the present point of time and could have accelerated progression to his history of end-stage renal disease on hemodialysis which started about the last 2 to 3 years. 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 Unless there is active profuse bleeding which needs to be immediately stopped, patient would not benefit from the AVM therapy with the double balloon enteroscopy unless the severe aortic stenosis addressed. Patient probably is a high risk candidate for DBE also which would require general anesthesia also. Discussed this with the GI team and recommended to hold the transfer at the present point of time. Patient will need complete evaluation of the severe aortic stenosis. At baseline patient appears to be IADL dependent but ADL independent but needs some help at times. Able to walk with a cane previously but in the last 2 months since the last admission February 2024 has been doing mobility. Patient did be assessed further for aortic valve replacement SAVR versus TAVR. He will need a complete workup including left and right heart cardiac catheterization, cardiothoracic surgical evaluation and CT TAVR to assess his candidate CT for SAVR versus TAVR which can all be done as outpatient. Will try to expedite the process but explained to the patient and the family that it would take 2 to 3 months. Patient should follow-up with Dr. Mann as outpatient for the left and right heart cardiac catheterization and then follow-up with me for the CT TAVR and CT surgery consult. Given his age, multiple comorbidities including end- stage renal disease on hemodialysis he is mostly a TAVR candidate and will not be a SAVR candidate as his STS score will be high. Regarding his anemia- Recommend to keep hemoglobin between 9-10 at all times. Transfuse PRBC as needed. 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 05/10/24: Iron 16, TIBC 178, iron saturation 8%, onset iron binding 162, ferritin 383, pending vitamin B12 and folate Patient was given 1 dose of ferumoxytol 510 mg IV x 1 Recommend outpatient follow-up with hematology and complete iron infusions for at least 5 days Blood pressure appears to be well-controlled and if needed patient should be on afterload reducing agents and can start on low-dose losartan. Management of rest of the medical conditions as per primary team and other consultants. Thank you for the consult and allowing me to participate in the care of the patient. Cardiology will continue to follow. Plan of care discussed with my attending Dr Anna Mann, Internal medicine, PGY1 Attending Provider Attestation/Addendum I have personally seen and examined the patient separately on the above date of service and discussed the plan of care with the resident. I reviewed the resident Dr. Juancarlos Mann consultation progress note and agree with the resident findings and plan in the note above and have also edited the documentation to reflect my findings and plan. Abdifatah Castillo M.D. Interventional Cardiology
[2024-05-10] MEDS: ferumoxytoL (ESRD) 510 MG in SODIUM CHLORIDE 0.9% 100 ML 234 MG IV (10:37)
[2024-05-10 12:00] VITALS: BP 112/58; PULSE 76; PULSE 82; RESP 20; TEMP 36.3; O2SAT 94
--- NOTE | 2024-05-10 12:14 | ESDS_ITS ---
<Statement entered by Marianne Ramos DO - 05/10/24 15:31> I, Marianne Ramos DO, attest that I was physically present for the gambino portions of the service and evaluated the patient with the resident and I reviewed and discussed the case with the resident and agree with the resident's findings and plans of care as documented above Planned Discharge Date 05/10/24 DS: Providers Provider Date of admission: 05/07/24 13:58 Primary care physician: Physician No Primary/Family Admitting Provider: Rahat Sim MD Attending Provider on Admission: Rahat Sim MD Consults: 05/07/24 08:00 Consult to Gastroenterology Stat Comment: Consulting Provider: Nataliya Stewart Consult to Nephrology Stat Comment: Consulting Provider: Yared Funez 05/07/24 11:31 Referral - Logistics Engineering Manager Stat Service Needed for Transfer: Gastroenterology Addl Comments:: Need double Balloon enteroscopy for bleeding Small intestine AVM 05/07/24 12:05 Health [facility] Referral - Knowledge Deficit Routine Comment: Positive screening for knowledge deficit needs. 05/08/24 18:51 Consult to Cardiology Routine Comment: Severe aortic stenosis Consulting Provider: Abdifatah Castillo Attending Provider on DC: Syed Briscoe MD Discharging Provider: Syed Briscoe MD DS: Diagnosis Problem List Completed Was Problem List Reviewed/Reconciled?: Yes Hospital Course Hospital Course Hospital course: 79-year-old male past medical history significant for prostate cancer on abiraterone and prednisone follows up with oncologist Dr. Maxwell and urologist Dr. Lamas, ESRD on hemodialysis via left AV fistula T//, [id number] diabetes mellitus type 2, COPD not on home oxygen and hypothyroid presented on 05/07/24 with a chief complaint of weakness and melanotic stools. Patient has previous admission from 02/23/2024 to 02/26/2024 for which he was admitted for GI bleed for investigation. During that hospitalization he had EGD which showed non erosive gastritis and non bleeding ulcer with no clear source of bleeding. Of note earlier this month patient had a capsule endoscopy done at the [facility] by oven dauber Dr. Xiao Rowe. 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 Consulted oven dauber, Dr. Stewart. He recommended to immediately initiate transfer to tertiary center for double- balloon enteroscopy to achieve hemostasis. During hospitalization, patient had a systolic murmur auscultated on exam which prompted echo and cardiology referral. Further investigation revealed that the patient has severe aortic stenosis, increased RVSP of 52 and grade II diastolic dysfunction. 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 Transfer was stopped as patient stopped having melanotic stools and had a total of 5 units of pRBCs transfused over course of hospitalization. H/H has been stable and patient has been hemodynamically stable. He has been cleared for discharge by GI. Patient states that he has an appointment with GI specialist at the [facility]. Patient will be discharged with the following strict instructions. Please follow-up with your PCP within 1 week at the [facility]. Ask your PCP for a lab slip to complete weekly Hemoglobin-hematocrit to check your blood count Follow-up with Cardiology for your Severe Aortic Stenosis Please take Iron tablets as prescribed as you have Iron Deficiency Anemia Continue taking all your home medications as prescribed If your symptoms worsen or if you develop new chest pain, shortness of breath, dizziness, bloody bowel movements or vomiting - please come back to the ED immediately. Hospital Diagnosis: #Acute blood loss anemia #Upper GI bleed likely secondary to small intestine AV malformation #Severe aortic stenosis #ESRD on hemodialysis via left AV fistula T// #ESBL UTI #[id number] diabetes mellitus type 2 [5%] #Hypothyroidism #COPD not on home oxygen #Prostate cancer on treatment with abiraterone, prednisone and Zoladex Syed Briscoe, PGY-1 Status at Discharge Overall status at discharge: patient is progressing back to baseline Time Spent with Patient Time attestation: Total time spent providing and/or coordinating discharge services: 45 minutes Time spent: Greater than 30 minutes Exam Vital Signs Temp Pulse Resp BP Pulse Ox O2 Del Method O2 Flow Rate 98.7 F 78 17 106/50 L 94 L Nasal Cannula 2 05/10/24 08:00 05/10/24 08:00 05/10/24 08:00 05/10/24 08:00 05/10/24 08:00 05/10/24 08:00 05/10/24 08:00 Narrative Exam General: Awake, chronically ill-appearing pale elderly male. HEENT: Normocephalic, atraumatic, mucous membranes moist. Heart: Regular rate and rhythm. A V/ systolic ejection murmur heard loudest at 2nd intercostal mid-clavicular line. Lungs: Clear to auscultation with no wheezing or crackles. Abdomen: Soft, nondistended, nontender, positive bowel sounds. ?No guarding or rebound tenderness. Extremities: No edema. Skin: No rash or ecchymoses. Neurologic: Alert and oriented x3, no gross neurological deficit, and patient able to move all 4 extremities. Discharge Plan Plan Patient Disposition: HOME (Self Care) Patient condition on transfer: Stable Care Plan Goals: Please follow-up with your PCP within 1 week at the [facility]. Ask your PCP for a lab slip to complete weekly Hemoglobin-hematocrit to check your blood count Follow-up with Cardiology for your Severe Aortic Stenosis Please take Iron tablets as prescribed as you have Iron Deficiency Anemia Continue taking all your home medications as prescribed If your symptoms worsen or if you develop new chest pain, shortness of breath, dizziness, bloody bowel movements or vomiting - please come back to the ED immediately. Prescriptions/Referrals Prescriptions/Med Rec: New ferrous sulfate [Iron (ferrous sulfate)] 325 mg (65 mg iron) tablet 325 mg PO QDAY 30 Days Qty: 30 0RF Continued tamsulosin 0.4 mg capsule 0.4 mg PO QDAY levothyroxine 100 mcg Tablet 100 mcg PO QDAY Qty: 0 atorvastatin 40 mg tablet 1 tab PO HS Patient Comments: take 1 tablet by mouth at bedtime for HIGH CHOLESTEROL docusate sodium 100 mg Tablet 100 mg PO BID pantoprazole [Protonix] 40 mg tablet,delayed release (DR/EC) 40 mg PO BID Qty: 60 0RF Lupron Depot (3 month) 22.5 mg Syringe Kit See Rx Instructions .ROUTE .COMPLEX Rx Instructions: 22.5 mg IM every 3 months Vitamin C 100 mg Tablet 100 mg PO QDAY sucralfate 1 gram tablet 1 g PO BID Patient Comments: take 1 tablet by mouth twice a day abiraterone 250 mg Tablet 250 mg PO QDAY Rx Instructions: take 4 tablets po qd 1 suhail before or 2 hours after food sitagliptin 25 mg Tablet 25 mg PO QDAY prednisolone acetate 1 % drops,suspension 1 drp OPHTHALMIC (EYE) QID Patient Comments: instill 1 into left eye four times a day START AFTER SURGERY nicotine (polacrilex) 4 mg Lozenge 4 mg BUCCAL Q2H PRN (Reason: Smoking Cessation) trazodone 50 mg Tablet 100 mg PO QDAY gabapentin 100 mg Capsule 100 mg PO QDAY calcium acetate(phosphat bind) 667 mg Capsule 667 mg PO TID fluticasone propion-salmeterol 100-50 mcg/dose Blister With Device 1 inh INHALATION BID phenazopyridine 100 mg tablet PO QDAY Patient Comments: take 1 tablet by mouth once a day tramadol 50 mg tablet 50 mg PO QDAY Held prednisone 5 mg tablet 5 mg PO QDAY Hold Instructions: f/u with pcp Referrals: No Primary/Family,Physician [Primary Care Provider] - Patient/Caregiver Discharge Instructions Education Materials: Bleeding Gastrointestinal, Aortic Stenosis, TAVR Print Language: Ukrainian Stand Alone Forms: Franny Award Info., Patient Portal Info Letter Discharge Order Discharge Orders: Discharge (Routine); Ordered 05/10/24 Ordered By: Syed Briscoe Quality Discharge Quality Measures VTE prophylaxis
--- NOTE | 2024-05-10 12:32 | PD.NEPHPROG ---
Documentation for date of: 05/10/24 Subjective Subjective Interval history: Informant-Xiao daughter Mr. Kim is a 79 y/o male with PMHx of recurrent prostate cancer ( sees Dr. Ramírez, on Abiraterone Acetate), ESRD (//), recurrent UTI, urinary retention secondary to neurogenic bladder with self-catheterization, chronic anemia(multiple endoscopies, colonoscopies done. Recently had a small bowel enteroscopy in [place] which showed AVMs-supposedly needs a repeat scope) diabetes mellitus, hypothyroidism, and COPD who presented to the ED with a significant weakness and blood in the stools. associated nausea, vomiting, weakness and fatigue. Says that he self caths on his own, still makes urine but a little bit of it. Says that he has been feeling tired and fatigued, felt like he was going to pass out but did not. Denies having fallen recently. Daughters present at bedside. Denies any chest pain, shortness of breath, syncope, headache. Home medications included Abiraterone, atorvastatin, calcium acetate, docusate, gabapentin, Protonix, prednisone, sitagliptin, Carafate, tramadol, trazodone, Flomax, vitamins C ED course: Patient arrived to the ED with 78. Hemoglobin 6.6, platelets 242, sodium 139, potassium 4, BUN 76, creatinine 3.9, calcium 8.4, LFTs normal, albumin 3, urinalysis shows significant pyuria. Blood sugar 109, blood pressure 99/55, heart rate GI was consulted and decision was made to admit patient for further evaluation of GI bleed.Patient started receiving unit of blood. Nephrology consultation requested for need for dialysis and blood transfusion. 05/08/2024 patient currently seen in telemetry. Resting comfortably. So far received 2 units of blood transfusion. Patient has been getting more than 4 units of blood transfusion per month. In the dialysis we have been doing weekly CBC. Endoscopy and colonoscopy negative. Small bowel lab enteroscopy per patient/daughter showed AVMs. Patient has severe aortic stenosis which could be contributing to AVMs. Cardiology, Dr. Stewart involved. Next dialysis scheduled for tomorrow. 05/10/2024 patient currently seen in telemetry. Did receive dialysis yesterday. He is going to follow-up with Dr. Stewart, Dr. Mann as an outpatient. Will be discharged today. Review of Systems Review of Systems Narrative Review of Systems: Complaining of fatigue, fever and chills complaining of weakness HEENT: Denies any visual disturbances or hearing problems. CARDIOVASCULAR: Patient denies any chest pain, shortness of breath + mild swelling in the lower extremities. PULMONARY: Patient complaining of shortness of breath, cough. Complaining of black stools GASTROINTESTINAL: Patient denies any abdominal pain, constipation, nausea, vomiting, diarrhea. GENITOURINARY: Obstructive uropathy-does self cath Anemia SKIN: Denies any rash. MUSCULOSKELETAL: Gait imbalance NEUROLOGICAL: Denies any neurological problems of strokes, seizures or confusion.? Denies any memory problems. Exam Vital Signs Temp Pulse Resp BP Pulse Ox O2 Del Method O2 Flow Rate 36.3 C 76 20 112/58 L 94 L Nasal Cannula 2 05/10/24 12:00 05/10/24 12:00 05/10/24 12:00 05/10/24 12:00 05/10/24 12:00 05/10/24 12:00 05/10/24 08:00 Narrative Exam Patient patient currently seen on dialysis. Resting comfortably. HEENT: Pale conjunctiva NECK: Neck supple, no JVD or bruit CARDIOVASCULAR: Heart regular, no murmurs LUNGS/CHEST: Clear to auscultation ABDOMEN: Soft, nontender, nondistended.? No masses.? Normal bowel sounds. EXTREMITIES: 1+ edema in the lower extremities SKIN: Skin exam normal without any rashes NEURO: Alert, awake. Leg weakness noted. Objective Labs 05/10/24 05:16 05/10/24 05:16 Labs: Laboratory Results - last 24 hr 05/10/24 05/10/24 05:13 05:16 WBC 4.9 RBC 3.28 L Hgb 9.5 L Hct 29.5 L MCV 90 MCH 29.0 MCHC 32.2 RDW Std Deviation 55.1 H Plt Count 121 L Neut % (Auto) 62 Lymph % (Auto) 16 White % (Auto) 19 H Eos % (Auto) 2 Baso % (Auto) 0 Neut # (Auto) 3.0 Lymph # (Auto) 0.8 L White # (Auto) 0.9 H Eos # (Auto) 0.1 Baso # (Auto) 0.0 Immature Gran # (Auto) 0.03 H Absolute Nucleated RBC 0.00 Immature Gran % 1 H Nucleated RBC % 0 Smear Path Review Sent to Pathologist Sodium 138 Potassium 3.4 Chloride 101 Carbon Dioxide 29.1 Anion Gap 8 BUN 30 H Creatinine 3.1 H D Estim Creat Clear Calc 20.5 L eGFR 19 L BUN/Creatinine Ratio 10 L Glucose 103 Calculated Osmolality 281 Calcium 7.8 L Corrected Calcium 8.6 Phosphorus 3.8 Magnesium 1.7 Iron 16 L TIBC 178 L Iron Saturation 8 L Unsat Iron Binding 162 L Ferritin 383 H Total Bilirubin 0.3 AST 15 ALT < 7 L Alkaline Phosphatase 60 Lactate Dehydrogenase 153 Total Protein 5.2 L Albumin 3.0 L Globulin 2.2 L Albumin/Globulin Ratio 1.4 Assessment & Plan Assessment and plan (1) History of prostate cancer: Status: Acute (2) Hypertension: Status: Acute (3) Hyperlipidemia: Status: Acute (4) Diabetes: Status: Acute Additional Assessment & Plan Additional Plan: (1) End-stage renal disease ?Status:?Chronic ? ? ? 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 Currently on dialysis 3 times weekly for the last 1 year. Next dialysis scheduled for Saturday. (2) History of prostate cancer: ?Status:?Acute ? ? ? 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 Currently on chemotherapy under urology [facility] (3) Hypertension: ?Status:?Acute ? ? ? Assessment and plan: Resume home blood pressure medications (4) Hyperlipidemia: ?Status:?Acute ? ? ? Assessment and plan: Resume statin (5) Diabetes: ?Status:?Acute ? ? ? Assessment and plan: Accu-Cheks, sliding scale.? Diabetic diet ordered.? Resume home medications. (6)? Anemia Patient has longstanding history of anemia for couple of years . I have sent him to the emergency department for multiple blood transfusions Patient had multiple endoscopy/colonoscopy were negative. Dr. Stewart send him for capsule endoscopy which showed AVMs.- I referred him to hematology-workup so far negative. Suspect bone marrow problem for his underlying prostate cancer. Patient on significant amounts of Epogen at dialysis. Patient so far received 4 units of blood transfusion. Noted he has aortic stenosis which could be contributing to AVMs. Will follow-up with Dr. Stewart and Dr. Mann as an outpatient. (7)?leg weakness Multifactorial- UTI, severe anemia
[2024-05-10] MEDS: LEVOFLOXACIN/D5W 250MG IVPB 250 MG/50 ML BAG 50 MG IV (13:12)
--- NOTE | 2024-05-10 14:51 | PD.IMPROG ---
Documentation for date of: 05/10/24 Subjective Subjective Interval history: Patient evaluated Case discussed with internal medicine team Hemoglobin hematocrit stabilized today is 9.5 and 29.5 No melanotic stools Cancel transfer at the moment as documented in previous note till the aortic valve is fixed otherwise she is going to keep getting repeated arteriovenous malformations Exam Vital Signs Temp Pulse Resp BP Pulse Ox O2 Del Method O2 Flow Rate 97.4 F 76 20 112/58 L 94 L Nasal Cannula 2 05/10/24 12:00 05/10/24 12:00 05/10/24 12:00 05/10/24 12:00 05/10/24 12:00 05/10/24 12:00 05/10/24 08:00 Objective Labs 05/10/24 05:16 05/10/24 05:16 Labs: Laboratory Results - last 24 hr 05/10/24 05/10/24 05:13 05:16 WBC 4.9 RBC 3.28 L Hgb 9.5 L Hct 29.5 L MCV 90 MCH 29.0 MCHC 32.2 RDW Std Deviation 55.1 H Plt Count 121 L Neut % (Auto) 62 Lymph % (Auto) 16 [place] % (Auto) 19 H Eos % (Auto) 2 Baso % (Auto) 0 Neut # (Auto) 3.0 Lymph # (Auto) 0.8 L [place] # (Auto) 0.9 H Eos # (Auto) 0.1 Baso # (Auto) 0.0 Immature Gran # (Auto) 0.03 H Absolute Nucleated RBC 0.00 Immature Gran % 1 H Nucleated RBC % 0 Smear Path Review Sent to Pathologist Sodium 138 Potassium 3.4 Chloride 101 Carbon Dioxide 29.1 Anion Gap 8 BUN 30 H Creatinine 3.1 H D Estim Creat Clear Calc 20.5 L eGFR 19 L BUN/Creatinine Ratio 10 L Glucose 103 Calculated Osmolality 281 Calcium 7.8 L Corrected Calcium 8.6 Phosphorus 3.8 Magnesium 1.7 Iron 16 L TIBC 178 L Iron Saturation 8 L Unsat Iron Binding 162 L Ferritin 383 H Total Bilirubin 0.3 AST 15 ALT < 7 L Alkaline Phosphatase 60 Lactate Dehydrogenase 153 Total Protein 5.2 L Albumin 3.0 L Globulin 2.2 L Albumin/Globulin Ratio 1.4 Impressions Impression: Arteriovenous formation due to aortic stenosis Cancel the transfer to a tertiary center fix aortic valve first before doing a double-balloon enteroscopy Weekly CBC by the PCP and transfusion as needed till the aortic valve is fixed Assessment & Plan A&P Narrative A 79-year-old male with a past medical history of ESRD on HD 3 days a week, prostate cancer on chemotherapy followed by oncology and urology locally, essential hypertension, type 2 diabetes mellitus, history of chronic anemia, 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 Also patient had some melena at home. Patient apparently had similar admission in February 2024 for provide GI bleed and at that time EGD was performed which showed nonerosive gastritis and nonbleeding ulcers with no clear source of bleeding. Colonoscopy was also performed. Patient was recommended to undergo capsule endoscopy which she underwent at the [facility] by his food and beverage analyst Dr. Rowe. Patient apparently was diagnosed with AV malformation of the small intestine. Patient again presented this time with weakness and melena and in the emergency department hemoglobin was found to be 6. Patient lactate was mildly elevated 2.7. Hematocrit was 19.5. Patient did receive some IV fluids and was also received 2 units of PRBC during this admission and transfer was initiated urgently to tertiary care center for possible double-balloon enteroscopy given the bleeding AVMs as no therapeutic intervention could be done here. Patient was found to have an systolic murmur on examination by the resident and an echocardiogram was performed which showed severe aortic stenosis. I have called the primary team regarding the findings were requested for further consultation for the severe aortic stenosis. EKG showed normal sinus rhythm with nonspecific ST-T changes. Minimal IVCD 100 ms but no bundle branch block. 1. Severe aortic stenosis 2. Acute on chronic anemia s/p 2 PRBC transfusions 3. 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 ESRD on HD 5. HFpEF with diastolic dysfunction 6. Essential hypertension 7. Type 2 diabetes mellitus 8. Hyperlipidemia 9. COPD not on home oxygen 10. Hypothyroidism 1. Obesity 12. Prostate cancer on chemotherapy followed by oncology and urology locally 13. UTI 14. Iron deficiency anemia As noted above systolic murmur was noted by the resident and echo was ordered on 05/08/2024 which showed the following findings Normal LV size and function with and EF of 55-60%. Moderate LVH. DIastolic Dysfunction stage II. Normal RV size and function. Modertely elevated RVSP 52 mmHg. Severe Aortic Stenosis Vmax 5 m/s, Max PG 90 mm hg, Mean PG 60 mm hg and BARRY 0.7 sqcm. Mild AI Moderate MA and Moderate MR. moderate TR. No pericardial effusion. Further history from the patient was obtained and patient does follow Dr. Mann here in [place] with an has not seen him recently but he was told that he had valve problem and the blood velocity was around 3 m/s as per the daughter and was recommended follow-up. Patient probably progressed from moderate aortic stenosis to severe aortic stenosis with the present point of time and could have accelerated progression to his history of end-stage renal disease on hemodialysis which started about the last 2 to 3 years. 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 Unless there is active profuse bleeding which needs to be immediately stopped, patient would not benefit from the AVM therapy with the double balloon enteroscopy unless the severe aortic stenosis addressed. Patient probably is a high risk candidate for DBE also which would require general anesthesia also. Discussed this with the GI team and recommended to hold the transfer at the present point of time. Patient will need complete evaluation of the severe aortic stenosis. At baseline patient appears to be IADL dependent but ADL independent but needs some help at times. Able to walk with a cane previously but in the last 2 months since the last admission February 2024 has been doing mobility. Patient did be assessed further for aortic valve replacement SAVR versus TAVR. He will need a complete workup including left and right heart cardiac catheterization, cardiothoracic surgical evaluation and CT TAVR to assess his candidate CT for SAVR versus TAVR which can all be done as outpatient. Will try to expedite the process but explained to the patient and the family that it would take 2 to 3 months. Patient should follow-up with Dr. Mann as outpatient for the left and right heart cardiac catheterization and then follow-up with me for the CT TAVR and CT surgery consult. Given his age, multiple comorbidities including end-stage renal disease on hemodialysis he is mostly a TAVR candidate and will not be a SAVR candidate as his STS score will be high. Regarding his anemia- patient was transfused 2 units of PRBC and hemoglobin is around 8-9. Recommend to keep hemoglobin between 9-10 at all times. Transfuse PRBC as needed. 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 Unfortunately no recent anemia workup has been done in the last year and the picture will be now muddled with the recent transfusions but nevertheless recommend to obtain complete iron studies, B12, folate level, LDH, haptoglobin and erythropoietin levels along with peripheral smear. [facility] which did show low iron saturation at 11% as well as low iron at 30. Recommend to give the patient IV iron while inpatient and completed total of 5 doses of ferric gluconate to replenish all his iron stores. Also replaced vitamin B12 and folate if needed. Erythropoietin replacement also may be needed based on his levels - Recommend to discuss with nephrology. Blood pressure appears to be well-controlled and if needed patient should be on afterload reducing agents and can start on low-dose losartan. Management of rest of the medical conditions as per primary team and other consultants. Thank you for the consult and allowing me to participate in the care of the patient. Cardiology will continue to follow. Abdifatah Castillo M.D. Interventional Cardiology Time Spent With Patient Time: Total time spent is greater than 50% in coordination of care (as documented) at patient's floor/unit and/or counseling patient:
--- NOTE | 2024-05-10 18:11 | PC.NURSE ---
Patient had BM this morning, noted no blood in stool. Notified Dr. Briscoe of SOB. Ok to still discharge. Educated to pt and family for follow up with primary for h/h checks weekly. Called bennie Foreman to discharge. Called Dr. Ramonita Mann, will follow up within 1 week.
[2024-05-12 06:33] LABS: Folate > 24.00 ng/mL (>5.38); Vitamin B12 396 pg/mL (211-911)
[2024-05-20 06:39] LABS: Haptoglobin* 126 mg/dL (43-212)
== END 2024-05-10 14:58 | disposition home or self-care (01) | DRG 377 ==
LOC: SERX 09:59 → SERHOLD 11:05 → S3SX 14:00 → S2NX 05-08 16:14
PROVIDERS: Admitting Provider Student in an Organized Health Care Education/Training Program; Emergency Provider Emergency Medicine; Visit Provider Student in an Organized Health Care Education/Training Program
DX: K31.811 Angiodysplasia of stomach and duodenum with bleeding (principal); N18.6 End stage renal disease; D62 Acute posthemorrhagic anemia; I13.2 Hypertensive heart and chronic kidney disease with heart failure and with stage 5 chronic kidney disease, or end stage renal disease; I50.30 Unspecified diastolic (congestive) heart failure; N39.0 Urinary tract infection, site not specified; Z16.12 Extended spectrum beta lactamase (ESBL) resistance; E11.22 Type 2 diabetes mellitus with diabetic chronic kidney disease; Z99.2 Dependence on renal dialysis; E03.9 Hypothyroidism, unspecified; C61 Malignant neoplasm of prostate; D63.1 Anemia in chronic kidney disease; D50.9 Iron deficiency anemia, unspecified; I35.0 Nonrheumatic aortic (valve) stenosis; J44.9 Chronic obstructive pulmonary disease, unspecified; N13.9 Obstructive and reflux uropathy, unspecified; N31.9 Neuromuscular dysfunction of bladder, unspecified; E78.5 Hyperlipidemia, unspecified; D69.6 Thrombocytopenia, unspecified; Z91.85 Personal history of military service; Z87.440 Personal history of urinary (tract) infections; Z87.891 Personal history of nicotine dependence; Z79.84 Long term (current) use of oral hypoglycemic drugs; Z92.3 Personal history of irradiation; Z99.81 Dependence on supplemental oxygen
CPT/HCPCS: 36415; 71045; 74018; 80053; 81001; 82607; 82728; 82746; 83010; 83540; 83550; 83605; 83615; 83690; 83735; 84100; 84443; 85014; 85018; 85025; 85046; 85610; 86850; 86870; 86900; 86901; 86921; 86922; 87077; 87081; 87086; 87186; 87811; 93225; 93306; 96361; 96374; 96375; 99291; 99292; J1956; J2470; J3475; J7030; J7040; J7050; P9016; P9047; Q0139; Q5105; A9270

== ENCOUNTER → 2024-05-18 | Outpatient (CLI) | payer OTHER, SELFPAY ==
[2024-05-18 13:42] LABS: Hematocrit 31.4 % (41.0-53.0)
== END | disposition home or self-care (01) ==
LOC: COPL 12:28
PROVIDERS: PCP Family Medicine; Referring Provider Family Medicine; Visit Provider Family Medicine
DX: K92.1 Melena (principal); K92.2 Gastrointestinal hemorrhage, unspecified; Q27.33 Arteriovenous malformation of digestive system vessel
CPT/HCPCS: 36415; 85014; 85018

== ENCOUNTER 2024-06-03 06:40 | Day surgery (SDC) | payer OTHER, SELFPAY ==
--- NOTE | 2024-06-02 07:00 | EKG_ITS ---
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 : 1945 Requested By: Kory Ruiz Order Number: [id number] Reading MD: Kory Ruiz Measurements Intervals [place] Rate: 85 P: -6 [place]: 145 QRS: -30 QRSD: 103 T: 10 QT: 392 QTc: 467 Interpretive Statements SINUS RHYTHM WITH OCCASIONAL SUPRAVENTRICULAR PREMATURE COMPLEXES SEPTAL MYOCARDIAL INFARCTION , PROBABLY OLD [40+ ms Q WAVE IN V1/V2] INFERIOR MYOCARDIAL INFARCTION , PROBABLY OLD [40+ ms Q WAVE AND/OR ST/T ABNORMALITY IN II/aVF] Compared to ECG 03/26/2024 10:01:43 Myocardial infarct finding now present Left-axis deviation no longer present T-wave abnormality no longer present /store/S0/[id number]/ecg/[id number].pdf
[2024-06-02 08:38] LABS: Partial Thromboplastin Time 28.4 Seconds (22.0-36.0); Prothrombin Time 11.2 Seconds (9.0-12.2)
[2024-06-03] VITALS (14 sets, daily range): BP systolic 102–151; BP diastolic 57–69; PULSE 78–89; RESP 11–24; TEMP 36.7–36.8; O2SAT 90–99
--- NOTE | 2024-06-03 11:41 | PC.NURSE ---
Addendum entered by Amee Giron RN 06/03/24 12:51: Note for 1200 hr should be timed for 1100 hrs. Original Note: 0855: Pt received in [place] via gurney. Report from Eryn BROWN. Pt groggy, but awake. Resp even, unlabored. VS stable. TR band right wrist with no bleeding, hematoma. Right radial pulse strong, regular. Right groin has femoral sheath in place with gauze secured with tegaderm. No bleeding, hematoma. Femoral pulse strong, regular. Bilateral pedal pulses strong, regular. Denies pain. 0945: TR band air release started with 3ml releasee. No bleeding hematoma. 1045: TR band air release complete. No bleeding, hematoma. Tegaderm and coban placed. 1200: Pt HOB 30 degrees. Pt tolerating breakfast meal with no difficulty swallowing and no n/v. Right wrist dressing dry, clean, intact with no hematoma. Right femoral dressing remains dry, clean, intact with no bleeding, hematoma. Denies pain.
--- NOTE | 2024-06-03 12:51 | PC.NURSE ---
1130: Pt consumed 100% of meal with no problems or complaints voiced. Pt resting. VS stable. Dressings to right wrist and right groin remain dry, clean, intact with no bleeding, hematoma. Denies pain. 1205: Pt was assisted to restroom. Ambulation steady. Performs self cath to void. No bleeding, hematoma to right wrist or right groin. Pt dressed and in transport chair. Awaiting transportation. 1230: Transportation available. Pt and daughter stated understanding of discharge instructions. Pt discharged from [facility] [employer] in stable condition.
--- NOTE | 2024-06-03 13:41 | ESOP_ITS ---
RE: ARTURO QUEZADA : 1945 DATE OF OPERATION: 06/03/2024 PROCEDURES PERFORMED: 1. Diagnostic right and left heart cardiac catheterization, selective coronary angiogram, left ventricular angiogram, CPT 54938. 2. Conscious sedation for 30-minute duration. 3. Ultrasound-guided access, right radial artery and femoral vein. DIAGNOSIS: Severe aortic stenosis, syncope, and recurrent GI bleed. HISTORY AND INDICATIONS: The patient is an 79-year-old male with a past medical history of hypertension, hypercholesterolemia, has recurrent gastrointestinal bleeding, severe aortic stenosis, syncopal episodes, found to have severe aortic stenosis and cardiac catheterization was recommended prior to recommended TAVR procedure DESCRIPTION OF PROCEDURE: The patient was brought to cardiac catheterization laboratory where he was given total of 2 mg Versed and 50 mcg of fentanyl for sedation. Right radial artery cannulated by micropuncture technique. Ultrasound guidance was used and a 6-Haitian Glidesheath was introduced. Right femoral vein was cannulated by ultrasound guidance and a 7- Haitian sheath was introduced. Right heart catheterization was performed with Aurora-Cecilia catheter. Right heart pressure was measured. Left heart catheterization was performed by a 5-Haitian pigtail catheter and using a straight guidewire, a Werner wire was used to cross the aortic valve and left ventricular pressure recorded. LV angiogram performed. Subsequently, selective right and left coronary angiogram performed a 5-Haitian TIG-4.5 diagnostic catheter. Multiple views were obtained. The patient tolerated the procedure well. No complications. Hemostasis was secured. TR band was applied to the right radial artery. Radial cocktail was given in the right radial artery after cannulation of the right radial sheath. Cardiac catheterization showed following findings: HEMODYNAMICS: Right atrial pressure is found to be 6 mmHg. Right ventricular pressure 34/5 mmHg. Pulmonary artery pressure 34/16, mean 24 mmHg. Pulmonary artery wedge pressure 15 mmHg, v wave __ 20. Left ventricular pressure 162/2, end diastolic pressure 21, aortic pressure 122/49, and there is a peak gradient of 40 mmHg and a mean gradient of 35 mmHg. Aortic valve area 1.3 square centimeters. Cardiac output was 10 liters per minute. Aortic valve index 0.8. Coronary angiogram showed following findings: The right coronary artery shows large and dominant giving a PDA. Posterolateral branch appear normal. Left coronary system. Left main coronary artery normal. Left anterior descending artery appears normal. Circumflex artery is normal and nondominant, appears normal. Left ventricular angiogram showed normal left ventricular wall motion. Ejection fraction 70%. Fluoroscopy showed heavy calcific aortic valve. SUMMARY OF FINDINGS AND SUGGESTIONS: 1. Severe calcific aortic stenosis with peak gradient 40 mmHg, mean gradient 34 mmHg. 2. Normal nonobstructive epicardial coronary artery. 3. Normal right heart pressure. 4. Normal left ventricular function. RECOMMENDATIONS: The patient has recurrent GI bleeding, syncopal episode, symptomatic severe aortic stenosis. Recommended attempt TAVR procedure, transcutaneous aortic valve replacement electively. DT: 12:14:21 TT: 13:15:00 Ref: [id number] - TID: [id number] [facility]
[2024-06-05 13:49] LABS: O2 Saturation (Cath Lab) 60 % (91-98); O2 Saturation (Cath Lab) 86 % (91-98); Puncture Site Aortic; Puncture Site Pulmonary Artery
== END 2024-06-03 12:30 | disposition home or self-care (01) ==
PROVIDERS: PCP Family Medicine; Referring Provider Internal Medicine Cardiovascular Disease; Visit Provider Internal Medicine Cardiovascular Disease
PROC: (CPT 93460; principal; 2024-06-03 07:30)
DX: I35.0 Nonrheumatic aortic (valve) stenosis (principal); K92.2 Gastrointestinal hemorrhage, unspecified; I10 Essential (primary) hypertension; E78.00 Pure hypercholesterolemia, unspecified
CPT/HCPCS: 93460; 36415; 80053; 82810; 85025; 85610; 85730; 93005; 99152; 99153; A4649; C1769; C1887; C1894; J0171; J0461; J1643; J2250; J2310; J2371; J3010; J3490; Q9967; J2305

== ENCOUNTER 2024-06-08 08:50 | Outpatient (RCR) | payer OTHER, SELFPAY ==
--- NOTE | 2024-05-27 00:18 | CTCFLWUP_ITS ---
Patient: ARTURO QUEZADA : 1945 Page 6 of 6 FOLLOW UP NOTE DATE OF SERVICE: 05/26/2024 NAME: ARTURO QUEZADA ACCOUNT: [id number] : 1945 AGE: 79 INTERVAL HISTORY: Patient is here to follow-up on prostate cancer. Patient has been on Lupron and Xtandi which was started on April 10, 2022. Patient have been in and out of the hospital secondary to his GI bleed. As per daughter patient had biopsy with EGD and colonoscopy at [facility] and was told that he does not have any mass in the intestine Patient has been getting transfusions. Patient lost his 2 days earlier. He is feeling tired most of the time spending time either in the hospital or clinic or in bed. Arturo Quezada is a 79-year-old ENG speaking male with following oncology history. April 2010: Mr. Quezada was diagnosed with Whe[place] score 7 prostate cancer. Treated with EBRT and Zoladex for 1 year. Until 2016: PSA less than 0.1. O ctober 2019: PSA 3.1. August 25, 2020 PSA 10.8. 09/07/2020: Bone scan? 08/25/2020: PSA 10.8 09/21/2020: Patient was started on Lupron every 3 months as well as Casodex. 12/02/2020: PSA 2.6. 12/21/2020: PSA 1.3. 03/24/2021: PSA 0.9. 02/21/2021: Mr. Quezada had a bilateral ureteral stent placement 04/10/2022: Patient is started on enzalutamide (Xtandi) 05/08/2023: Colonoscopy done 05/16/2023: Bone scan ? 05/22/2023: Bone marrow biopsy and aspiration? WBC 8.8, ANC 6.4, hemoglobin 10.5, MCV 93, platelets 185,000. 05/21/2023: PSA 4.35. 07/22/2023: PSA 6.23. 08/15/2023: PET/CT scan 09/26/2023: PSA 7.89. ONCOLOGY HISTORY: DIAGNOSIS: PSA only recurrent nonmetastatic prostate cancer. Progressed on Lupron. Currently on Lupron and Xtandi. Xtandi started on 04/10/2022 End-stage renal disease currently on hemodialysis Hypothyroidism currently on levothyroxine. History of chronic kidney disease DATE OF DIAGNOSIS: April 2010 STAGE/TNM: Localized prostate cancer with a Anne score 7 s/p external beam radiotherapy and Lupron for 1 year PSA started rising up. Patient have not documented metastatic disease still now TREATMENT HISTORY: Care?Plan Start?Date Cycle Day Intent Lupron?22.5?mg?q?3?mon 06/26/2023 1 90 Palliative VENOfer?200mg?IV?wkly?for?10?weeks 05/26/2024 1 70 Maintenance HISTORY OF PRESENT ILLNESS: OTHER MEDICAL HISTORY/CONDITIONS: ENDSTAGE RENAL ON DYALYSIS 3 TIMES WK PROSATE CANCER COPD THYROID ISSUES STROKE 2018 GALLBLADDER HEMRRHOIDECTOMY 1989 KIDNEY STONES CATRACTS FISTULA R ARM FAMILY HISTORY: Father:?LUNG?-?DX?70 Mother:?UNKNOWN Sibling: BROTHER PROSTATE X 2 dx age 82 and 65 SOCIAL HISTORY: Occupational?History:?RETIRED Education?Level:?Completed High School Marital?Status:? Tobacco?Pack?per?Day:?1 Tobacco?Use?Years:?40 Tobacco?Use:?QUIT?2008 ETOH?Use:?DENIES Drug?Note:?DENIES Social?History?Note:?DAUGHTER/? MEDICATIONS: 1. atorvastatin - 40 mg Daily 2. calcium acetate - 667 mg 1 tab Three times a day 3. docusate sodium - 100 mg 2 tab Daily 4. fluticasone propion-salmeteroL - 100-50 mcg/dose 2 Daily 5. gabapentin - 100 mg Daily 6. levothyroxine - 100 microgram Daily 7. pantoprazole - 40 mg 1 Twice a Day 8. tamsulosin - 0.4 mg 1 Capsule Daily 9. traZODone - 100 mg 1 tab Every day before sleep 10. Vitamin C - 1,000 mg 1 Capsule Twice a Day Medications Last Reconciled by Mirian Mejia MA on 05/26/2024 ALLERGIES: No Known Drug Allergies REVIEW OF SYSTEMS: A complete 14-point review of systems was performed and is negative except as noted in interval history. PHYSICAL EXAMINATION: VITAL SIGNS: Temperature?99.5, B/P?121/68, Oxygen?Saturation?91% Weight?200?lbs PAIN: 8 - Very severe pain ECOG Performance Status: 3 - Symptomatic; limited self-care; spends >50% of time in bed, not bedridden EYE: Conjunctivae is white MOUTH: Oral cavity is dry. CHEST: Clear to auscultation. No wheezes or rales audible. CARDIAC: Rhythm regular, no murmurs or gallops present. ABDOMEN: Soft. No hepatomegaly. No splenomegaly. EXTREMITIES: No pedal edema or cyanosis. LABORATORY DATA: I have personally reviewed and interpreted each of the patient?s relevant lab tests, abnormal findings are below: Date 05/10/24 05/18/24 ??WHITE?BLOOD?COUNT?(Thou/mm3) 4.9 ? ??RED?BLOOD?COUNT?(Miln/mm3) 3.28?L ? ??HEMOGLOBIN?(gm/dl) 9.5?L 10.0?L ??HEMATOCRIT?(%) 29.5?L 31.4?L ??PLATELET?COUNT?(Thou/mm3) 121?L ? ??NEUTROPHILS?%,?AUTO?(%) 62 ? ??LYMPH?%,?AUTO?(%) 16 ? ??NEUTROPHILS,?AUTO?(Thou/mm3) 3.0 ? ??GLUCOSE,RANDOM?(mg/dL) 103 ? ??BLOOD?UREA?NITROGEN?(mg/dL) 30?H ? ??CREATININE?(mg/dL) 3.10?H ? ??SODIUM?(mmol/L) 138 ? ??POTASSIUM?(mmol/L) 3.4 ? ??CHLORIDE?(mmol/L) 101 ? ??CrCl?(CandG)?(ml/min) 23.60 ? ??AST/SGOT?(Unit/L) 15 ? ??ALT/SGPT?(Unit/L) <?7?L ? ??ALKALINE?PHOSPHATASE?(Unit/L) 60 ? ??BILIRUBIN,?TOTAL?(mg/dL) 0.3 ? ??PROTEIN?TOTAL?(gm/dl) 5.2?L ? ??ALBUMIN,?SERUM?(gm/dl) 3.0?L ? ??GLOBULIN?(gm/dl) 2.2?L ? ??ALBUMIN/GLOBULIN?RATIO 1.4 ? ??CALCIUM,?SERUM?(mg/dL) 7.8?L ? ??CALCIUM?SERUM?(CORRECTED)?(mg/dL) 8.6 ? ??LDH,?TOTAL?(Unit/L) 153 ? ASSESSMENT/PLAN: #1 prostate cancer with biochemical failure PSA has increased to more than [address] scan showed normal hypermetabolic intra-abdominal lymph nodes as documented above. PSA only recurrent nonmetastatic prostate cancer. Progressed on Xtandi. Was switched to Zytiga and prednisone at the last visit Patient tolerating it well Discussed that patient may be not responding to Zytiga Will give Lupron shot SERA If patient have further progression in PSA we will change therapy Patient is very reluctant to change treatment to chemotherapy or to travel for therapy Will wait for next set of PSA Continue Zytiga and prednisone for now Extensively counseled that patient cannot miss his prednisone as it can lead to stroke and accelerated hypertension and myocardial infarction He has a history of underlying stomach ulcers Patient is on sucralfate and proton pump inhibitor Advised to take prednisone with food Patient: ARTURO QUEZADA Patient understand that it can cause perforation in the stomach CT scan on 04/01/2024 showed intraluminal mass within loop of jejunum in the left upper abdomen is concerning for malignancy Being followed by gastroenterology Prednisone was discontinued by gastroenterology advised Daughter to stop giving Zytiga Will continue Lupron At this point, patient is a good candidate for palliative and hospice care Daughter Agrees and comfort based care #2 history of gastric ulcers Patient follows with Dr. Stewart advised to continue follow-up with gastroenterology #3 hypothyroidism currently on levothyroxine.-Stable #4 chronic kidney [id number] with nephrology #5 chronic anemia likely from chemotherapy as well as CKD Closely monitor. I discussed with the patient and family that patient's general condition have further deteriorated along with his advanced age and multiple complications Will stop Zytiga Continue Lupron Continue transfusions Will do iron infusion as iron is low ORDERS: Order # Description [id number] CBC with Auto Diff + Comprehensive Metabolic Panel - 12 [id number] PSA [id number] CBC with Auto Diff RETURN TO CLINIC: 3 weeks BILLING AND COMPLIANCE: I reviewed external records from providers outside my specialty as summarized above. I spent a total of 50 minutes on this patient?s care on the day of their visit excluding time spent related to any billed procedures. This time includes time spent with the patient as well as time spent documenting in the medical record, reviewing patients records and tests, obtaining history, placing orders, communicating with other healthcare professionals, counseling the patient, family or caregiver, and/or care coordination for the diagnoses above. Electronically Signed by: {Object.Sanct_ID*[email or web address]@M}, {Object.Sanct_ID*PnP.Suffix@U} D: {Object.Sanct_Date} T: {Object.Sanct_Time} CC: PCP: Shen Skelton Referring: Shen Skelton This document was completed utilizing speech recognition software. Grammatical errors, random word insertions, pronoun errors, and incomplete sentences are an occasional consequence of this system due to software limitations, ambient noise, and hardware issues. Any formal questions or concerns about the content, text or information contained within the body of this dictation should be directly addressed to the provider for clarification.
[2024-06-01 10:02] LABS: Basophils % (Auto) 0 % (0-2.5); Eosinophils # (Auto) 0.2 Thou/mm3 (0.0-0.5); Eosinophils % (Auto) 2 % (0-10); Hematocrit 30.1 % (41.0-53.0); Hemoglobin 9.6 g/dL (13.5-16.0); Immature Granulocytes % (Auto) 0 % (0-0); Immature Granulocytes Auto 0.04 Thou/mm3 (0.00-0.00); Lymphocytes # (Auto) 0.9 Thou/mm3 (1.0-4.8); Lymphocytes % (Auto) 10 % (10-50); Mean Corpuscular HGB Conc 31.9 g/dl (31.0-37.0); Mean Corpuscular Hemoglobin 28.2 pg (25.0-35.0); Mean Corpuscular Volume 88 fL (80-100); Monocytes # (Auto) 0.9 Thou/mm3 (0.0-0.8); Monocytes % (Auto) 9 % (0-12); Neutrophils # (Auto) 7.6 Thou/mm3 (1.8-7.7); Neutrophils % (Auto) 79 % (37-80); Nucleated Red Blood Cell % 0 /100 WBC (0); Platelet Count 170 Thou/mm3 (140-440); RDW Standard Deviation 53.1 fL (35.1-43.9); Red Blood Count 3.41 Miln/mm3 (4.50-5.90); White Blood Count 9.7 Thou/mm3 (3.8-10.6)
[2024-06-01 10:26] LABS: Alanine Aminotransferase 8 U/L (10-49); Albumin, Serum 3.3 gm/dL (3.4-4.8); Albumin/Globulin Ratio 1.1 (1.2-2.2); Alkaline Phosphatase 77 U/L (46-116); Anion Gap 9 (7-16); Aspartate Amino Transferase 11 U/L (0-34); BUN/Creatinine Ratio 8 Ratio (12-20); Bilirubin,Total 0.3 mg/dL (0.3-1.2); Blood Urea Nitrogen 31 mg/dL (9-23); Calcium 8.1 mg/dL (8.3-10.6); Calcium (Corrected) 8.7 mg/dL (8.5-10.1); Carbon Dioxide 27.7 mMol/L (20.0-31.0); Chloride 103 mMol/L (98-107); Creatinine (Component) 3.9 mg/dL (0.6-1.3); Globulin 3.1 gm/dL (2.3-3.5); Glucose 103 mg/dL (74-106); Osmolality,Calculated 285 (275-295); Potassium 3.2 mMol/L (3.4-5.1); Sodium 140 mMol/L (136-145); Total Protein 6.4 gm/dL (5.7-8.2); eGFR 15 See Note
[2024-06-08 09:53] LABS: Basophils % (Auto) 0 % (0-2.5); Eosinophils # (Auto) 0.2 Thou/mm3 (0.0-0.5); Eosinophils % (Auto) 3 % (0-10); Hematocrit 30.9 % (41.0-53.0); Hemoglobin 9.5 g/dL (13.5-16.0); Immature Granulocytes % (Auto) 0 % (0-0); Immature Granulocytes Auto 0.03 Thou/mm3 (0.00-0.00); Lymphocytes # (Auto) 0.7 Thou/mm3 (1.0-4.8); Lymphocytes % (Auto) 9 % (10-50); Mean Corpuscular HGB Conc 30.7 g/dl (31.0-37.0); Mean Corpuscular Hemoglobin 27.1 pg (25.0-35.0); Mean Corpuscular Volume 88 fL (80-100); Monocytes # (Auto) 0.8 Thou/mm3 (0.0-0.8); Monocytes % (Auto) 10 % (0-12); Neutrophils # (Auto) 6.4 Thou/mm3 (1.8-7.7); Neutrophils % (Auto) 78 % (37-80); Nucleated Red Blood Cell % 0 /100 WBC (0); Platelet Count 170 Thou/mm3 (140-440); RDW Standard Deviation 54.3 fL (35.1-43.9); White Blood Count 8.2 Thou/mm3 (3.8-10.6)
[2024-06-08 10:18] LABS: Alanine Aminotransferase < 7 U/L (10-49); Albumin, Serum 3.2 gm/dL (3.4-4.8); Alkaline Phosphatase 67 U/L (46-116); Anion Gap 10 (7-16); Aspartate Amino Transferase 10 U/L (0-34); BUN/Creatinine Ratio 9 Ratio (12-20); Bilirubin,Total 0.2 mg/dL (0.3-1.2); Blood Urea Nitrogen 34 mg/dL (9-23); Calcium 8.6 mg/dL (8.3-10.6); Calcium (Corrected) 9.2 mg/dL (8.5-10.1); Carbon Dioxide 27.6 mMol/L (20.0-31.0); Chloride 105 mMol/L (98-107); Creatinine (Component) 3.7 mg/dL (0.6-1.3); Globulin 3.2 gm/dL (2.3-3.5); Glucose 111 mg/dL (74-106); Osmolality,Calculated 293 (275-295); Potassium 3.2 mMol/L (3.4-5.1); Sodium 143 mMol/L (136-145); Total Protein 6.4 gm/dL (5.7-8.2); eGFR 16 See Note
== END 2024-06-08 23:59 | disposition home or self-care (01) ==
LOC: SCTC 08:50
PROVIDERS: Nurse Practitioner Family; PCP Family Medicine; Referring Provider Family Medicine; Visit Provider Internal Medicine Hematology & Oncology
DX: D64.9 Anemia, unspecified (principal); C61 Malignant neoplasm of prostate; Z79.818 Long term (current) use of other agents affecting estrogen receptors and estrogen levels; Z87.19 Personal history of other diseases of the digestive system; E03.9 Hypothyroidism, unspecified; N18.9 Chronic kidney disease, unspecified
CPT/HCPCS: 36415; 80053; 85025; 96365; 99213; J1756; J7050; A9270; G0463

== ENCOUNTER → 2024-06-10 | Outpatient (CLI) | payer OTHER, SELFPAY ==
[2024-06-10 09:25] LABS: Collection Type, Urine Clean Catch; Squamous Epithelial Cell,Urine 0 /hpf (0-5)
[2024-06-10 11:01] LABS: Bacteria,Urine 1+; Bilirubin,Urine Negative (Negative); Blood,Urine 1+ (Negative); Color,Urine Drk-Orange (Lt Yel-Yel); Glucose, Urine Negative (Negative); Ketones,Urine Negative (Negative); Leukocyte Esterase,Urine Positive (Negative); Nitrite,Urine Negative (Negative); PH,Urine 6.5 (5.0-7.0); Protein,Urine 2+ (Neg - Trace); RBC,Urine 11 /hpf (0-3); Specific Gravity,Urine 1.013 (1.001-1.035); Urobilinogen,Urine Negative mg/dL (0.0-1.0); WBC,Urine 980 /hpf (0-5)
[2024-06-10 11:05] LABS: Clarity,Urine Cloudy (Clear/Hazy); Culture Indicated,Urine Yes
== END | disposition home or self-care (01) ==
LOC: SLDO 09:03
PROVIDERS: Referring Provider Internal Medicine; Visit Provider Internal Medicine
DX: N30.00 Acute cystitis without hematuria (principal)
CPT/HCPCS: 81001; 87077; 87086; 87186

== ENCOUNTER 2024-06-19 07:47 | Outpatient (CLI) | payer OTHER, SELFPAY ==
[2024-06-18 08:44] LABS: Basophils % (Auto) 1 % (0-2.5); Eosinophils # (Auto) 0.4 Thou/mm3 (0.0-0.5); Eosinophils % (Auto) 6 % (0-10); Hematocrit 32.2 % (41.0-53.0); Hemoglobin 9.8 g/dL (13.5-16.0); Immature Granulocytes % (Auto) 1 % (0-0); Immature Granulocytes Auto 0.04 Thou/mm3 (0.00-0.00); Lymphocytes # (Auto) 1.3 Thou/mm3 (1.0-4.8); Lymphocytes % (Auto) 18 % (10-50); Mean Corpuscular HGB Conc 30.4 g/dl (31.0-37.0); Mean Corpuscular Hemoglobin 26.6 pg (25.0-35.0); Mean Corpuscular Volume 88 fL (80-100); Monocytes # (Auto) 0.9 Thou/mm3 (0.0-0.8); Monocytes % (Auto) 13 % (0-12); Neutrophils # (Auto) 4.4 Thou/mm3 (1.8-7.7); Neutrophils % (Auto) 62 % (37-80); Nucleated Red Blood Cell % 0 /100 WBC (0); Platelet Count 181 Thou/mm3 (140-440); RDW Standard Deviation 52.2 fL (35.1-43.9); Red Blood Count 3.68 Miln/mm3 (4.50-5.90); White Blood Count 7.1 Thou/mm3 (3.8-10.6)
[2024-06-18 08:56] LABS: Blood Urea Nitrogen 53 mg/dL (9-23); Creatinine (Component) 4.8 mg/dL (0.6-1.3); eGFR 12 See Note
[2024-06-18 09:05] LABS: INR 1.1 (0.9-1.3); Partial Thromboplastin Time 27.2 Seconds (22.0-36.0); Prothrombin Time 11.5 Seconds (9.0-12.2)
[2024-06-18 14:19] VITALS: BMI 26.8
[2024-06-19] VITALS (15 sets, daily range): BP systolic 106–137; BP diastolic 44–64; PULSE 80–90; RESP 12–22; TEMP 36.2–37.2; O2SAT 92–99
--- NOTE | 2024-06-19 09:00 | XR_ITS ---
Exam: Fluoroscopic and ultrasound-guided right IJ port placement. Date: June 19, 2024, 9:17 AM Indication: Needs long-term vascular access Fluoroscopy time 3.1 minutes Dose: 44.90 mGy Technique: After a discussion of risks and benefits informed consent was obtained from the patient. Patient was brought to the angiography suite and placed supine on the exam table. Preliminary ultrasound evaluation showed the right IJ to be patent. The skin overlying the right neck and upper chest was cleaned and draped in normal sterile surgical fashion. 20 cc's of 1% lidocaine was used for local anesthesia. Conscious sedation was begun with direct nursing supervision. Using ultrasound guidance access to the IJ was obtained with a micropuncture needle. An 0.018 wire was advanced through the needle into the SVC and the needle was withdrawn. A 5 Israeli micropuncture change sheath was advanced over the wire, and the wire removed. The sheath was capped. A 5 cm incision was made over right chest. Small pouch was created with a combination of sharp and blunt dissection. The port and catheter tubing were attached to the tunneling device and pulled underneath the skin and exiting at the right IJ access site. Right IJ 5 inch sheath was replaced with a 7 Israeli peel-away sheath. Catheter was advanced through the peel-away sheath and peel-away sheath was removed. Distal catheter tip was appropriately positioned at the cavoatrial junction. The port pocket was closed with deep interrupted sutures using 2-0 Vicryl and superficial running sutures utilized 3-0 Vicryl. IJ access site was closed with 3-0 Vicryl and Dermabond glue Port flushed and aspirated easily and is ready for use. Impression: Successful placement of right IJ port as above with distal tip at the caval atrial junction Catheter is ready for use.
[2024-06-19] MEDS: ceFAZolin/D5W 1 GM IVPB 1 GM/50 ML BAG IV (09:44)
[2024-06-19] MEDS: fentaNYL CIT INJ 50 mCg/ML AMP 2ML 100 MCG IVP (10:19)
[2024-06-19] MEDS: MIDAZOLAM INJ 1 MG/ML VIAL 2 ML IV (10:19)
[2024-06-19] MEDS: HEPARIN SOD LOCK SYR 100 UNIT/ML 500 UNIT STFIELD (10:23)
[2024-06-19] MEDS: LIDOCAINE 1% W/EPI 1:100K 20 ML VIAL INFL (10:23)
[2024-06-19] MEDS: LIDOCAINE INJ PF 1% 30 ML VIAL 10 ML INFL (10:23)
--- NOTE | 2024-06-19 11:10 | PC.NURSE ---
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
== END 2024-06-19 11:48 | disposition home or self-care (01) ==
PROVIDERS: Radiology Diagnostic Radiology; PCP Family Medicine; Referring Provider Internal Medicine Hematology & Oncology; Visit Provider Internal Medicine Hematology & Oncology
DX: D64.9 Anemia, unspecified (principal); C61 Malignant neoplasm of prostate; D50.0 Iron deficiency anemia secondary to blood loss (chronic); D50.8 Other iron deficiency anemias; Z01.812 Encounter for preprocedural laboratory examination
CPT/HCPCS: 36558; 36415; 76937; 77001; 82565; 84520; 85025; 85610; 85730; 99152; 99153; 99155; C1769; C1788; C1894; J0689; J1642; J2250; J3010; J3490; J7050

== ENCOUNTER 2024-07-06 13:00 | Outpatient (RCR) | payer OTHER, SELFPAY ==
[2024-06-17 09:57] LABS: Basophils % (Auto) 0 % (0-2.5); Eosinophils # (Auto) 0.1 Thou/mm3 (0.0-0.5); Eosinophils % (Auto) 1 % (0-10); Hemoglobin 9.5 g/dL (13.5-16.0); Immature Granulocytes % (Auto) 1 % (0-0); Immature Granulocytes Auto 0.04 Thou/mm3 (0.00-0.00); Lymphocytes # (Auto) 0.9 Thou/mm3 (1.0-4.8); Lymphocytes % (Auto) 10 % (10-50); Mean Corpuscular HGB Conc 30.6 g/dl (31.0-37.0); Mean Corpuscular Hemoglobin 26.8 pg (25.0-35.0); Mean Corpuscular Volume 87 fL (80-100); Monocytes # (Auto) 0.8 Thou/mm3 (0.0-0.8); Monocytes % (Auto) 9 % (0-12); Neutrophils % (Auto) 79 % (37-80); Nucleated Red Blood Cell % 0 /100 WBC (0); Platelet Count 154 Thou/mm3 (140-440); RDW Standard Deviation 50.7 fL (35.1-43.9); Red Blood Count 3.55 Miln/mm3 (4.50-5.90); White Blood Count 8.9 Thou/mm3 (3.8-10.6)
[2024-06-17 10:18] LABS: Alanine Aminotransferase 18 U/L (10-49); Albumin, Serum 3.4 gm/dL (3.4-4.8); Albumin/Globulin Ratio 1.1 (1.2-2.2); Alkaline Phosphatase 146 U/L (46-116); Anion Gap 10 (7-16); Aspartate Amino Transferase 19 U/L (0-34); BUN/Creatinine Ratio 12 Ratio (12-20); Bilirubin,Total 0.2 mg/dL (0.3-1.2); Blood Urea Nitrogen 48 mg/dL (9-23); Calcium 8.2 mg/dL (8.3-10.6); Calcium (Corrected) 8.7 mg/dL (8.5-10.1); Carbon Dioxide 26.9 mMol/L (20.0-31.0); Chloride 103 mMol/L (98-107); Glucose 186 mg/dL (74-106); Osmolality,Calculated 297 (275-295); Sodium 140 mMol/L (136-145); Total Protein 6.4 gm/dL (5.7-8.2); eGFR 14 See Note
[2024-06-17 11:33] LABS: Prostate Specific Antigen 49.84 ng/mL (0-4.00)
[2024-06-22 13:50] LABS: Basophils % (Auto) 0 % (0-2.5); Eosinophils # (Auto) 0.2 Thou/mm3 (0.0-0.5); Eosinophils % (Auto) 3 % (0-10); Hematocrit 30.8 % (41.0-53.0); Hemoglobin 9.4 g/dL (13.5-16.0); Immature Granulocytes % (Auto) 0 % (0-0); Immature Granulocytes Auto 0.03 Thou/mm3 (0.00-0.00); Lymphocytes # (Auto) 0.9 Thou/mm3 (1.0-4.8); Lymphocytes % (Auto) 10 % (10-50); Mean Corpuscular HGB Conc 30.5 g/dl (31.0-37.0); Mean Corpuscular Hemoglobin 26.4 pg (25.0-35.0); Mean Corpuscular Volume 87 fL (80-100); Monocytes # (Auto) 0.9 Thou/mm3 (0.0-0.8); Monocytes % (Auto) 9 % (0-12); Neutrophils # (Auto) 7.2 Thou/mm3 (1.8-7.7); Neutrophils % (Auto) 78 % (37-80); Nucleated Red Blood Cell % 0 /100 WBC (0); Platelet Count 151 Thou/mm3 (140-440); RDW Standard Deviation 53.1 fL (35.1-43.9); Red Blood Count 3.56 Miln/mm3 (4.50-5.90); White Blood Count 9.2 Thou/mm3 (3.8-10.6)
[2024-06-29 14:15] LABS: Basophils % (Auto) 0 % (0-2.5); Eosinophils # (Auto) 0.2 Thou/mm3 (0.0-0.5); Eosinophils % (Auto) 3 % (0-10); Hematocrit 30.4 % (41.0-53.0); Hemoglobin 9.2 g/dL (13.5-16.0); Immature Granulocytes % (Auto) 1 % (0-0); Immature Granulocytes Auto 0.04 Thou/mm3 (0.00-0.00); Lymphocytes # (Auto) 0.7 Thou/mm3 (1.0-4.8); Lymphocytes % (Auto) 8 % (10-50); Mean Corpuscular HGB Conc 30.3 g/dl (31.0-37.0); Mean Corpuscular Hemoglobin 26.4 pg (25.0-35.0); Mean Corpuscular Volume 87 fL (80-100); Monocytes % (Auto) 11 % (0-12); Neutrophils # (Auto) 6.8 Thou/mm3 (1.8-7.7); Neutrophils % (Auto) 78 % (37-80); Nucleated Red Blood Cell % 0 /100 WBC (0); Platelet Count 157 Thou/mm3 (140-440); RDW Standard Deviation 52.7 fL (35.1-43.9); Red Blood Count 3.49 Miln/mm3 (4.50-5.90); White Blood Count 8.8 Thou/mm3 (3.8-10.6)
[2024-07-06 13:59] LABS: Basophils % (Auto) 0 % (0-2.5); Eosinophils # (Auto) 0.2 Thou/mm3 (0.0-0.5); Eosinophils % (Auto) 3 % (0-10); Hematocrit 30.2 % (41.0-53.0); Hemoglobin 9.5 g/dL (13.5-16.0); Immature Granulocytes % (Auto) 0 % (0-0); Immature Granulocytes Auto 0.03 Thou/mm3 (0.00-0.00); Lymphocytes # (Auto) 0.8 Thou/mm3 (1.0-4.8); Lymphocytes % (Auto) 8 % (10-50); Mean Corpuscular HGB Conc 31.5 g/dl (31.0-37.0); Mean Corpuscular Hemoglobin 26.8 pg (25.0-35.0); Mean Corpuscular Volume 85 fL (80-100); Monocytes # (Auto) 0.9 Thou/mm3 (0.0-0.8); Monocytes % (Auto) 9 % (0-12); Neutrophils # (Auto) 7.5 Thou/mm3 (1.8-7.7); Neutrophils % (Auto) 80 % (37-80); Nucleated Red Blood Cell % 0 /100 WBC (0); Platelet Count 147 Thou/mm3 (140-440); RDW Standard Deviation 52.5 fL (35.1-43.9); Red Blood Count 3.54 Miln/mm3 (4.50-5.90); White Blood Count 9.4 Thou/mm3 (3.8-10.6)
== END 2024-07-08 23:59 | disposition home or self-care (01) ==
LOC: SCTC 13:00
PROVIDERS: PCP Physician Assistant; Referring Provider Physician Assistant; Visit Provider Internal Medicine Hematology & Oncology
DX: D64.9 Anemia, unspecified (principal); C61 Malignant neoplasm of prostate; Z79.818 Long term (current) use of other agents affecting estrogen receptors and estrogen levels; Z87.19 Personal history of other diseases of the digestive system; E03.9 Hypothyroidism, unspecified; Z79.890 Hormone replacement therapy; N18.6 End stage renal disease; Z99.2 Dependence on renal dialysis
CPT/HCPCS: 36415; 80053; 84153; 85025; 96365; A4216; J1642; J1756; J7040; J7050

== ENCOUNTER 2024-07-20 12:59 | Outpatient (RCR) | payer OTHER, SELFPAY ==
[2024-07-13 13:42] LABS: Basophils % (Auto) 0 % (0-2.5); Eosinophils # (Auto) 0.2 Thou/mm3 (0.0-0.5); Eosinophils % (Auto) 2 % (0-10); Hematocrit 30.6 % (41.0-53.0); Hemoglobin 9.6 g/dL (13.5-16.0); Immature Granulocytes % (Auto) 0 % (0-0); Immature Granulocytes Auto 0.02 Thou/mm3 (0.00-0.00); Lymphocytes # (Auto) 0.8 Thou/mm3 (1.0-4.8); Lymphocytes % (Auto) 8 % (10-50); Mean Corpuscular HGB Conc 31.4 g/dl (31.0-37.0); Mean Corpuscular Hemoglobin 25.9 pg (25.0-35.0); Mean Corpuscular Volume 83 fL (80-100); Monocytes # (Auto) 1.2 Thou/mm3 (0.0-0.8); Monocytes % (Auto) 12 % (0-12); Neutrophils # (Auto) 7.2 Thou/mm3 (1.8-7.7); Neutrophils % (Auto) 77 % (37-80); Nucleated Red Blood Cell % 0 /100 WBC (0); Platelet Count 141 Thou/mm3 (140-440); Red Blood Count 3.71 Miln/mm3 (4.50-5.90); White Blood Count 9.3 Thou/mm3 (3.8-10.6)
[2024-07-13 14:10] LABS: Alanine Aminotransferase < 7 U/L (10-49); Albumin, Serum 3.8 gm/dL (3.4-4.8); Albumin/Globulin Ratio 1.3 (1.2-2.2); Alkaline Phosphatase 76 U/L (46-116); Anion Gap 11 (7-16); Aspartate Amino Transferase < 10 U/L (0-34); BUN/Creatinine Ratio 11 Ratio (12-20); Bilirubin,Total 0.3 mg/dL (0.3-1.2); Blood Urea Nitrogen 46 mg/dL (9-23); Calcium 8.1 mg/dL (8.3-10.6); Calcium (Corrected) 8.3 mg/dL (8.5-10.1); Carbon Dioxide 26.6 mMol/L (20.0-31.0); Chloride 102 mMol/L (98-107); Creatinine (Component) 4.3 mg/dL (0.6-1.3); Glucose 128 mg/dL (74-106); Osmolality,Calculated 293 (275-295); Potassium 3.3 mMol/L (3.4-5.1); Sodium 140 mMol/L (136-145); Total Protein 6.8 gm/dL (5.7-8.2); eGFR 13 See Note
[2024-07-20 13:41] LABS: Basophils % (Auto) 0 % (0-2.5); Eosinophils # (Auto) 0.2 Thou/mm3 (0.0-0.5); Eosinophils % (Auto) 2 % (0-10); Hematocrit 30.3 % (41.0-53.0); Hemoglobin 9.3 g/dL (13.5-16.0); Immature Granulocytes % (Auto) 1 % (0-0); Immature Granulocytes Auto 0.05 Thou/mm3 (0.00-0.00); Lymphocytes # (Auto) 0.7 Thou/mm3 (1.0-4.8); Lymphocytes % (Auto) 7 % (10-50); Mean Corpuscular HGB Conc 30.7 g/dl (31.0-37.0); Mean Corpuscular Hemoglobin 26.1 pg (25.0-35.0); Mean Corpuscular Volume 85 fL (80-100); Monocytes # (Auto) 0.9 Thou/mm3 (0.0-0.8); Monocytes % (Auto) 9 % (0-12); Neutrophils # (Auto) 8.2 Thou/mm3 (1.8-7.7); Neutrophils % (Auto) 82 % (37-80); Nucleated Red Blood Cell % 0 /100 WBC (0); Platelet Count 135 Thou/mm3 (140-440); Red Blood Count 3.56 Miln/mm3 (4.50-5.90); White Blood Count 10.1 Thou/mm3 (3.8-10.6)
== END 2024-07-29 23:59 | disposition home or self-care (01) ==
LOC: SCTC 12:59
PROVIDERS: PCP Family Medicine; Referring Provider Family Medicine; Visit Provider Internal Medicine Hematology & Oncology
DX: Z51.11 Encounter for antineoplastic chemotherapy (principal); C61 Malignant neoplasm of prostate; D64.9 Anemia, unspecified; E03.9 Hypothyroidism, unspecified; N18.9 Chronic kidney disease, unspecified; Z87.19 Personal history of other diseases of the digestive system
CPT/HCPCS: 80053; 85025; 96365; 96402; A4216; J1642; J1756; J7040; J7050; J9217

== ENCOUNTER 2024-07-24 11:09 | Inpatient (IN) | payer OTHER, SELFPAY ==
[2024-07-24] VITALS (66 sets, daily range): BP systolic 72–113; BP diastolic 47–72; PULSE 76–110; RESP 17–45; TEMP 36.4–36.9; O2SAT 89–100; BMI 26.3
--- NOTE | 2024-07-24 11:23 | EKG_ITS ---
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
--- NOTE | 2024-07-24 11:31 | XR_ITS ---
Examination: AP chest single view TECHNIQUE: Sitting AP portable chest single view Date and time: July 24, 2024 1146 hours Comparison May 07, 2024 INDICATIONS: Shortness of breath today. FINDINGS: Mild CHF Mild enlargement cardiac contour with prominent vascular congestion Bibasilar pneumonia Moderate right large left pleural effusions Right internal jugular Port-A-Cath tip satisfactory position IMPRESSION: Mild heart failure Significant bibasilar pneumonia
--- NOTE | 2024-07-24 11:32 | PD.EDRME ---
Rapid Medical Screening Exam RME Arrival date/time: 07/24/24 11:09 79-year-old male presents emergency department today for complaint of shortness of breath Chief Complaint: Shortness of Breath/Dyspnea Vital signs: Vital Signs Temperature 97.8 F 07/24/24 11:19 Pulse Rate 108 H 07/24/24 11:19 Respiratory Rate 17 07/24/24 11:19 Blood Pressure 94/60 07/24/24 11:19 Pulse Oximetry (%) 95 07/24/24 11:19 Oxygen Delivery Method Room Air 07/24/24 11:19
[2024-07-24 12:21] LABS: Lactate (Lactic Acid) 3.2 mMol/L (0.4-2.0)
[2024-07-24 12:27] LABS: Basophils % (Auto) 0 % (0-2.5); Eosinophils % (Auto) 0 % (0-10); Hematocrit 30.9 % (41.0-53.0); Hemoglobin 9.7 g/dL (13.5-16.0); Immature Granulocytes % (Auto) 1 % (0-0); Immature Granulocytes Auto 0.09 Thou/mm3 (0.00-0.00); Lymphocytes # (Auto) 0.6 Thou/mm3 (1.0-4.8); Lymphocytes % (Auto) 3 % (10-50); Mean Corpuscular HGB Conc 31.4 g/dl (31.0-37.0); Mean Corpuscular Hemoglobin 26.1 pg (25.0-35.0); Mean Corpuscular Volume 83 fL (80-100); Monocytes # (Auto) 1.9 Thou/mm3 (0.0-0.8); Monocytes % (Auto) 11 % (0-12); Neutrophils # (Auto) 14.2 Thou/mm3 (1.8-7.7); Neutrophils % (Auto) 85 % (37-80); Nucleated Red Blood Cell % 0 /100 WBC (0); RDW Standard Deviation 54.7 fL (35.1-43.9); Red Blood Count 3.72 Miln/mm3 (4.50-5.90); White Blood Count 16.7 Thou/mm3 (3.8-10.6)
--- NOTE | 2024-07-24 12:28 | EDNOTE_ITS ---
<Statement entered by Noa Blanchard MD - 08/04/24 06:18> As co-signing physician, I was present and available for consult prn. I concur with the plan and care as documented by the midlevel provider. ED General RME/HPI General Chief complaint: Shortness of Breath/Dyspnea Stated complaint: FLUID OVERLOAD SOB Time Seen by Provider: 07/24/24 11:59 Arrival date/time: 07/24/24 11:09 RME / HPI RME / HPI narrative: This patient is a 79-year-old male with past medical history of hemodialysis Tuesdays and Saturday follows Dr Fnuez as outpatient, history of UTI, basal cell cancer, prostate cancer post radiation 2010 presented to the ED on 07/24/2024 with chief complaint of shortness of breath and lower extremity swelling. Patient's daughter is at the bedside and she stated that patient has not been getting sufficient dialysis as outpatient. On Saturday, he got half liter removed due to hypotension and yesterday only 1 L of fluid was removed. Patient endorses left shoulder pain as well. He reported that his shortness of breath is getting worse and he cannot sleep at night while laying flat on the bed. He also endorsed some nausea last night. He has been having cough with green phlegm from last couple of days. He endorsed abdominal discomfort more in the epigastric region. His last bowel movement was yesterday with formed stool. But he has been struggling with constipation. Denies any fever chills. Patient was also found to have lower extremity swelling. He makes little amount of urine and has been having burning sensation from last 3 weeks. He usually takes midodrine 10 mg before his dialysis. He also has been having trouble getting up from the chair since yesterday. Echo from Apr 2024 Normal LV size and function with and EF of 55-60%. Moderate LVH. DIastolic Dysfunction stage II. Normal RV size and function. Modertely elevated RVSP 52 mmHg.Severe Aortic Stenosis Vmax 5 m/s, Max PG 90 mm hg, Mean PG 60 mm hg and BARRY 0.7 sqcm. Mild AI .Moderate MA and Moderate MR. moderate TR. No pericardial effusion. Pmx as above Psx cataract surgery, retinal detachment, cholecystectomy, left arm fistula, Port-A-Cath placement, nephrostomy tubes taken out, history of ureteral stents placement SH Denies smoking, drinking alcohol. No history of illicit drug use Allergies no known drug allergies Home meds midodrine 10 mg before dialysis, fluticasone-salmeterol inhaler, tamsulosin, levothyroxine, trazodone, pantoprazole Differential diagnoses include hypotension related to severe aortic stenosis versus fluid overload, distributive shock related to infection [community- acquired pneumonia] versus cardiogenic related to aortic stenosis, lactic acidosis, leukocytosis, thrombocytopenia, elevated troponin I Initial vitals showed soft blood pressure 94/60 dropped to 72/40 2:07 doses of midodrine 10 mg x 1. Patient was given breathing treatment albuterol inhaler x 1, calcium gluconate x 1, magnesium 1 g x 1, normal saline 250 bolus was given x 1. Labs were significant for leukocytosis white count 16.7, hemoglobin 9.7. Platelet count 69. INR 1.3. CHEM panel showed potassium 3.6, sodium 137. Kidney functions were consistent with ESRD pattern with BUN 44 and creatinine 5.3. Blood glucose 170. Lactic acidosis of 3.2. Corrected calcium 8.4. Magnesium 1.8. Troponin I hide was 1.54, BNP more than 3000 and elevated procalcitonin 1.94. Chest x-ray showed bibasilar pneumonia. Abdominal x-ray showed stool throughout colon.Abdomen x-ray showed nonobstructive bowel gas pattern. EKG showed sinus rhythm with QTc 468. Sepsis alert was initated due to tacy, tacpnea and leukocytosis with possible source CAP. Veneer Jointer Offbearer, Dr Damon was called as Dr. Funez out for vacation who was explained regarding patient's current clinical condition and soft blood pressure. She recommended that patient will need workup for aortic stenosis and would be need to be evaluated by corporation lawyer. She also recommended to start Levophed as patient is refractory to midodrine and consult ICU team for admission. She will try to do intermittent dialysis for blood pressure tolerance.ACTH was ordered to r/o adrenal suppression. Sepsis alert was initated due to tacy, tacpnea and leukocytosis with possible source CAP 13:06 Discussed case with ICU team regarding admission. Discussed patient's ED course, exam findings, labs and radiology results. Hospitalist team agreed to accept the patient for admission. Hazardous Materials Waste Technician, Dr. Mann was contacted and he recommended to start the patient on pressor support and he will like to follow him in ICU. MD complaint: Worsening shortness of breath and lower extremity swelling Onset (ago): day(s) (2 to 3 days) Severity: moderate Quality: aching Consistency: constant Exacerbating factors: movement Associated symptoms: cough, nausea/vomiting, shortness of breath and other (Abdominal pain and left shoulder) Related Data Home Medications ?Medication ?Instructions ?Recorded ?Confirmed levothyroxine 100 mcg tablet 100 mcg PO QDAY #0 tabs 1 06/19/24 atorvastatin 40 mg tablet 1 tab PO HS 08/01/21 5 docusate sodium 100 mg tablet 100 mg PO BID 11/07/21 0 06/19/24 trazodone 50 mg tablet 100 mg PO QDAY 01/30/2206/09 calcium acetate(phosphat bind) 667 667 mg PO TID 06/2706/19/24 mg capsule gabapentin 100 mg capsule 100 mg PO QDAY 06/27/2206/09 tamsulosin 0.4 mg capsule 0.4 mg PO QDAY 10/26/2206/09 fluticasone 100 mcg-salmeterol 50 1 inh inhalation BID 02/04/23 06/19/24 mcg/dose blistr powdr for inhalation ascorbic acid (vitamin C) 100 mg 500 mg PO BID 4 06/19/24 tablet (Vitamin C) leuprolide (3 month) 22.5 mg (3 See Rx Instructions .R oute .COMPLEX 05/22/23 06/19/24 month) intramuscular syringe kit (Lupron Depot) sucralfate 1 gram tablet 1 g PO BID 02/23/24 06/19/24 phenazopyridine 100 mg tablet 100 mg PO QDAY 05/07/24 06/19/24 acetaminophen 325 mg capsule 325 mg PO Q6H PRN pain 06/19/24 cholecalciferol (vitamin D3) 50 50 mcg PO QDAY 5 06/19/24 mcg (2,000 unit) capsule (Vitamin D3) ferric citrate 210 mg iron tablet 210 mg PO TID 06/19/24 (Auryxia) melatonin 5 mg capsule 10 mg PO PRN PRN insomnia 06/19/24 ferric citrate 210 mg iron tablet 420 mg PO TID 06/19/24 (Auryxia) Previous Rx's ?Medication ?Instructions ?Recorded pantoprazole 40 mg tablet,delayed 40 mg PO BID #60 tab s 05/08/23 release (Protonix) Allergies Allergy/AdvReac Type Severity Reaction Status Date / Time No Known Allergies Allergy Verified 06/19/24 08:34 Review of Systems Review of Systems Systems Reviewed: All systems reviewed, normal except as documented Past Medical History Family History FAMILY HISTORY: Positive Family Cardiac Disorders and Family Endocrine Disorders Surgical History OTHER SURGICAL HX: Prostate carcinoma under the care of her local oncology and urology and on abiraterone Diabetes mellitus type 2 COPD Hypothyroidism Travel History EBOLA RISK: No ED Exam Narrative Physical exam: GENERAL APPEARANCE: Elderly male AO x 3 in mild distress due to shortness of breath. Saturating well on room air. HEENT: NC, AT. MMM. EOMI, clear conjunctiva, oropharynx clear. Port-A-Cath present. NECK: Supple without lymphadenopathy. No stiffness or restricted ROM. JVD. HEART: Sinus tachycardia with regular rhythm, normal S1/S2, systolic murmur 5/6 more in aortic region 2nd ICS left sternal border LUNGS: CTAB, moving air well. No crackles or wheezes are heard. ABDOMEN: Soft, nontender, nondistended with good bowel sounds heard. BACK: No CVAT, no obvious deformity. EXTREMITIES: Left upper arm AV fistula. Bilateral pitting edema 2+ up to knees. NEUROLOGICAL: Grossly nonfocal. Alert and oriented, moving all 4 extremities. CN not formally tested but appear grossly intact. Skin: Warm and dry without any rash. Psych: Appropriate mood and affect Course Course Course Narrative: This patient is a 79-year-old male with past medical history of hemodialysis Tuesdays and Saturday follows Dr Funez as outpatient, history of UTI, basal cell cancer, prostate cancer post radiation 2010 presented to the ED on 07/24/2024 with chief complaint of shortness of breath and lower extremity swelling. Patient's daughter is at the bedside and she stated that patient has not been getting sufficient dialysis as outpatient. On Saturday, he got half liter removed due to hypotension and yesterday only 1 L of fluid was removed. Patient endorses left shoulder pain as well. He reported that his shortness of breath is getting worse and he cannot sleep at night while laying flat on the bed. He also endorsed some nausea last night. He has been having cough with green phlegm from last couple of days. He endorsed abdominal discomfort more in the epigastric region. His last bowel movement was yesterday with formed stool. But he has been struggling with constipation. Denies any fever chills. Patient was also found to have lower extremity swelling. He makes little amount of urine and has been having burning sensation from last 3 weeks. He usually takes midodrine 10 mg before his dialysis. He also has been having trouble getting up from the chair since yesterday. Differential diagnoses include hypotension related to severe aortic stenosis versus fluid overload, distributive shock related to infection [community- acquired pneumonia] versus cardiogenic related to aortic stenosis, lactic acidosis, leukocytosis, thrombocytopenia, elevated troponin I Initial vitals showed soft blood pressure 94/60 dropped to 72/40 2:07 doses of midodrine 10 mg x 1. Patient was given breathing treatment albuterol inhaler x 1, calcium gluconate x 1, magnesium 1 g x 1, normal saline 250 bolus was given x 1. Labs were significant for leukocytosis white count 16.7, hemoglobin 9.7. Platelet count 69. INR 1.3. CHEM panel showed potassium 3.6, sodium 137. Kidney functions were consistent with ESRD pattern with BUN 44 and creatinine 5.3. Blood glucose 170. Lactic acidosis of 3.2. Corrected calcium 8.4. Magn esium 1.8. Troponin I hide was 1.54, BNP more than 3000 and elevated procalcitonin 1.94. Chest x-ray showed bibasilar pneumonia. Abdominal x-ray showed stool throughout colon.Abdomen x-ray showed nonobstructive bowel gas pattern. EKG showed sinus rhythm with QTc 468. Veneer Jointer Offbearer, Dr Damon was called as Dr. Funez out for vacation who was explained regarding patient's current clinical condition and soft blood pressure. She recommended that patient will need workup for aortic stenosis and would be need to be evaluated by corporation lawyer. She also recommended to start Levophed as patient is refractory to midodrine and consult ICU team for admission. She will try to do intermittent dialysis for blood pressure tolerance. Sepsis alert was initated due to tacy, tacpnea and leukocytosis with possible source CAP 13:06 Discussed case with ICU team regarding admission. Discussed patient's ED course, exam findings, labs and radiology results. Hospitalist team agreed to accept the patient for admission. Hazardous Materials Waste Technician, Dr. Mann was contacted and he recommended to start the patient on pressor support and he will like to follow him in ICU. Quality Measures none Orders Category Date Time Status Admit to Inpatient Status Routine Admission 07/24/24 14:46 Active Patient Condition Routine Admission 07/24/24 14:46 Ordered Bedrest NOW Care 07/24/24 14:47 Active Bedside COVID-19 Antigen Test NOW Care 07/24/24 14:15 Active COVID-19 Screening Questionnaire NOW Care 07/24/24 14:13 Active Continuous Pulse Oximetry NOW Care 07/24/24 14:45 Active Decision to Admit X1 Care 07/24/24 14:13 Completed EKG (ED ONLY) *Do not use* NOW Care 07/24/24 11:23 Completed Notify provider NEEDED Care 07/24/24 14:46 Active Obtain weight daily Care 07/24/24 14:46 Active Strict Intake and Output Routine Care 07/24/24 14:46 Ordered Vital Signs, Non-Routine Q4H Care 07/24/24 15:00 Ordered Vital Signs, Non-Routine Q4H Care 07/24/24 19:00 Ordered Vital Signs, Non-Routine Q4H Care 07/24/24 23:00 Ordered Consult to Cardiology Stat Cons 07/24/24 14:12 Ordered Consult to Nephrology Stat Cons 07/24/24 13:42 Ordered Diet Cardiac Diet 07/24/24 Dinner Active CA echo doppler complete Routine Exams 07/24/24 14:50 Ordered EKG (ED Only) Stat Exams 07/24/24 11:23 Draft KUB [XR abdomen 1V] Stat Exams 07/24/24 12:29 Completed XR chest 2V Stat Exams 07/24/24 11:31 Completed ACTH, Plasma* Stat Lab 07/24/24 11:56 Received B-Type Natriuretic Peptide Stat Lab 07/24/24 11:56 Completed Blood Culture (Lab) Stat Lab 07/24/24 12:30 Received CBC AM DRAW Lab 07/25/24 05:00 Ordered CBC AM DRAW Lab 07/26/24 05:00 Ordered CBC AM DRAW Lab 07/27/24 05:00 Ordered CBC AM DRAW Lab 07/28/24 05:00 Ordered CBC AM DRAW Lab 07/29/24 05:00 Ordered CBC AM DRAW Lab 07/30/24 05:00 Ordered CBC AM DRAW Lab 07/31/24 05:00 Ordered CBC AM DRAW Lab 08/01/24 05:00 Ordered CBC Stat Lab 07/24/24 11:56 Completed Comprehensive Metabolic Panel AM DRAW Lab 07/25/24 05:00 Ordered Comprehensive Metabolic Panel AM DRAW Lab 07/26/24 05:00 Ordered Comprehensive Metabolic Panel AM DRAW Lab 07/27/24 05:00 Ordered Comprehensive Metabolic Panel AM DRAW Lab 07/28/24 05:00 Ordered Comprehensive Metabolic Panel AM DRAW Lab 07/29/24 05:00 Ordered Comprehensive Metabolic Panel AM DRAW Lab 07/30/24 05:00 Ordered Comprehensive Metabolic Panel AM DRAW Lab 07/31/24 05:00 Ordered Comprehensive Metabolic Panel AM DRAW Lab 08/01/24 05:00 Ordered Comprehensive Metabolic Panel Stat Lab 07/24/24 11:56 Completed Lactic Acid [Lactate (Lactic Acid)] Stat Lab 07/24/24 11:56 Results Lipase Stat Lab 07/24/24 11:56 Completed Lipid Panel AM DRAW Lab 07/25/24 05:00 Ordered Magnesium AM DRAW Lab 07/25/24 05:00 Ordered Magnesium AM DRAW Lab 07/26/24 05:00 Ordered Magnesium AM DRAW Lab 07/27/24 05:00 Ordered Magnesium AM DRAW Lab 07/28/24 05:00 Ordered Magnesium AM DRAW Lab 07/29/24 05:00 Ordered Magnesium AM DRAW Lab 07/30/24 05:00 Ordered Magnesium AM DRAW Lab 07/31/24 05:00 Ordered Magnesium AM DRAW Lab 08/01/24 05:00 Ordered Magnesium Stat Lab 07/24/24 11:56 Completed Partial Thromboplastin Time Stat Lab 07/24/24 11:56 Completed Phosphorous AM DRAW Lab 07/25/24 05:00 Ordered Phosphorous AM DRAW Lab 07/26/24 05:00 Ordered Phosphorous AM DRAW Lab 07/27/24 05:00 Ordered Phosphorous AM DRAW Lab 07/28/24 05:00 Ordered Phosphorous AM DRAW Lab 07/29/24 05:00 Ordered Phosphorous AM DRAW Lab 07/30/24 05:00 Ordered Phosphorous AM DRAW Lab 07/31/24 05:00 Ordered Phosphorous AM DRAW Lab 08/01/24 05:00 Ordered Procalcitonin Stat Lab 07/24/24 11:56 Completed Prothrombin Time with INR Stat Lab 07/24/24 11:56 Completed Thyroid Stimulating Hormone Routine Lab 07/25/24 14:49 Ordered Troponin I Q6H Lab 07/24/24 15:00 Ordered Troponin I Q6H Lab 07/24/24 21:00 Ordered Troponin I Q6H Lab 07/25/24 03:00 Ordered Troponin I Q6H Lab 07/25/24 09:00 Ordered Troponin I Q6H Lab 07/25/24 15:00 Ordered Troponin I Q6H Lab 07/25/24 21:00 Ordered Troponin I Q6H Lab 07/26/24 03:00 Ordered Troponin I Q6H Lab 07/26/24 09:00 Ordered Troponin I Stat Lab 07/24/24 11:56 Completed Urinalysis Stat Lab 07/24/24 12:29 Ordered Urine Culture Stat Lab 07/24/24 14:29 Ordered Acetaminophen Tab [Tylenol Tab] Med 07/24/24 14:45 Active 650 mg PO Q6H PRN Acetaminophen Tab [Tylenol Tab] Med 07/24/24 14:45 Active 650 mg PO Q6H PRN Acetaminophen Tab [Tylenol Tab] Med 07/24/24 13:58 Discontinued 650 mg PO X1 ONE Albuterol/Ipratr Rt Christianne [Duoneb Rt Christianne] Med 07/24/24 14:45 Active 3 ml INH Q6HRRT PRN Albuterol/Ipratr Rt Christianne [Duoneb Rt Christianne] Med 07/24/24 12:28 Discontinued 3 ml INH X1 ONE Azithromycin Inj [Zithromax Inj] 500 mg Med 07/24/24 12:31 Discontinued Sodium Chloride 0.9% 250 ml [Ns] 250 ml IV X1 Calcium Gluc/Ns 1000MG Ivpb [Calcium Gluc/Ns 1000mg Med 07/24/24 13:45 Discontinued Ivpb] 1,000 mg in 50 ml IV X1 Calcium Gluconate 10% Inj Med 07/24/24 13:37 Discontinued 1 gm IV X1 ONE Heparin Inj Med 07/24/24 22:00 Active 5,000 unit SC Q8HR Lidocaine 5% Patch Med 07/24/24 13:58 Discontinued 1 patch TOP X1 ONE Magnesium Sulfate 1 gm Ivpb [Magnesium Sulfate Ivpb] Med 07/24/24 13:37 Discontinued 1 gm in 100 ml IV X1 Midodrine [Proamatine] Med 07/24/24 12:28 Discontinued 10 mg PO X1 ONE Midodrine [Proamatine] Med 07/24/24 13:32 Discontinued 10 mg PO X1 ONE Midodrine [Proamatine] Med 07/24/24 13:32 Discontinued 10 mg PO X1 ONE Norepinephrine/D5W 8mg/250ml [Levophed in D5W 8mg/250ml Med 07/24/24 13:59 Active ] 8 mg in 250 ml IV 0.05 mcg/kg/min Norepinephrine/D5W 8mg/250ml [Levophed in D5W 8mg/250ml Med 07/24/24 14:52 Ordered ] 8 mg in 250 ml IV 0.05 mcg/kg/min Ondansetron Inj [Zofran Inj] Med 07/24/24 14:45 Ordered 4 mg IV Q6H PRN Sodium Chloride 0.9% 250 ml [Ns] 250 ml Med 07/24/24 13:32 Discontinued IV 999 mls/hr Sodium Chloride 0.9% 250 ml [Ns] 250 ml Med 07/24/24 13:34 Discontinued IV 999 mls/hr cefTRIAXone/D5w 1gm IV premix [Rocephin/D5w 1gm IV Med 07/24/24 13:31 Discontinued premix] 1 gm in 50 ml IV X1 Code Status Routine Oth 07/24/24 14:45 Ordered Vital Signs Vital signs: Vital Signs Temperature 97.8 F 07/24/24 11:19 Pulse Rate 108 H 07/24/24 11:19 Respiratory Rate 17 07/24/24 11:19 Blood Pressure 94/60 07/24/24 11:19 Pulse Oximetry (%) 95 07/24/24 11:19 Oxygen Delivery Method Room Air 07/24/24 11:19 Discharge Plan Plan Patient Disposition: Admit Acute Care w/in Hospital Prescriptions/Referrals Prescriptions/Med Rec: No Action tamsulosin 0.4 mg capsule 0.4 mg PO QDAY levothyroxine 100 mcg Tablet 100 mcg PO QDAY Qty: 0 atorvastatin 40 mg tablet 1 tab PO HS Patient Comments: take 1 tablet by mouth at bedtime for HIGH CHOLESTEROL docusate sodium 100 mg Tablet 100 mg PO BID pantoprazole [Protonix] 40 mg tablet,delayed release (DR/EC) 40 mg PO BID Qty: 60 0RF Lupron Depot (3 month) 22.5 mg Syringe Kit See Rx Instructions .ROUTE .COMPLEX Rx Instructions: 22.5 mg IM every 3 months Vitamin C 100 mg Tablet 500 mg PO BID sucralfate 1 gram tablet 1 g PO BID Patient Comments: take 1 tablet by mouth twice a day Auryxia 210 mg iron tablet 210 mg PO TID Rx Instructions: administer with a meal cholecalciferol (vitamin D3) [Vitamin D3] 50 mcg (2,000 unit) capsule 50 mcg PO QDAY melatonin 5 mg capsule 10 mg PO PRN PRN (Reason: insomnia) acetaminophen 325 mg capsule 325 mg PO Q6H PRN (Reason: pain) trazodone 50 mg Tablet 100 mg PO QDAY gabapentin 100 mg Capsule 100 mg PO QDAY calcium acetate(phosphat bind) 667 mg Capsule 667 mg PO TID fluticasone propion-salmeterol 100-50 mcg/dose Blister With Device 1 inh INHALATION BID phenazopyridine 100 mg tablet 100 mg PO QDAY Patient Comments: take 1 tablet by mouth once a day Auryxia 210 mg iron tablet 420 mg PO TID Rx Instructions: administer with a meal Referrals: Shen Skelton MD [Primary Care Provider] - In 1 week Problem List Clinical Impression: Acute hypotension, Aortic stenosis, Fluid overload Patient/Caregiver Discharge Instructions Print Language: Russian Stand Alone Forms: Franny Award Info., Patient Portal Info Letter MDM Narrative MDM hospital course (for use when minimal MDM required): This patient is a 79-year-old male with past medical history of hemodialysis Tuesdays and Saturday follows Dr Funez as outpatient, history of UTI, basal cell cancer, prostate cancer post radiation 2010 presented to the ED on 07/24/2024 with chief complaint of shortness of breath and lower extremity swelli ng. Patient's daughter is at the bedside and she stated that patient has not been getting sufficient dialysis as outpatient. On Saturday, he got half liter removed due to hypotension and yesterday only 1 L of fluid was removed. Patient endorses left shoulder pain as well. He reported that his shortness of breath is getting worse and he cannot sleep at night while laying flat on the bed. He also endorsed some nausea last night. He has been having cough with green phlegm from last couple of days. He endorsed abdominal discomfort more in the epigastric region. His last bowel movement was yesterday with formed stool. But he has been struggling with constipation. Denies any fever chills. Patient was also found to have lower extremity swelling. He makes little amount of urine and has been having burning sensation from last 3 weeks. He usually takes midodrine 10 mg before his dialysis. He also has been having trouble getting up from the chair since yesterday. Differential diagnoses include hypotension related to severe aortic stenosis versus fluid overload, distributive shock related to infection [community- acquired pneumonia] versus cardiogenic related to aortic stenosis, lactic acidosis, leukocytosis, thrombocytopenia, elevated troponin I Initial vitals showed soft blood pressure 94/60 dropped to 72/40 2:07 doses of midodrine 10 mg x 1. Patient was given breathing treatment albuterol inhaler x 1, calcium gluconate x 1, magnesium 1 g x 1, normal saline 250 bolus was given x 1. Labs were significant for leukocytosis white count 16.7, hemoglobin 9.7. Platelet count 69. INR 1.3. CHEM panel showed potassium 3.6, sodium 137. Kidney functions were consistent with ESRD pattern with BUN 44 and creatinine 5.3. Blood glucose 170. Lactic acidosis of 3.2. Corrected calcium 8.4. Magnesium 1.8. Troponin I hide was 1.54, BNP more than 3000 and elevated procalcitonin 1.94. Chest x-ray showed bibasilar pneumonia. Abdominal x-ray showed stool throughout colon.Abdomen x-ray showed nonobstructive bowel gas pattern. EKG showed sinus rhythm with QTc 468. Veneer Jointer Offbearer, Dr Damon was called as Dr. Funez out for vacation who was explained regarding patient's current clinical condition and soft blood pressure. She recommended that patient will need workup for aortic stenosis and would be need to be evaluated by corporation lawyer. She also recommended to start Le vophed as patient is refractory to midodrine and consult ICU team for admission. She will try to do intermittent dialysis for blood pressure tolerance. Sepsis alert was initated due to tacy, tacpnea and leukocytosis with possible source CAP 13:06 Discussed case with ICU team regarding admission. Discussed patient's ED course, exam findings, labs and radiology results. Hospitalist team agreed to accept the patient for admission. Hazardous Materials Waste Technician, Dr. Mann was contacted and he recommended to start the patient on pressor support and he will like to follow him in ICU. Medication Administration(s) Medication Administration History Acetaminophen (Acetaminophen 325 Mg Tablet) 650 mg PO Q6H PRN PRN Reason: Fever >101.5 Stop: 08/23/24 14:44 Acetaminophen (Acetaminophen 325 Mg Tablet) 650 mg PO Q6H PRN PRN Reason: PAIN SCALE 1-3 (mild Stop: 08/23/24 14:44 Albuterol/Ipratropium (Albuterol/Ipratropium (Duoneb) Rt Christianne 3 Ml Nebu) 3 ml INH Q6HRRT PRN PRN Reason: SHORTNESS OF BREATH OR WHEEZE Stop: 08/23/24 18:59 Heparin Sodium (Porcine) (Heparin Sod Inj 5000 Unit/Ml Vial) 5,000 unit SC Q8HR ROBERT Stop: 08/07/24 21:59 Norepinephrine/Dextrose (Levophed In D5w 8mg/250ml) 8 mg in 250 mls @ 8.25 mls/hr IV .Q24H PRN; Protocol PRN Reason: PER PROTOCOL Stop: 08/23/24 13:58 Norepinephrine/Dextrose (Levophed In D5w 8mg/250ml) 8 mg in 250 mls @ 8.25 mls/hr IV .Q24H PRN; Protocol PRN Reason: PER PROTOCOL Stop: 08/23/24 14:51 Ondansetron HCl (Ondansetron Inj 2 Mg/Ml Inj 2 Ml) 4 mg IV Q6H PRN; Protocol PRN Reason: NAUSEA OR VOMITING Stop: 08/23/24 14:44 Discontinued Medications Acetaminophen (Acetaminophen 325 Mg Tablet) 650 mg PO X1 ONE Stop: 07/24/24 13:59 Last Admin: 07/24/24 14:44 Dose: 650 mg Documented By: LORE Albuterol/Ipratropium (Albuterol/Ipratropium (Duoneb) Rt Christianne 3 Ml Nebu) 3 ml IN H X1 ONE Stop: 07/24/24 12:29 Last Admin: 07/24/24 12:55 Dose: 3 ml Documented By: GOLDEN Calcium Gluconate (Calcium Gluconate 10% Inj 1 Gm/10 Ml Vial) 1 gm IV X1 ONE Stop: 07/24/24 13:38 Last Admin: 07/24/24 14:25 Dose: Not Given Documented By: RD Non-Admin Reason: Cancelled by Provider Azithromycin 500 mg/ Sodium (Chloride) 250 mls @ 250 mls/hr IV X1 ONE Stop: 07/24/24 13:30 Last Admin: 07/24/24 12:49 Dose: 250 mls/hr Documented By: NASRIN Ceftriaxone Sodium/Dextrose (Rocephin/D5w 1gm Iv Premix) 1 gm in 50 mls @ 100 mls/hr IV X1 ONE Stop: 07/24/24 14:00 Last Admin: 07/24/24 13:38 Dose: 100 mls/hr Documented By: JASIEL Sodium Chloride (Ns) 250 mls @ 999 mls/hr IV .Q16M ONE Stop: 07/24/24 13:47 Last Admin: 07/24/24 13:38 Dose: 999 mls/hr Documented By: JASIEL Sodium Chloride (Ns) 250 mls @ 999 mls/hr IV .Q16M ONE Stop: 07/24/24 13:49 Last Admin: 07/24/24 13:42 Dose: Not Given Documented By: JASIEL Non-Admin Reason: Duplicate Medication on eMAR Magnesium Sulfate/Dextrose (Magnesium Sulfate Ivpb) 1 gm in 100 mls @ 100 mls/hr IV X1 ONE Stop: 07/24/24 14:36 Last Admin: 07/24/24 13:56 Dose: 100 mls/hr Documented By: JASIEL Calcium Gluconate/Sodium Chloride (Calcium Gluc/Ns 1000mg Ivpb) 1,000 mg in 50 mls @ 50 mls/hr IV X1 ONE Stop: 07/24/24 14:44 Last Admin: 07/24/24 13:56 Dose: 50 mls/hr Documented By: JASIEL Lidocaine (Lidocaine 5% 1 Patch) 1 patch TOP X1 ONE Stop: 07/24/24 13:59 Last Admin: 07/24/24 14:46 Dose: 1 patch Documented By: LORE Midodrine (Midodrine 5 Mg Tablet) 10 mg PO X1 ONE Stop: 07/24/24 12:29 Last Admin: 07/24/24 12:38 Dose: 10 mg Documented By: NASRIN Midodrine (Midodrine 5 Mg Tablet) 10 mg PO X1 ONE Stop: 07/24/24 13:33 Last Admin: 07/24/24 14:25 Dose: Not Given Documented By: LORE Non-Admin Reason: Cancelled by Provider Midodrine (Midodrine 5 Mg Tablet) 10 mg PO X1 ONE Stop: 07/24/24 13:33 Last Admin: 07/24/24 13:38 Dose: 10 mg Documented By: JASIEL
--- NOTE | 2024-07-24 12:29 | XR_ITS ---
Examination: Abdomen AP single view Technique: AP portable supine abdomen, single view Exam date and time: July 24, 2024 1249 hours INDICATIONS: Abdominal pain constipation beginning 3 days ago. FINDINGS: Mild to moderate air and stool throughout the colon Mild small bowel ileus Surgical clips upper right abdomen Significant pleural parenchymal disease left base IMPRESSION: Nonobstructive bowel gas pattern Significant pleural parenchymal disease left base
[2024-07-24 12:38] LABS: Platelet Count 69 Thou/mm3 (140-440)
[2024-07-24] MEDS: MIDODRINE 5 MG TABLET 10 MG PO ×2 (12:38→13:38)
[2024-07-24 12:40] LABS: Slide Review Platelets confirmed
[2024-07-24 12:46] LABS: INR 1.3 (0.9-1.3); Partial Thromboplastin Time 30.2 Seconds (22.0-36.0); Prothrombin Time 13.9 Seconds (9.0-12.2)
[2024-07-24] MEDS: AZITHROMYCIN INJ 500 MG in SODIUM CHLORIDE 0.9% 250 ML 250 ML 250 MG IV (12:49)
[2024-07-24] MEDS: ALBUTEROL/IPRATROPIUM (Duoneb) RT SOL 3 ML NEBU INH ×2 (12:55→22:25)
[2024-07-24 13:17] LABS: B-Type Natriuretic Peptide > 3280 pg/mL (0-100)
[2024-07-24 13:20] LABS: Alanine Aminotransferase < 7 U/L (10-49); Albumin, Serum 3.7 gm/dL (3.4-4.8); Albumin/Globulin Ratio 1.2 (1.2-2.2); Alkaline Phosphatase 73 U/L (46-116); Anion Gap 15 (7-16); Aspartate Amino Transferase 13 U/L (0-34); BUN/Creatinine Ratio 8 Ratio (12-20); Bilirubin,Total 0.2 mg/dL (0.3-1.2); Blood Urea Nitrogen 44 mg/dL (9-23); Calcium 8.2 mg/dL (8.3-10.6); Calcium (Corrected) 8.4 mg/dL (8.5-10.1); Carbon Dioxide 23.8 mMol/L (20.0-31.0); Chloride 98 mMol/L (98-107); Creatinine (Component) 5.3 mg/dL (0.6-1.3); Glucose 170 mg/dL (74-106); Lipase 26 U/L (12-53); Magnesium 1.8 mg/dL (1.6-2.6); Osmolality,Calculated 289 (275-295); Potassium 3.6 mMol/L (3.4-5.1); Procalcitonin 1.94 ng/ml (0.0-0.49); Sodium 137 mMol/L (136-145); Total Protein 6.7 gm/dL (5.7-8.2); eGFR 10 See Note
[2024-07-24] MEDS: SODIUM CHLORIDE 0.9% 250 ML 250 ML 999 ML IV (13:38)
[2024-07-24] MEDS: cefTRIAXone/D5w 1gm IV premix 1 GM/50 ML BAG IV (13:38)
[2024-07-24] MEDS: CALCIUM GLUC/NS 1000MG IVPB 1,000 MG/50 ML BAG 50 MG IV (13:56)
[2024-07-24] MEDS: Magnesium Sulfate 1 gm Ivpb 1 GM/100 ML BAG IV (13:56)
[2024-07-24] MEDS: ACETAMINOPHEN 325 MG TABLET 650 MG PO (14:44)
[2024-07-24] MEDS: LIDOCAINE 5% 1 PATCH TOP (14:46)
--- NOTE | 2024-07-24 14:50 | ECHO_ITS ---
Transthoracic Echo Report Ht (in): 72 Wt (lb): 194 Exam Location: Echo Lab Status: Emergency Camp Counselor: Abi Cortes Indications: Procedure Performed: BP: 86 / 54 HR: Technical Quality: Technically difficult study MEASUREMENTS (Male / Female) Normal Values 2D ECHO LV Diastolic Diameter PLAX 5.3 cm 4.2 - 5.9 / 3.9 - 5.3 cm LV Systolic Diameter PLAX 4.6 cm IVS Diastolic Thickness 1.2 cm 0.6 - 1.0 / 0.6 - 0.9 cm LVPW Diastolic Thickness 1.4 cm 0.6 - 1.0 / 0.6 - 0.9 cm LV Relative Wall Thickness 0.5 LVOT Diameter 1.5 cm Aortic Root Diameter 2.8 cm LA Systolic Diameter LX 3.9 cm 3.0 - 4.0 / 2.7 - 3.8 cm LA Volume Index 45.8 cm?/m? 16 - 28 cm?/m? M-MODE AV Cusp Separation MM 0.8 cm DOPPLER AV Peak Velocity 465.5 cm/s AV Peak Gradient 86.7 mmHg AV Mean Gradient 53.0 mmHg AV Velocity Time Integral 101.1 cm AI Peak Velocity 341.0 cm/s AI Peak Gradient 46.5 mmHg AI Pressure Half Time 244.0 ms LVOT Peak Velocity 73.9 cm/s LVOT Peak Gradient 2.2 mmHg LVOT Velocity Time Integral 14.4 cm AV Area Cont Eq vti 0.3 cm? AV Area Cont Eq pk 0.3 cm? MV Peak Velocity 161.0 cm/s MV Peak Gradient 10.4 mmHg MV Mean Velocity 85.8 cm/s MV Mean Gradient 4.0 mmHg MR Peak Velocity 532.3 cm/s MR Peak Gradient 113.4 mmHg LV E' Lateral Velocity 10.9 cm/s LV E' Septal Velocity 6.4 cm/s TR Peak Velocity 322.7 cm/s TR Peak Gradient 41.6 mmHg PV Peak Velocity 90.9 cm/s PV Peak Gradient 3.3 mmHg FINDINGS Left Ventricle Normal left ventricular size, systolic function with no obvious regional wall motion abnormalities. Mild LVH. There is grade II diastolic dysfunction of the left ventricle (pseudonormal filling pattern). The ejection fraction is visually estimated at 35 %. Right Ventricle The right ventricle is normal in size.the right ventricular systolic function is mildly decreased. The estimated right ventricular systolic pressure, 60 mmHg. RAP 15. Left Atrium Left atrial volume index 45.8 mL/m?. Right Atrium The right atrium is normal by two-dimensional imaging, color flow and Doppler imaging with no structural abnormalities, no thrombus formation present. Atrial Septum The interatrial septum appears normal with no evidence of a shunt. Aorta The aorta is normal by two-dimensional, color flow and Doppler interrogation. Mitral Valve Mild thickening of the mitral valve leaflets. [id number] mitral regurgitation. Aortic Valve Moderate thickening of the aortic valve leaflets. Severe aortic valve stenosis, mean gradient 53 mmHg, BARRY 0.25 cm?. Mild aortic valve regurgitation. Tricuspid Valve There is mild to moderate tricuspid valve regurgitation. Pulmonic Valve Mild pulmonic valve regurgitation. Vessels Dilated inferior vena cava. Pericardium There is no significant pericardial effusion. A pleural effusio is visualized. CONCLUSIONS Indication: Severe Mildly dilated left atrium. Dilated left ventricle with severe global hypokinesis with severe systolic dysfunction left ventricle ejection fraction approximately 20 to 25%. Left ventricle function is severely depressed compared to cardiac echo May 08, 2024. Severe calcific aortic stenosis aortic velocity is 4 m/s with a peak gradient of 56 mmHg Mild aortic valve regurgitation RV is normal in size. RV systolic function is mildly decreased. Estimated right ventricular systolic pressure, 60 mmHg. RAP 15. Mild thickening. With evidence of moderate 2+ mitral regurgitation.. Mild to moderate TR. Left pleural effusion is present Mild PI. Dilated IVC. Tuyet Fitzpatrick (Electronically Signed) Final Date: 26 Jul 2024 19:14
--- NOTE | 2024-07-24 14:53 | ESHP_ITS ---
<Statement entered by Mallorie Ryan MD - 07/24/24 21:22> TOTAL CC TIME: 45 MIN I saw and evaluated the patient. I reviewed the resident?s note and agree with findings and plan as documented in the resident?s note. Upon my evaluation, this patient had a high probability of imminent or life- threatening deterioration due to severe aortic stenosis, acute pulm edema which required my direct attention, intervention, and personal management. This time is exclusive of time spent on procedures, which are documented separately if performed. D/w Dr. Damon Will place triple lumen HD CVC for CRRT given severe and hypotension Gentle fluid removal only o2 support for hypoxia empiric abx given cxr and leukocytosis Documentation for date of: 07/24/24 HPI History of Present Illness Chief complaint: sob History of present illness: Patient is a 79-year-old male with past medical history of hemodialysis (TTS) with Dr. Beltrán, history of aortic stenosis with his face painter being Dr. Mann, history of UTIs, basal cell cancer, prostate cancer status post radiation in 2009 who presented with chief complaint shortness of breath and lower extremity swelling. Patient was accompanied by daughter who was at bedside and contributed to the story stating that patient has not been having complete sessions of hemodialysis as he has been having episodes of hypotension during the dialysis which led to the session being cut short. The shortness of breath has progressively gotten worse as well as the pitting edema in the lower extremities. Patient does also endorse abdominal discomfort in the epigastric region and he has diffuse distention and mild tenderness to palpation throughout the abdomen. His last bowel movement was the day prior to admission and he has a history of constipation. Patient makes little urine and he usually takes midodrine 10 mg right before dialysis sessions. In our ER patient has had soft blood pressures in the 80s over 60s with heart rate during the high 90s respiratory in the high 20s without any fevers and satting well 2 L nasal cannula. His pressure did not improve despite his 20 mg of midodrine and ICU was consulted for pressor support during hemodialysis session. Patient has left AV fistula in the upper extremity however given patient's very soft blood pressures and presenting severe aortic stenosis hemodialysis catheter was placed in the right femoral vein in preparation for CRRT. Dr Damon, who is covering for Dr. Funez, will be following the patient during his stay as well as Dr. Mann. CBC showed a WBC of 16.7, hemoglobin 9.7, platelets 69 CMP was noncontributory aside from a glucose of 170 and a lactic acid of 3.9, troponins of 1.816 and a BNP greater than 30-80 with a Pro-Dave of 1.94. Abdominal x-ray revealed nonobstructive bowel gas pattern and an x-ray revealed mild heart failure pattern with significant bibasilar pneumonia. There is a Port-A-Cath on the right IJ. Patient will be brought to the unit for further monitoring and close trending of his blood pressures during hemodialysis as well as pressor support. Exam Vital Signs Temp Pulse Resp BP Pulse Ox O2 Del Method 98 F 103 H 24 H 95/58 L 94 L Room Air 07/24/24 14:17 07/24/24 14:17 07/24/24 14:17 07/24/24 14:17 07/24/24 14:17 07/24/24 14:17 Narrative Exam Constitutional: Well nourished in no severe distress. Head: Normocephalic/Atraumatic Eyes: PERRL , no conjunctival injection , symmetrical lids. ENMT: Moist Mucous Membranes, No trauma or injury. Neck: Supple to palpation, No JVD CVS: RRR, S1 and S2 present. Loud systolic crescendo decrescendo murmur heard on the parasternal area RESP: CTAB, patient is short of breath bilateral crackles heard on lung mike more so on the bases. GI: Normal BS, Nontender/Nondistended. MSK: Full range of motion, No trauma or deformities or masses. 3+ pitting edema bilateral lower extremities. There is left AV fistula without discharge or erythema. Skin: Warm to touch, Dry. No rashes or lesions. No hematomas Neuro: vice president compliance II-XII grossly intact. Sensation grossly intact. Psych: (AAO) x3 . Appropriate mood and affect. Results: Labs 07/24/24 11:56 07/24/24 11:56 Labs: Short CBC 07/24/24 Range/Units 11:56 WBC 16.7 H D (3.8-10.6) Thou/mm3 Hgb 9.7 L (13.5-16.0) g/dL Hct 30.9 L (41.0-53.0) % Plt Count 69 L D (140-440) Thou/mm3 BMP 07/24/24 11:56 Sodium 137 Potassium 3.6 Chloride 98 Carbon Dioxide 23.8 BUN 44 H Creatinine 5.3 H* Glucose 170 H Calcium 8.2 L Cardiac Enzymes 07/24/24 Range/Units 11:56 Troponin I 1.540 H* (0.0-0.045) ng/mL Liver Function 07/24/24 Range/Units 11:56 Total Bilirubin 0.2 L (0.3-1.2) mg/dL AST 13 (0-34) U/L ALT < 7 L (10-49) U/L Alkaline Phosphatase 73 (46-116) U/L Albumin 3.7 (3.4-4.8) gm/dL Quality Measures Quality Measures none Advance care planning discussed with:: patient and child Medications Home Medications and Allergies Home Medications ?Medication ?Instructions ?Recorded ?Confirmed ?Type levothyroxine 100 mcg tablet 100 mcg PO QDAY #0 tabs 1 06/19/24 History atorvastatin 40 mg tablet 1 tab PO HS 08/01/21 5 History docusate sodium 100 mg tablet 100 mg PO BID 11/07/21 0 06/19/24 History trazodone 50 mg tablet 100 mg PO QDAY 01/30/2206/09 History calcium acetate(phosphat bind) 667 667 mg PO TID 06/2706/19/24 History mg capsule gabapentin 100 mg capsule 100 mg PO QDAY 06/27/2206/09 History tamsulosin 0.4 mg capsule 0.4 mg PO QDAY 10/26/2206/09 History fluticasone 100 mcg-salmeterol 50 1 inh inhalation BID 02/04/23 06/19/24 History mcg/dose blistr powdr for inhalation ascorbic acid (vitamin C) 100 mg 500 mg PO BID 4 06/19/24 History tablet (Vitamin C) leuprolide (3 month) 22.5 mg (3 See Rx Instructions .R oute .COMPLEX 05/22/23 06/19/24 History month) intramuscular syringe kit (Lupron Depot) sucralfate 1 gram tablet 1 g PO BID 02/23/24 06/19/24 History phenazopyridine 100 mg tablet 100 mg PO QDAY 05/07/24 06/19/24 History acetaminophen 325 mg capsule 325 mg PO Q6H PRN pain 06/19/24 History cholecalciferol (vitamin D3) 50 50 mcg PO QDAY 5 06/19/24 History mcg (2,000 unit) capsule (Vitamin D3) ferric citrate 210 mg iron tablet 210 mg PO TID 06/19/24 History (Auryxia) melatonin 5 mg capsule 10 mg PO PRN PRN insomnia 06/19/24 History ferric citrate 210 mg iron tablet 420 mg PO TID 06/19/24 History (Auryxia) Allergies Allergy/AdvReac Type Severity Reaction Status Date / Time No Known Allergies Allergy Verified 06/19/24 08:34 Visit Medications Acetaminophen (Acetaminophen 325 Mg Tablet) 650 mg PO Q6H PRN PRN Reason: Fever >101.5 Stop: 08/23/24 14:44 Acetaminophen (Acetaminophen 325 Mg Tablet) 650 mg PO Q6H PRN PRN Reason: PAIN SCALE 1-3 (mild Stop: 08/23/24 14:44 Albuterol/Ipratropium (Albuterol/Ipratropium (Duoneb) Rt Christianne 3 Ml Nebu) 3 ml INH Q6HRRT PRN PRN Reason: SHORTNESS OF BREATH OR WHEEZE Stop: 08/23/24 18:59 Heparin Sodium (Porcine) (Heparin Sod Inj 5000 Unit/Ml Vial) 5,000 unit SC Q8HR ROBERT Stop: 08/07/24 21:59 Norepinephrine/Dextrose (Levophed In D5w 8mg/250ml) 8 mg in 250 mls @ 8.25 mls/hr IV .Q24H PRN; Protocol PRN Reason: PER PROTOCOL Stop: 08/23/24 13:58 Norepinephrine/Dextrose (Levophed In D5w 8mg/250ml) 8 mg in 250 mls @ 8.25 mls/hr IV .Q24H PRN; Protocol PRN Reason: PER PROTOCOL Stop: 08/23/24 14:51 Ondansetron HCl (Ondansetron Inj 2 Mg/Ml Inj 2 Ml) 4 mg IV Q6H PRN; Protocol PRN Reason: NAUSEA OR VOMITING Stop: 08/23/24 14:44 Discontinued Medications Acetaminophen (Acetaminophen 325 Mg Tablet) 650 mg PO X1 ONE Stop: 07/24/24 13:59 Last Admin: 07/24/24 14:44 Dose: 650 mg Albuterol/Ipratropium (Albuterol/Ipratropium (Duoneb) Rt Christianne 3 Ml Nebu) 3 ml INH X1 ONE Stop: 07/24/24 12:29 Last Admin: 07/24/24 12:55 Dose: 3 ml Calcium Gluconate (Calcium Gluconate 10% Inj 1 Gm/10 Ml Vial) 1 gm IV X1 ONE Stop: 07/24/24 13:38 Last Admin: 07/24/24 14:25 Dose: Not Given Azithromycin 500 mg/ Sodium (Chloride) 250 mls @ 250 mls/hr IV X1 ONE Stop: 07/24/24 13:30 Last Admin: 07/24/24 12:49 Dose: 250 mls/hr Ceftriaxone Sodium/Dextrose (Rocephin/D5w 1gm Iv Premix) 1 gm in 50 mls @ 100 mls/hr IV X1 ONE Stop: 07/24/24 14:00 Last Admin: 07/24/24 13:38 Dose: 100 mls/hr Sodium Chloride (Ns) 250 mls @ 999 mls/hr IV .Q16M ONE Stop: 07/24/24 13:47 Last Admin: 07/24/24 13:38 Dose: 999 mls/hr Sodium Chloride (Ns) 250 mls @ 999 mls/hr IV .Q16M ONE Stop: 07/24/24 13:49 Last Admin: 07/24/24 13:42 Dose: Not Given Magnesium Sulfate/Dextrose (Magnesium Sulfate Ivpb) 1 gm in 100 mls @ 100 mls/hr IV X1 ONE Stop: 07/24/24 14:36 Last Admin: 07/24/24 13:56 Dose: 100 mls/hr Calcium Gluconate/Sodium Chloride (Calcium Gluc/Ns 1000mg Ivpb) 1,000 mg in 50 mls @ 50 mls/hr IV X1 ONE Stop: 07/24/24 14:44 Last Admin: 07/24/24 13:56 Dose: 50 mls/hr Lidocaine (Lidocaine 5% 1 Patch) 1 patch TOP X1 ONE Stop: 07/24/24 13:59 Last Admin: 07/24/24 14:46 Dose: 1 patch Midodrine (Midodrine 5 Mg Tablet) 10 mg PO X1 ONE Stop: 07/24/24 12:29 Last Admin: 07/24/24 12:38 Dose: 10 mg Midodrine (Midodrine 5 Mg Tablet) 10 mg PO X1 ONE Stop: 07/24/24 13:33 Last Admin: 07/24/24 14:25 Dose: Not Given Midodrine (Midodrine 5 Mg Tablet) 10 mg PO X1 ONE Stop: 07/24/24 13:33 Last Admin: 07/24/24 13:38 Dose: 10 mg Assessment & Plan Plan 79-year-old male with past medical history of hemodialysis (TTS) with Dr. Beltrán, history of aortic stenosis with his face painter being Dr. Mann, history of UTIs, basal cell cancer, prostate cancer status post radiation in 2009 admitted to the ICU for shock Neuro Problems: Stable CVS Shock DDx: Cardiogenic in the setting of severe aortic stenosis versus distributive Dx:Patient's last EF was on 04/30/2024 and showed an EF of 55 to 60% with aortic stenosis during a V-max of 5 m/s and aortic valve area of 0.7 cm?. Patient meets SIRS criteria with possible pneumonia being underlying source of infection Rx: Pressor support with Levophed while patient undergoes slow fluid removal with CRRT and will treat underlying infection Cardiology is on board, appreciate recommendations Repeat echocardiogram Troponinemia Likely from demand ischemia as well as decreased renal clearance Troponins were elevated at 1.816, EKG did not show any ST segment changes Will trend troponins Resp Acute hypoxic respiratory failure DDx: Likely secondary to fluid overload from CHF exacerbation versus pneumonia versus COPD exacerbation Dx: X-ray shows pulmonary congestion and on exam crackles can be heard in bibasilar lung mike. Patient is tachypneic Rx: Will treat possible underlying infection with azithromycin Rocephin DuoNebs as needed Will remove fluids slowly with CRRT GI Abdominal pain DDx: Likely secondary to constipation versus gas Dx: Patient has a history of constipation and abdominal x-ray reveals nonobstructive gas pattern Rx: Stool softeners Renal ESRD on HD TTS DDx: Patient has been unable to receive hemodialysis due to hypotensive episodes Dx: Chest x-ray shows vascular congestion and there is bilateral pitting edema in the lower extremities. Rx: CRRT GI Cardiac diet No Protonix at this time ID/Skin Sepsis secondary to pneumonia DDx: Patient meets SIRS criteria 3/4 with pneumonia being possible underlying source of infection Dx: Chest x-ray revealed bibasilar pneumonia Rx: Patient received azithromycin and Rocephin in the ED. Will continue azithromycin for an additional 2 days and ceftriaxone for total of 7 days Will continue to monitor for trends in white count as well as fevers. Patient was not given fluid boluses in the ED due to presenting fluid overload Follow-up with blood cultures. Patient has minimal urine output Hematology Leukocytosis DDx: Likely reactive to infection Dx: White count was 16.7 but there were no recorded fevers Rx: See pneumonia above Anemia of chronic disease Due to history of ESRD Hemoglobin 9.7 without signs of active bleeding Will trend hemoglobin Hospital Maintenance: FEN: Cardiac diet DVT PPx: Heparin subcu GI PPx: None IV lines: Peripheral IVs as well as a right femoral temporary dialysis catheter Tee: None Code Status: Full code Dispo: Patient will remain in the ICU for further management of his shock as he undergoes CRRT I discussed patient's care with bricklayer, Dr Shelby Montalvo MD, PGY3
[2024-07-24 15:14] LABS: Reflex Lactate? Y
[2024-07-24 15:22] LABS: Lactic Acid, 3 HR 3.9 mMol/L (0.4-2.0)
--- NOTE | 2024-07-24 15:42 | ESCONSULT_ITS ---
<Statement entered by Kory Mann MD - 07/24/24 19:38> I personally examined the patient who has multiple medical problems renal failure dialysis severe calcific aortic stenosis plan to have TAVR procedure recently had a GI bleed required multiple transfusions. Patient had a biopsy done but small bowel endoscopy was found to have also. Malformations at the same time but no active bleeding last 1 month but clinically also hypertension patient been on midodrine still having hypotensive episodes dizziness and near syncope hence vasopressors for now dialysis as tolerated patient will be continued on midodrine so we can take her off vasopressors and dialysis patient is already getting workup for TAVR cardiac catheterization already completed CT TAVR and other workup before scheduling for TAVR procedure within the next few weeks if possible. I evaluated the patient along with resident physician PGY 3 and will continue to monitor while in the hospital HPI Data of Consult Requesting Physician: Surinder Montalvo MD Admitting Provider: Mallorie Ryan MD Attending Provider: Surinder Montalvo MD Primary Care Provider: Shen Skelton MD Consult Narrative History of present illness: 79-year-old male with PMH of HTN, HLD , hemodialysis(T//) follows Dr. Funez, basal cell cancer, prostate cancer status postradiation 2009, history of urinary tract infection came to the ED today with chief complaint of shortness of breath and lower extremity swelling. As per daughter he is missing his dialysis session secondary to low blood pressure, he usually takes midodrine before dialysis. He reports that his shortness of breath is getting worse and he cannot lie flat on bed. Also endorses cough with green sputum production since last couple of days. He denies any fever/chills. He follows Dr. Mann outpatient echo from April 2024 shows Normal LV size and function with and EF of 55-60%. Moderate LVH. DIastolic Dysfunction stage II. Normal RV size and function. Modertely elevated RVSP 52 mmHg.Severe Aortic Stenosis Vmax 5 m/s, Max PG 90 mm hg, Mean PG 60 mm hg and BARRY 0.7 sqcm. Mild AI .Moderate MA and Moderate MR. moderate TR. No pericardial effusion. Patient was started on Levophed in the ED. ED vitals?BP?95/58, P?103, RR?24, temperature?98 saturating well in room air. ED labs?WBC?16.7, hemoglobin?9.7, platelet?69, sodium?137, K?3.6, BUN?44, CR?5.3, EGFR?10, glucose 170, lactic acid?3.9, magnesium?1.8, BNP?3280, Pro- Dave?1.94. EKG showed sinus rhythm with QTc 468. ED imaging?chest x-ray?Mild heart failure, Significant bibasilar pneumonia. Abdominal x-ray?Nonobstructive bowel gas pattern PMH?as above PSH?General Detachment, cystectomy, left arm fistula, Port-A-Cath placed, cataract surgery, nephrostomy tube taken out, history of ureteral stent placed. SH?denies smoking, alcohol, illicit drug Allergy?no known allergy Home Meds?midodrine, fluticasone-salmeterol, tamsulosin, levothyroxine, trazodone, pantoprazole cc:: cc: Surinder Montalvo MD Review of Systems Review of Systems Systems Reviewed: All systems reviewed, normal except as documented Narrative Review of Systems: GENERAL: Elderly male in the hospital bed.on 2L of O2 HEENT: Normocephalic, atraumatic. Pupils are equal and reactive. Oral mucosa is moist. NECK: Supple, nontender, no JVD CHEST: Symmetrical, atraumatic and with equal expansion ,Nontender on palpation CARDIOVASCULAR: Systolic murmur ABDOMEN: Soft, flat, nontender to palpation, no guarding or rebound tenderness. Active and normal bowel sounds. SKIN: 2+ b/l pittin g edema NEURO: Patient is AO x 3, Cranial nerves II through XII grossly intact. There is no focal neurologic deficits noted. PSYCHIATRIC:Could not be appreciated Exam Vital Signs Temp Pulse Resp BP Pulse Ox O2 Del Method 98 F 103 H 24 H 95/58 L 94 L Room Air 07/24/24 14:17 07/24/24 14:17 07/24/24 14:17 07/24/24 14:17 07/24/24 14:17 07/24/24 14:17 Results Labs 07/24/24 11:56 07/24/24 11:56 Labs: Short CBC 07/24/24 Range/Units 11:56 WBC 16.7 H D (3.8-10.6) Thou/mm3 Hgb 9.7 L (13.5-16.0) g/dL Hct 30.9 L (41.0-53.0) % Plt Count 69 L D (140-440) Thou/mm3 BMP 07/24/24 11:56 Sodium 137 Potassium 3.6 Chloride 98 Carbon Dioxide 23.8 BUN 44 H Creatinine 5.3 H* Glucose 170 H Calcium 8.2 L Cardiac Enzymes 07/24/24 Range/Units 11:56 Troponin I 1.540 H* (0.0-0.045) ng/mL Liver Function 07/24/24 Range/Units 11:56 Total Bilirubin 0.2 L (0.3-1.2) mg/dL AST 13 (0-34) U/L ALT < 7 L (10-49) U/L Alkaline Phosphatase 73 (46-116) U/L Albumin 3.7 (3.4-4.8) gm/dL Quality Measures Quality Measures none Advance care planning discussed with:: patient Medications Home Medications and Allergies Home Medications ?Medication ?Instructions ?Recorded ?Confirmed ?Type levothyroxine 100 mcg tablet 100 mcg PO QDAY #0 tabs 1 06/19/24 History atorvastatin 40 mg tablet 1 tab PO HS 08/01/21 5 History docusate sodium 100 mg tablet 100 mg PO BID 11/07/21 0 06/19/24 History trazodone 50 mg tablet 100 mg PO QDAY 01/30/2206/09 History calcium acetate(phosphat bind) 667 667 mg PO TID 06/2706/19/24 History mg capsule gabapentin 100 mg capsule 100 mg PO QDAY 06/27/2206/09 History tamsulosin 0.4 mg capsule 0.4 mg PO QDAY 10/26/2206/09 History fluticasone 100 mcg-salmeterol 50 1 inh inhalation BID 02/04/23 06/19/24 History mcg/dose blistr powdr for inhalation ascorbic acid (vitamin C) 100 mg 500 mg PO BID 4 06/19/24 History tablet (Vitamin C) leuprolide (3 month) 22.5 mg (3 See Rx Instructions .R oute .COMPLEX 05/22/23 06/19/24 History month) intramuscular syringe kit (Lupron Depot) sucralfate 1 gram tablet 1 g PO BID 02/23/24 06/19/24 History phenazopyridine 100 mg tablet 100 mg PO QDAY 05/07/24 06/19/24 History acetaminophen 325 mg capsule 325 mg PO Q6H PRN pain 06/19/24 History cholecalciferol (vitamin D3) 50 50 mcg PO QDAY 5 06/19/24 History mcg (2,000 unit) capsule (Vitamin D3) ferric citrate 210 mg iron tablet 210 mg PO TID 06/19/24 History (Auryxia) melatonin 5 mg capsule 10 mg PO PRN PRN insomnia 06/19/24 History ferric citrate 210 mg iron tablet 420 mg PO TID 06/19/24 History (Auryxia) Allergies Allergy/AdvReac Type Severity Reaction Status Date / Time No Known Allergies Allergy Verified 06/19/24 08:34 Visit Medications Acetaminophen (Acetaminophen 325 Mg Tablet) 650 mg PO Q6H PRN PRN Reason: Fever >101.5 Stop: 08/23/24 14:44 Acetaminophen (Acetaminophen 325 Mg Tablet) 650 mg PO Q6H PRN PRN Reason: PAIN SCALE 1-3 (mild Stop: 08/23/24 14:44 Albuterol/Ipratropium (Albuterol/Ipratropium (Duoneb) Rt Christianne 3 Ml Nebu) 3 ml INH Q6HRRT PRN PRN Reason: SHORTNESS OF BREATH OR WHEEZE Stop: 08/23/24 18:59 Heparin Sodium (Porcine) (Heparin Sod Inj 5000 Unit/Ml Vial) 5,000 unit SC Q8HR ROBERT Stop: 08/07/24 21:59 Norepinephrine/Dextrose (Levophed In D5w 8mg/250ml) 8 mg in 250 mls @ 8.25 mls/hr IV .Q24H PRN; Protocol PRN Reason: PER PROTOCOL Stop: 08/23/24 14:51 Ondansetron HCl (Ondansetron Inj 2 Mg/Ml Inj 2 Ml) 4 mg IV Q6H PRN; Protocol PRN Reason: NAUSEA OR VOMITING Stop: 08/23/24 14:44 Discontinued Medications Acetaminophen (Acetaminophen 325 Mg Tablet) 650 mg PO X1 ONE Stop: 07/24/24 13:59 Last Admin: 07/24/24 14:44 Dose: 650 mg Albuterol/Ipratropium (Albuterol/Ipratropium (Duoneb) Rt Christianne 3 Ml Nebu) 3 ml INH X1 ONE Stop: 07/24/24 12:29 Last Admin: 07/24/24 12:55 Dose: 3 ml Calcium Gluconate (Calcium Gluconate 10% Inj 1 Gm/10 Ml Vial) 1 gm IV X1 ONE Stop: 07/24/24 13:38 Last Admin: 07/24/24 14:25 Dose: Not Given Azithromycin 500 mg/ Sodium (Chloride) 250 mls @ 250 mls/hr IV X1 ONE Stop: 07/24/24 13:30 Last Admin: 07/24/24 12:49 Dose: 250 mls/hr Ceftriaxone Sodium/Dextrose (Rocephin/D5w 1gm Iv Premix) 1 gm in 50 mls @ 100 mls/hr IV X1 ONE Stop: 07/24/24 14:00 Last Admin: 07/24/24 13:38 Dose: 100 mls/hr Sodium Chloride (Ns) 250 mls @ 999 mls/hr IV .Q16M ONE Stop: 07/24/24 13:47 Last Admin: 07/24/24 13:38 Dose: 999 mls/hr Sodium Chloride (Ns) 250 mls @ 999 mls/hr IV .Q16M ONE Stop: 07/24/24 13:49 Last Admin: 07/24/24 13:42 Dose: Not Given Magnesium Sulfate/Dextrose (Magnesium Sulfate Ivpb) 1 gm in 100 mls @ 100 mls/hr IV X1 ONE Stop: 07/24/24 14:36 Last Admin: 07/24/24 13:56 Dose: 100 mls/hr Calcium Gluconate/Sodium Chloride (Calcium Gluc/Ns 1000mg Ivpb) 1,000 mg in 50 mls @ 50 mls/hr IV X1 ONE Stop: 07/24/24 14:44 Last Admin: 07/24/24 13:56 Dose: 50 mls/hr Norepinephrine/Dextrose (Levophed In D5w 8mg/250ml) 8 mg in 250 mls @ 8.25 mls/hr IV .Q24H PRN; Protocol PRN Reason: PER PROTOCOL Stop: 08/23/24 13:58 Lidocaine (Lidocaine 5% 1 Patch) 1 patch TOP X1 ONE Stop: 07/24/24 13:59 Last Admin: 07/24/24 14:46 Dose: 1 patch Midodrine (Midodrine 5 Mg Tablet) 10 mg PO X1 ONE Stop: 07/24/24 12:29 Last Admin: 07/24/24 12:38 Dose: 10 mg Midodrine (Midodrine 5 Mg Tablet) 10 mg PO X1 ONE Stop: 07/24/24 13:33 Last Admin: 07/24/24 14:25 Dose: Not Given Midodrine (Midodrine 5 Mg Tablet) 10 mg PO X1 ONE Stop: 07/24/24 13:33 Last Admin: 07/24/24 13:38 Dose: 10 mg Assessment & Plan Plan 79-year-old male with PMH of HTN ,HLD hemodialysis(T//) follows Dr. 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 As per daughter he is missing his dialysis session secondary to low blood pressure, he usually takes midodrine before dialysis. He reports that his shortness of breath is getting worse and he cannot lie flat on bed. Also endorses cough with green sputum production since last couple of days. He denies any fever/chills. He follows Dr. Mann outpatient echo from April 2024 shows Normal LV size and function with and EF of 55-60%. Moderate LVH. DIastolic Dysfunction stage II. Normal RV size and function. Modertely elevated RVSP 52 mmHg.Severe Aortic Stenosis Vmax 5 m/s, Max PG 90 mm hg, Mean PG 60 mm hg and BARRY 0.7 sqcm. Mild AI .Moderate MA and Moderate MR. moderate TR. No pericardial effusion. Patient was started on Levophed in the ED. ED vitals?BP?95/58, P?103, RR?24, temperature?98 saturating well in room air. ED labs?WBC?16.7, hemoglobin?9.7, platelet?69, sodium?137, K?3.6, BUN?44, CR?5.3, EGFR?10, glucose 170, lactic acid?3.9, magnesium?1.8, BNP?3280, Pro- Dave?1.94. EKG showed sinus rhythm with QTc 468. ED imaging?chest x-ray?Mild heart failure, Significant bibasilar pneumonia. Abdominal x-ray?Nonobstructive bowel gas pattern # Severe aortic stenosis #Shock most likely septic - Echo- Normal LV size and function with and EF of 55-60%. Moderate LVH. DIastolic Dysfunction stage II. Normal RV size and function. Modertely elevated RVSP 52 mmHg. Severe Aortic Stenosis Vmax 5 m/s, Max PG 90 mm hg, Mean PG 60 mm hg and BARRY 0.7 sqcm. Mild AI Moderate MA and Moderate MR. moderate TR. No pericardial effusion. -On pressure -He had a cardiac cath on may 2024 : Severe calcific aortic stenosis with peak gradient 40 mmHg, mean gradient 34 mmHg.Normal nonobstructive epicardial coronary artery, Normal right heart pressure,Normal left ventricular function. -He was recommended TAVR -Recommend to give pressure support and remove the fluid . Rest of medical Problem management as per ICU team Flakita Vargas MD,PGY-3
[2024-07-24 15:45] LABS: Troponin I 1.816 ng/mL (0.0-0.045)
--- NOTE | 2024-07-24 16:00 | ESOP_ITS ---
<Statement entered by Mallorie Ryan MD - 07/24/24 21:21> I was available to provide assistance during the duration of the procedure Procedures Procedure Date / Time 07/24/24 16:00 Procedure Narrative Procedure Narrative: Triple Lumen Dialysis Catheter Time out called at 4:00 PM for correct patient, procedure, and site placement. US used prior to procedure to identifity Right Femoral Vein. The right inguinal region was prepped using chlorhexidine scrub and then draped using sterile techniques. Probe was draped using sterile techniques. Gel applied. Lidocaine 1% was used to anesthetized area. Needle was inserted into the femoral vein. Venous blood was withdrawn. The syringe was removed and guideline was advanced. Small incision was made with scaple. Dilator introduced X2. Dialysis catheter triple lumen introduced. Guide-wire removed. Catheter sutured in placed. - The patient's plan was discussed with attending Dr. Ryan. Candelaria Riley MD PGY1 Internal Medicine Central Line Placement Right Femoral: Indication(s): other (Triple Lumen Dialysis Catheter ) Informed consent obtained: from patient and obtained from surrogate decision maker (Daughter at bedside as well) Time out done, and the following verified: correct patient, side and site, procedure and patient position Patient placed on monitor/pulse ox: Yes Hand Hygiene: scrub, soap & water and alcohol-based hand rub Max Sterile Barrier Techniques used: cap, mask, sterile gown, sterile gloves and sterile full body drape Central line prep: Povidone-Iodine 1% Local anesthesia used: lidocaine 1% Amount of anesthesia used (mL): 10 Ultrasound used for placement: Yes Sterile Technique if Ultrasound used, including sterile gel: yes Central line lumen inserted: triple Post procedure: sutured in place, good blood return, all ports aspirated, flushed, capped and sterile dressing applied Post procedure x-ray: other (Not indicated, femoral line) Patient tolerated procedure: well Complications: none
--- NOTE | 2024-07-24 18:22 | PC.CC ---
Addendum entered by Arely Hoff 07/24/24 18:35: Robe called the NH and spoke with Angie. NH provided Notification ID#[id number]. Reference # [id number]. Original Note: SUE Hoff completed a face to face initial assessment with the pts daughter at bedside in ER #[id number]. Pts daughter is named Xiao Archer [phone]. Upon order entry specialist saw pt was asleep and unable to wake up. Installation And Service Technician explained to Xiao my role and reason for the initial assessment, as pt will be admitted into the hospital. Xiao reported she is the pick and shovel worker for the pt and cooks, cleans for him. Xiao reported that the pt bathes on his own. Xiao reported pt is a Full Code. Xiao reported that the father has informed her that if he had to go to a SNF vs Home, he would rather chose home. Xiao reported that if Home Health is recommended, the pt will accept home health. Xiao reported that the father sees the following specialist: Dr. Armin Hickman, Dr. Maxwell, Dr. Mann. Xiao reports the pts pharmacy is [facility]. 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 Xiao reports that the pt is not at his baseline and is typically up, walking and talkative. Next of Kin: Xiao Archer [phone] Caregiver: Xiao Archer Decision maker: Xiao Archer Transportation: Xiao Archer.
[2024-07-24 21:10] LABS: Troponin I 2.002 ng/mL (0.0-0.045)
[2024-07-24] MEDS: HEPARIN SOD INJ 5000 UNIT/ML VIAL SC (22:33)
[2024-07-24 23:34] LABS: Reflex Lactate? Y
[2024-07-25] VITALS (122 sets, daily range): BP systolic 78–116; BP diastolic 41–83; PULSE 61–128; RESP 15–53; TEMP 36.4–36.9; O2SAT 81–100
[2024-07-25 00:21] LABS: Lactic Acid, 3 HR 3.4 mMol/L (0.4-2.0)
[2024-07-25] MEDS: Norepinephrine/D5W 8mg/250ml 8 MG/250 ML BAG 8.25 MG IV (01:15)
[2024-07-25] MEDS: MELATONIN 3 MG TABLET 6 MG PO (02:06)
[2024-07-25] MEDS: GABAPENTIN 100 MG CAPSULE PO ×2 (05:08→09:29)
[2024-07-25] MEDS: HEPARIN SOD INJ 5000 UNIT/ML VIAL SC (05:09)
[2024-07-25 06:47] LABS: Basophils % (Auto) 0 % (0-2.5); Eosinophils % (Auto) 0 % (0-10); Hematocrit 28.7 % (41.0-53.0); Hemoglobin 9.1 g/dL (13.5-16.0); Immature Granulocytes % (Auto) 1 % (0-0); Immature Granulocytes Auto 0.09 Thou/mm3 (0.00-0.00); Lymphocytes % (Auto) 5 % (10-50); Mean Corpuscular HGB Conc 31.7 g/dl (31.0-37.0); Mean Corpuscular Hemoglobin 26.3 pg (25.0-35.0); Mean Corpuscular Volume 83 fL (80-100); Monocytes # (Auto) 1.9 Thou/mm3 (0.0-0.8); Monocytes % (Auto) 10 % (0-12); Neutrophils # (Auto) 16.8 Thou/mm3 (1.8-7.7); Neutrophils % (Auto) 85 % (37-80); Nucleated Red Blood Cell % 0 /100 WBC (0); RDW Standard Deviation 55.2 fL (35.1-43.9); Red Blood Count 3.46 Miln/mm3 (4.50-5.90); White Blood Count 19.8 Thou/mm3 (3.8-10.6)
[2024-07-25 06:54] LABS: Platelet Count 68 Thou/mm3 (140-440)
[2024-07-25 07:11] LABS: Slide Review Platelets confirmed
--- NOTE | 2024-07-25 07:29 | ESPR_ITS ---
<Statement entered by Chiki Ravi MD - 07/26/24 08:48> Patient remains in shock. receiving dialysis. Confused. Monitor platelets. cumulative time spent in management of patient is 45 min Documentation for date of: 07/25/24 Subjective Subjective Interval history: Patient is a 79-year-old male with past medical history of hemodialysis (TTS) with Dr. Beltrán, history of aortic stenosis with his editorial project manager being Dr. Mann, history of UTIs, basal cell cancer, prostate cancer status post radiation in 2009 who presented with chief complaint shortness of breath and lower extremity swelling. Patient was accompanied by daughter who was at bedside and contributed to the story stating that patient has not been having complete sessions of hemodialysis as he has been having episodes of hypotension during the dialysis which led to the session being cut short. The shortness of breath has progressively gotten worse as well as the pitting edema in the lower extremities. Patient does also endorse abdominal discomfort in the epigastric region and he has diffuse distention and mild tenderness to palpation throughout the abdomen. His last bowel movement was the day prior to admission and he has a history of constipation. Patient makes little urine and he usually takes midodrine 10 mg right before dialysis sessions. In our ER patient has had soft blood pressures in the 80s over 60s with heart rate during the high 90s respiratory in the high 20s without any fevers and satting well 2 L nasal cannula. His pressure did not improve despite his 20 mg of midodrine and ICU was consulted for pressor support during hemodialysis session. Patient has left AV fistula in the upper extremity however given patient's very soft blood pressures and presenting severe aortic stenosis hemodialysis catheter was placed in the right femoral vein in preparation for CRRT. Dr Damon, who is covering for Dr. Funez, will be following the patient during his stay as well as Dr. Mann. Patient will be brought to the unit for further monitoring and close trending of his blood pressures during hemodialysis as well as pressor support. 07/25/24: Patient seen and examined in the ICU today. Overnight patient was somewhat restless likely due to the lack of sleep. Patient was started on CRRT at around midnight and completed an 8 hour session and removed about 400cc of fluids. We will continue another session of CRRT after speaking with Dr Damon. He remains on 0.5 of levophed. Will schedule midodrine 10mg TID in attempts to weak him off of the pressor support. White count did elevate to 19.8 but there were no overnight fevers. Will follow up with cultures and continue abx at this time. He remains on minimal O2 support. Will continue to wean down as tolerated. Troponins continue to climb to 2.002 this morning, patient denies any chest pain, likely secondary to stress from severe aortic stenosis and unable to clear it. Exam Vital Signs Temp Pulse Resp BP Pulse Ox O2 Del Method O2 Flow Rate 97.7 F 117 H 20 114/62 96 Nasal Cannula 1 07/25/24 07:01 07/25/24 07:15 07/25/24 07:01 07/25/24 07:15 07/25/24 07:01 07/25/24 07:01 07/25/24 07:01 FiO2 1 07/25/24 00:50 Narrative Exam Constitutional: Well nourished in no severe distress. Head: Normocephalic/Atraumatic CVS: RRR, S1 and S2 present. Loud systolic crescendo decrescendo murmur heard on the parasternal area RESP: CTAB, patient is short of breath bilateral crackles heard on lung mike more so on the bases. GI: Normal BS, Nontender/Nondistended. MSK: Full range of motion, No trauma or deformities or masses. 2+ pitting edema bilateral lower extremities. There is left AV fistula without discharge or erythema. Skin: Warm to touch, Dry. No rashes or lesions. No hematomas Neuro: hides and skins colorer II-XII grossly intact. Sensation grossly intact. Psych: (AAO) x1. Confused and restless Objective Labs 07/25/24 05:28 07/25/24 07:54 Labs: Laboratory Results - last 24 hr 07/24/24 07/24/24 07/24/24 11:56 15:16 20:27 WBC 16.7 H D RBC 3.72 L Hgb 9.7 L Hct 30.9 L MCV 83 MCH 26.1 MCHC 31.4 RDW Std Deviation 54.7 H Plt Count 69 L D Neut % (Auto) 85 H Lymph % (Auto) 3 L Bacon % (Auto) 11 Eos % (Auto) 0 Baso % (Auto) 0 Neut # (Auto) 14.2 H Lymph # (Auto) 0.6 L Bacon # (Auto) 1.9 H Eos # (Auto) 0.0 Baso # (Auto) 0.0 Immature Gran # (Auto) 0.09 H Absolute Nucleated RBC 0.00 Immature Gran % 1 H Nucleated RBC % 0 PT 13.9 H INR 1.3 APTT 30.2 Sodium 137 Potassium 3.6 Chloride 98 Carbon Dioxide 23.8 Anion Gap 15 BUN 44 H Creatinine 5.3 H* Estim Creat Clear Calc 12.0 L eGFR 10 L* BUN/Creatinine Ratio 8 L Glucose 170 H Calculated Osmolality 289 Lactic Acid 3.2 H 3.9 H 3.0 H Calcium 8.2 L Corrected Calcium 8.4 L Magnesium 1.8 Total Bilirubin 0.2 L AST 13 ALT < 7 L Alkaline Phosphatase 73 Troponin I 1.540 H* 1.816 H* D 2.002 H* B-Natriuretic Peptide > 3280 H* Total Protein 6.7 Albumin 3.7 Globulin 3.0 Albumin/Globulin Ratio 1.2 Lipase 26 Procalcitonin 1.94 H Misc Test Result Platelets confirmed 07/25/24 07/25/24 00:11 05:28 WBC 19.8 H RBC 3.46 L Hgb 9.1 L Hct 28.7 L MCV 83 MCH 26.3 MCHC 31.7 RDW Std Deviation 55.2 H Plt Count 68 L Neut % (Auto) 85 H Lymph % (Auto) 5 L Bacon % (Auto) 10 Eos % (Auto) 0 Baso % (Auto) 0 Neut # (Auto) 16.8 H Lymph # (Auto) 1.0 Bacon # (Auto) 1.9 H Eos # (Auto) 0.0 Baso # (Auto) 0.0 Immature Gran # (Auto) 0.09 H Absolute Nucleated RBC 0.00 Immature Gran % 1 H Nucleated RBC % 0 PT INR APTT Sodium Potassium Chloride Carbon Dioxide Anion Gap BUN Creatinine Estim Creat Clear Calc eGFR BUN/Creatinine Ratio Glucose Calculated Osmolality Lactic Acid 3.4 H Calcium Corrected Calcium Magnesium Total Bilirubin AST ALT Alkaline Phosphatase Troponin I B-Natriuretic Peptide Total Protein Albumin Globulin Albumin/Globulin Ratio Lipase Procalcitonin Misc Test Result Platelets confirmed Quality Measures Quality Measures none Advance care planning discussed with:: child Assessment & Plan Assessment Current Active Medications: Generic Name Dose Route Start Last Admin Trade Name Freq PRN Reason Stop Dose Admin Acetaminophen 650 mg 07/24/24 14:45 Acetaminophen 325 Mg Tablet PO 08/23/24 14:44 Q6H PRN Fever >101.5 Acetaminophen 650 mg 07/24/24 14:45 Acetaminophen 325 Mg Tablet PO 08/23/24 14:44 Q6H PRN PAIN SCALE 1-3 (mild Albuterol/Ipratropium 3 ml 07/24/24 14:45 07/24/24 22:25 Albuterol/Ipratropium (Duoneb) Rt Christianne 3 Ml Nebu INH 08/23/24 18:59 3 ml Q6HRRT PRN Administration SHORTNESS OF BREATH OR WHEEZE Atorvastatin Calcium 40 mg 07/25/24 21:00 Atorvastatin Calcium 20 Mg Tablet PO 08/24/24 20:59 HS ROBERT Gabapentin 100 mg 07/25/24 09:00 Gabapentin 100 Mg Capsule PO 08/24/24 08:59 QDAY ROBERT Heparin Sodium (Porcine) 5,000 unit 07/24/24 22:00 07/25/24 05:09 Heparin Sod Inj 5000 Unit/Ml Vial SC 08/07/24 21:59 5,000 unit Q8HR ROBERT Administration Norepinephrine/Dextrose 8 mg in 250 mls @ 8.25 mls/hr 07/24/24 14:52 07/25/24 06:00 Levophed In D5w 8mg/250ml IV 08/23/24 14:51 0.05 mcg/kg/min .Q24H PRN 8.25 mls/hr PER PROTOCOL Titration Protocol 0.05 MCG/KG/MIN Azithromycin 500 mg/ Sodium 250 mls @ 250 mls/hr 07/25/24 09:00 Chloride IV 07/26/24 08:59 QDAY ROBERT Ceftriaxone Sodium/Dextrose 1 gm in 50 mls @ 100 mls/hr 07/25/24 09:00 Rocephin/D5w 1gm Iv Premix IV 07/30/24 08:59 QDAY ROBERT Levothyroxine Sodium 100 mcg 07/26/24 06:00 Levothyroxine Sodium 100 Mcg Tablet PO 08/25/24 05:59 ACBR ROBERT Midodrine 5 mg 07/25/24 14:00 Midodrine 5 Mg Tablet PO 08/24/24 13:59 TID ROBERT Ondansetron HCl 4 mg 07/24/24 14:45 Ondansetron Inj 2 Mg/Ml Inj 2 Ml IV 08/23/24 14:44 Q6H PRN NAUSEA OR VOMITING Protocol Pantoprazole Sodium 40 mg 07/25/24 09:00 Pantoprazole 40 Mg Tablet PO 08/24/24 08:59 QDAY [facility] Sennosides 1 tab 07/25/24 09:00 Senna/Docusate Sod 1 Tab Tablet PO 08/24/24 08:59 QDAY [facility] Protocol Plan 79-year-old male with past medical history of hemodialysis (TTS) with Dr. Beltrán, history of aortic stenosis with his editorial project manager being Dr. Mann, history of UTIs, basal cell cancer, prostate cancer status post radiation in 2009 admitted to the ICU for shock Neuro Problems: Acute encephalopathy Likely underlying ICU delirium versus metabolic versus infectious versus hypoxic Patient does take trazodone for sleep at night, he was unable to sleep due to constant monitoring at night. Plan: Have family at beside to help reorient patient Restart trazodone Low dose antipsychotics (seroquel) if he gets more agitated. CVS Shock DDx: Cardiogenic in the setting of severe aortic stenosis versus distributive Dx:Patient's last EF was on 04/30/2024 and showed an EF of 55 to 60% with aortic stenosis during a V-max of 5 m/s and aortic valve area of 0.7 cm?. Patient meets SIRS criteria with possible pneumonia being underlying source of infection Rx: Pressor support with Levophed while patient undergoes slow fluid removal with CRRT and will treat underlying infection Cardiology is on board, appreciate recommendations, patient needs TAVR Repeat echocardiogram Midodrine 10mg TID started Troponinemia - trending down Likely from demand ischemia as well as decreased renal clearance Troponins were elevated at 1.816, peaked at 2.002. EKG did not show any ST segment changes Will monitor for any new signs of chest pain Resp Acute hypoxic respiratory failure DDx: Likely secondary to fluid overload from CHF exacerbation versus pneumonia versus COPD exacerbation Dx: X-ray shows pulmonary congestion and on exam crackles can be heard in bibasilar lung mike. Patient is tachypneic Rx: Will treat possible underlying infection with rocephin DuoNebs as needed. 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 Completed 8 horus so far and removed 400cc of fluid. Will perform an additional 8 hours. Rx: CRRT ID/Skin Sepsis secondary to pneumonia DDx: Patient meets SIRS criteria 3/4 with pneumonia being possible underlying source of infection Dx: Chest x-ray revealed bibasilar pneumonia Rx: Patient received azithromycin and Rocephin in the ED. Will continue ceftriaxone 07/24- Will continue to monitor for trends in white count as well as fevers. Patient was not given fluid boluses in the ED due to presenting fluid overload Follow-up with blood cultures. Patient has minimal urine output Hematology Leukocytosis DDx: Likely reactive to infection Dx: White count was 16.7 but there were no recorded fevers Rx: See pneumonia above Anemia of chronic disease Due to history of ESRD Hemoglobin 9.7 without signs of active bleeding Will trend hemoglobin Thrombocytopenia Likely from underlying infection vs reactive platelets were 69 on admission and they are 68 today 4T score results <5% probability of HIT No signs of active bleeding Will continue to trend, Hold Heparin at this time, [facility] Maintenance: FEN: Cardiac diet DVT PPx: SCDs GI PPx: Protonix Q day IV lines: Peripheral IVs as well as a right femoral temporary dialysis catheter Tee: None Code Status: Full code Dispo: Patient will remain in the ICU for further management of his shock as he undergoes CRRT I discussed patient's care with registered occupational therapist, Dr Breonna Montalvo MD, PGY3
--- NOTE | 2024-07-25 08:55 | XR_ITS ---
Examination: AP chest single view Technique: AP portable semiupright chest single view Date and time: July 25, 2024, 0907 hrs. Comparison July 24, 2024 Indications: Chest pain shortness of breath beginning 2 days ago. Findings: Mild heart failure Mild enlargement cardiac contour with prominent vascular congestion and early basilar edema Moderate to large left pleural effusion Possible superimposed pneumonia at the left base Impression: Mild heart failure Suspicious for pneumonia left base Mild to moderate left pleural effusion Right internal jugular Port-A-Cath tip satisfactory position
[2024-07-25 09:13] LABS: Alanine Aminotransferase 57 U/L (10-49); Albumin, Serum 3.5 gm/dL (3.4-4.8); Albumin/Globulin Ratio 1.2 (1.2-2.2); Alkaline Phosphatase 310 U/L (46-116); Anion Gap 15 (7-16); Aspartate Amino Transferase 98 U/L (0-34); BUN/Creatinine Ratio 8 Ratio (12-20); Bilirubin,Total 0.8 mg/dL (0.3-1.2); Blood Urea Nitrogen 20 mg/dL (9-23); Calcium 8.1 mg/dL (8.3-10.6); Calcium (Corrected) 8.5 mg/dL (8.5-10.1); Carbon Dioxide 23.9 mMol/L (20.0-31.0); Chloride 98 mMol/L (98-107); Creatinine (Component) 2.4 mg/dL (0.6-1.3); Estimated Creatinine Clearance 26.5 mL/min (>60); Glucose 120 mg/dL (74-106); Magnesium 1.9 mg/dL (1.6-2.6); Osmolality,Calculated 277 (275-295); Phosphorous 2.9 mg/dL (2.4-5.1); Sodium 137 mMol/L (136-145); Total Protein 6.5 gm/dL (5.7-8.2); eGFR 26 See Note
[2024-07-25 09:15] LABS: Troponin I 1.652 ng/mL (0.0-0.045)
[2024-07-25] MEDS: PANTOPRAZOLE 40 MG TABLET PO (09:28)
[2024-07-25] MEDS: traZODone HCL 50 MG TABLET 100 MG PO (09:28)
[2024-07-25] MEDS: cefTRIAXone/D5w 1gm IV premix 1 GM/50 ML BAG IV (09:28)
[2024-07-25] MEDS: MIDODRINE 5 MG TABLET 10 MG PO ×3 (09:29→21:14)
[2024-07-25] MEDS: SENNA/DOCUSATE SOD 1 TAB TABLET PO (09:29)
[2024-07-25] MEDS: BUDESONIDE RT 0.5 MG/2 ML NEBU INH ×2 (09:56→18:20)
--- NOTE | 2024-07-25 11:01 | EKG_ITS ---
[facility] (Formerly [facility]) Test Date: 2024-07-25 Pat Name: ARTURO QUEZADA [facility] Gender: Male Doll Maker: ALBERT : 1945 Requested By: Surinder Laguna Order Number: [id number] Reading MD: Surinder Laguna Measurements Intervals [place] Rate: 95 P: RI: QRS: -36 QRSD: 111 T: 95 QT: 382 QTc: 481 Interpretive Statements ATRIAL FIBRILLATION WITH ABERRANT CONDUCTION OR VENTRICULAR PREMATURE COMPLEXES MARKED LEFT AXIS DEVIATION SEPTAL MYOCARDIAL INFARCTION , OF INDETERMINATE AGE Compared to ECG 07/24/2024 11:56:00 Ventricular premature complex(es) now present Aberrant conduction of supraventricular beat(s) now present Left-axis deviation now present Myocardial infarct finding now present Sinus rhythm no longer present Left anterior fascicular block no longer present T-wave abnormality no longer present /store/S0/[id number]/[id number].pdf
--- NOTE | 2024-07-25 11:12 | PC.SS ---
Update: Patient on 1L nasal cannula. Patient receiving pressor support. Patient receiving continuous dialysis today. Patient established with outpatient dialysis. Heavy Truck Mechanic is Dr. Funez. Patient receiving IV antibiotics. P.O. feeding. Patient is afebrile. Cardiology is consulting.
--- NOTE | 2024-07-25 11:36 | ESPR_ITS ---
<Statement entered by Kory Mann MD - 07/28/24 08:24> The patient evaluated examined by me personally has severe aortic stenosis chronic kidney disease hemodialysis stage V kidney disease admitted to hospital severe hypotension due to combination of factors continue the vasopressors carefully CRRT to be performed evaluate the patient and will probably require TAVR procedure sometime in near future I evaluated patient with Dr. Segal PGY 2 agree with treatment plan recommendation as documented Documentation for date of: 07/25/24 Subjective Subjective Interval history: Patient was seen and examined at bedside in ICU. No acute overnight events. He is undergoing CRRT with goal of 4 L of fluid removal. Dr Damon and nephrology is following. He remains on norepinephrine 0.05 mcg/kg/h, he has blood pressure 98/62 heart rate 108 and appears irregular. ICU team added midodrine 10 mg 3 times daily and attempt to wean off pressors. Patient is asymptomatic. Exam Vital Signs Temp Pulse Resp BP Pulse Ox O2 Del Method O2 Flow Rate 97.7 F 109 H 29 H 104/65 93 L Nasal Cannula 2 07/25/24 07:01 07/25/24 11:30 07/25/24 11:00 07/25/24 11:30 07/25/24 11:00 07/25/24 07:01 07/25/24 10:04 FiO2 1 07/25/24 00:50 Narrative Exam Gen: Well-developed and well-nourished elderly male. HEENT: NCAT, PERRLA, EOMI, MMM, anicteric conjunctivae. CVS: normal S1 and S2. Systolic murmur over aortic area. No M/R/G. Resp: CTA B/L. No rhonchi, rales, crackles or wheezing. Abd: soft, non-tender, non-distended. BS+ in all 4 quadrants. MSK: Good ROM in BUE & BLE. No rash. Trace edema BLE. Neuro: CN II-XII grossly intact. Strength 5/5 in BUE & BLE. Alert and oriented x3. Objective Labs 07/25/24 05:28 07/25/24 07:54 Labs: Laboratory Results - last 24 hr 07/24/24 07/24/24 07/24/24 11:56 15:16 20:27 WBC 16.7 H D RBC 3.72 L Hgb 9.7 L Hct 30.9 L MCV 83 MCH 26.1 MCHC 31.4 RDW Std Deviation 54.7 H Plt Count 69 L D Neut % (Auto) 85 H Lymph % (Auto) 3 L [place] % (Auto) 11 Eos % (Auto) 0 Baso % (Auto) 0 Neut # (Auto) 14.2 H Lymph # (Auto) 0.6 L [place] # (Auto) 1.9 H Eos # (Auto) 0.0 Baso # (Auto) 0.0 Immature Gran # (Auto) 0.09 H Absolute Nucleated RBC 0.00 Immature Gran % 1 H Nucleated RBC % 0 PT 13.9 H INR 1.3 APTT 30.2 Sodium 137 Potassium 3.6 Chloride 98 Carbon Dioxide 23.8 Anion Gap 15 BUN 44 H Creatinine 5.3 H* Estim Creat Clear Calc 12.0 L eGFR 10 L* BUN/Creatinine Ratio 8 L Glucose 170 H Calculated Osmolality 289 Lactic Acid 3.2 H 3.9 H 3.0 H Calcium 8.2 L Corrected Calcium 8.4 L Phosphorus Magnesium 1.8 Total Bilirubin 0.2 L AST 13 ALT < 7 L Alkaline Phosphatase 73 Troponin I 1.540 H* 1.816 H* D 2.002 H* B-Natriuretic Peptide > 3280 H* Total Protein 6.7 Albumin 3.7 Globulin 3.0 Albumin/Globulin Ratio 1.2 Triglycerides Cholesterol LDL Cholesterol, Calc HDL Cholesterol Cholesterol/HDL Ratio Lipase 26 Procalcitonin 1.94 H Misc Test Result Platelets confirmed 07/25/24 07/25/24 07/25/24 00:11 05:28 07:54 WBC 19.8 H RBC 3.46 L Hgb 9.1 L Hct 28.7 L MCV 83 MCH 26.3 MCHC 31.7 RDW Std Deviation 55.2 H Plt Count 68 L Neut % (Auto) 85 H Lymph % (Auto) 5 L [place] % (Auto) 10 Eos % (Auto) 0 Baso % (Auto) 0 Neut # (Auto) 16.8 H Lymph # (Auto) 1.0 [place] # (Auto) 1.9 H Eos # (Auto) 0.0 Baso # (Auto) 0.0 Immature Gran # (Auto) 0.09 H Absolute Nucleated RBC 0.00 Immature Gran % 1 H Nucleated RBC % 0 PT INR APTT Sodium Cancelled 137 Potassium Cancelled 3.0 L D Chloride Cancelled 98 Carbon Dioxide Cancelled 23.9 Anion Gap Cancelled 15 BUN Cancelled 20 Creatinine Cancelled 2.4 H D Estim Creat Clear Calc Cancelled 26.5 L eGFR Cancelled 26 L BUN/Creatinine Ratio Cancelled 8 L Glucose Cancelled 120 H D Calculated Osmolality Cancelled 277 Lactic Acid 3.4 H Calcium Cancelled 8.1 L Corrected Calcium Cancelled 8.5 Phosphorus Cancelled 2.9 Magnesium Cancelled 1.9 Total Bilirubin Cancelled 0.8 D AST Cancelled 98 H ALT Cancelled 57 H Alkaline Phosphatase Cancelled 310 H D Troponin I Cancelled 1.652 H* D B-Natriuretic Peptide Total Protein Cancelled 6.5 Albumin Cancelled 3.5 Globulin Cancelled 3.0 Albumin/Globulin Ratio Cancelled 1.2 Triglycerides Cancelled Cholesterol Cancelled LDL Cholesterol, Calc Cancelled HDL Cholesterol Cancelled Cholesterol/HDL Ratio Cancelled Lipase Procalcitonin Misc Test Result Platelets confirmed Quality Measures Quality Measures none Advance care planning discussed with:: patient Assessment & Plan Assessment Current Active Medications: Generic Name Dose Route Start Last Admin Trade Name Freq PRN Reason Stop Dose Admin Acetaminophen 650 mg 07/24/24 14:45 Acetaminophen 325 Mg Tablet PO 08/23/24 14:44 Q6H PRN Fever >101.5 Acetaminophen 650 mg 07/24/24 14:45 Acetaminophen 325 Mg Tablet PO 08/23/24 14:44 Q6H PRN PAIN SCALE 1-3 (mild Albuterol/Ipratropium 3 ml 07/24/24 14:45 07/24/24 22:25 Albuterol/Ipratropium (Duoneb) Rt Christianne 3 Ml Nebu INH 08/23/24 18:59 3 ml Q6HRRT PRN Administration SHORTNESS OF BREATH OR WHEEZE Atorvastatin Calcium 40 mg 07/25/24 21:00 Atorvastatin Calcium 20 Mg Tablet PO 08/24/24 20:59 HS ROBERT Budesonide 0.5 mg 07/25/24 09:45 07/25/24 09:56 Budesonide Rt 0.5 Mg/2 Ml Nebu INH 08/24/24 09:44 0.5 mg BIDRT ROBERT Administration Gabapentin 100 mg 07/25/24 09:00 07/25/24 09:29 Gabapentin 100 Mg Capsule PO 08/24/24 08:59 100 mg QDAY ROBERT Administration Heparin Sodium (Porcine) 5,000 unit 07/24/24 22:00 07/25/24 05:09 Heparin Sod Inj 5000 Unit/Ml Vial SC 08/07/24 21:59 5,000 unit Q8HR ROBERT Administration Norepinephrine/Dextrose 8 mg in 250 mls @ 8.25 mls/hr 07/24/24 14:52 07/25/24 11:00 Levophed In D5w 8mg/250ml IV 08/23/24 14:51 0.05 mcg/kg/min .Q24H PRN 8.25 mls/hr PER PROTOCOL Titration Protocol 0.05 MCG/KG/MIN Ceftriaxone Sodium/Dextrose 1 gm in 50 mls @ 100 mls/hr 07/25/24 09:00 07/25/24 09:28 Rocephin/D5w 1gm Iv Premix IV 07/30/24 08:59 100 mls/hr QDAY ROBERT Administration Levothyroxine Sodium 100 mcg 07/26/24 06:00 Levothyroxine Sodium 100 Mcg Tablet PO 08/25/24 05:59 ACBR ROBERT Midodrine 10 mg 07/25/24 09:00 07/25/24 09:29 Midodrine 5 Mg Tablet PO 08/24/24 08:59 10 mg TID ROBERT Administration Ondansetron HCl 4 mg 07/24/24 14:45 Ondansetron Inj 2 Mg/Ml Inj 2 Ml IV 08/23/24 14:44 Q6H PRN NAUSEA OR VOMITING Protocol Pantoprazole Sodium 40 mg 07/25/24 09:00 07/25/24 09:28 Pantoprazole 40 Mg Tablet PO 08/24/24 08:59 40 mg QDAY ROBERT Administration Sennosides 1 tab 07/25/24 09:00 07/25/24 09:29 Senna/Docusate Sod 1 Tab Tablet PO 08/24/24 08:59 1 tab QDAY ROBERT Administration Protocol Plan 79-year-old male with PMH of HTN ,HLD hemodialysis(T//) follows Dr. 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 As per daughter he is missing his dialysis session secondary to low blood pressure, he usually takes midodrine before dialysis. He reports that his shortness of breath is getting worse and he cannot lie flat on bed. Also endorses cough with green sputum production since last couple of days. Patient was started on Levophed in the ED. #Severe aortic stenosis. #Shock, most likely septic. - Echo- Normal LV size and function with and EF of 55-60%. Moderate LVH. DIastolic Dysfunction stage II. Normal RV size and function. Modertely elevated RVSP 52 mmHg. Severe Aortic Stenosis Vmax 5 m/s, Max PG 90 mm hg, Mean PG 60 mm hg and BARRY 0.7 sqcm. Mild AI Moderate MA and Moderate MR. moderate TR. No pericardial effusion. He was recommended TAVR. -He had a cardiac cath on may 2024 : Severe calcific aortic stenosis with peak gradient 40 mmHg, mean gradient 34 mmHg.Normal nonobstructive epicardial coronary artery, Normal right heart pressure,Normal left ventricular function. Plan: - on norepinephrine 0.05 mcg. - Continue CRRT as scheduled. Rest of medical Problem management as per ICU team. Plan of care discussed with attending Dr. Mann. Philipp Baum MD, PGY 2. Disclaimer: This note was dictated by speech recognition. Minor errors in medical technologist hematology may be present due to voice recognition software.
[2024-07-25] MEDS: POTASSIUM CHLORIDE 20 mEq TABCR 40 MEQ PO (11:49)
[2024-07-25] MEDS: POLYETHYLENE GLYCOL 17 GM PACKET PO (11:49)
--- NOTE | 2024-07-25 14:03 | PC.NURSE ---
MD Montalvo made aware of patient having frequent PVC's. No new orders at this time, patient will continuously be monitored.
[2024-07-25 14:22] LABS: Albumin, Serum 3.6 gm/dL (3.4-4.8); Anion Gap 13 (7-16); BUN/Creatinine Ratio 8 Ratio (12-20); Blood Urea Nitrogen 14 mg/dL (9-23); Calcium (Corrected) 8.3 mg/dL (8.5-10.1); Carbon Dioxide 25.4 mMol/L (20.0-31.0); Chloride 99 mMol/L (98-107); Creatinine (Component) 1.8 mg/dL (0.6-1.3); Estimated Creatinine Clearance 35.3 mL/min (>60); Glucose 135 mg/dL (74-106); Magnesium 1.8 mg/dL (1.6-2.6); Osmolality,Calculated 276 (275-295); Phosphorous 2.6 mg/dL (2.4-5.1); Potassium 3.2 mMol/L (3.4-5.1); Sodium 137 mMol/L (136-145); Thyroid Stimulating Hormone 2.39 uIU/mL (0.55-4.78); eGFR 37 See Note
[2024-07-25 14:23] LABS: Troponin I 1.467 ng/mL (0.0-0.045)
[2024-07-25] MEDS: ACETAMINOPHEN 325 MG TABLET 650 MG PO (15:06)
[2024-07-25 17:53] LABS: Anion Gap 9 (7-16); BUN/Creatinine Ratio 7 Ratio (12-20); Blood Urea Nitrogen 9 mg/dL (9-23); Calcium 8.5 mg/dL (8.3-10.6); Carbon Dioxide 25.2 mMol/L (20.0-31.0); Chloride 99 mMol/L (98-107); Creatinine (Component) 1.3 mg/dL (0.6-1.3); Estimated Creatinine Clearance 48.9 mL/min (>60); Glucose 110 mg/dL (74-106); Magnesium 1.9 mg/dL (1.6-2.6); Osmolality,Calculated 266 (275-295); Potassium 3.7 mMol/L (3.4-5.1); Sodium 133 mMol/L (136-145); eGFR 55 See Note
[2024-07-25 17:54] LABS: Albumin, Serum 3.7 gm/dL (3.4-4.8); Calcium (Corrected) 8.7 mg/dL (8.5-10.1); Phosphorous 2.2 mg/dL (2.4-5.1)
[2024-07-25] MEDS: HEPARIN SOD INJ 1000 UNIT/ML VIAL 10 ML 3000 UNIT INDWELLCAT (18:00)
[2024-07-25] MEDS: ATORVASTATIN CALCIUM 20 MG TABLET 40 MG PO (21:12)
[2024-07-26] VITALS (59 sets, daily range): BP systolic 71–110; BP diastolic 52–71; PULSE 70–110; RESP 14–44; TEMP 36.1–36.9; O2SAT 91–100
[2024-07-26] MEDS: MELATONIN 3 MG TABLET 12 MG PO (01:48)
[2024-07-26 01:58] LABS: Albumin, Serum 3.4 gm/dL (3.4-4.8); Anion Gap 14 (7-16); BUN/Creatinine Ratio 8 Ratio (12-20); Blood Urea Nitrogen 17 mg/dL (9-23); Calcium 8.3 mg/dL (8.3-10.6); Calcium (Corrected) 8.8 mg/dL (8.5-10.1); Chloride 101 mMol/L (98-107); Creatinine (Component) 2.1 mg/dL (0.6-1.3); Estimated Creatinine Clearance 30.3 mL/min (>60); Glucose 131 mg/dL (74-106); Magnesium 1.8 mg/dL (1.6-2.6); Osmolality,Calculated 273 (275-295); Phosphorous 2.8 mg/dL (2.4-5.1); Sodium 135 mMol/L (136-145); eGFR 31 See Note
[2024-07-26] MEDS: ALBUTEROL/IPRATROPIUM (Duoneb) RT SOL 3 ML NEBU INH ×2 (02:40→06:10)
[2024-07-26] MEDS: MIDODRINE 5 MG TABLET 10 MG PO ×3 (05:03→21:18)
[2024-07-26] MEDS: LEVOTHYROXINE SODIUM 100 MCG TABLET PO (05:04)
[2024-07-26] MEDS: LIDOCAINE 5% 1 PATCH TOP ×3 (05:31→23:22)
[2024-07-26 05:43] LABS: Basophils % (Auto) 0 % (0-2.5); Eosinophils % (Auto) 0 % (0-10); Hematocrit 31.8 % (41.0-53.0); Immature Granulocytes % (Auto) 1 % (0-0); Immature Granulocytes Auto 0.11 Thou/mm3 (0.00-0.00); Lymphocytes # (Auto) 0.9 Thou/mm3 (1.0-4.8); Lymphocytes % (Auto) 5 % (10-50); Mean Corpuscular HGB Conc 31.4 g/dl (31.0-37.0); Mean Corpuscular Hemoglobin 26.3 pg (25.0-35.0); Mean Corpuscular Volume 84 fL (80-100); Monocytes # (Auto) 1.5 Thou/mm3 (0.0-0.8); Monocytes % (Auto) 8 % (0-12); Neutrophils # (Auto) 15.9 Thou/mm3 (1.8-7.7); Neutrophils % (Auto) 86 % (37-80); Nucleated Red Blood Cell % 0 /100 WBC (0); RDW Standard Deviation 55.8 fL (35.1-43.9); White Blood Count 18.5 Thou/mm3 (3.8-10.6)
[2024-07-26 05:47] LABS: Platelet Count 73 Thou/mm3 (140-440)
[2024-07-26] MEDS: BUDESONIDE RT 0.5 MG/2 ML NEBU INH ×2 (06:10→18:50)
--- NOTE | 2024-07-26 06:12 | PD.RESPRO ---
Documentation for date of: 07/26/24 Subjective Subjective Interval history: Patient is a 79-year-old male with past medical history of hemodialysis (TTS) with Dr. Beltrán, history of aortic stenosis with his kitchen utility associate being Dr. Mann, history of UTIs, basal cell cancer, prostate cancer status post radiation in 2009 who presented with chief complaint shortness of breath and lower extremity swelling. Patient was accompanied by daughter who was at bedside and contributed to the story stating that patient has not been having complete sessions of hemodialysis as he has been having episodes of hypotension during the dialysis which led to the session being cut short. The shortness of breath has progressively gotten worse as well as the pitting edema in the lower extremities. Patient does also endorse abdominal discomfort in the epigastric region and he has diffuse distention and mild tenderness to palpation throughout the abdomen. His last bowel movement was the day prior to admission and he has a history of constipation. Patient makes little urine and he usually takes midodrine 10 mg right before dialysis sessions. In our ER patient has had soft blood pressures in the 80s over 60s with heart rate during the high 90s respiratory in the high 20s without any fevers and satting well 2 L nasal cannula. His pressure did not improve despite his 20 mg of midodrine and ICU was consulted for pressor support during hemodialysis session. Patient has left AV fistula in the upper extremity however given patient's very soft blood pressures and presenting severe aortic stenosis hemodialysis catheter was placed in the right femoral vein in preparation for CRRT. Dr Damon, who is covering for Dr. Funez, will be following the patient during his stay as well as Dr. Mann. Patient will be brought to the unit for further monitoring and close trending of his blood pressures during hemodialysis as well as pressor support. 07/25/24: Patient seen and examined in the ICU today. Overnight patient was somewhat restless likely due to the lack of sleep. Patient was started on CRRT at around midnight and completed an 8 hour session and removed about 400cc of fluids. We will continue another session of CRRT after speaking with Dr Damon. He remains on 0.5 of levophed. Will schedule midodrine 10mg TID in attempts to weak him off of the pressor support. White count did elevate to 19.8 but there were no overnight fevers. Will follow up with cultures and continue abx at this time. He remains on minimal O2 support. Will continue to wean down as tolerated. Troponins continue to climb to 2.002 this morning, patient denies any chest pain, likely secondary to stress from severe aortic stenosis and unable to clear it. 07/26/2024: Patient had 12mg of melatonin to sleep. Patient off levophed this morning. Lungs sound significantly better with improved airway, and lower extremity edema significantly improved with no wrinkling of the feet. No dialysis today. If blood pressure remains stable on midodrine without the use of levophed, anticipate downgrade to Tele tomorrow. Of note, patient was found to be chewing his own chewing tobacco. This was confiscated and patient was given a nicotine patch instead. Exam Vital Signs Temp Pulse Resp BP Pulse Ox O2 Del Method O2 Flow Rate 97.7 F 85 29 H 99/61 95 Nasal Cannula 1 07/26/24 04:00 07/26/24 06:01 07/26/24 06:01 07/26/24 06:01 07/26/24 06:01 07/25/24 16:00 07/26/24 02:40 FiO2 1 07/25/24 00:50 Narrative Exam Constitutional: NAD. Awake, alert. HEENT: NCAT. Vision grossly intact. Respiratory: CTAB bilaterally. Cardiac: RRR. Systolic ejection murmur noted over. Abdomen: Soft, non-distended, non-tender. No guarding, no rebound. MSK: Significantly improved/resolved lower extremity edema if any, wrinkling noted. Skin: Warm, dry, intact. Objective Labs 07/26/24 04:25 07/26/24 12:34 Labs: Laboratory Results - last 24 hr 07/25/24 07/25/24 07/25/24 05:28 07:54 13:00 WBC 19.8 H RBC 3.46 L Hgb 9.1 L Hct 28.7 L MCV 83 MCH 26.3 MCHC 31.7 RDW Std Deviation 55.2 H Plt Count 68 L Neut % (Auto) 85 H Lymph % (Auto) 5 L Garvin % (Auto) 10 Eos % (Auto) 0 Baso % (Auto) 0 Neut # (Auto) 16.8 H Lymph # (Auto) 1.0 Garvin # (Auto) 1.9 H Eos # (Auto) 0.0 Baso # (Auto) 0.0 Immature Gran # (Auto) 0.09 H Absolute Nucleated RBC 0.00 Immature Gran % 1 H Nucleated RBC % 0 Sodium Cancelled 137 137 Potassium Cancelled 3.0 L D 3.2 L Chloride Cancelled 98 99 Carbon Dioxide Cancelled 23.9 25.4 Anion Gap Cancelled 15 13 BUN Cancelled 20 14 Creatinine Cancelled 2.4 H D 1.8 H D Estim Creat Clear Calc Cancelled 26.5 L 35.3 L eGFR Cancelled 26 L 37 L BUN/Creatinine Ratio Cancelled 8 L 8 L Glucose Cancelled 120 H D 135 H Calculated Osmolality Cancelled 277 276 Calcium Cancelled 8.1 L 8.0 L Corrected Calcium Cancelled 8.5 8.3 L Phosphorus Cancelled 2.9 2.6 Magnesium Cancelled 1.9 1.8 Total Bilirubin Cancelled 0.8 D AST Cancelled 98 H ALT Cancelled 57 H Alkaline Phosphatase Cancelled 310 H D Troponin I Cancelled 1.652 H* D 1.467 H* Total Protein Cancelled 6.5 Albumin Cancelled 3.5 3.6 Globulin Cancelled 3.0 Albumin/Globulin Ratio Cancelled 1.2 Triglycerides Cancelled Cholesterol Cancelled LDL Cholesterol, Calc Cancelled HDL Cholesterol Cancelled Cholesterol/HDL Ratio Cancelled TSH 2.39 Misc Test Result Platelets confirmed 07/25/24 07/26/24 07/26/24 17:00 01:07 04:25 WBC 18.5 H RBC 3.80 L Hgb 10.0 L Hct 31.8 L MCV 84 MCH 26.3 MCHC 31.4 RDW Std Deviation 55.8 H Plt Count 73 L Neut % (Auto) 86 H Lymph % (Auto) 5 L Garvin % (Auto) 8 Eos % (Auto) 0 Baso % (Auto) 0 Neut # (Auto) 15.9 H Lymph # (Auto) 0.9 L Garvin # (Auto) 1.5 H Eos # (Auto) 0.0 Baso # (Auto) 0.0 Immature Gran # (Auto) 0.11 H Absolute Nucleated RBC 0.00 Immature Gran % 1 H Nucleated RBC % 0 Sodium 133 L 135 L Potassium 3.7 D 4.0 Chloride 99 101 Carbon Dioxide 25.2 20.0 Anion Gap 9 14 BUN 9 17 Creatinine 1.3 D 2.1 H D Estim Creat Clear Calc 48.9 L 30.3 L eGFR 55 L 31 L BUN/Creatinine Ratio 7 L 8 L Glucose 110 H 131 H Calculated Osmolality 266 L 273 L Calcium 8.5 8.3 Corrected Calcium 8.7 8.8 Phosphorus 2.2 L 2.8 Magnesium 1.9 1.8 Total Bilirubin AST ALT Alkaline Phosphatase Troponin I Total Protein Albumin 3.7 3.4 Globulin Albumin/Globulin Ratio Triglycerides Cholesterol LDL Cholesterol, Calc HDL Cholesterol Cholesterol/HDL Ratio TSH Misc Test Result Quality Measures Quality Measures none Advance care planning discussed with:: patient Assessment & Plan Assessment Current Active Medications: Generic Name Dose Route Start Last Admin Trade Name Freq PRN Reason Stop Dose Admin Acetaminophen 650 mg 07/24/24 14:45 Acetaminophen 325 Mg Tablet PO 08/23/24 14:44 Q6H PRN Fever >101.5 Acetaminophen 650 mg 07/24/24 14:45 07/25/24 15:06 Acetaminophen 325 Mg Tablet PO 08/23/24 14:44 650 mg Q6H PRN Administration PAIN SCALE 1-3 (mild Albuterol/Ipratropium 3 ml 07/24/24 14:45 07/26/24 06:10 Albuterol/Ipratropium (Duoneb) Rt Christianne 3 Ml Nebu INH 08/23/24 18:59 3 ml Q6HRRT PRN Administration SHORTNESS OF BREATH OR WHEEZE Atorvastatin Calcium 40 mg 07/25/24 21:00 07/25/24 21:12 Atorvastatin Calcium 20 Mg Tablet PO 08/24/24 20:59 40 mg HS ROBERT Administration Budesonide 0.5 mg 07/25/24 09:45 07/26/24 06:10 Budesonide Rt 0.5 Mg/2 Ml Nebu INH 08/24/24 09:44 0.5 mg BIDRT ROBERT Administration Gabapentin 100 mg 07/25/24 09:00 07/25/24 09:29 Gabapentin 100 Mg Capsule PO 08/24/24 08:59 100 mg QDAY ROBERT Administration Heparin Sodium (Porcine) 5,000 unit 07/24/24 22:00 07/25/24 05:09 Heparin Sod Inj 5000 Unit/Ml Vial SC 08/07/24 21:59 5,000 unit Q8HR ROBERT Administration Heparin Sodium (Porcine) 3,000 unit 07/25/24 17:33 07/25/24 18:00 Heparin Sod Inj 1000 Unit/Ml Vial 10 Ml INDWELLCAT 08/08/24 17:32 3,000 unit PRN PRN Administration DIALYSIS Norepinephrine/Dextrose 8 mg in 250 mls @ 8.25 mls/hr 07/24/24 14:52 07/26/24 06:00 Levophed In D5w 8mg/250ml IV 08/23/24 14:51 0 mcg/kg/min .Q24H PRN 0 mls/hr PER PROTOCOL Titration Protocol 0.05 MCG/KG/MIN Ceftriaxone Sodium/Dextrose 1 gm in 50 mls @ 100 mls/hr 07/25/24 09:00 07/25/24 09:28 Rocephin/D5w 1gm Iv Premix IV 07/30/24 08:59 100 mls/hr QDAY ROBERT Administration Levothyroxine Sodium 100 mcg 07/26/24 06:00 07/26/24 05:04 Levothyroxine Sodium 100 Mcg Tablet PO 08/25/24 05:59 100 mcg ACBR ROBERT Administration Midodrine 10 mg 07/25/24 09:00 07/26/24 05:03 Midodrine 5 Mg Tablet PO 08/24/24 08:59 10 mg TID ROBERT Administration Ondansetron HCl 4 mg 07/24/24 14:45 Ondansetron Inj 2 Mg/Ml Inj 2 Ml IV 08/23/24 14:44 Q6H PRN NAUSEA OR VOMITING Protocol Pantoprazole Sodium 40 mg 07/25/24 09:00 07/25/24 09:28 Pantoprazole 40 Mg Tablet PO 08/24/24 08:59 40 mg QDAY ROBERT Administration Sennosides 1 tab 07/25/24 09:00 07/25/24 09:29 Senna/Docusate Sod 1 Tab Tablet PO 08/24/24 08:59 1 tab QDAY ROBERT Administration Protocol Plan 79-year-old male with past medical history of hemodialysis (TTS) with Dr. Beltrán, history of aortic stenosis with his kitchen utility associate being Dr. Mann, history of UTIs, basal cell cancer, prostate cancer status post radiation in 2009 admitted to the ICU for shock. Neuro #Acute encephalopathy, improving Likely underlying ICU delirium versus metabolic versus infectious versus hypoxic Patient does take trazodone for sleep at night, he was unable to sleep due to constant monitoring at night. - Have family at beside to help reorient patient - Low dose antipsychotics (seroquel) if he gets more agitated. CVS #Shock,improving Cardiogenic in the setting of severe aortic stenosis versus distributive Patient's last EF was on 04/30/2024 and showed an EF of 55 to 60% with aortic stenosis during a V-max of 5 m/s and aortic valve area of 0.7 cm?. - Pressor support with Levophed while patient undergoes slow fluid removal with CRRT and will treat underlying infection - Cardiology is on board, appreciate recommendations, patient needs TAVR - Midodrine 10mg TID #Troponinemia due to demand ischemia, improving Troponins were elevated at 1.816, peaked at 2.002. EKG did not show any ST segment changes #History of HLD #Continue home statin Resp #Acute hypoxic respiratory failure Secondary to fluid overload from CHF exacerbation versus pneumonia versus COPD exacerbation X-ray showed pulmonary congestion and on exam crackles can be heard in bibasilar lung mike. - Ceftriaxone for CAP 07/25- - DuoNebs as needed. budesenide bid for COPD - Will remove fluids slowly with CRRT GI #Abdominal pain Likely secondary to constipation versus gas. 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 Had TABLO 07/25. - Dr. Damon following Endo #History of hypothyroidism - Continue home levothyroxine ID/Skin #Sepsis secondary to pneumonia Patient meets SIRS criteria 3/4 with pneumonia being possible underlying source of infection Chest x-ray revealed bibasilar pneumonia. Patient received azithromycin and Rocephin in the ED. - Continue ceftriaxone 07/24- - Follow up blood culture Hematology #Leukocytosis Due to infection, see ID above #Heyde Syndrome #Thrombocytopenia Aortic stenosis, iron deficieny anemia, and history of GIB Not actively bleeding 4T score results <5% probability of HIT, HIT panel was sent - Holding heparin - SCD Hospital Maintenance: FEN: Cardiac diet DVT PPx: SCDs GI PPx: Protonix Q day IV lines: PIV, R femoral tri-flow Tee: None Code Status: Full code Dispo: Anticipate downgrade to Tele tomorrow if BP is stable and no longer requiring pressors during dialysis I have reviewed and discussed the patient's care with my attending, Dr. Breonna Hall MD PGY-3
[2024-07-26 06:29] LABS: Alanine Aminotransferase 67 U/L (10-49); Albumin, Serum 3.6 gm/dL (3.4-4.8); Albumin/Globulin Ratio 1.1 (1.2-2.2); Alkaline Phosphatase 289 U/L (46-116); Anion Gap 14 (7-16); Aspartate Amino Transferase 55 U/L (0-34); BUN/Creatinine Ratio 9 Ratio (12-20); Bilirubin,Total 0.4 mg/dL (0.3-1.2); Blood Urea Nitrogen 21 mg/dL (9-23); Calcium 8.6 mg/dL (8.3-10.6); Calcium (Corrected) 8.9 mg/dL (8.5-10.1); Carbon Dioxide 20.9 mMol/L (20.0-31.0); Chloride 100 mMol/L (98-107); Creatinine (Component) 2.3 mg/dL (0.6-1.3); Estimated Creatinine Clearance 27.6 mL/min (>60); Globulin 3.3 gm/dL (2.3-3.5); Glucose 121 mg/dL (74-106); Magnesium 1.9 mg/dL (1.6-2.6); Osmolality,Calculated 274 (275-295); Phosphorous 3.1 mg/dL (2.4-5.1); Potassium 3.9 mMol/L (3.4-5.1); Sodium 135 mMol/L (136-145); Total Protein 6.9 gm/dL (5.7-8.2); eGFR 28 See Note
[2024-07-26 06:45] LABS: Slide Review Platelets confirmed
[2024-07-26] MEDS: GABAPENTIN 100 MG CAPSULE PO (07:04)
[2024-07-26] MEDS: PANTOPRAZOLE 40 MG TABLET PO (07:04)
[2024-07-26] MEDS: SENNA/DOCUSATE SOD 1 TAB TABLET PO (07:05)
[2024-07-26] MEDS: cefTRIAXone/D5w 1gm IV premix 1 GM/50 ML BAG IV (07:05)
[2024-07-26] MEDS: NICOTINE PATCH 14 MG/24 HR PATCH.TD24 TOP (11:26)
[2024-07-26 15:47] LABS: Albumin, Serum 3.4 gm/dL (3.4-4.8); Anion Gap 13 (7-16); BUN/Creatinine Ratio 9 Ratio (12-20); Blood Urea Nitrogen 24 mg/dL (9-23); Calcium 8.4 mg/dL (8.3-10.6); Calcium (Corrected) 8.9 mg/dL (8.5-10.1); Carbon Dioxide 21.8 mMol/L (20.0-31.0); Chloride 100 mMol/L (98-107); Creatinine (Component) 2.6 mg/dL (0.6-1.3); Estimated Creatinine Clearance 24.5 mL/min (>60); Glucose 154 mg/dL (74-106); Magnesium 1.9 mg/dL (1.6-2.6); Osmolality,Calculated 277 (275-295); Phosphorous 3.2 mg/dL (2.4-5.1); Potassium 3.9 mMol/L (3.4-5.1); Sodium 135 mMol/L (136-145); eGFR 24 See Note
[2024-07-26 15:47] LABS: Albumin, Serum 3.6 gm/dL (3.4-4.8); Anion Gap 14 (7-16); BUN/Creatinine Ratio 11 Ratio (12-20); Blood Urea Nitrogen 31 mg/dL (9-23); Calcium 8.5 mg/dL (8.3-10.6); Calcium (Corrected) 8.8 mg/dL (8.5-10.1); Carbon Dioxide 23.4 mMol/L (20.0-31.0); Chloride 98 mMol/L (98-107); Creatinine (Component) 2.9 mg/dL (0.6-1.3); Estimated Creatinine Clearance 21.9 mL/min (>60); Glucose 159 mg/dL (74-106); Osmolality,Calculated 279 (275-295); Phosphorous 2.8 mg/dL (2.4-5.1); Sodium 135 mMol/L (136-145); eGFR 21 See Note
--- NOTE | 2024-07-26 16:19 | PC.NURSE ---
[facility] 0900 to 1615.
--- NOTE | 2024-07-26 16:59 | PD.RESCONSUL ---
HPI Data of Consult Requesting Physician: Chiki Ravi MD Admitting Provider: Mallorie Ryan MD Attending Provider: Chiki Ravi MD Primary Care Provider: Shen Skelton MD Consult Narrative History of present illness: This is an 79-year-old male PMHx of aortic valve stenosis, HTN, HLD, ESRD HD TTS with Dr. Funez, carcinoma, admitted on 07/24/24 for shortness of breath and lower extremity swelling. Evidently, he was at hemodialysis center, was unable to complete his session secondary to worsening shortness of breath. Additionally, he endorses diffuse abdominal distention and tenderness throughout his abdomen. His last bowel movement was the day prior to admission. On presentation, afebrile, BP 80/60, HR 108,, satting 95% on 1 L NC. CHEM panel remarkable for BUN 44, CR 5.3, GLUCOSE 170, lactic acid 3.2, corrected calcium 8.4, procalcitonin 1.94. Normal magnesium 1.8, normal potassium 3.6. CBC showed WBC 16.7, Hgb 9.7, PLT 69. Troponin peaked at 2.002, BNP greater than 3280. EKG showed sinus rhythm with left anterior fascicular block, nonspecific ST and T wave abnormalities. CXR showed mild heart failure, suspected left base pneumonia, mild to moderate pleural effusion. Found to have significant lower extremity edema on exam. He was admitted to ICU for AHRF in settings of shock, most likely cardiogenic shock secondary to severe aortic stenosis, required pressor support. He was continued on CRRT. His symptoms have significantly improved since admission, currently on room air satting well. Throughout the stay, patient has been followed up by cardiology, Dr. Mann. Close previous echo prior to admission was from 05/08/2024 showing EF 55 to 60%, moderate LVH, diastolic dysfunction stage II, severe aortic stenosis V-max 5 M/S, max PG 90 mmHg, mean PG 60 mmHg, and BARRY 0.76 sqmc, moderately elevated RF SB 52 mmHg, normal LV/RV size and function. Repeat ECHO this vist showed EF 20-25%, mildly dilated left atrium, dilated left ventricle and severe global hypokinesis of severe systolic dysfunction of left ventricle, left ventricular function severely depressed compared to previous echo, severely calcified aortic stenosis with velocity 4 m/s and peak gradient 56 mmHg, there is also mild aortic valve regurgitation, estimated right ventricular systolic pressure 60 mmHg, RAP 15, moderate plus mitral regurg, mild to moderate TR, left pleural effusion, mild PI, dilated IVC, normal RV size and function, mildly decreased RV systolic function. Evidently, patient has had severely worsening LV function, now significantly symptomatic. Currently he is in A-fib although rate controlled. Although on room air, continues to experience weakness, tiredness, and fatigue. We were consulted from TAVR which patient appears a good candidate for the procedure. Will attempt to transfer patient to [facility] for urgent proceeder. cc:: cc: Chiki Ravi MD Review of Systems Review of Systems Narrative Review of Systems: GENERAL: Denies fevers/chills or diaphoresis. HEENT: Denies headache or visual/hearing changes. Denies nasal discharge. NEURO: admits to unusual weakness, denies difficulty speaking. CARDIO: Denies chest pain or palpitations. PULM: endorsing SOB, denies coughing or wheezing. GI: Denies abdominal pain, N/V/C/D/reflux/gas, bright red blood per rectum or melena. Reports having BMs. URO: Denies burning/itching/pain/urinary changes. MSK/EXT/SKIN: Denies joint/skeletal/muscle pain, issues/changes in upper or lower extremities, itchiness, or superficial pain. Exam Vital Signs Temp Pulse Resp BP Pulse Ox O2 Del Method O2 Flow Rate 98.0 F 92 30 H 91/53 L 96 Room Air 1 07/26/24 16:00 07/26/24 16:00 07/26/24 16:07/26/24 16:07/26/24 16:07/26/24 16:07/26/24 02:40 FiO2 1 07/25/24 00:50 Narrative Exam General: Well-appearing elderly male, on room air, NAD. Awake, alert. HEENT: NCAT. Vision grossly intact. Respiratory: CTAB bilaterally, no w/r/r Cardiac: RRR, loud aortic systolic murmur no rubs or gallops Abdomen: Soft, non-distended, non-tender. No guarding, no rebound. MSK: Trace LE edema (significantly improved since admission) Skin: Warm, dry, intact. Results Labs 07/27/24 05:35 07/27/24 17:15 Labs: Short CBC 07/26/24 Range/Units 04:25 WBC 18.5 H (3.8-10.6) Thou/mm3 Hgb 10.0 L (13.5-16.0) g/dL Hct 31.8 L (41.0-53.0) % Plt Count 73 L (140-440) Thou/mm3 BMP 07/25/24 07/26/24 07/26/24 17:00 01:07 04:25 Sodium 133 L 135 L 135 L Potassium 3.7 D 4.0 3.9 Chloride 99 101 100 Carbon Dioxide 25.2 20.0 20.9 BUN 9 17 21 Creatinine 1.3 D 2.1 H D 2.3 H Glucose 110 H 131 H 121 H Calcium 8.5 8.3 8.6 07/26/24 07/26/24 08:42 12:34 Sodium 135 L 135 L Potassium 3.9 4.0 Chloride 100 98 Carbon Dioxide 21.8 23.4 BUN 24 H 31 H Creatinine 2.6 H 2.9 H Glucose 154 H 159 H Calcium 8.4 8.5 Liver Function 07/25/24 07/26/24 07/26/24 Range/Units 17:00 01:07 04:25 Total Bilirubin 0.4 (0.3-1.2) mg/dL AST 55 H (0-34) U/L ALT 67 H (10-49) U/L Alkaline Phosphatase 289 H D (46-116) U/L Albumin 3.7 3.4 3.6 (3.4-4.8) gm/dL 07/26/24 07/26/24 Range/Units 08:42 12:34 Total Bilirubin (0.3-1.2) mg/dL AST (0-34) U/L ALT (10-49) U/L Alkaline Phosphatase (46-116) U/L Albumin 3.4 3.6 (3.4-4.8) gm/dL Quality Measures Quality Measures none Advance care planning discussed with:: patient Medications Home Medications and Allergies Home Medications ?Medication ?Instructions ?Recorded ?Confirmed ?Type levothyroxine 100 mcg tablet 100 mcg PO QDAY #0 tabs 12/19/16 07/25/24 History atorvastatin 40 mg tablet 1 tab PO HS 08/01/21 07/25/24 History trazodone 50 mg tablet 100 mg PO QDAY 01/30/22 07/25/24 History calcium acetate(phosphat bind) 667 667 mg PO TID 06/27/22 07/25/24 History mg capsule gabapentin 100 mg capsule 100 mg PO QDAY 06/27/22 07/25/24 History tamsulosin 0.4 mg capsule 0.4 mg PO QDAY 10/26/22 07/25/24 History fluticasone 100 mcg-salmeterol 50 1 inh inhalation BID 02/04/23 07/25/24 History mcg/dose blistr powdr for inhalation ascorbic acid (vitamin C) 100 mg 500 mg PO BID 05/22/23 07/25/24 History tablet (Vitamin C) leuprolide (3 month) 22.5 mg (3 See Rx Instructions .Route .COMPLEX 05/22/23 07/25/24 History month) intramuscular syringe kit (Lupron Depot) sucralfate 1 gram tablet 1 g PO BID 02/23/24 07/25/24 History acetaminophen 325 mg capsule 325 mg PO Q6H PRN pain 06/03/24 07/25/24 History cholecalciferol (vitamin D3) 50 50 mcg PO QDAY 06/03/24 07/25/24 History mcg (2,000 unit) capsule (Vitamin D3) ferric citrate 210 mg iron tablet 210 mg PO TID 06/03/24 07/25/24 History (Auryxia) melatonin 5 mg capsule 10 mg PO PRN PRN insomnia 06/03/24 07/25/24 History ferric citrate 210 mg iron tablet 420 mg PO TID 06/19/24 07/25/24 History (Auryxia) furosemide 20 mg tablet 20 mg PO DAILY 07/25/24 07/25/24 History ipratropium 0.5 mg-albuterol 3 mg 3 ml inhalation Q6H PRN shortness 07/25/24 07/25/24 History (2.5 mg base)/3 mL nebulization of breath or wheezing soln midodrine 10 mg tablet 10 mg PO PRN PRN hypotension 07/25/24 07/25/24 History sucralfate 1 gram tablet (Carafate) 1 g PO BID 07/25/24 07/25/24 History Allergies Allergy/AdvReac Type Severity Reaction Status Date / Time No Known Allergies Allergy Verified 06/19/24 08:34 Visit Medications Acetaminophen (Acetaminophen 325 Mg Tablet) 650 mg PO Q6H PRN PRN Reason: Fever >101.5 Stop: 08/23/24 14:44 Acetaminophen (Acetaminophen 325 Mg Tablet) 650 mg PO Q6H PRN PRN Reason: PAIN SCALE 1-3 (mild Stop: 08/23/24 14:44 Last Admin: 07/25/24 15:06 Dose: 650 mg Albuterol/Ipratropium (Albuterol/Ipratropium (Duoneb) Rt Christianne 3 Ml Nebu) 3 ml INH Q6HRRT PRN PRN Reason: SHORTNESS OF BREATH OR WHEEZE Stop: 08/23/24 18:59 Last Admin: 07/26/24 06:10 Dose: 3 ml Atorvastatin Calcium (Atorvastatin Calcium 20 Mg Tablet) 40 mg PO HS [facility] Stop: 08/24/24 20:59 Last Admin: 07/25/24 21:12 Dose: 40 mg Budesonide (Budesonide Rt 0.5 Mg/2 Ml Nebu) 0.5 mg INH BIDRT ROBERT Stop: 08/24/24 09:44 Last Admin: 07/26/24 06:10 Dose: 0.5 mg Gabapentin (Gabapentin 100 Mg Capsule) 100 mg PO QDAY [facility] Stop: 08/24/24 08:59 Last Admin: 07/26/24 07:04 Dose: 100 mg Heparin Sodium (Porcine) (Heparin Sod Inj 1000 Unit/Ml Vial 10 Ml) 3,000 unit INDWELLCAT PRN PRN PRN Reason: DIALYSIS Stop: 08/08/24 17:32 Last Admin: 07/25/24 18:00 Dose: 3,000 unit Norepinephrine/Dextrose (Levophed In D5w 8mg/250ml) 8 mg in 250 mls @ 8.25 mls/hr IV .Q24H PRN; Protocol PRN Reason: PER PROTOCOL Stop: 08/23/24 14:51 Last Titration: 07/26/24 06:00 Dose: 0 mcg/kg/min, 0 mls/hr Ceftriaxone Sodium/Dextrose (Rocephin/D5w 1gm Iv Premix) 1 gm in 50 mls @ 100 mls/hr IV QDAY [facility] Stop: 07/30/24 08:59 Last Admin: 07/26/24 07:05 Dose: 100 mls/hr Levothyroxine Sodium (Levothyroxine Sodium 100 Mcg Tablet) 100 mcg PO ACBR ROBERT Stop: 08/25/24 05:59 Last Admin: 07/26/24 05:04 Dose: 100 mcg Midodrine (Midodrine 5 Mg Tablet) 10 mg PO TID ROBERT Stop: 08/24/24 08:59 Last Admin: 07/26/24 14:00 Dose: 10 mg Ondansetron HCl (Ondansetron Inj 2 Mg/Ml Inj 2 Ml) 4 mg IV Q6H PRN; Protocol PRN Reason: NAUSEA OR VOMITING Stop: 08/23/24 14:44 Pantoprazole Sodium (Pantoprazole 40 Mg Tablet) 40 mg PO QDAY [facility] Stop: 08/24/24 08:59 Last Admin: 07/26/24 07:04 Dose: 40 mg Sennosides (Senna/Docusate Sod 1 Tab Tablet) 1 tab PO QDAY [facility]; Protocol Stop: 08/24/24 08:59 Last Admin: 07/26/24 07:05 Dose: 1 tab Discontinued Medications Acetaminophen (Acetaminophen 325 Mg Tablet) 650 mg PO X1 ONE Stop: 07/24/24 13:59 Last Admin: 07/24/24 14:44 Dose: 650 mg Albuterol/Ipratropium (Albuterol/Ipratropium (Duoneb) Rt Christianne 3 Ml Nebu) 3 ml INH X1 ONE Stop: 07/24/24 12:29 Last Admin: 07/24/24 12:55 Dose: 3 ml Calcium Gluconate (Calcium Gluconate 10% Inj 1 Gm/10 Ml Vial) 1 gm IV X1 ONE Stop: 07/24/24 13:38 Last Admin: 07/24/24 14:25 Dose: Not Given Gabapentin (Gabapentin 100 Mg Capsule) 100 mg PO X1 ONE Stop: 07/25/24 04:59 Last Admin: 07/25/24 05:08 Dose: 100 mg Heparin Sodium (Porcine) (Heparin Sod Inj 5000 Unit/Ml Vial) 5,000 unit SC Q8HR [facility] Stop: 08/07/24 21:59 Last Admin: 07/25/24 05:09 Dose: 5,000 unit Azithromycin 500 mg/ Sodium (Chloride) 250 mls @ 250 mls/hr IV X1 ONE Stop: 07/24/24 13:30 Last Infusion: 07/24/24 14:00 Dose: Infused Ceftriaxone Sodium/Dextrose (Rocephin/D5w 1gm Iv Premix) 1 gm in 50 mls @ 100 mls/hr IV X1 ONE Stop: 07/24/24 14:00 Last Infusion: 07/24/24 14:16 Dose: Infused Sodium Chloride (Ns) 250 mls @ 999 mls/hr IV .Q16M ONE Stop: 07/24/24 13:47 Last Infusion: 07/24/24 14:00 Dose: Infused Sodium Chloride (Ns) 250 mls @ 999 mls/hr IV .Q16M ONE Stop: 07/24/24 13:49 Last Admin: 07/24/24 13:42 Dose: Not Given Magnesium Sulfate/Dextrose (Magnesium Sulfate Ivpb) 1 gm in 100 mls @ 100 mls/hr IV X1 ONE Stop: 07/24/24 14:36 Last Infusion: 07/24/24 15:00 Dose: Infused Calcium Gluconate/Sodium Chloride (Calcium Gluc/Ns 1000mg Ivpb) 1,000 mg in 50 mls @ 50 mls/hr IV X1 ONE Stop: 07/24/24 14:44 Last Infusion: 07/24/24 15:00 Dose: Infused Norepinephrine/Dextrose (Levophed In D5w 8mg/250ml) 8 mg in 250 mls @ 8.25 mls/hr IV .Q24H PRN; Protocol PRN Reason: PER PROTOCOL Stop: 08/23/24 13:58 Azithromycin 500 mg/ Sodium (Chloride) 250 mls @ 250 mls/hr IV QDAY ROBERT Stop: 07/26/24 08:59 Last Admin: 07/25/24 15:23 Dose: Not Given Lidocaine (Lidocaine 5% 1 Patch) 1 patch TOP X1 ONE Stop: 07/24/24 13:59 Last Admin: 07/24/24 14:46 Dose: 1 patch Lidocaine (Lidocaine 5% 1 Patch) 1 patch TOP X1 ONE Stop: 07/26/24 05:27 Last Admin: 07/26/24 05:31 Dose: 1 patch Melatonin (Melatonin 3 Mg Tablet) 5 mg PO NOW ONE Stop: 07/25/24 01:52 Melatonin (Melatonin 3 Mg Tablet) 6 mg PO NOW ONE Stop: 07/25/24 02:03 Last Admin: 07/25/24 02:06 Dose: 6 mg Melatonin (Melatonin 3 Mg Tablet) 12 mg PO HS ONE Stop: 07/26/24 01:33 Last Admin: 07/26/24 06:39 Dose: Not Given Melatonin (Melatonin 3 Mg Tablet) 12 mg PO NOW ONE Stop: 07/26/24 01:33 Last Admin: 07/26/24 01:48 Dose: 12 mg Midodrine (Midodrine 5 Mg Tablet) 10 mg PO X1 ONE Stop: 07/24/24 12:29 Last Admin: 07/24/24 12:38 Dose: 10 mg Midodrine (Midodrine 5 Mg Tablet) 10 mg PO X1 ONE Stop: 07/24/24 13:33 Last Admin: 07/24/24 14:25 Dose: Not Given Midodrine (Midodrine 5 Mg Tablet) 10 mg PO X1 ONE Stop: 07/24/24 13:33 Last Admin: 07/24/24 13:38 Dose: 10 mg Midodrine (Midodrine 5 Mg Tablet) 5 mg PO TID ROBERT Stop: 08/24/24 13:59 Nicotine (Nicotine Patch 14 Mg/24 Hr Patch.Td24) 14 mg TOP X1 ONE Stop: 07/26/24 11:21 Last Admin: 07/26/24 11:26 Dose: 14 mg Polyethylene Glycol (Polyethylene Glycol 17 Gm Packet) 17 gm PO X1 ONE Stop: 07/25/24 11:05 Last Admin: 07/25/24 11:49 Dose: 17 gm Potassium Chloride (Potassium Chloride 20 Meq Tabcr) 40 meq PO X1 ONE Stop: 07/25/24 09:38 Last Admin: 07/25/24 11:49 Dose: 40 meq Trazodone HCl (Trazodone Hcl 50 Mg Tablet) 100 mg PO X1 ONE Stop: 07/25/24 09:05 Last Admin: 07/25/24 09:28 Dose: 100 mg Assessment & Plan Plan This is an 79-year-old male PMHx of aortic valve stenosis, HTN, HLD, ESRD HD TTS with Dr. Funez, carcinoma, admitted on 07/24/24 for shortness of breath and lower extremity swelling. Evidently, he was at hemodialysis center, was unable to complete his session secondary to worsening shortness of breath, initially admitted to ICU for cardiogenic shock in setting of severe, symptomatic aortic stenosis. Severe aortic stenosis HFrEF, EF 25% Cardiogenic shock (improved) Patient with known history of aortic stenosis, presenting with worsening shortness of breath, lower extremity edema, had significant left pleural effusion on CXR, found to be in cardiogenic shock, initially admitted to ICU for pressor support and continued on CCRT for fluid removal. His symptoms have improved since admission, is currently on room air satting well. Lower extremity edema nearly resolved. Reviewed echo during this admission showed significant drop in EEF 65% to 25% compared to echo from 4 weeks ago, as a result of severely worsening aortic stenosis. He does not have a history of CAD. Given findings of severely symptomatic aortic stenosis, we are consulted for TAVR. Patient appeared to be a good candidate for TAVR given he is severely symptomatic at this point, along with the new echo findings above. Discussed risks and benefits of TAVR with patient and family at bedside. Benefits include improvement in symptoms, enhance functional status reversible hemodynamic consequences of severe aortic stenosis with a goal to restore adequate cardiac output and improve quality of life. Risk include complications such as vascular injury, bleeding, stroke and valvular malfunction, infection, temporary or permanent arrhythmia, and possible need for permanent pacemaker postprocedure. Patient and family agree and would like to proceed with TAVR. Will transfer to [facility] for urgent TAVR. Currently hemodynamically stable, off pressors, BP 94/59, HR 96, satting 100% on 1 L NC. CBC showing WBC 24.5 (likely 2/2 STEROIDS, he has afebrile, blood cultures have been negative), Hgb 9.9, PLT 39. Most recent CHEM panel significant for sodium 135, BUN 31, CR 2.9, GLUCOSE 159, normal potassium 4.0, normal magnesium 2.0. CKD stage IV, on HD TTS Hx GI bleed, anemia Left pleural effusion Leukocytosis Management of rest of the medical conditions as per primary team and other consultants. Thank you for the consult and allowing me to participate in the care of the patient. Cardiology will continue to follow. Case was discussed with attending, Dr. Castillo. Gus Summers DO PGYI Attending Provider Attestation/Addendum I have personally seen and examined the patient separately on the above date of service and discussed the plan of care with the resident. I reviewed the resident Dr. Gus Summers consultation progress note and agree with the resident findings and plan in the note above and have also edited the documentation to reflect my findings and plan. Patient is long-term patient of business consultant Dr. Mann and I was consulted for further evaluation of the severe aortic stenosis possible need of emergent or emergency TAVR. 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 Patient was hypotensive and in shock on arrival and needed pressors. Was tachycardic and hemoglobin 8 bpm and lactic acid is elevated at 3.2. Procalcitonin was also elevated at 1.94 WBC of 16.7 hemoglobin 9.7 and platelets was 69. BUN 44 creatinine 5.3. Troponin was elevated at 2.002 BNP was greater than 3280 potassium was 3.7 which later was 4.0. EKG showed normal sinus rhythm without any acute ST-T changes. Assessment and plan: 1. Shock-possibly cardiogenic shock but will need to rule out septic shock 2. Cardiogenic shock mostly secondary to the o the new onset severe systolic congestive heart failure with EF around 25% from 60% along with severe aortic stenosis. 2. Severe aortic stenosis 3. Sepsis with unclear source of infection at the present point of time 4. ESRD on hemodialysis 5. 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 Thrombocytopenia Patient was admitted to the ICU and is on pressors and critical care team managing the shock along with cardiology Dr. Mann. As noted in the HPI patient's ejection fraction was 60% on May 08, 2024. Patient V-max was greater than 5 m/s indicating critical aortic stenosis at that point with a mean PG of 60 mmHg and a valve area of 0.7 cm?. Patient was recommended to hold follow-up with me in the office in Dr. Mireles did send a referral but patient was unable to make up to the follow-ups as he did lose his of many years in [id number]. Unfortunately patient has not been doing well since the passing of his . Echo was repeated today showed showed an EF of 20 to 25% with again similar findings of severe aortic stenosis but now the V-max was 4.0 and previously was 5.0. Patient has severe aortic stenosis which was confirmed before and now appears to be low-flow low gradient severe aortic stenosis. Patient has significant drop in the ejection fraction in the [address] Mann consulted me for further evaluation for urgent transcatheter valve implantation or TAVR. Patient appears to be having elevated WBC count with elevated procalcitonin around 1.94 and did require Levophed initially on admission to the ICU. Will need to rule out any kind of sepsis prior to any valve implantation and would recommend to await all cultures including urine and blood cultures and sputum cultures. WBC count continues to increase and patient needs to be appropriately treated for the infection prior to the TAVR. Also patient had significant left pleural effusion on the echocardiogram as well as chest x-ray. Recommended to drain the pleural effusion with the help of IR. Agree that patient will need an urgent as an TAVR but patient will need to be infection free and will need infectious disease clearance prior to the TAVR replacement. Will discuss with the structural heart team at [facility] and arrange for the inpatient transfer once the patient infection is completely cleared. Patient already did have a cardiac catheterization in March 2024 which showed only mild 10 to 20% disease in the LAD arteries. Patient already had an echo and will send the cath, echo images to [facility]. Patient will need a CT TAVR as well as a cardiothoracic surgery evaluation which can be only done at [facility] and then eventually we will plan for a TAVR. Explained to the daughter who is at the bedside along with his sister regarding the need for the TAVR, the risks benefits of the procedure including the risk of bleeding, heart attack, pacemaker, infection, annulus rupture and in detail with the daughter. Daughter agreeable with the plan for TAVR and will discuss further once the patient is transferred from here to [place]. Management of rest of the medical conditions as per primary team and other consultants. Thank you for the consult and allowing me to participate in the care of the patient. Cardiology will continue to follow. Abdifatah Castillo M.D. Interventional Cardiology
--- NOTE | 2024-07-26 18:51 | PC.NURSE ---
Late entry: Pt in room chewing tobacco, pt educated that tobacco is not allowed in the facility. Pt refusing to give tobacco canister to nurse. made aware. Pt's daughter Xiao contacted and made aware. Pt's daughter Xiao did take tobacco canister home.
[2024-07-26] MEDS: ATORVASTATIN CALCIUM 20 MG TABLET 40 MG PO (21:19)
[2024-07-27] VITALS (87 sets, daily range): BP systolic 81–108; BP diastolic 45–67; PULSE 83–146; RESP 17–50; TEMP 36.1–36.6; O2SAT 86–100; BMI 24.7
--- NOTE | 2024-07-27 01:06 | ESPR_ITS ---
RE: ARTURO QUEZADA : 1945 DATE OF SERVICE: 07/26/2024 SUBJECTIVE: Arturo Quezada is not doing well. He is doing better today. He was admitted to hospital with severe hypotension especially when he has dialysis. midodrine was given. The patient's white count is elevated, which is concerning, slightly elevated at 19, today is 18. Chest x-ray does show evidence of pleural effusion on the left side, which appears to be fairly significant. There is no pneumonia as such. The patient also had a cardiac echo that showed surprising findings are as follows: The 05/08/2024 echo showed normal ejection fraction and cardiac catheterization that was performed on 06/03/2024 showed ejection fraction of 60%. Within a matter of 1-1/2 months, less than 5 weeks, the patient's ejection fraction dropped to 25% on cardiac echo. Today's cardiac echo shows severe LV dysfunction, dilated ventricular ejection fraction of 20%-25% with evidence of moderate mitral regurgitation, severe calcific aortic stenosis, aortic velocity of 4 m/sec. The patient clearly has significant worsening LV function within the last month or so. He remains in atrial fibrillation, rate controlled well. He is still having some weakness, tiredness, fatigue, and diminished breath sounds on the left side. PHYSICAL EXAMINATION: Vital Signs: Shows blood pressure 86/54, pulse rate is 89, respirations 27, and temperature normal. Neck: Supple. Lungs: Decreased breath sounds in the bases on the left side. Heart: S1 and S2 irregular. Loud systolic murmur heard at aortic area. Abdomen: Thin and soft. Extremities: Mild edema. Genitourinary and Rectal: Not performed. LABORATORY DATA: Showed evidence of normal hemoglobin , hematocrit is 31, and white count 18.5. Chemistry panel showed creatinine of 2.9 and BUN is 31. The patient is on dialysis for acute renal failure. IMPRESSION: 1. Severe hypotension from a combination of severe aortic stenosis and systolic heart failure. Ejection fraction dropped to 25% within 1 month from 60%. 2. Chronic kidney disease, on hemodialysis, stage IV chronic kidney disease. 3. Anemia secondary to bleeding from small intestine, which was addressed a month ago, now stable. 4. Left pleural effusion, fairly large on chest x-ray and also seen on the cardiac echo. 5. Leukocytosis, possible infection. RECOMMENDATIONS AND DISCUSSION: The patient will continue the midodrine for now and also continue with thyroid medication. The patient has hypothyroidism on gabapentin. Antibiotic already continue with ceftriaxone. I would recommend the patient getting ultrasound-guided thoracentesis tomorrow. Fairly large left pleural effusion to be drained. The patient is acutely and critically ill from severe aortic stenosis, sudden drop of ejection fraction within 4 weeks from 65% down to 25% due to severe aortic stenosis without underlying CAD is quite concerning. The patient is essentially in cardiogenic shock in combination of low ejection fraction and severe aortic stenosis and we would like to get this patient emergent and urgent transcutaneous aortic valve replacement. I consulted Dr. Castillo to see if we can arrange the patient to optimize medical management, transferred to [facility] for possible TAVR procedure on an urgent basis. Rather than elective basis, I do not expect him to survive if we do not do TAVR on this patient. Meanwhile to correct the infection we look out cytosis with IV antibiotics. We will also recommend left pleural effusion thoracentesis and continue midodrine. I am quite concerned about his overall prognosis if we do not address the aortic stenosis fairly soon and I discussed with Dr. Castillo and we will try to arrange him for transfer. Once the infection stabilized, he will require CT TAVR and aortic valve replacement fairly gently within a week to 10 days. DT: 23:12:57 TT: 00:09:00 Ref: [id number] - TID: [id number]
[2024-07-27] MEDS: QUEtiapine FUMARATE 25 MG TABLET PO (03:40)
[2024-07-27] MEDS: MIDODRINE 5 MG TABLET 10 MG PO ×2 (05:43→13:08)
[2024-07-27] MEDS: LEVOTHYROXINE SODIUM 100 MCG TABLET PO (05:43)
[2024-07-27 05:56] LABS: Basophils % (Auto) 0 % (0-2.5); Eosinophils % (Auto) 0 % (0-10); Hematocrit 31.3 % (41.0-53.0); Hemoglobin 9.9 g/dL (13.5-16.0); Immature Granulocytes % (Auto) 1 % (0-0); Immature Granulocytes Auto 0.17 Thou/mm3 (0.00-0.00); Lymphocytes # (Auto) 0.8 Thou/mm3 (1.0-4.8); Lymphocytes % (Auto) 3 % (10-50); Mean Corpuscular HGB Conc 31.6 g/dl (31.0-37.0); Mean Corpuscular Hemoglobin 26.5 pg (25.0-35.0); Mean Corpuscular Volume 84 fL (80-100); Monocytes # (Auto) 2.1 Thou/mm3 (0.0-0.8); Monocytes % (Auto) 9 % (0-12); Neutrophils # (Auto) 21.4 Thou/mm3 (1.8-7.7); Neutrophils % (Auto) 88 % (37-80); Nucleated Red Blood Cell # 0.04 Thou/mm3 (0.00-0.00); Nucleated Red Blood Cell % 0 /100 WBC (0); RDW Standard Deviation 55.5 fL (35.1-43.9); Red Blood Count 3.74 Miln/mm3 (4.50-5.90); White Blood Count 24.5 Thou/mm3 (3.8-10.6)
[2024-07-27 06:26] LABS: Platelet Count 39 Thou/mm3 (140-440)
[2024-07-27] MEDS: BUDESONIDE RT 0.5 MG/2 ML NEBU INH ×2 (06:34→21:00)
[2024-07-27 07:01] LABS: Alanine Aminotransferase 104 U/L (10-49); Albumin, Serum 3.3 gm/dL (3.4-4.8); Albumin/Globulin Ratio 1.1 (1.2-2.2); Alkaline Phosphatase 294 U/L (46-116); Anion Gap 18 (7-16); Aspartate Amino Transferase 92 U/L (0-34); BUN/Creatinine Ratio 12 Ratio (12-20); Bilirubin,Total 0.5 mg/dL (0.3-1.2); Blood Urea Nitrogen 44 mg/dL (9-23); Calcium 8.3 mg/dL (8.3-10.6); Calcium (Corrected) 8.9 mg/dL (8.5-10.1); Carbon Dioxide 18.6 mMol/L (20.0-31.0); Chloride 98 mMol/L (98-107); Creatinine (Component) 3.7 mg/dL (0.6-1.3); Estimated Creatinine Clearance 17.2 mL/min (>60); Glucose 142 mg/dL (74-106); Osmolality,Calculated 283 (275-295); Potassium 4.4 mMol/L (3.4-5.1); Sodium 135 mMol/L (136-145); Total Protein 6.3 gm/dL (5.7-8.2); eGFR 16 See Note
[2024-07-27 08:31] LABS: Lactate (Lactic Acid) 3.1 mMol/L (0.4-2.0)
--- NOTE | 2024-07-27 08:53 | ESPR_ITS ---
<Statement entered by Mallorie Ryan MD - 07/27/24 16:28> TOTAL TIME: 45MINUTES ON DIRECT MEDICAL CARE, MANAGEMENT - COORDINATION AND COUNSELING > 50% OF TOTAL TIME I saw and evaluated the patient. I reviewed the resident?s note and agree with findings and plan as documented in the resident?s note. He was able to tolerate AHD but only 500ml removed Resp status remains stable despite pulm edema The prior fluid removal on CRRT helped We changed antibiotics for ESBL org. noted on past clx in light of the rising wbc no fevers d/w residents on cardiology service - Dr. Ramonita Mann will be coordinating possible transfer to [facility] to consider TAVR. Patient's daughter updated at bedside. Sadly, we learned that 2mo ago her mother in the ICU. Understandably a very difficult time for her. Documentation for date of: 07/27/24 Subjective Subjective Interval history: Patient is a 79-year-old male with past medical history of hemodialysis (TTS) with Dr. Beltrán, history of aortic stenosis with his computed tomography technician being Dr. Mann, history of UTIs, basal cell cancer, prostate cancer status post radiation in 2009 who presented with chief complaint shortness of breath and lower extremity swelling. Patient was accompanied by daughter who was at bedside and contributed to the story stating that patient has not been having complete sessions of hemodialysis as he has been having episodes of hypotension during the dialysis which led to the session being cut short. The shortness of breath has progressively gotten worse as well as the pitting edema in the lower extremities. Patient does also endorse abdominal discomfort in the epigastric region and he has diffuse distention and mild tenderness to palpation throughout the abdomen. His last bowel movement was the day prior to admission and he has a history of constipation. Patient makes little urine and he usually takes midodrine 10 mg right before dialysis sessions. In our ER patient has had soft blood pressures in the 80s over 60s with heart rate during the high 90s respiratory in the high 20s without any fevers and satting well 2 L nasal cannula. His pressure did not improve despite his 20 mg of midodrine and ICU was consulted for pressor support during hemodialysis session. Patient has left AV fistula in the upper extremity however given patient's very soft blood pressures and presenting severe aortic stenosis hemodialysis catheter was placed in the right femoral vein in preparation for CRRT. Dr Damon, who is covering for Dr. Funez, will be following the patient during his stay as well as Dr. Mann. Patient will be brought to the unit for further monitoring and close trending of his blood pressures during hemodialysis as well as pressor support. 07/25/24: Patient seen and examined in the ICU today. Overnight patient was somewhat restless likely due to the lack of sleep. Patient was started on CRRT at around midnight and completed an 8 hour session and removed about 400cc of fluids. We will continue another session of CRRT after speaking with Dr Damon. He remains on 0.5 of levophed. Will schedule midodrine 10mg TID in attempts to weak him off of the pressor support. White count did elevate to 19.8 but there were no overnight fevers. Will follow up with cultures and continue abx at this time. He remains on minimal O2 support. Will continue to wean down as tolerated. Troponins continue to climb to 2.002 this morning, patient denies any chest pain, likely secondary to stress from severe aortic stenosis and unable to clear it. 07/26/2024: Patient had 12mg of melatonin to sleep. Patient off levophed this morning. Lungs sound significantly better with improved airway, and lower extremity edema significantly improved with no wrinkling of the feet. No dialysis today. If blood pressure remains stable on midodrine without the use of levophed, anticipate downgrade to Tele tomorrow. Of note, patient was found to be chewing his own chewing tobacco. This was confiscated and patient was given a nicotine patch instead. 07/27/2024: Patient was seen and examined in the ICU today. There were no major overnight events and patient is doing okay this morning. Patient has been off of the Levophed since yesterday at 6 AM and been maintaining an MAP of over 65. Patient remains somewhat confused this morning alert to self and place but not to time and seems somewhat sleepy. We will try a full hemodialysis session today as we have already removed about 4 L of fluid through CRRT on Saturday. Will follow-up with cardiology for plans of TAVR as patient's echocardiogram shows worsening function drop from 60% on April of this year to 25% on this admission. Patient's lower extremities are less edematous today and there is clear lung sounds bilaterally. Will do an In-N-Out catheter to obtain urine as family member stated that his urine was cloudy recently. The possible underlying UTI may be contributing to patient's delirium as well as climbing white count. Blood cultures have been negative for 48 hours. Given patient's previous episode of ESBL Klebsiella will switch antibiotics to Zosyn which previous cultures have shown to be sensitive to. Exam Vital Signs Temp Pulse Resp BP Pulse Ox O2 Del Method O2 Flow Rate 97.0 F 90 28 H 92/67 94 L Room Air 1 07/27/24 08:14 07/27/24 08:50 07/27/24 08:14 07/27/24 08:50 07/27/24 08:14 07/27/24 07:00 07/26/24 02:40 FiO2 1 07/25/24 00:50 Narrative Exam Constitutional: Well nourished in no severe distress. CVS: RRR, S1 and S2 present. Loud systolic crescendo decrescendo murmur heard on the parasternal area RESP: CTAB, patient is short of breath bilateral crackles heard on lung mike more so on the bases. GI: Normal BS, Nontender/Nondistended. MSK: Full range of motion, No trauma or deformities or masses. Trace pitting edema bilateral lower extremities. There is left AV fistula without discharge or erythema. Skin: Warm to touch, Dry. No rashes or lesions. No hematomas Neuro: ad taker II-XII grossly intact. Sensation grossly intact. Psych: (AAO) x2. Confused and restless Objective Labs 07/27/24 05:35 07/27/24 05:35 Labs: Laboratory Results - last 24 hr 07/26/24 07/26/24 07/27/24 08:42 12:34 05:35 WBC 24.5 H D RBC 3.74 L Hgb 9.9 L Hct 31.3 L MCV 84 MCH 26.5 MCHC 31.6 RDW Std Deviation 55.5 H Plt Count 39 L D Neut % (Auto) 88 H Lymph % (Auto) 3 L [place] % (Auto) 9 Eos % (Auto) 0 Baso % (Auto) 0 Neut # (Auto) 21.4 H Lymph # (Auto) 0.8 L [place] # (Auto) 2.1 H Eos # (Auto) 0.0 Baso # (Auto) 0.0 Immature Gran # (Auto) 0.17 H Absolute Nucleated RBC 0.04 H Immature Gran % 1 H Nucleated RBC % 0 Sodium 135 L 135 L 135 L Potassium 3.9 4.0 4.4 Chloride 100 98 98 Carbon Dioxide 21.8 23.4 18.6 L Anion Gap 13 14 18 H BUN 24 H 31 H 44 H Creatinine 2.6 H 2.9 H 3.7 H D Estim Creat Clear Calc 24.5 L 21.9 L 17.2 L eGFR 24 L 21 L 16 L BUN/Creatinine Ratio 9 L 11 L 12 Glucose 154 H 159 H 142 H Calculated Osmolality 277 279 283 Lactic Acid Calcium 8.4 8.5 8.3 Corrected Calcium 8.9 8.8 8.9 Phosphorus 3.2 2.8 Magnesium 1.9 2.0 Total Bilirubin 0.5 AST 92 H ALT 104 H Alkaline Phosphatase 294 H Total Protein 6.3 Albumin 3.4 3.6 3.3 L Globulin 3.0 Albumin/Globulin Ratio 1.1 L 07/27/24 08:09 WBC RBC Hgb Hct MCV MCH MCHC RDW Std Deviation Plt Count Neut % (Auto) Lymph % (Auto) [place] % (Auto) Eos % (Auto) Baso % (Auto) Neut # (Auto) Lymph # (Auto) [place] # (Auto) Eos # (Auto) Baso # (Auto) Immature Gran # (Auto) Absolute Nucleated RBC Immature Gran % Nucleated RBC % Sodium Potassium Chloride Carbon Dioxide Anion Gap BUN Creatinine Estim Creat Clear Calc eGFR BUN/Creatinine Ratio Glucose Calculated Osmolality Lactic Acid 3.1 H Calcium Corrected Calcium Phosphorus Magnesium Total Bilirubin AST ALT Alkaline Phosphatase Total Protein Albumin Globulin Albumin/Globulin Ratio Quality Measures Quality Measures none Advance care planning discussed with:: child Assessment & Plan Assessment Current Active Medications: Generic Name Dose Route Start Last Admin Trade Name Freq PRN Reason Stop Dose Admin Acetaminophen 650 mg 07/24/24 14:45 Acetaminophen 325 Mg Tablet PO 08/23/24 14:44 Q6H PRN Fever >101.5 Acetaminophen 650 mg 07/24/24 14:45 07/25/24 15:06 Acetaminophen 325 Mg Tablet PO 08/23/24 14:44 650 mg Q6H PRN Administration PAIN SCALE 1-3 (mild Albuterol/Ipratropium 3 ml 07/24/24 14:45 07/26/24 06:10 Albuterol/Ipratropium (Duoneb) Rt Christianne 3 Ml Nebu INH 08/23/24 18:59 3 ml Q6HRRT PRN Administration SHORTNESS OF BREATH OR WHEEZE Atorvastatin Calcium 40 mg 07/25/24 21:00 07/26/24 21:19 Atorvastatin Calcium 20 Mg Tablet PO 08/24/24 20:59 40 mg HS ROBERT Administration Budesonide 0.5 mg 07/25/24 09:45 07/27/24 06:34 Budesonide Rt 0.5 Mg/2 Ml Nebu INH 08/24/24 09:44 0.5 mg BIDRT ROBERT Administration Gabapentin 100 mg 07/25/24 09:00 07/26/24 07:04 Gabapentin 100 Mg Capsule PO 08/24/24 08:59 100 mg QDAY ROBERT Administration Heparin Sodium (Porcine) 3,000 unit 07/25/24 17:33 07/25/24 18:00 Heparin Sod Inj 1000 Unit/Ml Vial 10 Ml INDWELLCAT 08/08/24 17:32 3,000 unit PRN PRN Administration DIALYSIS Norepinephrine/Dextrose 8 mg in 250 mls @ 8.25 mls/hr 07/24/24 14:52 07/26/24 06:00 Levophed In D5w 8mg/250ml IV 08/23/24 14:51 0 mcg/kg/min .Q24H PRN 0 mls/hr PER PROTOCOL Titration Protocol 0.05 MCG/KG/MIN Piperacillin/Tazobactam/Dextrose 3.375 gm in 50 mls @ 12.5 mls/hr 07/27/24 07:57 Zosyn IV 08/03/24 07:56 Q12HR ROBERT Levothyroxine Sodium 100 mcg 07/26/24 06:00 07/27/24 05:43 Levothyroxine Sodium 100 Mcg Tablet PO 08/25/24 05:59 100 mcg ACBR ROBERT Administration Midodrine 10 mg 07/25/24 09:00 07/27/24 05:43 Midodrine 5 Mg Tablet PO 08/24/24 08:59 10 mg TID ROBERT Administration Ondansetron HCl 4 mg 07/24/24 14:45 Ondansetron Inj 2 Mg/Ml Inj 2 Ml IV 08/23/24 14:44 Q6H PRN NAUSEA OR VOMITING Protocol Pantoprazole Sodium 40 mg 07/25/24 09:00 07/26/24 07:04 Pantoprazole 40 Mg Tablet PO 08/24/24 08:59 40 mg QDAY ROBERT Administration Sennosides 1 tab 07/25/24 09:00 07/26/24 07:05 Senna/Docusate Sod 1 Tab Tablet PO 08/24/24 08:59 1 tab QDAY ROBERT Administration Protocol Plan 79-year-old male with past medical history of hemodialysis (TTS) with Dr. Beltrán, history of aortic stenosis with his computed tomography technician being Dr. Mann, history of UTIs, basal cell cancer, prostate cancer status post radiation in 2009 admitted to the ICU for shock. Neuro #Acute encephalopathy, improving Likely underlying ICU delirium versus metabolic versus infectious versus hypoxic Patient does take trazodone for sleep at night, he was unable to sleep due to constant monitoring at night. - Have family at beside to help reorient patient - Low dose antipsychotics (seroquel) if he gets more agitated. CVS #Shock,improving Cardiogenic in the setting of severe aortic stenosis versus distributive Patient's last EF was on 04/30/2024 and showed an EF of 55 to 60% with aortic stenosis during a V-max of 5 m/s and aortic valve area of 0.7 cm?. Repeat echocardiogram on this admission showed worsening EF 20 to 25% with V-max remaining 4 m/s and a gradient of 60 -Will attempt hemodialysis today and see if patient needs pressor support - Cardiology is on board, appreciate recommendations, patient needs TAVR - Midodrine 10mg TID #Troponinemia due to demand ischemia, improving Troponins were elevated at 1.816, peaked at 2.002. EKG did not show any ST segment changes #History of HLD #Continue home statin Resp #Acute hypoxic respiratory failure Secondary to fluid overload from CHF exacerbation versus pneumonia versus COPD exacerbation X-ray showed pulmonary congestion and on exam crackles can be heard in bibasilar lung mike. - Ceftriaxone for CAP 07/25-07/27 switched to Zosyn to cover for possible ESBL Klebsiella UTI - DuoNebs as needed. budesenide bid for COPD - Will do hemodialysis today. GI #Abdominal pain Likely secondary to constipation versus gas. Patient has a history of constipation and abdominal x-ray reveals nonobstructive gas pattern - Stool softeners, miralax x1 Renal #ESRD on HD TTS Patient has been unable to receive hemodialysis due to hypotensive episodes. Had TABLO 07/25. ?Will undergo hemodialysis today - Dr. Damon following Endo #History of hypothyroidism - Continue home levothyroxine ID/Skin #Sepsis secondary to pneumonia versus UTI Patient meets SIRS criteria 3/4 with pneumonia being possible underlying source of infection Chest x-ray revealed bibasilar pneumonia. Patient received azithromycin and Rocephin in the ED. ?Will bladder scan and attempt straight cath to obtain a UA and patient ? Patient does have previous history of ESBL Klebsiella UTIs which are resistant to Rocephin - Continue ceftriaxone 07/24-07/27 switched to Zosyn 07/27? - Blood cultures have been negative for 48 hours Hematology #Leukocytosis Due to infection, see ID above #Heyde Syndrome #Thrombocytopenia Aortic stenosis, iron deficieny anemia, and history of GIB Not actively bleeding 4T score results <5% probability of HIT, HIT panel was sent - Holding heparin - SCD Hospital Maintenance: FEN: Cardiac diet DVT PPx: SCDs GI PPx: Protonix Q day IV lines: PIV, R femoral tri-flow Tee: None Code Status: Full code Dispo: Anticipate downgrade to Tele tomorrow if BP is stable and no longer requiring pressors during dialysis I discussed patient's care with attending physician, Dr Shelby Montalvo PGY3
[2024-07-27] MEDS: ALBUMIN HUMAN 25% IVPB 25 GM/100 ML BTL IV (09:02)
[2024-07-27 09:23] LABS: Slide Review Platelets confirmed
[2024-07-27 11:28] LABS: Reflex Lactate? Y
[2024-07-27] MEDS: PIPER/TAZO 3.375 GM PREMIX 3.375 GM/50 ML BAG IV ×2 (11:53→21:27)
[2024-07-27 11:56] LABS: Lactic Acid, 3 HR 1.4 mMol/L (0.4-2.0)
--- NOTE | 2024-07-27 12:24 | ESPR_ITS ---
<Statement entered by Kory Mann MD - 07/28/24 08:32> Patient is evaluated in intensive care unit patient's continues to remain unstable admitted to the hospital severe hypotension due to combination of factors possibly severe aortic stenosis cardiogenic shock and combination of sepsis and urinary tract infection patient has ESBL gram-negative bacteria now on broad-spectrum antibiotic patient's platelet count dropped to 39,000 which is concerning clearly indicates due to infection underlying problems. Patient is stable hemodynamically not requiring any pressors so far continue to monitor CBC closely IV antibiotics to be continued. Once her sepsis is controlled possibly by next week patient will probably be transferred to [facility] for possible TAVR procedure again infection needs to be treated before any transfer arrangements are done. Infectious disease consultation will be obtained as well with Dr Herrmann evaluate the patient with resident physician and coordination of care performed with primary team also discussed with Dr. Castillo about the TAVR next week Documentation for date of: 07/27/24 Subjective Subjective Interval history: Patient was examined bedside this morning , he was lethargic because he received seroquil at night and just had a session of hemodialysis . he is been off pressure since yesterday. Exam Vital Signs Temp Pulse Resp BP Pulse Ox O2 Del Method O2 Flow Rate 97.0 F 90 20 98/63 96 Room Air 1 07/27/24 11:42 07/27/24 11:42 07/27/24 11:42 07/27/24 11:42 07/27/24 11:42 07/27/24 07:00 07/27/24 11:42 FiO2 1 07/27/24 11:42 Narrative Exam Gen: Well-developed and well-nourished elderly male, lethergic HEENT: NCAT, PERRLA, EOMI, MMM, anicteric conjunctivae. CVS: normal S1 and S2. Systolic murmur over aortic area. No M/R/G. Resp: CTA B/L. No rhonchi, rales, crackles or wheezing. Abd: soft, non-tender, non-distended. BS+ in all 4 quadrants. MSK: Good ROM in BUE & BLE. No rash. Trace edema BLE. Neuro: CN II-XII grossly intact. Strength 5/5 in BUE & BLE. Alert and oriented x3. Objective Labs 07/27/24 05:35 07/27/24 05:35 Labs: Laboratory Results - last 24 hr 07/26/24 07/26/24 07/27/24 08:42 12:34 05:35 WBC 24.5 H D RBC 3.74 L Hgb 9.9 L Hct 31.3 L MCV 84 MCH 26.5 MCHC 31.6 RDW Std Deviation 55.5 H Plt Count 39 L D Neut % (Auto) 88 H Lymph % (Auto) 3 L [place] % (Auto) 9 Eos % (Auto) 0 Baso % (Auto) 0 Neut # (Auto) 21.4 H Lymph # (Auto) 0.8 L [place] # (Auto) 2.1 H Eos # (Auto) 0.0 Baso # (Auto) 0.0 Immature Gran # (Auto) 0.17 H Absolute Nucleated RBC 0.04 H Immature Gran % 1 H Nucleated RBC % 0 Sodium 135 L 135 L 135 L Potassium 3.9 4.0 4.4 Chloride 100 98 98 Carbon Dioxide 21.8 23.4 18.6 L Anion Gap 13 14 18 H BUN 24 H 31 H 44 H Creatinine 2.6 H 2.9 H 3.7 H D Estim Creat Clear Calc 24.5 L 21.9 L 17.2 L eGFR 24 L 21 L 16 L BUN/Creatinine Ratio 9 L 11 L 12 Glucose 154 H 159 H 142 H Calculated Osmolality 277 279 283 Lactic Acid Calcium 8.4 8.5 8.3 Corrected Calcium 8.9 8.8 8.9 Phosphorus 3.2 2.8 Magnesium 1.9 2.0 Total Bilirubin 0.5 AST 92 H ALT 104 H Alkaline Phosphatase 294 H Total Protein 6.3 Albumin 3.4 3.6 3.3 L Globulin 3.0 Albumin/Globulin Ratio 1.1 L Misc Test Result Platelets confirmed 07/27/24 08:09 WBC RBC Hgb Hct MCV MCH MCHC RDW Std Deviation Plt Count Neut % (Auto) Lymph % (Auto) [place] % (Auto) Eos % (Auto) Baso % (Auto) Neut # (Auto) Lymph # (Auto) [place] # (Auto) Eos # (Auto) Baso # (Auto) Immature Gran # (Auto) Absolute Nucleated RBC Immature Gran % Nucleated RBC % Sodium Potassium Chloride Carbon Dioxide Anion Gap BUN Creatinine Estim Creat Clear Calc eGFR BUN/Creatinine Ratio Glucose Calculated Osmolality Lactic Acid 3.1 H Calcium Corrected Calcium Phosphorus Magnesium Total Bilirubin AST ALT Alkaline Phosphatase Total Protein Albumin Globulin Albumin/Globulin Ratio Misc Test Result Quality Measures Quality Measures none Advance care planning discussed with:: patient Assessment & Plan Assessment Current Active Medications: Generic Name Dose Route Start Last Admin Trade Name Freq PRN Reason Stop Dose Admin Acetaminophen 650 mg 07/24/24 14:45 Acetaminophen 325 Mg Tablet PO 08/23/24 14:44 Q6H PRN Fever >101.5 Acetaminophen 650 mg 07/24/24 14:45 07/25/24 15:06 Acetaminophen 325 Mg Tablet PO 08/23/24 14:44 650 mg Q6H PRN Administration PAIN SCALE 1-3 (mild Albuterol/Ipratropium 3 ml 07/24/24 14:45 07/26/24 06:10 Albuterol/Ipratropium (Duoneb) Rt Christianne 3 Ml Nebu INH 08/23/24 18:59 3 ml Q6HRRT PRN Administration SHORTNESS OF BREATH OR WHEEZE Atorvastatin Calcium 40 mg 07/25/24 21:00 07/26/24 21:19 Atorvastatin Calcium 20 Mg Tablet PO 08/24/24 20:59 40 mg HS ROBERT Administration Budesonide 0.5 mg 07/25/24 09:45 07/27/24 06:34 Budesonide Rt 0.5 Mg/2 Ml Nebu INH 08/24/24 09:44 0.5 mg BIDRT ROBERT Administration Gabapentin 100 mg 07/25/24 09:00 07/27/24 10:33 Gabapentin 100 Mg Capsule PO 08/24/24 08:59 Not Given QDAY ROBERT Heparin Sodium (Porcine) 3,000 unit 07/25/24 17:33 07/25/24 18:00 Heparin Sod Inj 1000 Unit/Ml Vial 10 Ml INDWELLCAT 08/08/24 17:32 3,000 unit PRN PRN Administration DIALYSIS Norepinephrine/Dextrose 8 mg in 250 mls @ 8.25 mls/hr 07/24/24 14:52 07/26/24 06:00 Levophed In D5w 8mg/250ml IV 08/23/24 14:51 0 mcg/kg/min .Q24H PRN 0 mls/hr PER PROTOCOL Titration Protocol 0.05 MCG/KG/MIN Piperacillin/Tazobactam/Dextrose 3.375 gm in 50 mls @ 12.5 mls/hr 07/27/24 07:57 07/27/24 11:53 Zosyn IV 08/03/24 07:56 12.5 mls/hr Q12HR ROBERT Administration Albumin Human 25 gm in 100 mls @ 100 mls/hr 07/27/24 08:54 07/27/24 09:02 Albuminar-25 Ivpb IV 100 mls/hr PRN PRN Administration DIALYSIS Levothyroxine Sodium 100 mcg 07/26/24 06:00 07/27/24 05:43 Levothyroxine Sodium 100 Mcg Tablet PO 08/25/24 05:59 100 mcg ACBR ROBERT Administration Midodrine 10 mg 07/25/24 09:00 07/27/24 05:43 Midodrine 5 Mg Tablet PO 08/24/24 08:59 10 mg TID ROBERT Administration Ondansetron HCl 4 mg 07/24/24 14:45 Ondansetron Inj 2 Mg/Ml Inj 2 Ml IV 08/23/24 14:44 Q6H PRN NAUSEA OR VOMITING Protocol Pantoprazole Sodium 40 mg 07/25/24 09:00 07/27/24 10:34 Pantoprazole 40 Mg Tablet PO 08/24/24 08:59 Not Given QDAY ROBERT Sennosides 1 tab 07/25/24 09:00 07/27/24 10:34 Senna/Docusate Sod 1 Tab Tablet PO 08/24/24 08:59 Not Given QDAY ROBERT Protocol Plan 79-year-old male with PMH of HTN ,HLD hemodialysis(T//) follows Dr. 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 As per daughter he is missing his dialysis session secondary to low blood pressure, he usually takes midodrine before dialysis. He reports that his shortness of breath is getting worse and he cannot lie flat on bed. Also endorses cough with green sputum production since last couple of days. Patient was started on Levophed in the ED. #Severe aortic stenosis. #Shock, likely septic and cardogenic - Resolved - Echo- Normal LV size and function with and EF of 55-60%. Moderate LVH. DIastolic Dysfunction stage II. Normal RV size and function. Modertely elevated RVSP 52 mmHg. Severe Aortic Stenosis Vmax 5 m/s, Max PG 90 mm hg, Mean PG 60 mm hg and BARRY 0.7 sqcm. Mild AI Moderate MA and Moderate MR. moderate TR. No pericardial effusion. He was recommended TAVR. -He had a cardiac cath on may 2024 : Severe calcific aortic stenosis with peak gradient 40 mmHg, mean gradient 34 mmHg.Normal nonobstructive epicardial coronary artery, Normal right heart pressure,Normal left ventricular function. 07/25/2024: - on norepinephrine 0.05 mcg.- Continue CRRT as scheduled. 07/27/2024: Echo on 07/26/2024: Dilated left ventricle with severe global hypokinesis with severe systolic dysfunction left ventricle ejection fraction approximately 20 to 25%. Left ventricle function is severely depressed compared to cardiac echo .May 08, 2024.Severe calcific aortic stenosis aortic velocity is 4 m/s with a peak gradient of 56 mmHg, Mild aortic valve regurgitation RV is normal in size. RV systolic function is mildly decreased. Estimated right ventricular systolic pressure, 60 mmHg. RAP 15,Mild thickening. With evidence of moderate 2+ mitral regurgitation,Mild to moderate TR,Left pleural effusion is present Mild PI. Dilated IVC. He is critically ill from severe aortic stenosis, sudden drop of ejection fraction within 4 weeks from 65% down to 25% due to severe aortic stenosis without underlying CAD. he is in cardiogenic shock secondary to low ejection fraction and severe Aortic Stenosis . He would need urgent transcutaneous aortic valve replacement and transfer to [facility] for possible TAVR after infection is cleared out within one week .Continue Midodrine and antibiotics for now. He was lethargic because he received seroquil at night and just had a session of hemodialysis . Rest of medical Problem management as per ICU team. Plan of care discussed with attending Dr. Mann. Flakita Vargas MD,PGY- 3
--- NOTE | 2024-07-27 12:58 | PC.NURSE ---
Morning PO meds were held due to patient mentation. Patient was very lethargic and was unable to safely swallow. MD Silvia ibarra
[2024-07-27] MEDS: ACETAMINOPHEN 325 MG TABLET 650 MG PO (13:08)
[2024-07-27 16:12] LABS: Collection Type, Urine Clean Catch
[2024-07-27 16:49] LABS: Amorphous Crystals,Urine Present (Absent); Bacteria,Urine 1+; Bilirubin,Urine Negative (Negative); Blood,Urine 3+ (Negative); Glucose, Urine Negative (Negative); Ketones,Urine Negative (Negative); Leukocyte Esterase,Urine Positive (Negative); Nitrite,Urine Negative (Negative); PH,Urine 7.5 (5.0-7.0); Protein,Urine 3+ (Neg - Trace); RBC,Urine 70 /hpf (0-3); Specific Gravity,Urine 1.018 (1.001-1.035); Squamous Epithelial Cell,Urine 3 /hpf (0-5); Urobilinogen,Urine Negative mg/dL (0.0-1.0); WBC,Urine 1375 /hpf (0-5)
[2024-07-27 16:51] LABS: Clarity,Urine Turbid (Clear/Hazy); Color,Urine Yellow (Lt Yel-Yel)
--- NOTE | 2024-07-27 17:07 | PC.SS ---
Update: Patient on nasal cannula. P.O feedings in place. Patient is not receiving pressor support. Thorocentesis planned for tomorrow. Cardiology is consulting. Patient participated with dialysis today. Established with outpatient dialysis. Dr. Damon is sewing demonstrator.
[2024-07-27 17:42] LABS: Albumin, Serum 3.2 gm/dL (3.4-4.8); Anion Gap 13 (7-16); BUN/Creatinine Ratio 9 Ratio (12-20); Blood Urea Nitrogen 28 mg/dL (9-23); Calcium (Corrected) 8.6 mg/dL (8.5-10.1); Carbon Dioxide 27.1 mMol/L (20.0-31.0); Chloride 99 mMol/L (98-107); Estimated Creatinine Clearance 21.2 mL/min (>60); Glucose 102 mg/dL (74-106); Osmolality,Calculated 283 (275-295); Phosphorous 3.6 mg/dL (2.4-5.1); Potassium 3.6 mMol/L (3.4-5.1); Sodium 139 mMol/L (136-145); eGFR 20 See Note
[2024-07-27] MEDS: Norepinephrine/D5W 8mg/250ml 8 MG/250 ML BAG 8.25 MG IV (19:53)
--- NOTE | 2024-07-27 22:52 | PD.RESPRO ---
Documentation for date of: 07/27/24 Exam Vital Signs Temp Pulse Resp BP Pulse Ox O2 Del Method O2 Flow Rate 97.1 F 84 26 H 101/55 L 88 L Room Air 1 07/27/24 20:00 07/27/24 21:27 07/27/24 21:15 07/27/24 21:27 07/27/24 20:30 07/27/24 07:00 07/27/24 11:42 FiO2 1 07/27/24 11:42 Objective Labs 07/27/24 05:35 07/27/24 17:15 Labs: Laboratory Results - last 24 hr 07/27/24 07/27/24 07/27/24 05:35 08:09 11:44 WBC 24.5 H D RBC 3.74 L Hgb 9.9 L Hct 31.3 L MCV 84 MCH 26.5 MCHC 31.6 RDW Std Deviation 55.5 H Plt Count 39 L D Neut % (Auto) 88 H Lymph % (Auto) 3 L [place] % (Auto) 9 Eos % (Auto) 0 Baso % (Auto) 0 Neut # (Auto) 21.4 H Lymph # (Auto) 0.8 L [place] # (Auto) 2.1 H Eos # (Auto) 0.0 Baso # (Auto) 0.0 Immature Gran # (Auto) 0.17 H Absolute Nucleated RBC 0.04 H Immature Gran % 1 H Nucleated RBC % 0 Sodium 135 L Potassium 4.4 Chloride 98 Carbon Dioxide 18.6 L Anion Gap 18 H BUN 44 H Creatinine 3.7 H D Estim Creat Clear Calc 17.2 L eGFR 16 L BUN/Creatinine Ratio 12 Glucose 142 H Calculated Osmolality 283 Lactic Acid 3.1 H 1.4 Calcium 8.3 Corrected Calcium 8.9 Phosphorus Total Bilirubin 0.5 AST 92 H ALT 104 H Alkaline Phosphatase 294 H Total Protein 6.3 Albumin 3.3 L Globulin 3.0 Albumin/Globulin Ratio 1.1 L Ur Collection Type Urine Color Urine Clarity Urine pH Ur Specific [place] Urine Protein Urine Glucose (UA) Urine Ketones Urine Blood Urine Nitrite Urine Bilirubin Urine Urobilinogen (Auto) Ur Leukocyte Esterase Urine RBC Urine WBC Ur Squamous Epith Cells Amorphous Crystals Urine Bacteria Misc Test Result Platelets confirmed 07/27/24 07/27/24 16:04 17:15 WBC RBC Hgb Hct MCV MCH MCHC RDW Std Deviation Plt Count Neut % (Auto) Lymph % (Auto) [place] % (Auto) Eos % (Auto) Baso % (Auto) Neut # (Auto) Lymph # (Auto) [place] # (Auto) Eos # (Auto) Baso # (Auto) Immature Gran # (Auto) Absolute Nucleated RBC Immature Gran % Nucleated RBC % Sodium 139 Potassium 3.6 D Chloride 99 Carbon Dioxide 27.1 Anion Gap 13 BUN 28 H Creatinine 3.0 H D Estim Creat Clear Calc 21.2 L eGFR 20 L BUN/Creatinine Ratio 9 L Glucose 102 Calculated Osmolality 283 Lactic Acid Calcium 8.0 L Corrected Calcium 8.6 Phosphorus 3.6 Total Bilirubin AST ALT Alkaline Phosphatase Total Protein Albumin 3.2 L Globulin Albumin/Globulin Ratio Ur Collection Type Clean Catch Urine Color Yellow Urine Clarity Turbid A Urine pH 7.5 H Ur Specific [place] 1.018 Urine Protein 3+ A Urine Glucose (UA) Negative Urine Ketones Negative Urine Blood 3+ A Urine Nitrite Negative Urine Bilirubin Negative Urine Urobilinogen (Auto) Negative Ur Leukocyte Esterase Positive Urine RBC 70 H Urine WBC 1375 H Ur Squamous Epith Cells 3 Amorphous Crystals Present A Urine Bacteria 1+ A Misc Test Result Quality Measures Quality Measures none Assessment & Plan Assessment Current Active Medications: Generic Name Dose Route Start Last Admin Trade Name Freq PRN Reason Stop Dose Admin Acetaminophen 650 mg 07/24/24 14:45 Acetaminophen 325 Mg Tablet PO 08/23/24 14:44 Q6H PRN Fever >101.5 Acetaminophen 650 mg 07/24/24 14:45 07/27/24 13:08 Acetaminophen 325 Mg Tablet PO 08/23/24 14:44 650 mg Q6H PRN Administration PAIN SCALE 1-3 (mild Albuterol/Ipratropium 3 ml 07/24/24 14:45 07/26/24 06:10 Albuterol/Ipratropium (Duoneb) Rt Christianne 3 Ml Nebu INH 08/23/24 18:59 3 ml Q6HRRT PRN Administration SHORTNESS OF BREATH OR WHEEZE Atorvastatin Calcium 40 mg 07/25/24 21:00 07/26/24 21:19 Atorvastatin Calcium 20 Mg Tablet PO 08/24/24 20:59 40 mg HS ROBERT Administration Budesonide 0.5 mg 07/25/24 09:45 07/27/24 06:34 Budesonide Rt 0.5 Mg/2 Ml Nebu INH 08/24/24 09:44 0.5 mg BIDRT ROBERT Administration Gabapentin 100 mg 07/25/24 09:00 07/27/24 10:33 Gabapentin 100 Mg Capsule PO 08/24/24 08:59 Not Given QDAY ROBERT Heparin Sodium (Porcine) 3,000 unit 07/25/24 17:33 07/25/24 18:00 Heparin Sod Inj 1000 Unit/Ml Vial 10 Ml INDWELLCAT 08/08/24 17:32 3,000 unit PRN PRN Administration DIALYSIS Norepinephrine/Dextrose 8 mg in 250 mls @ 8.25 mls/hr 07/24/24 14:52 07/27/24 21:00 Levophed In D5w 8mg/250ml IV 08/23/24 14:51 0.05 mcg/kg/min .Q24H PRN 8.25 mls/hr PER PROTOCOL Titration Protocol 0.05 MCG/KG/MIN Piperacillin/Tazobactam/Dextrose 3.375 gm in 50 mls @ 12.5 mls/hr 07/27/24 07:57 07/27/24 21:27 Zosyn IV 08/03/24 07:56 12.5 mls/hr Q12HR ROBERT Administration Albumin Human 25 gm in 100 mls @ 100 mls/hr 07/27/24 08:54 07/27/24 09:02 Albuminar-25 Ivpb IV 100 mls/hr PRN PRN Administration DIALYSIS Levothyroxine Sodium 100 mcg 07/26/24 06:00 07/27/24 05:43 Levothyroxine Sodium 100 Mcg Tablet PO 08/25/24 05:59 100 mcg ACBR ROBERT Administration Midodrine 10 mg 07/25/24 09:00 07/27/24 21:27 Midodrine 5 Mg Tablet PO 08/24/24 08:59 10 mg TID ROBERT Administration Ondansetron HCl 4 mg 07/24/24 14:45 Ondansetron Inj 2 Mg/Ml Inj 2 Ml IV 08/23/24 14:44 Q6H PRN NAUSEA OR VOMITING Protocol Pantoprazole Sodium 40 mg 07/25/24 09:00 07/27/24 10:34 Pantoprazole 40 Mg Tablet PO 08/24/24 08:59 Not Given QDAY ROBERT Sennosides 1 tab 07/25/24 09:00 07/27/24 10:34 Senna/Docusate Sod 1 Tab Tablet PO 08/24/24 08:59 Not Given QDAY [facility] Protocol Plan This is an 79-year-old male PMHx of aortic valve stenosis, HTN, HLD, ESRD HD TTS with Dr. Funez, carcinoma, admitted on 07/24/24 for shortness of breath and lower extremity swelling. Evidently, he was at hemodialysis center, was unable to complete his session secondary to worsening shortness of breath, initially admitted to ICU for cardiogenic shock in setting of severe, symptomatic aortic stenosis. Severe aortic stenosis HFrEF, EF 25% Cardiogenic shock (improved) Patient with known history of aortic stenosis, presenting with worsening shortness of breath, lower extremity edema, had significant left pleural effusion on CXR, found to be in cardiogenic shock, initially admitted to ICU for pressor support and continued on CCRT for fluid removal. His symptoms have improved since admission, is currently on room air satting well. Lower extremity edema nearly resolved. Reviewed echo during this admission showed significant drop in EEF 65% to 25% compared to echo from 4 weeks ago, as a result of severely worsening aortic stenosis. He does not have a history of CAD. Given findings of severely symptomatic aortic stenosis, we are consulted for TAVR. Patient appeared to be a good candidate for TAVR given he is severely symptomatic at this point, along with the new echo findings above. Discussed risks and benefits of TAVR with patient and family at bedside. Benefits include improvement in symptoms, enhance functional status reversible hemodynamic consequences of severe aortic stenosis with a goal to restore adequate cardiac output and improve quality of life. Risk include complications such as vascular injury, bleeding, stroke and valvular malfunction, infection, temporary or permanent arrhythmia, and possible need for permanent pacemaker postprocedure. Patient and family agree and would like to proceed with TAVR. Will transfer to [facility] for urgent TAVR. Remains hemodynamically stable, off pressors, BP 101/55, HR 84, satting well on 1 L NC. Renal function showing CR 3.0, BUN 28. Hgb 9.9 and stable, PLT 39, WBC 24.5. Primary team suspected ESBL UTI, he has a hx of ESBL UTI in the past, however no current bacteremia. He has been accepted by [facility] TAVR coordinator, however will need a minimal of 1 week borad-spectrum ABX prior to transfer for procedure. Recommended at least 10 days of broad-spectrum antibiotics, recommended having ID on board. Will continue to follow peripherally. Continue with cardiology recommendations per Dr. Mann's team. CKD stage IV, on HD TTS Hx GI bleed, anemia Left pleural effusion Leukocytosis Management of rest of the medical conditions as per primary team and other consultants. Thank you for the consult and allowing me to participate in the care of the patient. Cardiology will continue to follow. Case was discussed with attending, Dr. Castillo. Gus Summers DO PGYI
--- NOTE | 2024-07-27 23:17 | ESCONSULT_ITS ---
RE: ARTURO QUEZADA : 1945 DATE OF CONSULTATION: 07/27/2024 DATE OF SERVICE: 07/27/2024 REASON FOR REFERRAL: ESRD management. REFERRING PHYSICIAN: HISTORY OF PRESENT ILLNESS: This patient is an 79-year-old gentleman with past medical history significant for hypertension, hyperlipidemia, neurogenic bladder, ESRD on dialysis every Saturday, , and Saturday, who follows with Dr. 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 The patient could not finish his dialysis treatments due to severe hypotension. His most recent 2D echocardiogram revealed an EF of 55-60% with pulmonary hypertension and severe aortic stenosis. While in the emergency room, he was started on low-dose Levophed. When he arrived in ICU, he was also started on PRRT with a goal of 4 liters in 24 hours. However, we only got 500 mL for both days. The patient's swelling improved; however, he continues to be hypotensive. He is about to get his regular hemodialysis day and we will see if he will be able to tolerate hemodialysis treatment while in the hospital. The patient is very confused and is not able to answer questions. PAST MEDICAL HISTORY: As above. PAST SURGICAL HISTORY: Cystectomy, left arm AV fistula, cataract surgery, nephrostomy tube placement and removal, history of ureteral stent placement. CURRENT MEDICATIONS: 1. Acetaminophen. 2. Atorvastatin. 3. Budesonide. 4. Levothyroxine. 5. Gabapentin. 6. Melatonin. 7. Levophed drip. 8. Midodrine 10 mg 9. Nicoderm patch. 10. Zosyn 3.375 mg IV q. 12. PHYSICAL EXAMINATION: General: He is lethargic. Vital Signs: Blood pressure of 101/55, heart rate of 84. HEENT: Anicteric sclerae. Normocephalic. Neck: Supple. No JVD. Chest and Lungs: Symmetrical expansion. Clear breath sounds. Heart: Without murmur. Abdomen: Soft. Nontender. Extremities: No edema. LABORATORY DATA: Hemoglobin 9.9, WBC 24,500, platelet count 46630. Sodium 139, potassium 4.4, chloride 98, CO2 18.6, BUN 44, creatinine 3.7, glucose 142, AST 92, ALT 104. Urinalysis, 3+ protein, WBC 1375, RBC 70. ASSESSMENT: 1. End-stage renal disease. 2. Hypotension, possibly secondary to severe aortic stenosis versus sepsis versus adrenal insufficiency. 3. Anemia of chronic kidney disease. 4. Severe aortic stenosis requiring TAVR. 5. Failure to thrive. PLAN: The patient will undergo intermittent dialysis today and see if we can remove fluids. I agree with continuing his Zosyn for UTI with possible sepsis. We will try to do dialysis again tomorrow and hopefully, we will be able to get another 500 mL net from him. Continue supportive treatment. DT: 22:20:12 TT: 22:55:00 Ref: [id number] - TID: [id number] MTDD
[2024-07-28] VITALS (37 sets, daily range): BP systolic 81–108; BP diastolic 36–68; PULSE 82–103; RESP 17–42; TEMP 36.6–37; O2SAT 82–100
[2024-07-28 05:34] LABS: Basophils % (Auto) 0 % (0-2.5); Eosinophils # (Auto) 0.1 Thou/mm3 (0.0-0.5); Eosinophils % (Auto) 0 % (0-10); Monocytes % (Auto) 8 % (0-12); Nucleated Red Blood Cell % 0 /100 WBC (0)
[2024-07-28 05:36] LABS: Hematocrit 32.4 % (41.0-53.0); Hemoglobin 9.8 g/dL (13.5-16.0); Immature Granulocytes % (Auto) 1 % (0-0); Immature Granulocytes Auto 0.13 Thou/mm3 (0.00-0.00); Lymphocytes # (Auto) 0.7 Thou/mm3 (1.0-4.8); Lymphocytes % (Auto) 3 % (10-50); Mean Corpuscular HGB Conc 30.2 g/dl (31.0-37.0); Mean Corpuscular Hemoglobin 26.5 pg (25.0-35.0); Mean Corpuscular Volume 88 fL (80-100); Monocytes # (Auto) 1.7 Thou/mm3 (0.0-0.8); Neutrophils # (Auto) 18.4 Thou/mm3 (1.8-7.7); Neutrophils % (Auto) 88 % (37-80); Nucleated Red Blood Cell # 0.06 Thou/mm3 (0.00-0.00); RDW Standard Deviation 58.4 fL (35.1-43.9)
[2024-07-28 06:08] LABS: Alanine Aminotransferase 141 U/L (10-49); Albumin, Serum 3.4 gm/dL (3.4-4.8); Albumin/Globulin Ratio 1.1 (1.2-2.2); Alkaline Phosphatase 298 U/L (46-116); Anion Gap 16 (7-16); Aspartate Amino Transferase 121 U/L (0-34); BUN/Creatinine Ratio 9 Ratio (12-20); Bilirubin,Total 0.7 mg/dL (0.3-1.2); Blood Urea Nitrogen 36 mg/dL (9-23); Calcium 8.4 mg/dL (8.3-10.6); Calcium (Corrected) 8.9 mg/dL (8.5-10.1); Carbon Dioxide 25.3 mMol/L (20.0-31.0); Chloride 98 mMol/L (98-107); Creatinine (Component) 3.8 mg/dL (0.6-1.3); Estimated Creatinine Clearance 16.7 mL/min (>60); Glucose 135 mg/dL (74-106); Osmolality,Calculated 287 (275-295); Potassium 4.1 mMol/L (3.4-5.1); Sodium 139 mMol/L (136-145); Total Protein 6.4 gm/dL (5.7-8.2); eGFR 15 See Note
[2024-07-28] MEDS: BUDESONIDE RT 0.5 MG/2 ML NEBU INH (06:12)
--- NOTE | 2024-07-28 06:30 | XR_ITS ---
Examination: AP chest single view TECHNIQUE: AP portable upright chest single view Date and time: July 28, 2024 0702 hours Comparison July 25, 2024 INDICATIONS: Shortness of breath and coughing today. FINDINGS: [id number] heart failure Mild enlargement cardiac contour prominent vascular congestion with perihilar edema Superimposed pneumonia left base with left pleural effusion Right internal jugular Port-A-Cath tip satisfactory position IMPRESSION: [id number] heart failure Significant pneumonia left base
[2024-07-28 07:44] LABS: Platelet Count 28 Thou/mm3 (140-440); Slide Review Platelets confirmed
--- NOTE | 2024-07-28 08:28 | ESPR_ITS ---
Documentation for date of: 07/28/24 Subjective Subjective Interval history: 79-year-old gentleman with past medical history significant for hypertension, hyperlipidemia, neurogenic bladder, ESRD on dialysis every Saturday, , and Saturday, who follows with Dr. 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 The patient could not finish his dialysis treatments due to severe hypotension. His most recent 2D echocardiogram revealed an EF of 55-60% with pulmonary hypertension and severe aortic stenosis. While in the emergency room, he was started on low-dose Levophed. When he arrived in ICU, he was also started on PRRT with a goal of 4 liters in 24 hours. However, we only got 500 mL for both days. The patient's swelling improved; however, he continues to be hypotensive. He is about to get his regular hemodialysis day and we will see if he will be able totolerate hemodialysis treatment while in the hospital. The patient is very confused and is not able to answer questions. 07/28/2024: Patient seen and examined at bedside. Patient very confused but withdraws from pain. Mottled feet, poor peripheral pulses. Patient overall appears dry on exam, no edema, wrinkled skin. Sodium 139, potassium 4.1, BUN 36, creatinine 3.8, EGFR 15. Will hold dialysis today due to low volume status, reevaluate tomorrow. Recommend goals of care conversation with daughter given patient's overall poor prognosis. Exam Vital Signs Temp Pulse Resp BP Pulse Ox O2 Del Method O2 Flow Rate 97.1 F 90 24 H 97/61 100 Room Air 2 07/27/24 20:00 07/28/24 06:16 07/28/24 06:16 07/28/24 06:00 07/28/24 06:16 07/27/24 07:00 07/28/24 06:16 FiO2 1 07/27/24 11:42 Narrative Exam Gen: Well-developed and well-nourished elderly male, lethergic and poorly responsive. HEENT: NCAT, PERRLA, EOMI, anicteric conjunctivae. Dry mucous membranes. CVS: normal S1 and S2. Systolic murmur over aortic area. Resp: CTA B/L. No rhonchi, rales, crackles. Diffuse inspiratory wheezing. Abd: Diffuse abdominal tenderness without guarding. Soft and nondistended. MSK: Good ROM in BUE & BLE. No rash. No edema, skin wrinkled. Mottling and poor peripheral pulses of the lower extremities. Left upper arm fistula. Neuro: CN II-XII grossly intact. Strength 5/5 in BUE & BLE. A&O x 1. Withdraws from pain. Objective Labs 07/28/24 04:16 07/28/24 04:16 Labs: Laboratory Results - last 24 hr 07/27/24 07/27/24 07/27/24 05:35 08:09 11:44 WBC RBC Hgb Hct MCV MCH MCHC RDW Std Deviation Plt Count Neut % (Auto) Lymph % (Auto) [place] % (Auto) Eos % (Auto) Baso % (Auto) Neut # (Auto) Lymph # (Auto) [place] # (Auto) Eos # (Auto) Baso # (Auto) Immature Gran # (Auto) Absolute Nucleated RBC Immature Gran % Nucleated RBC % Sodium Potassium Chloride Carbon Dioxide Anion Gap BUN Creatinine Estim Creat Clear Calc eGFR BUN/Creatinine Ratio Glucose Calculated Osmolality Lactic Acid 3.1 H 1.4 Calcium Corrected Calcium Phosphorus Total Bilirubin AST ALT Alkaline Phosphatase Total Protein Albumin Globulin Albumin/Globulin Ratio Ur Collection Type Urine Color Urine Clarity Urine pH Ur Specific [place] Urine Protein Urine Glucose (UA) Urine Ketones Urine Blood Urine Nitrite Urine Bilirubin Urine Urobilinogen (Auto) Ur Leukocyte Esterase Urine RBC Urine WBC Ur Squamous Epith Cells Amorphous Crystals Urine Bacteria Misc Test Result Platelets confirmed 07/27/24 07/27/24 07/28/24 16:04 17:15 04:16 WBC 21.0 H RBC 3.70 L Hgb 9.8 L Hct 32.4 L MCV 88 MCH 26.5 MCHC 30.2 L RDW Std Deviation 58.4 H Plt Count 28 L* D Neut % (Auto) 88 H Lymph % (Auto) 3 L [place] % (Auto) 8 Eos % (Auto) 0 Baso % (Auto) 0 Neut # (Auto) 18.4 H Lymph # (Auto) 0.7 L [place] # (Auto) 1.7 H Eos # (Auto) 0.1 Baso # (Auto) 0.0 Immature Gran # (Auto) 0.13 H Absolute Nucleated RBC 0.06 H Immature Gran % 1 H Nucleated RBC % 0 Sodium 139 139 Potassium 3.6 D 4.1 D Chloride 99 98 Carbon Dioxide 27.1 25.3 Anion Gap 13 16 BUN 28 H 36 H Creatinine 3.0 H D 3.8 H D Estim Creat Clear Calc 21.2 L 16.7 L eGFR 20 L 15 L BUN/Creatinine Ratio 9 L 9 L Glucose 102 135 H Calculated Osmolality 283 287 Lactic Acid Calcium 8.0 L 8.4 Corrected Calcium 8.6 8.9 Phosphorus 3.6 Total Bilirubin 0.7 AST 121 H ALT 141 H Alkaline Phosphatase 298 H Total Protein 6.4 Albumin 3.2 L 3.4 Globulin 3.0 Albumin/Globulin Ratio 1.1 L Ur Collection Type Clean Catch Urine Color Yellow Urine Clarity Turbid A Urine pH 7.5 H Ur Specific [place] 1.018 Urine Protein 3+ A Urine Glucose (UA) Negative Urine Ketones Negative Urine Blood 3+ A Urine Nitrite Negative Urine Bilirubin Negative Urine Urobilinogen (Auto) Negative Ur Leukocyte Esterase Positive Urine RBC 70 H Urine WBC 1375 H Ur Squamous Epith Cells 3 Amorphous Crystals Present A Urine Bacteria 1+ A Misc Test Result Platelets confirmed Quality Measures Quality Measures VTE prophylaxis Advance care planning discussed with:: patient Assessment & Plan Assessment Current Active Medications: Generic Name Dose Route Start Last Admin Trade Name Freq PRN Reason Stop Dose Admin Acetaminophen 650 mg 07/24/24 14:45 Acetaminophen 325 Mg Tablet PO 08/23/24 14:44 Q6H PRN Fever >101.5 Acetaminophen 650 mg 07/24/24 14:45 07/27/24 13:08 Acetaminophen 325 Mg Tablet PO 08/23/24 14:44 650 mg Q6H PRN Administration PAIN SCALE 1-3 (mild Albuterol/Ipratropium 3 ml 07/24/24 14:45 07/26/24 06:10 Albuterol/Ipratropium (Duoneb) Rt Christianne 3 Ml Nebu INH 08/23/24 18:59 3 ml Q6HRRT PRN Administration SHORTNESS OF BREATH OR WHEEZE Atorvastatin Calcium 40 mg 07/25/24 21:00 07/27/24 22:54 Atorvastatin Calcium 20 Mg Tablet PO 08/24/24 20:59 Not Given HS ROBERT Budesonide 0.5 mg 07/25/24 09:45 07/28/24 06:12 Budesonide Rt 0.5 Mg/2 Ml Nebu INH 08/24/24 09:44 0.5 mg BIDRT ROBERT Administration Gabapentin 100 mg 07/25/24 09:00 07/27/24 10:33 Gabapentin 100 Mg Capsule PO 08/24/24 08:59 Not Given QDAY ROBERT Heparin Sodium (Porcine) 3,000 unit 07/25/24 17:33 07/25/24 18:00 Heparin Sod Inj 1000 Unit/Ml Vial 10 Ml INDWELLCAT 08/08/24 17:32 3,000 unit PRN PRN Administration DIALYSIS Norepinephrine/Dextrose 8 mg in 250 mls @ 8.25 mls/hr 07/24/24 14:52 07/28/24 03:30 Levophed In D5w 8mg/250ml IV 08/23/24 14:51 0 mcg/kg/min .Q24H PRN 0 mls/hr PER PROTOCOL Titration Protocol 0.05 MCG/KG/MIN Piperacillin/Tazobactam/Dextrose 3.375 gm in 50 mls @ 12.5 mls/hr 07/27/24 07:57 07/27/24 21:27 Zosyn IV 08/03/24 07:56 12.5 mls/hr Q12HR ROBERT Administration Albumin Human 25 gm in 100 mls @ 100 mls/hr 07/27/24 08:54 07/27/24 09:02 Albuminar-25 Ivpb IV 100 mls/hr PRN PRN Administration DIALYSIS Levothyroxine Sodium 100 mcg 07/26/24 06:00 07/28/24 06:21 Levothyroxine Sodium 100 Mcg Tablet PO 08/25/24 05:59 Not Given ACBR ROBERT Midodrine 10 mg 07/25/24 09:00 07/28/24 06:21 Midodrine 5 Mg Tablet PO 08/24/24 08:59 Not Given TID ROBERT Ondansetron HCl 4 mg 07/24/24 14:45 Ondansetron Inj 2 Mg/Ml Inj 2 Ml IV 08/23/24 14:44 Q6H PRN NAUSEA OR VOMITING Protocol Pantoprazole Sodium 40 mg 07/25/24 09:00 07/27/24 10:34 Pantoprazole 40 Mg Tablet PO 08/24/24 08:59 Not Given QDAY ROBERT Sennosides 1 tab 07/25/24 09:00 07/27/24 10:34 Senna/Docusate Sod 1 Tab Tablet PO 08/24/24 08:59 Not Given QDAY [facility] Protocol Plan 79-year-old male with past medical history of hemodialysis (TTS) with Dr. Beltrán, history of aortic stenosis with his manager sustainability being Dr. Mann, history of UTIs, basal cell cancer, prostate cancer status post radiation in 2009 admitted to the ICU for shock. Nephrology consulted for management of ESRD. #ESRD on HD TTS Patient has been unable to receive hemodialysis due to hypotensive episodes. Had TABLO 07/25. Received dialysis session yesterday. - Holding dialysis today as patient appears dry, BP is soft. - Monitor daily renal function - Avoid nephrotoxins - Renally dose meds #Acute encephalopathy, improving #Shock,improving #Troponinemia due to demand ischemia, improving #History of HLD #Acute hypoxic respiratory failure #History of hypothyroidism #[place] Syndrome #Thrombocytopenia Management as per primary team. Thank you for allowing us to participate in the care of this patient. Plan of care discussed with attending Dr. Funez. Isaiah Limon MD PGY?1 Attending Provider Attestation/Addendum Patient seen and examined with resident physician Dr. Reyes. Note reviewed, agree with findings and recommendations. patient currently seen in ICU. Very lethargic. Blood pressure still on the lower side. Doubt he is a TAVR candidate. Spoke to ICU team to consider comfort care/hospice as patient was not tolerating outpatient dialysis. Plan of care discussed with Dr. Ryan.
--- NOTE | 2024-07-28 09:16 | PD.INTPROG ---
Documentation for date of: 07/28/24 Subjective Subjective Interval history: This is a 79yo M admitted to the ICU on 07/24 for hypotension which progressed to shock felt to be distributive and cardiogenic in nature due to his UTI /sepsis and severe . He has been on intermittent vasopressor support since arrival. His levophed was most recently turned off at 3am today. He is on prn midodrine at home for intermittent hypotension as well. He has a h/o ESRD on HD T/T/S. Yesterday he was given a one time dose of seroquel for agitation and since has been lethargic. This AM he is lethargic but arousable and able to answer a few questions but seems confused overall. He does have some UOP which is purulent in nature. He remains afebrile. Critical Care Note Critical care time (min.): 0 Exam Vital Signs Temp Pulse Resp BP Pulse Ox O2 Del Method O2 Flow Rate 97.1 F 90 24 H 97/61 100 Room Air 2 07/27/24 20:00 07/28/24 06:16 07/28/24 06:16 07/28/24 06:00 07/28/24 06:16 07/27/24 07:00 07/28/24 06:16 FiO2 1 07/27/24 11:42 Narrative Exam Gen- NAD, elderly and frail, chronically in appearance, lethargic HEENT- NC/AT, mucosa dry with significant oral debris and poss white thrush plaques, neck supple, no JVD Chest- occasional expiratory wheeze throughout with few crackles heard on post RLL, no increase in WOB, HRRR, sounds distant Abd- s/nt/bs+ Ext- no edema, pedal pulses weak but palp, b/l feet cold and dusky, fingers b/l cool and dusky , mult areas of bruising on UE Physical Exam Completion Physical Exam Complete?: Yes Objective - Sole Trimmer Labs 07/28/24 04:16 07/28/24 04:16 Labs: Laboratory Results - last 24 hr 07/27/24 07/27/24 07/27/24 05:35 11:44 16:04 WBC RBC Hgb Hct MCV MCH MCHC RDW Std Deviation Plt Count Neut % (Auto) Lymph % (Auto) [place] % (Auto) Eos % (Auto) Baso % (Auto) Neut # (Auto) Lymph # (Auto) [place] # (Auto) Eos # (Auto) Baso # (Auto) Immature Gran # (Auto) Absolute Nucleated RBC Immature Gran % Nucleated RBC % Sodium Potassium Chloride Carbon Dioxide Anion Gap BUN Creatinine Estim Creat Clear Calc eGFR BUN/Creatinine Ratio Glucose Calculated Osmolality Lactic Acid 1.4 Calcium Corrected Calcium Phosphorus Total Bilirubin AST ALT Alkaline Phosphatase Total Protein Albumin Globulin Albumin/Globulin Ratio Ur Collection Type Clean Catch Urine Color Yellow Urine Clarity Turbid A Urine pH 7.5 H Ur Specific [place] 1.018 Urine Protein 3+ A Urine Glucose (UA) Negative Urine Ketones Negative Urine Blood 3+ A Urine Nitrite Negative Urine Bilirubin Negative Urine Urobilinogen (Auto) Negative Ur Leukocyte Esterase Positive Urine RBC 70 H Urine WBC 1375 H Ur Squamous Epith Cells 3 Amorphous Crystals Present A Urine Bacteria 1+ A Misc Test Result Platelets confirmed 07/27/24 07/28/24 17:15 04:16 WBC 21.0 H RBC 3.70 L Hgb 9.8 L Hct 32.4 L MCV 88 MCH 26.5 MCHC 30.2 L RDW Std Deviation 58.4 H Plt Count 28 L* D Neut % (Auto) 88 H Lymph % (Auto) 3 L [place] % (Auto) 8 Eos % (Auto) 0 Baso % (Auto) 0 Neut # (Auto) 18.4 H Lymph # (Auto) 0.7 L [place] # (Auto) 1.7 H Eos # (Auto) 0.1 Baso # (Auto) 0.0 Immature Gran # (Auto) 0.13 H Absolute Nucleated RBC 0.06 H Immature Gran % 1 H Nucleated RBC % 0 Sodium 139 139 Potassium 3.6 D 4.1 D Chloride 99 98 Carbon Dioxide 27.1 25.3 Anion Gap 13 16 BUN 28 H 36 H Creatinine 3.0 H D 3.8 H D Estim Creat Clear Calc 21.2 L 16.7 L eGFR 20 L 15 L BUN/Creatinine Ratio 9 L 9 L Glucose 102 135 H Calculated Osmolality 283 287 Lactic Acid Calcium 8.0 L 8.4 Corrected Calcium 8.6 8.9 Phosphorus 3.6 Total Bilirubin 0.7 AST 121 H ALT 141 H Alkaline Phosphatase 298 H Total Protein 6.4 Albumin 3.2 L 3.4 Globulin 3.0 Albumin/Globulin Ratio 1.1 L Ur Collection Type Urine Color Urine Clarity Urine pH Ur Specific [place] Urine Protein Urine Glucose (UA) Urine Ketones Urine Blood Urine Nitrite Urine Bilirubin Urine Urobilinogen (Auto) Ur Leukocyte Esterase Urine RBC Urine WBC Ur Squamous Epith Cells Amorphous Crystals Urine Bacteria Misc Test Result Platelets confirmed Assessment & Plan Additional Plan Additional Plan: In summary this is a 79yo M admitted to the ICU for hemodynamic instability and shock a/p LEAF TIER AMS- delerium v acute encephalopathy CV ? cardiogenic shock v distributive/septic- pt has signs of poor tissue perfusion and an elevated LA however with a MAP within goal. pt with severe as well as dilated LV with global hypokinesia and EF of 20%, RVSP estimated at 60 - Cheeta shows low nl SVR and CI wnl, pt is not fluid responsive - on abx for sepsis Severe - has had a significant decrease in his EF from Apr 55%-> 20% - cards consulted and being evaluated for TAVR CHFrEF- current EF of 20% - echo shows dilated LV - likely due to severe Resp Pulmonary edema- pt with increased markings on CXR - unable to tolerate HD for significant vol removal - difficult volume status with severe Acute hypoxic resp failure- requiring NC to maintain sats, this is new from baseline Renal ESRD on HD- followed by nephrology - palp bruit in L arm - unable to tolerate HD yesterday - d/w nephrology and unable to tolerate HD well over the last month or so GI Transaminitis- has been increasing over the last few days - ? cholestasis v hepatic congestion - viral panel neg - check RUQ US Nutrition- unable to take PO at this time - may require NGT for meds and feeds Endo Hypothyroid- on levothyroxine at home, unable to take PO at this time Heme Leukocytosis- had been trending upward however with change of abx regimen yesterday now trending back down Anemia- near baseline, has a h/o mult transfusions as outpt - d/w outpt team and apparently has had 55uPRBCs transfused over the last year Thrombocytopenia- at this time felt to be most likely due to sepsis - no active bleeding noted today - no need for transfusion at this time however if <15k will transfuse for risk of spontaneous bleed DVT proph- SCD, chemical proph on hold for now ID Sepsis- on abx with cx pending. has a h/o ESBL in the past from his urine case d/w family at bedside GOC discussion held with mult family members and family. His overall condition discussed. Family at this point in time would like to take pt home on hospice. d/w ICU team labs, imaging, records reviewed ~40min required for eval, exam, review, intervention, discussion and formulation of POC for this pt Provider Notation Provider Notation: Although this document has been carefully reviewed, there may still be some phonetic and other typographical errors. These errors are purely grammatical due to imperfections in the software program and should not be construed in any way to compromise the substance of the patient's medical care during this visit. Thank you for the opportunity and privilege in assisting you with this patient's care and management.
--- NOTE | 2024-07-28 09:31 | PD.RESPRO ---
Documentation for date of: 07/28/24 Subjective Subjective Interval history: Patient is a 79-year-old male with past medical history of hemodialysis (TTS) with Dr. Beltrán, history of aortic stenosis with his unemployment specialist being Dr. Mann, history of UTIs, basal cell cancer, prostate cancer status post radiation in 2009 who presented with chief complaint shortness of breath and lower extremity swelling. Patient was accompanied by daughter who was at bedside and contributed to the story stating that patient has not been having complete sessions of hemodialysis as he has been having episodes of hypotension during the dialysis which led to the session being cut short. The shortness of breath has progressively gotten worse as well as the pitting edema in the lower extremities. Patient does also endorse abdominal discomfort in the epigastric region and he has diffuse distention and mild tenderness to palpation throughout the abdomen. His last bowel movement was the day prior to admission and he has a history of constipation. Patient makes little urine and he usually takes midodrine 10 mg right before dialysis sessions. In our ER patient has had soft blood pressures in the 80s over 60s with heart rate during the high 90s respiratory in the high 20s without any fevers and satting well 2 L nasal cannula. His pressure did not improve despite his 20 mg of midodrine and ICU was consulted for pressor support during hemodialysis session. Patient has left AV fistula in the upper extremity however given patient's very soft blood pressures and presenting severe aortic stenosis hemodialysis catheter was placed in the right femoral vein in preparation for CRRT. Dr Damon, who is covering for Dr. Funez, will be following the patient during his stay as well as Dr. Mann. Patient will be brought to the unit for further monitoring and close trending of his blood pressures during hemodialysis as well as pressor support. 07/25/24: Patient seen and examined in the ICU today. Overnight patient was somewhat restless likely due to the lack of sleep. Patient was started on CRRT at around midnight and completed an 8 hour session and removed about 400cc of fluids. We will continue another session of CRRT after speaking with Dr Damon. He remains on 0.5 of levophed. Will schedule midodrine 10mg TID in attempts to weak him off of the pressor support. White count did elevate to 19.8 but there were no overnight fevers. Will follow up with cultures and continue abx at this time. He remains on minimal O2 support. Will continue to wean down as tolerated. Troponins continue to climb to 2.002 this morning, patient denies any chest pain, likely secondary to stress from severe aortic stenosis and unable to clear it. 07/26/2024: Patient had 12mg of melatonin to sleep. Patient off levophed this morning. Lungs sound significantly better with improved airway, and lower extremity edema significantly improved with no wrinkling of the feet. No dialysis today. If blood pressure remains stable on midodrine without the use of levophed, anticipate downgrade to Tele tomorrow. Of note, patient was found to be chewing his own chewing tobacco. This was confiscated and patient was given a nicotine patch instead. 07/27/2024: Patient was seen and examined in the ICU today. There were no major overnight events and patient is doing okay this morning. Patient has been off of the Levophed since yesterday at 6 AM and been maintaining an MAP of over 65. Patient remains somewhat confused this morning alert to self and place but not to time and seems somewhat sleepy. We will try a full hemodialysis session today as we have already removed about 4 L of fluid through CRRT on Saturday. Will follow-up with cardiology for plans of TAVR as patient's echocardiogram shows worsening function drop from 60% on April of this year to 25% on this admission. Patient's lower extremities are less edematous today and there is clear lung sounds bilaterally. Will do an In-N-Out catheter to obtain urine as family member stated that his urine was cloudy recently. The possible underlying UTI may be contributing to patient's delirium as well as climbing white count. Blood cultures have been negative for 48 hours. Given patient's previous episode of ESBL Klebsiella will switch antibiotics to Zosyn which previous cultures have shown to be sensitive to. 07/28/24 Patient seen and examined in the ICU today. Overnight patient was started on levophed around 7pm and discontinued at 3am in the morning hours. Patient was only able to tolerate HD fluid removal of 500cc yesterday due to hypotension. He has been unable to swallow due to coughing when trying to swallow and hence his has not had his midodrine. Will hold off on HD today. Patient's BP is in the low 100s/60s wth HR 90s and satting in low 90s on 1L NC. WBC trended down to 21 today and there were no overnight fevers. Platelet count dropped to 28. Lactate increased to 4.9 this morning and patient does have mottling of his knees. Will have goals of care discussion with primary decision maker, Daughter. Sugar showed a CI of 4.1 with no fluid responsiveness and a TPR of 858 which is slightly decreased. Goals of care discussion was held with family and decision was made to make the patient DNR/DNI and take him home on hospice. Exam Vital Signs Temp Pulse Resp BP Pulse Ox O2 Del Method O2 Flow Rate 97.1 F 90 24 H 97/61 100 Room Air 2 07/27/24 20:00 07/28/24 06:16 07/28/24 06:16 07/28/24 06:00 07/28/24 06:16 07/27/24 07:00 07/28/24 06:16 FiO2 1 07/27/24 11:42 Narrative Exam Constitutional: Well nourished in no severe distress. CVS: RRR, S1 and S2 present. Loud systolic crescendo decrescendo murmur heard on the parasternal area RESP: CTAB, There is weazing on the left long field with distant breathsounds. Right side sounds clear GI: Large but soft with mild tenderness to deep palpation. Umbilical hernia. MSK: Full range of motion, No trauma or deformities or masses. Trace pitting edema bilateral lower extremities. There is left AV fistula without discharge or erythema. Skin: Warm to touch, Dry. No rashes or lesions. No hematomas Neuro: prime minister II-XII grossly intact. Sensation grossly intact. Psych: (AAO) x3. Lethargic Objective Labs 07/28/24 04:16 07/28/24 04:16 Labs: Laboratory Results - last 24 hr 07/27/24 07/27/24 07/27/24 11:44 16:04 17:15 WBC RBC Hgb Hct MCV MCH MCHC RDW Std Deviation Plt Count Neut % (Auto) Lymph % (Auto) [place] % (Auto) Eos % (Auto) Baso % (Auto) Neut # (Auto) Lymph # (Auto) [place] # (Auto) Eos # (Auto) Baso # (Auto) Immature Gran # (Auto) Absolute Nucleated RBC Immature Gran % Nucleated RBC % Sodium 139 Potassium 3.6 D Chloride 99 Carbon Dioxide 27.1 Anion Gap 13 BUN 28 H Creatinine 3.0 H D Estim Creat Clear Calc 21.2 L eGFR 20 L BUN/Creatinine Ratio 9 L Glucose 102 Calculated Osmolality 283 Lactic Acid 1.4 Calcium 8.0 L Corrected Calcium 8.6 Phosphorus 3.6 Total Bilirubin AST ALT Alkaline Phosphatase Total Protein Albumin 3.2 L Globulin Albumin/Globulin Ratio Ur Collection Type Clean Catch Urine Color Yellow Urine Clarity Turbid A Urine pH 7.5 H Ur Specific Loving 1.018 Urine Protein 3+ A Urine Glucose (UA) Negative Urine Ketones Negative Urine Blood 3+ A Urine Nitrite Negative Urine Bilirubin Negative Urine Urobilinogen (Auto) Negative Ur Leukocyte Esterase Positive Urine RBC 70 H Urine WBC 1375 H Ur Squamous Epith Cells 3 Amorphous Crystals Present A Urine Bacteria 1+ A Misc Test Result 07/28/24 04:16 WBC 21.0 H RBC 3.70 L Hgb 9.8 L Hct 32.4 L MCV 88 MCH 26.5 MCHC 30.2 L RDW Std Deviation 58.4 H Plt Count 28 L* D Neut % (Auto) 88 H Lymph % (Auto) 3 L [place] % (Auto) 8 Eos % (Auto) 0 Baso % (Auto) 0 Neut # (Auto) 18.4 H Lymph # (Auto) 0.7 L [place] # (Auto) 1.7 H Eos # (Auto) 0.1 Baso # (Auto) 0.0 Immature Gran # (Auto) 0.13 H Absolute Nucleated RBC 0.06 H Immature Gran % 1 H Nucleated RBC % 0 Sodium 139 Potassium 4.1 D Chloride 98 Carbon Dioxide 25.3 Anion Gap 16 BUN 36 H Creatinine 3.8 H D Estim Creat Clear Calc 16.7 L eGFR 15 L BUN/Creatinine Ratio 9 L Glucose 135 H Calculated Osmolality 287 Lactic Acid Calcium 8.4 Corrected Calcium 8.9 Phosphorus Total Bilirubin 0.7 AST 121 H ALT 141 H Alkaline Phosphatase 298 H Total Protein 6.4 Albumin 3.4 Globulin 3.0 Albumin/Globulin Ratio 1.1 L Ur Collection Type Urine Color Urine Clarity Urine pH Ur Specific [place] Urine Protein Urine Glucose (UA) Urine Ketones Urine Blood Urine Nitrite Urine Bilirubin Urine Urobilinogen (Auto) Ur Leukocyte Esterase Urine RBC Urine WBC Ur Squamous Epith Cells Amorphous Crystals Urine Bacteria Misc Test Result Platelets confirmed Quality Measures Quality Measures VTE prophylaxis Advance care planning discussed with:: child Assessment & Plan Assessment Current Active Medications: Generic Name Dose Route Start Last Admin Trade Name Freq PRN Reason Stop Dose Admin Acetaminophen 650 mg 07/24/24 14:45 Acetaminophen 325 Mg Tablet PO 08/23/24 14:44 Q6H PRN Fever >101.5 Acetaminophen 650 mg 07/24/24 14:45 07/27/24 13:08 Acetaminophen 325 Mg Tablet PO 08/23/24 14:44 650 mg Q6H PRN Administration PAIN SCALE 1-3 (mild Albuterol/Ipratropium 3 ml 07/24/24 14:45 07/26/24 06:10 Albuterol/Ipratropium (Duoneb) Rt Christianne 3 Ml Nebu INH 08/23/24 18:59 3 ml Q6HRRT PRN Administration SHORTNESS OF BREATH OR WHEEZE Atorvastatin Calcium 40 mg 07/25/24 21:00 07/27/24 22:54 Atorvastatin Calcium 20 Mg Tablet PO 08/24/24 20:59 Not Given HS ROBERT Budesonide 0.5 mg 07/25/24 09:45 07/28/24 06:12 Budesonide Rt 0.5 Mg/2 Ml Nebu INH 08/24/24 09:44 0.5 mg BIDRT ROBERT Administration Gabapentin 100 mg 07/25/24 09:00 07/28/24 08:36 Gabapentin 100 Mg Capsule PO 08/24/24 08:59 Not Given QDAY ROBERT Heparin Sodium (Porcine) 3,000 unit 07/25/24 17:33 07/25/24 18:00 Heparin Sod Inj 1000 Unit/Ml Vial 10 Ml INDWELLCAT 08/08/24 17:32 3,000 unit PRN PRN Administration DIALYSIS Norepinephrine/Dextrose 8 mg in 250 mls @ 8.25 mls/hr 07/24/24 14:52 07/28/24 03:30 Levophed In D5w 8mg/250ml IV 08/23/24 14:51 0 mcg/kg/min .Q24H PRN 0 mls/hr PER PROTOCOL Titration Protocol 0.05 MCG/KG/MIN Piperacillin/Tazobactam/Dextrose 3.375 gm in 50 mls @ 12.5 mls/hr 07/27/24 07:57 07/27/24 21:27 Zosyn IV 08/03/24 07:56 12.5 mls/hr Q12HR ROBERT Administration Albumin Human 25 gm in 100 mls @ 100 mls/hr 07/27/24 08:54 07/27/24 09:02 Albuminar-25 Ivpb IV 100 mls/hr PRN PRN Administration DIALYSIS Levothyroxine Sodium 100 mcg 07/26/24 06:00 07/28/24 06:21 Levothyroxine Sodium 100 Mcg Tablet PO 08/25/24 05:59 Not Given ACBR ROBERT Midodrine 10 mg 07/25/24 09:00 07/28/24 06:21 Midodrine 5 Mg Tablet PO 08/24/24 08:59 Not Given TID ROBERT Ondansetron HCl 4 mg 07/24/24 14:45 Ondansetron Inj 2 Mg/Ml Inj 2 Ml IV 08/23/24 14:44 Q6H PRN NAUSEA OR VOMITING Protocol Pantoprazole Sodium 40 mg 07/28/24 09:00 Pantoprazole Inj 40 Mg Vial IVP 08/27/24 08:59 QDAY [facility] Protocol Sennosides 1 tab 07/25/24 09:00 07/28/24 08:37 Senna/Docusate Sod 1 Tab Tablet PO 08/24/24 08:59 Not Given QDAY [facility] Protocol Plan 79-year-old male with past medical history of hemodialysis (TTS) with Dr. Beltrán, history of aortic stenosis with his unemployment specialist being Dr. Mann, history of UTIs, basal cell cancer, prostate cancer status post radiation in 2009 admitted to the ICU for shock. Neuro #Acute encephalopathy, improving Likely underlying ICU delirium versus metabolic versus infectious versus hypoxic Patient does take trazodone for sleep at night, he was unable to sleep due to constant monitoring at night. - Have family at beside to help reorient patient CVS #Shock,improving Cardiogenic component has improved however septic component still present Patient's last EF was on 04/30/2024 and showed an EF of 55 to 60% with aortic stenosis during a V-max of 5 m/s and aortic valve area of 0.7 cm?. Repeat echocardiogram on this admission showed worsening EF 20 to 25% with V-max remaining 4 m/s and a gradient of 60 #Troponinemia due to demand ischemia, improving Troponins were elevated at 1.816, peaked at 2.002. EKG did not show any ST segment changes #History of HLD #Continue home statin Resp #Acute hypoxic respiratory failure Secondary to fluid overload from CHF exacerbation versus pneumonia versus COPD exacerbation X-ray showed pulmonary congestion and on exam crackles can be heard in bibasilar lung mike. - Ceftriaxone for CAP 07/25-07/27 switched to Zosyn to cover for possible ESBL Klebsiella UTI - DuoNebs as needed. budesenide bid for COPD - Will do hemodialysis today. GI #Abdominal pain Likely secondary to constipation versus gas. 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 Had TABLO 07/25. ?Dr Funez #Lacticacidosis Secondary to shock leading to decreased perfusion. Endo #History of hypothyroidism - Continue home levothyroxine ID/Skin #Sepsis secondary to pneumonia versus UTI Patient meets SIRS criteria 3/4 with pneumonia being possible underlying source of infection Chest x-ray revealed bibasilar pneumonia. Patient received azithromycin and Rocephin in the ED. ?Will bladder scan and attempt straight cath to obtain a UA and patient ? Patient does have previous history of ESBL Klebsiella UTIs which are resistant to Rocephin - Continue ceftriaxone 07/24-07/27 switched to Zosyn 07/27? - Blood cultures have been negative for 48 hours Hematology #Leukocytosis Due to infection, see ID above #Heyde Syndrome #Thrombocytopenia Aortic stenosis, iron deficieny anemia, and history of GIB Not actively bleeding 4T score results <5% probability of HIT, HIT panel was sent - Holding heparin - SCD Hospital Maintenance: FEN: Cardiac diet DVT PPx: SCDs GI PPx: Protonix Q day IV lines: PIV, remove triflow cath Tee: None Code Status: Full code Dispo: Patient was transition to hospice and he will be discharged home. I discussed patient's care with attending physician, Dr Connor Montalvo PGY3
[2024-07-28 09:34] LABS: Lactate (Lactic Acid) 4.9 mMol/L (0.4-2.0)
[2024-07-28] MEDS: PANTOPRAZOLE INJ 40 MG VIAL IVP (09:45)
[2024-07-28] MEDS: PIPER/TAZO 3.375 GM PREMIX 3.375 GM/50 ML BAG IV (09:45)
--- NOTE | 2024-07-28 11:06 | PC.NURSE ---
Family and patient decided that they would like to go home on hospice, [employer] school social science teacher informed.
[2024-07-28] MEDS: ACETAMINOPHEN 325 MG TABLET 650 MG PO (11:16)
--- NOTE | 2024-07-28 11:21 | EVENTNT_ITS ---
Documentation for date of: 07/28/24 Event Note Event Note: Goals of care discussions were held with family. At this time decision was made to not seek any further aggressive medical management and take the patient home with Hospice. Patient code status was changed to DNR/DNI. Supervisor CalibrationSamuel was at bedside with myself when code status was changed and POLST form was signed. Case was discussed with attending Bus Matron Surinder Dickey MD PGY-3
--- NOTE | 2024-07-28 11:52 | PC.SS ---
Goals of Care discussion held with patient?s family members to include daughter, Xiao Archer; and patient?s sister, Quyen Godfrey.? Dr. Ryan provided overview regarding the patient?s condition, treatment and prognosis. ?Due to patient?s current condition hospice option discussed with the family.? Sterilization Specialist confirmed that patient is currently medically stable for discharge home if family decides with hospice option.? Family requested time to discuss option amongst themselves.? Bedside nurse informed COMPUTER SERVICE TECHNICIAN that patient?s family has decided to transition the patient home with hospice services.? COMPUTER SERVICE TECHNICIAN confirmed with patient?s surrogate medical decision maker, Xiao Archer ; plan to transition the patient home with hospice services.? Daughter?s preferred choice for hospice services is [facility].? Patient had previously been [facility] with [facility].? DME to be ordered include hospital bed and oxygen.? Patient currently on 3L nasal cannula.? Daughter has agreed to have patient discontinue dialysis services.? Granulator Machine Operator is Dr. Funez.? COMPUTER SERVICE TECHNICIAN to be present for any further intervention required.?
--- NOTE | 2024-07-28 11:53 | PC.SS ---
WIRE MACHINE CUTTER present as ICU resident completed POLST form with patient's surrogate medical decision maker, Xiao Archer. Patient's code status is now DNR. Comfort focused treatment. Completed POLST form provided to the patient's daughter, Copy charted in patient's chart.
--- NOTE | 2024-07-28 11:56 | PC.SS ---
Hospice referral submitted on [facility]. Preferred agency is [facility]. Response is pending.
[2024-07-28 12:16] LABS: Reflex Lactate? Y
--- NOTE | 2024-07-28 13:21 | ESPR_ITS ---
<Statement entered by Kory Mann MD - 07/29/24 12:42> I personally evaluated the patient examined along with resident team patient is doing poorly developed cardiogenic shock and septic shock as well poor lead not responding well requiring vasopressor unable to tolerate any dialysis patient's family decided to make him comfort care and hospice care and decided to take him to the home with hospice care appears to be not appropriate spent more than 40 minutes over the patient's discussions with the resident primary team as well as family concur with the decision to place him in hospice care patient is not expected to survive and is quite reasonable. Documentation for date of: 07/28/24 Subjective Subjective Interval history: Patient examined bedside this morning, overnight he needed presser support. family decided to go to home with home hospice . Exam Vital Signs Temp Pulse Resp BP Pulse Ox O2 Del Method O2 Flow Rate 97.8 F 92 26 H 103/62 100 Nasal Cannula 3 07/28/24 08:00 07/28/24 10:00 07/28/24 09:00 07/28/24 10:00 07/28/24 10:00 07/28/24 10:00 07/28/24 10:00 FiO2 1 07/27/24 11:42 Narrative Exam Gen: Well-developed and well-nourished elderly male, lethergic HEENT: NCAT, PERRLA, EOMI, MMM, anicteric conjunctivae. CVS: normal S1 and S2. Systolic murmur over aortic area. No M/R/G. Resp: CTA B/L. No rhonchi, rales, crackles or wheezing. Abd: soft, non-tender, non-distended. BS+ in all 4 quadrants. MSK: Good ROM in BUE & BLE. No rash. Trace edema BLE. Neuro: CN II-XII grossly intact. Strength 5/5 in BUE & BLE. Alert and oriented x3. Objective Labs 07/28/24 04:16 07/28/24 04:16 Labs: Laboratory Results - last 24 hr 07/27/24 07/27/24 07/28/24 16:04 17:15 04:16 WBC 21.0 H RBC 3.70 L Hgb 9.8 L Hct 32.4 L MCV 88 MCH 26.5 MCHC 30.2 L RDW Std Deviation 58.4 H Plt Count 28 L* D Neut % (Auto) 88 H Lymph % (Auto) 3 L [place] % (Auto) 8 Eos % (Auto) 0 Baso % (Auto) 0 Neut # (Auto) 18.4 H Lymph # (Auto) 0.7 L [place] # (Auto) 1.7 H Eos # (Auto) 0.1 Baso # (Auto) 0.0 Immature Gran # (Auto) 0.13 H Absolute Nucleated RBC 0.06 H Immature Gran % 1 H Nucleated RBC % 0 Sodium 139 139 Potassium 3.6 D 4.1 D Chloride 99 98 Carbon Dioxide 27.1 25.3 Anion Gap 13 16 BUN 28 H 36 H Creatinine 3.0 H D 3.8 H D Estim Creat Clear Calc 21.2 L 16.7 L eGFR 20 L 15 L BUN/Creatinine Ratio 9 L 9 L Glucose 102 135 H Calculated Osmolality 283 287 Lactic Acid Calcium 8.0 L 8.4 Corrected Calcium 8.6 8.9 Phosphorus 3.6 Total Bilirubin 0.7 AST 121 H ALT 141 H Alkaline Phosphatase 298 H Total Protein 6.4 Albumin 3.2 L 3.4 Globulin 3.0 Albumin/Globulin Ratio 1.1 L Ur Collection Type Clean Catch Urine Color Yellow Urine Clarity Turbid A Urine pH 7.5 H Ur Specific [place] 1.018 Urine Protein 3+ A Urine Glucose (UA) Negative Urine Ketones Negative Urine Blood 3+ A Urine Nitrite Negative Urine Bilirubin Negative Urine Urobilinogen (Auto) Negative Ur Leukocyte Esterase Positive Urine RBC 70 H Urine WBC 1375 H Ur Squamous Epith Cells 3 Amorphous Crystals Present A Urine Bacteria 1+ A Misc Test Result Platelets confirmed 07/28/24 08:55 WBC RBC Hgb Hct MCV MCH MCHC RDW Std Deviation Plt Count Neut % (Auto) Lymph % (Auto) [place] % (Auto) Eos % (Auto) Baso % (Auto) Neut # (Auto) Lymph # (Auto) [place] # (Auto) Eos # (Auto) Baso # (Auto) Immature Gran # (Auto) Absolute Nucleated RBC Immature Gran % Nucleated RBC % Sodium Potassium Chloride Carbon Dioxide Anion Gap BUN Creatinine Estim Creat Clear Calc eGFR BUN/Creatinine Ratio Glucose Calculated Osmolality Lactic Acid 4.9 H* Calcium Corrected Calcium Phosphorus Total Bilirubin AST ALT Alkaline Phosphatase Total Protein Albumin Globulin Albumin/Globulin Ratio Ur Collection Type Urine Color Urine Clarity Urine pH Ur Specific [place] Urine Protein Urine Glucose (UA) Urine Ketones Urine Blood Urine Nitrite Urine Bilirubin Urine Urobilinogen (Auto) Ur Leukocyte Esterase Urine RBC Urine WBC Ur Squamous Epith Cells Amorphous Crystals Urine Bacteria Misc Test Result Quality Measures Quality Measures VTE prophylaxis Advance care planning discussed with:: patient Assessment & Plan Assessment Current Active Medications: Generic Name Dose Route Start Last Admin Trade Name Freq PRN Reason Stop Dose Admin Acetaminophen 650 mg 07/24/24 14:45 Acetaminophen 325 Mg Tablet PO 08/23/24 14:44 Q6H PRN Fever >101.5 Acetaminophen 650 mg 07/24/24 14:45 07/28/24 11:16 Acetaminophen 325 Mg Tablet PO 08/23/24 14:44 650 mg Q6H PRN Administration PAIN SCALE 1-3 (mild Albuterol/Ipratropium 3 ml 07/24/24 14:45 07/26/24 06:10 Albuterol/Ipratropium (Duoneb) Rt Christianne 3 Ml Nebu INH 08/23/24 18:59 3 ml Q6HRRT PRN Administration SHORTNESS OF BREATH OR WHEEZE Atorvastatin Calcium 40 mg 07/25/24 21:00 07/27/24 22:54 Atorvastatin Calcium 20 Mg Tablet PO 08/24/24 20:59 Not Given HS ROBERT Budesonide 0.5 mg 07/25/24 09:45 07/28/24 06:12 Budesonide Rt 0.5 Mg/2 Ml Nebu INH 08/24/24 09:44 0.5 mg BIDRT ROBERT Administration Gabapentin 100 mg 07/25/24 09:00 07/28/24 08:36 Gabapentin 100 Mg Capsule PO 08/24/24 08:59 Not Given QDAY ROBERT Heparin Sodium (Porcine) 3,000 unit 07/25/24 17:33 07/25/24 18:00 Heparin Sod Inj 1000 Unit/Ml Vial 10 Ml INDWELLCAT 08/08/24 17:32 3,000 unit PRN PRN Administration DIALYSIS Norepinephrine/Dextrose 8 mg in 250 mls @ 8.25 mls/hr 07/24/24 14:52 07/28/24 03:30 Levophed In D5w 8mg/250ml IV 08/23/24 14:51 0 mcg/kg/min .Q24H PRN 0 mls/hr PER PROTOCOL Titration Protocol 0.05 MCG/KG/MIN Piperacillin/Tazobactam/Dextrose 3.375 gm in 50 mls @ 12.5 mls/hr 07/27/24 07:57 07/28/24 09:45 Zosyn IV 08/03/24 07:56 12.5 mls/hr Q12HR ROBERT Administration Albumin Human 25 gm in 100 mls @ 100 mls/hr 07/27/24 08:54 07/27/24 09:02 Albuminar-25 Ivpb IV 100 mls/hr PRN PRN Administration DIALYSIS Levothyroxine Sodium 100 mcg 07/26/24 06:00 07/28/24 06:21 Levothyroxine Sodium 100 Mcg Tablet PO 08/25/24 05:59 Not Given ACBR ROBERT Midodrine 10 mg 07/25/24 09:00 07/28/24 06:21 Midodrine 5 Mg Tablet PO 08/24/24 08:59 Not Given TID ROBERT Ondansetron HCl 4 mg 07/24/24 14:45 Ondansetron Inj 2 Mg/Ml Inj 2 Ml IV 08/23/24 14:44 Q6H PRN NAUSEA OR VOMITING Protocol Pantoprazole Sodium 40 mg 07/28/24 09:00 07/28/24 09:45 Pantoprazole Inj 40 Mg Vial IVP 08/27/24 08:59 40 mg QDAY ROBERT Administration Protocol Sennosides 1 tab 07/25/24 09:00 07/28/24 08:37 Senna/Docusate Sod 1 Tab Tablet PO 08/24/24 08:59 Not Given QDAY ROBETR Protocol Plan 79-year-old male with PMH of HTN ,HLD hemodialysis(T//) follows Dr. 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 As per daughter he is missing his dialysis session secondary to low blood pressure, he usually takes midodrine before dialysis. He reports that his shortness of breath is getting worse and he cannot lie flat on bed. Also endorses cough with green sputum production since last couple of days. Patient was started on Levophed in the ED. #Severe aortic stenosis. #Shock, likely septic and cardogenic - Echo- Normal LV size and function with and EF of 55-60%. Moderate LVH. DIastolic Dysfunction stage II. Normal RV size and function. Modertely elevated RVSP 52 mmHg. Severe Aortic Stenosis Vmax 5 m/s, Max PG 90 mm hg, Mean PG 60 mm hg and BARRY 0.7 sqcm. Mild AI Moderate MA and Moderate MR. moderate TR. No pericardial effusion. He was recommended TAVR. -He had a cardiac cath on may 2024 : Severe calcific aortic stenosis with peak gradient 40 mmHg, mean gradient 34 mmHg.Normal nonobstructive epicardial coronary artery, Normal right heart pressure,Normal left ventricular function. 07/25/2024: - on norepinephrine 0.05 mcg.- Continue CRRT as scheduled. 07/27/2024: Echo on 07/26/2024: Dilated left ventricle with severe global hypokinesis with severe systolic dysfunction left ventricle ejection fraction approximately 20 to 25%. Left ventricle function is severely depressed compared to cardiac echo .May 08, 2024.Severe calcific aortic stenosis aortic velocity is 4 m/s with a peak gradient of 56 mmHg, Mild aortic valve regurgitation RV is normal in size. RV systolic function is mildly decreased. Estimated right ventricular systolic pressure, 60 mmHg. RAP 15,Mild thickening. With evidence of moderate 2+ mitral regurgitation,Mild to moderate TR,Left pleural effusion is present Mild PI. Dilated IVC. He is critically ill from severe aortic stenosis, sudden drop of ejection fraction within 4 weeks from 65% down to 25% due to severe aortic stenosis without underlying CAD. he is in cardiogenic shock secondary to low ejection fraction and severe Aortic Stenosis . He would need urgent transcutaneous aortic valve replacement and transfer to [facility] for possible TAVR after infection is cleared out within one week .Continue Midodrine and antibiotics for now. He was lethargic because he received seroquil at night and just had a session of hemodialysis . 07/28/2024: family decided to go on home hospice , he will be discharged today with home hospice . Rest of medical Problem management as per ICU team. Plan of care discussed with attending Dr. Mann. Flakita Vargas MD,PGY- 3
[2024-07-28] MEDS: MIDODRINE 5 MG TABLET 10 MG PO (14:01)
--- NOTE | 2024-07-28 14:51 | PC.SS ---
Ambulance transport scheduled for 05:00 pm this evening. PALEOLOGY PROFESSOR notified patient's daughter, bedside nurse and [facility]. Transport vendor is [employer].
--- NOTE | 2024-07-28 14:51 | PD.RESDS ---
Planned Discharge Date 07/28/24 DS: Providers Provider Date of admission: 07/24/24 15:08 Primary care physician: Shen Skelton MD Admitting Provider: Mallorie Ryan MD Attending Provider on Admission: Darya Ryan MD Consults: 07/24/24 13:42 Consult to Nephrology Stat Comment: Consulting Provider: Smita Damon 07/24/24 14:12 Consult to Cardiology Stat Comment: Consulting Provider: Kory Mann 07/24/24 22:05 [facility] Referral - Knowledge Deficit Routine Comment: Positive screening for knowledge deficit needs. 07/27/24 07:14 Consult to Cardiology Stat Comment: Consulting Provider: Abdifatah Castillo 07/28/24 11:36 Referral Hospice Routine Comment: Attending Provider on DC: Surinder Montalvo MD Discharging Provider: Surinder Montalvo MD DS: Diagnosis Problem List Completed Was Problem List Reviewed/Reconciled?: Yes Hospital Course Hospital Course Hospital course: Mr. Kim is an 79-year-old male with past medical history of hemodialysis TTS with Dr. Funez, aortic stenosis, history of UTIs, basal cell cancer, prostate cancer status post radiation in 2009 who presented with chief complaint shortness of breath and lower extremity swelling on 07/24/2024. Patient daughter and decision-maker was at bedside in the ED who contributed to the story as patient seemed very lethargic on presentation. Patient has a been unable to complete hemodialysis sessions 6 weeks prior to presentation due to hypotensive episodes despite midodrine. In the ER patient had a average mean arterial pressure of 40s despite small fluid bolus and 2 additional doses of 10 mg midodrine. Patient was fluid overloaded with 3+ pitting edema bilaterally, vascular congestion on chest x-ray shortness of breath and coughing. The decision was made to admit the patient to the ICU for pressor support as he undergoes hemodialysis. Due to patient's severe aortic stenosis which was confirmed by repeat echocardiogram the decision was made to place right femoral to try flow catheter for continuous renal replacement therapy rather than regular dialysis. Echocardiogram revealed the patient's ejection fraction dropped from 55 to 60% down to 20 to 25% since April. Aortic stenosis had a V-max of 4 m/s and a pressure gradient of 60. Patient's presentation of shock was also contributed to sepsis secondary to UTI as his white count continues to climb despite antibiotics which were broadened given patient's previous history of ESBL Klebsiella on previous presentations. Another attempt was made at regular hemodialysis once patient had completed the CRRT however he did not tolerated due to hypotensive episodes. Patient's lactic acid continued to climb after optimizing his fluid status revealing continuous lack of perfusion despite medical management. After further goals of care his discussions were held with the family decision was made to transition the patient to hospice and take him home. CODE STATUS was changed to DNR/DNI but decision maker and patient will be taking home with [facility] hospice services. 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 #Lacticacidosis #History of hypothyroidism #Sepsis secondary to pneumonia versus UTI #Leukocytosis #[place] Syndrome #Thrombocytopenia Thank you for allowing us to care for the patient during his time here at [facility] I discussed patient's care with attending physician, Dr Connor Montalvo PGY3 Time Spent with Patient Time attestation: Total time spent providing and/or coordinating discharge services: Time spent: Greater than 30 minutes Exam Vital Signs Temp Pulse Resp BP Pulse Ox O2 Del Method O2 Flow Rate 97.8 F 87 36 H 86/55 L 91 L Nasal Cannula 3 07/28/24 12:00 07/28/24 14:01 07/28/24 14:00 07/28/24 14:01 07/28/24 14:00 07/28/24 10:00 07/28/24 10:00 FiO2 1 07/27/24 11:42 Narrative Exam Constitutional: Well nourished in no severe distress. CVS: RRR, S1 and S2 present. Loud systolic crescendo decrescendo murmur heard on the parasternal area RESP: CTAB, There is weazing on the left long field with distant breathsounds. Right side sounds clear GI: Large but soft with mild tenderness to deep palpation. Umbilical hernia. MSK: Full range of motion, No trauma or deformities or masses. Trace pitting edema bilateral lower extremities. There is left AV fistula without discharge or erythema. Skin: Warm to touch, Dry. No rashes or lesions. No hematomas Neuro: edger automatic II-XII grossly intact. Sensation grossly intact. Psych: (AAO) x3. Lethargic Discharge Plan Plan Patient Disposition: Home w/HOSPICE Patient condition on transfer: Stable Care Plan Goals: Patient can return home on hospice with family Plan of care as per hospice with goal of comfort Prescriptions/Referrals Prescriptions/Med Rec: Continued tamsulosin 0.4 mg capsule 0.4 mg PO QDAY levothyroxine 100 mcg Tablet 100 mcg PO QDAY Qty: 0 atorvastatin 40 mg tablet 1 tab PO HS Patient Comments: take 1 tablet by mouth at bedtime for HIGH CHOLESTEROL pantoprazole [Protonix] 40 mg tablet,delayed release (DR/EC) 40 mg PO BID Qty: 60 0RF Lupron [place] (3 month) 22.5 mg Syringe Kit See Rx Instructions .ROUTE .COMPLEX Rx Instructions: 22.5 mg IM every 3 months Vitamin C 100 mg Tablet 500 mg PO BID sucralfate 1 gram tablet 1 g PO BID Patient Comments: take 1 tablet by mouth twice a day ferric citrate [Auryxia] 210 mg iron tablet 210 mg PO TID Rx Instructions: administer with a meal cholecalciferol (vitamin D3) [Vitamin D3] 50 mcg (2,000 unit) capsule 50 mcg PO QDAY melatonin 5 mg capsule 10 mg PO PRN PRN (Reason: insomnia) acetaminophen 325 mg capsule 325 mg PO Q6H PRN (Reason: pain) furosemide 20 mg tablet 20 mg PO DAILY Patient Comments: take 1 tablet by mouth once daily for edema midodrine 10 mg tablet 10 mg PO PRN PRN (Reason: hypotension) Patient Comments: take 1 tablet by mouth twice a day if needed Rx Instructions: take 30 minutes prior to dialysis ipratropium-albuterol 0.5 mg-3 mg(2.5 mg base)/3 mL solution for nebulization 3 ml INHALATION Q6H PRN (Reason: shortness of breath or wheezing) Patient Comments: inhale contents of 1 vial ( 3 MILLILITERS ) in nebulizer by mouth... (REFER TO PRESCRIPTION NOTES). sucralfate [Carafate] 1 gram tablet 1 g PO BID trazodone 50 mg Tablet 100 mg PO QDAY gabapentin 100 mg Capsule 100 mg PO QDAY calcium acetate(phosphat bind) 667 mg Capsule 667 mg PO TID Rx Instructions: 3 times daily with meals fluticasone propion-salmeterol 100-50 mcg/dose Blister With Device 1 inh INHALATION BID ferric citrate [Auryxia] 210 mg iron tablet 420 mg PO TID Rx Instructions: administer with a meal Referrals: Shen Skelton MD [Primary Care Provider] - Patient/Caregiver Discharge Instructions Print Language: Romanian Stand Alone Forms: Franny Award Info., Patient Portal Info Letter Discharge Order Discharge Orders: Discharge (Routine); Ordered 07/28/24 Ordered By: Surinder Montalvo Quality Discharge Quality Measures sepsis
[2024-07-28 15:52] LABS: Hepatitis A Antibody IgM Non Reactive (Non React); Hepatitis B Core Antibody IgM Non Reactive (Non React); Hepatitis B Surface Ab NonReact(Not Immune) (Immune); Hepatitis B Surface Antigen Non Reactive (Non React); Hepatitis C Antibody Non Reactive (Non React)
--- NOTE | 2024-07-28 16:51 | PC.SS ---
Ambulance transport has been moved back to 05:30 pm today. DUCT MAKER updated patient's daughter, [facility] and bedside nurse.
[2024-07-29 06:55] LABS: Heparin-Induced PLT AB NEGATIVE (NEGATIVE)
[2024-07-30 06:30] LABS: ACTH, Plasma* 35 pg/mL (6-50)
== END 2024-07-28 17:42 | disposition hospice, home (50) | DRG 871 ==
LOC: SERX 14:28 → SERHOLD 15:37 → S2SX 07-25 08:49 → SERHOLD 07-25 15:19 → S2SX 07-25 15:19
PROVIDERS: Internal Medicine; Nurse Practitioner Primary Care; Student in an Organized Health Care Education/Training Program; Admitting Provider Internal Medicine; Emergency Provider Emergency Medicine; PCP Family Medicine; Visit Provider Internal Medicine
DX: A41.9 Sepsis, unspecified organism (principal); G93.41 Metabolic encephalopathy; J18.9 Pneumonia, unspecified organism; J96.01 Acute respiratory failure with hypoxia; R57.0 Cardiogenic shock; N18.6 End stage renal disease; R65.21 Severe sepsis with septic shock; K83.1 Obstruction of bile duct; I24.89 Other forms of acute ischemic heart disease; J44.0 Chronic obstructive pulmonary disease with (acute) lower respiratory infection; E87.20 Acidosis, unspecified; I50.20 Unspecified systolic (congestive) heart failure; I13.2 Hypertensive heart and chronic kidney disease with heart failure and with stage 5 chronic kidney disease, or end stage renal disease; N39.0 Urinary tract infection, site not specified; I08.0 Rheumatic disorders of both mitral and aortic valves; K59.00 Constipation, unspecified; Z99.2 Dependence on renal dialysis; E11.22 Type 2 diabetes mellitus with diabetic chronic kidney disease; D69.6 Thrombocytopenia, unspecified; D63.1 Anemia in chronic kidney disease; I95.89 Other hypotension; R62.7 Adult failure to thrive; E78.5 Hyperlipidemia, unspecified; E03.9 Hypothyroidism, unspecified; I27.20 Pulmonary hypertension, unspecified; N31.9 Neuromuscular dysfunction of bladder, unspecified; Z85.46 Personal history of malignant neoplasm of prostate; I48.91 Unspecified atrial fibrillation; Z85.828 Personal history of other malignant neoplasm of skin; Z92.3 Personal history of irradiation; Z87.440 Personal history of urinary (tract) infections; Z66 Do not resuscitate; Z95.2 Presence of prosthetic heart valve; K76.1 Chronic passive congestion of liver; I44.4 Left anterior fascicular block; Z79.899 Other long term (current) drug therapy
CPT/HCPCS: 36415; 71045; 71046; 74018; 80053; 80061; 80069; 80074; 81001; 82024; 83605; 83690; 83735; 83880; 84100; 84145; 84443; 84484; 85025; 85610; 85730; 86022; 86706; 87040; 87077; 87081; 87086; 87186; 87811; 92610; 93005; 93225; 93306; 94640; 96365; 96367; 99285; A9270; J0456; J0613; J0696; J1643; J1644; J2470; J2543; J3475; J3490; J7050; P9047